=== PATIENT | female | born 1980 | race Caucasian/White ===

== ENCOUNTER → 2020-05-07 13:38 | Outpatient (BNV) | payer MEDICARE, OTHER, MEDICAID, SELFPAY | PROVIDERS: PCP Internal Medicine; Visit Provider Internal Medicine Medical Oncology | DX: D72.819 Decreased white blood cell count, unspecified (principal) | CPT/HCPCS: 99212; 99213; 99214 ==

== ENCOUNTER 2020-06-01 16:58 | Outpatient (REF) | payer OTHER, SELFPAY | END 2020-06-01 16:59 | disposition home or self-care (01) | LOC: HO.LAB 16:58 | PROVIDERS: Visit Provider Nurse Practitioner Family | DX: R07.0 Pain in throat (principal); R21 Rash and other nonspecific skin eruption; Z20.822 Contact with and (suspected) exposure to COVID-19 | CPT/HCPCS: 36415; U0003; U0005 ==

== ENCOUNTER 2020-07-30 10:21 | Outpatient (REF) | payer OTHER, SELFPAY ==
--- NOTE | ~2020-07-30 | XR_ITS ---
EXAMINATION: XR CHEST CLINICAL INFORMATION: Chest pain COMPARISON: Previous chest x-ray September 2017 TECHNIQUE: 2 views of the chest were obtained. FINDINGS: No significant abnormality is noted involving the heart, lungs, mediastinum, bony thorax or soft tissues. XR/XR chest 2V IMPRESSION: Unremarkable examination.
--- NOTE | 2020-07-30 10:26 | ECG_ITS ---
Test Reason : CHEST PAIN Blood Pressure : / mmHG Vent. Rate : 087 BPM Atrial Rate : 087 BPM P-R Int : 146 ms QRS Dur : 086 ms QT Int : 362 ms P-R-T Axes : 034 070 055 degrees QTc Int : 435 ms Normal sinus rhythm Normal ECG When compared with ECG of 07-AUG-2018 11:46, No significant change was found Referred By: Jarrod Crenshaw Electronically Signed By:NATHAN CAAL MD
[2020-07-30 11:13] LABS: MANUAL DIFF FLAG NO
[2020-07-30 11:40] LABS: Basophils Percent Auto 0.6 % (0-2); Eosinophils Absolute Auto 0.2 X10*3/uL (0.0-0.4); Eosinophils Percent Auto 6.6 % (0-4); Hematocrit 39.7 % (37-47); Hemoglobin 13.4 g/dl (12.0-16.0); Imm Gran Abs Auto 0.02 X10*3/uL (0.00-0.03); Imm Gran Pct Auto 0.6 % (0.0-0.4); Lymphocytes Absolute Auto 1.6 X10*3/uL (1.2-4.9); Lymphocytes Percent Auto 44.7 % (20-40); Mean Corpuscular HGB Conc 33.8 g/dl (31.0-35.0); Mean Corpuscular Hemoglobin 33.3 pg (27.0-33.0); Mean Corpuscular Volume 98.8 fL (80-98); Mean Platelet Volume 10.9 fL (9.4-12.3); Monocytes Absolute Auto 0.5 X10*3/uL (0.1-1.2); Monocytes Percent Auto 14.5 % (2-11); Neutrophils Absolute Auto 1.2 X10*3/uL (2.0-8.3); Platelet Count 153 X10*3/uL (160-400); Red Blood Count 4.02 X10*6/uL (4.20-5.50); Red Cell Distribution Width 14.2 % (11.0-16.0); White Blood Count 3.5 X10*3/uL (4.8-10.8)
[2020-07-30 11:44] LABS: Alanine Aminotransferase 38 U/L (0-31); Albumin Level 3.8 g/dL (3.5-5.0); Alkaline Phosphatase 94 U/L (39-117); Anion Gap 12 (12-20); Aspartate Amino Transferase 32 U/L (5-31); Bilirubin Total 0.4 mg/dL (0.0-1.0); Blood Urea Nitrogen 11 mg/dL (9-16); Calcium 9.5 mg/dL (8.4-10.2); Carbon Dioxide 26 mmol/L (22-29); Chloride 105 mmol/L (96-108); Cholesterol 220 mg/dL; Estimated Glomerular Filt Rate > 60; Glucose Random 124 mg/dL (60-115); HDL Cholesterol 50 mg/dL; LDL Cholesterol Calculated 133 mg/dl; Potassium 4.3 mmol/L (3.3-5.1); Sodium 139 mmol/L (135-145); Total Protein 8.2 g/dL (6.5-8.0); Triglycerides 186 mg/dL
[2020-07-30 11:53] LABS: Estimated Average Glucose 111 mg/dL; Hemoglobin A1c % 5.5 %
[2020-07-30 11:54] LABS: Estimated Average Glucose 111 mg/dL; Hemoglobin A1c % 5.5 %
[2020-07-30 12:00] LABS: Alanine Aminotransferase 38 U/L (0-31); Albumin Level 3.8 g/dL (3.5-5.0); Alkaline Phosphatase 95 U/L (39-117); Anion Gap 11 (12-20); Aspartate Amino Transferase 32 U/L (5-31); Bilirubin Total 0.4 mg/dL (0.0-1.0); Blood Urea Nitrogen 11 mg/dL (9-16); Calcium 9.7 mg/dL (8.4-10.2); Carbon Dioxide 26 mmol/L (22-29); Chloride 106 mmol/L (96-108); Estimated Glomerular Filt Rate > 60; Free T4 (Free Thyroxine) 0.91 ng/dL (0.71-1.85); Glucose Random 125 mg/dL (60-115); Potassium 4.3 mmol/L (3.3-5.1); Sodium 139 mmol/L (135-145); Thyroid Stimulating Hormone 0.88 uIU/mL (0.32-4.0); Total Protein 8.2 g/dL (6.5-8.0)
[2020-07-30 12:05] LABS: Free T4 (Free Thyroxine) 0.92 ng/dL (0.71-1.85); Thyroid Stimulating Hormone 0.76 uIU/mL (0.32-4.0)
[2020-07-30 12:06] LABS: Vitamin B12 420 pg/mL (200-900)
[2020-07-31 05:12] LABS: Triiodothyronine T3 Total 128 ng/dL (76-181)
[2020-07-31 05:36] LABS: DHEA Sulfate 109 mcg/dL (19-231); Sex Hormone Binding Globulin 38 nmol/L (17-124)
[2020-07-31 06:01] LABS: Follicle Stimulating Hormone 63.6 mIU/mL; Lutenizing Hormone 30.9 mIU/mL; Prolactin 5.5 ng/mL
[2020-08-02 17:36] LABS: Anti-Mullerian Hormone-Female 0.01 ng/mL (0.01-2.99)
[2020-08-03 20:57] LABS: Androstenedione 139 ng/dL
[2020-08-04 18:42] LABS: Estradiol Ultra Sensitive 45 pg/mL
[2020-08-04 21:57] LABS: 21 Hydroxylase Antibody NEGATIVE (NEGATIVE)
[2020-08-05 01:56] LABS: Estradiol Free 0.85 pg/mL; Estradiol, Ultrasensitive 43 pg/mL
[2020-08-05 18:07] LABS: Testosterone, Free 4.5 pg/mL (0.1-6.4); Testosterone, Total 36 ng/dL (2-45)
== END 2020-07-30 10:22 | disposition home or self-care (01) ==
LOC: HO.XRAY 10:21
PROVIDERS: Internal Medicine; PCP Internal Medicine; Visit Provider Internal Medicine
DX: R07.9 Chest pain, unspecified (principal); E78.00 Pure hypercholesterolemia, unspecified; N91.2 Amenorrhea, unspecified
CPT/HCPCS: 36415; 71046; 80053; 80061; 82157; 82306; 82397; 82607; 82627; 82670; 82681; 82746; 83001; 83002; 83036; 83498; 83519; 84146; 84270; 84402; 84403; 84439; 84443; 84480; 85025; 93005

== ENCOUNTER → 2020-08-16 15:18 | Outpatient (BNVA) | payer OTHER, SELFPAY | PROVIDERS: PCP Internal Medicine; Visit Provider Internal Medicine ==

== ENCOUNTER 2020-09-17 13:50 | Outpatient (REF) | payer OTHER, SELFPAY ==
--- NOTE | ~2020-09-17 | US_ITS ---
EXAMINATION: US THYROID CLINICAL INFORMATION: Thyrotoxicosis with diffuse goiter. COMPARISON: Ultrasound thyroid soft tissues neck 11/20/2019 and 03/18/2018. TECHNIQUE: Linear transducer grayscale and color Doppler examination with attention to the region of the thyroid. FINDINGS: SIZE: Measurements of the thyroid lobes and nodules are given in sagittal, anteroposterior and transverse dimensions respectively. Right Thyroid Lobe: 5.2 x 2.3 x 1.5 cm, volume 9.5 mL. Previously 4.7 x 2.1 x 1.9 cm, volume 9.8 mL. Parenchyma: The gland echotexture is homogeneous. Thyroid vascularity is normal. Left Thyroid Lobe: 4.8 x 2.1 x 1.4 cm, volume 7.4 mL. Previously 4.4 x 2.1 x 1.7 cm, volume 8.3 mL. Parenchyma: The gland echotexture is homogeneous. Thyroid vascularity is normal. Isthmus: 0.68 cm in maximum AP dimension. Previously 0.70 cm. Estimated total number of nodules greater than or equal to 1 cm: 0. Subscription Clerk nodules are described as follows: NODES: No lymphadenopathy is seen in the tissue surrounding the thyroid gland. There is fullness of the soft tissues in the right neck superior to the thyroid gland. No solid or cystic mass, fluid collection or lymph node is seen. US/US thyroid IMPRESSION: Asymmetric fullness of the soft tissues of the right neck superior to the thyroid gland in the area of palpable abnormality. No focal solid or cystic lesion or lymph node seen. Upper normal-sized thyroid gland. The previously identified small cystic nodule in the left lobe on November 2019 exam is no longer seen. ACR TI-RADS RECOMMENDATION REFERENCE: Ultrasound-guided fine-needle aspiration, followup ultrasound, no further follow up. * TR1 (0 point) and TR 2 (2 points): No FNA or follow up * TR3 (3 points): FNA if more than or equal to 2.5 cm in maximum dimension, followup ultrasound in 1, 3 and 5 years if 1.5 to 2.4 cm in maximum dimension. * TR4 (4-6 points): FNA if more than or equal to 1.5 cm in maximum dimension, followup ultrasound in 1, 2, 3 and 5 years if 1 to 1.4 cm in maximum dimension. * TR5 (more than or equal to 7 points): FNA if more than or equal to 1 cm in maximum dimension, followup ultrasound every year for 5 years if 0.5 to 0.9 cm in maximum dimension. * TR3, TR4 or TR5 nodules that are below the size threshold for follow up receive no follow up.
== END 2020-09-17 13:51 | disposition home or self-care (01) ==
LOC: HO.HMGCX 13:50
PROVIDERS: PCP Internal Medicine; Visit Provider Internal Medicine
DX: E05.00 Thyrotoxicosis with diffuse goiter without thyrotoxic crisis or storm (principal)
CPT/HCPCS: 76536

== ENCOUNTER → 2020-12-09 14:14 | Outpatient (BNVA) | payer OTHER, SELFPAY | PROVIDERS: PCP Internal Medicine; Visit Provider Surgery Vascular Surgery | DX: I83.11 Varicose veins of right lower extremity with inflammation (principal) | CPT/HCPCS: 99212 ==

== ENCOUNTER 2021-01-05 11:01 | Outpatient (REF) | payer OTHER, SELFPAY ==
--- NOTE | ~2021-01-05 | US_ITS ---
EXAMINATION: BILATERAL LOWER EXTREMITY VENOUS ULTRASOUND (REFLUX EXAM) CLINICAL INDICATION: Lower extremity varicose veins. History of prior right great saphenous vein ablation. COMPARISON: 10/26/2017 TECHNIQUE: Color flow triplex imaging and compression Doppler was performed to evaluate both the deep and the superficial systems bilaterally. To evaluate the superficial system, the examination was performed in the upright position. Color-flow Doppler ultrasound and compression ultrasound were utilized. In addition, maneuvers were utilized to demonstrate reflux. FINDINGS: 1. DEEP VENOUS ULTRASOUND OF THE RIGHT LOWER EXTREMITY: Common Femoral Vein: Compressible, normal respiratory variation and augmented flow. Femoral vein: Compressible, normal color flow and augmentation. Popliteal Vein: Compressible, normal augmentation. Deep Reflux: There is no evidence of reflux in the deep system in either the common femoral vein or the popliteal vein. There is no evidence of a Pearson's cyst. 2. SUPERFICIAL ULTRASOUND WITH DOPPLER OF RIGHT LOWER EXTREMITY GREAT SAPHENOUS VEIN: Saphenofemoral junction: 0.8 cm; Reflux: No evidence of reflux. The great saphenous vein from the proximal thigh to the knee is occluded consistent with prior treatment. DUPLICATED MEDIAL GREAT SAPHENOUS VEIN: None Imaged. DUPLICATED LATERAL GREAT SAPHENOUS VEIN: None Imaged. SMALL SAPHENOUS VEIN: Saphenopopliteal junction: 0.2 cm; Reflux: No evidence of reflux. VEIN OF GIACOMINI: None Imaged. PERFORATORS: Location: Proximal and midcalf measuring up to 3 mm without evidence of reflux. Reflux: No reflux identified. VARICOSITIES: Location: Arising from the small saphenous vein and within the proximal thigh at the saphenofemoral junction. Reflux: There is greater than 3 seconds of reflux within the varicosity arising at the saphenofemoral junction. 3. DEEP VENOUS ULTRASOUND OF THE LEFT LOWER EXTREMITY: Common Femoral Vein: Compressible, normal respiratory variation and augmented flow. Femoral vein: Compressible, normal color flow and augmentation. Popliteal Vein: Compressible, normal augmentation. Deep Reflux: There is no evidence of reflux in the deep system in either the common femoral vein or the popliteal vein. There is no evidence of a Pearson's cyst. 4. SUPERFICIAL ULTRASOUND WITH DOPPLER OF LEFT LOWER EXTREMITY GREAT SAPHENOUS VEIN: Saphenopopliteal junction: 0.6 cm; Reflux: No evidence of reflux. Max diameter: 0.6 Min diameter: 0.2 Reflux: There is segmental reflux at the mid thigh up to 3.4 seconds. DUPLICATED MEDIAL GREAT SAPHENOUS VEIN: None Imaged. DUPLICATED LATERAL GREAT SAPHENOUS VEIN: 0.4 cm. No reflux. SMALL SAPHENOUS VEIN: Saphenofemoral junction: 0.3 cm; Reflux: No evidence of reflux. VEIN OF GIACOMINI: None Imaged. PERFORATORS: Location: Midcalf measuring 0.2 cm. Reflux: No reflux. VARICOSITIES: Location: Proximal thigh, mid thigh and proximal calf. All varicosities measure greater than 3 mm. Reflux: Reflux is demonstrated within the varicosities of the thigh measuring up to 3.3 seconds. 3. DEEP VENOUS ULTRASOUND OF THE LEFT LOWER EXTREMITY: Common Femoral Vein: Compressible, normal respiratory variation and augmented flow. Femoral vein: Compressible, normal color flow and augmentation. Popliteal Vein: Compressible, normal augmentation. Deep Reflux: There is no evidence of reflux in the deep system in either the common femoral vein or the popliteal vein. There is no evidence of a Pearson's cyst. US/US venous duplex LE BI IMPRESSION: 1. Bilateral refluxing varicosities. 2. Segmental reflux within the left great saphenous vein at the mid thigh. 3. No evidence of DVT or deep venous insufficiency.
== END 2021-01-05 11:02 | disposition home or self-care (01) ==
LOC: HO.US 11:01
PROVIDERS: PCP Internal Medicine; Visit Provider Surgery Vascular Surgery
DX: I83.893 Varicose veins of bilateral lower extremities with other complications (principal)
CPT/HCPCS: 93970

== ENCOUNTER → 2021-01-13 15:38 | Outpatient (BNVA) | payer OTHER, SELFPAY | PROVIDERS: PCP Internal Medicine; Visit Provider Surgery Vascular Surgery | DX: I83.11 Varicose veins of right lower extremity with inflammation (principal) | CPT/HCPCS: 99212 ==

== ENCOUNTER 2021-01-20 12:40 | Outpatient (REF) | payer OTHER, SELFPAY ==
--- NOTE | ~2021-01-20 | XR_ITS ---
EXAMINATION: XR CHEST CLINICAL INFORMATION: R07.9 - Chest pain, unspecified COMPARISON: Chest radiographs 07/30/2020, 10/01/2017 TECHNIQUE: 2 views of the chest were obtained. FINDINGS: The lungs are clear. There is no pneumothorax, pleural reaction, infiltrate, or effusion. The costophrenic sulci are well-defined. The heart is normal in size. The hilar and mediastinal contours and visualized bony structures are unremarkable. XR/XR chest 2V IMPRESSION: Unremarkable examination.
== END 2021-01-20 12:41 | disposition home or self-care (01) ==
LOC: HO.XRAY 12:40
PROVIDERS: PCP Internal Medicine; Visit Provider Internal Medicine
DX: R07.9 Chest pain, unspecified (principal)
CPT/HCPCS: 71046

== ENCOUNTER 2021-06-02 12:01 | Outpatient (REF) | payer OTHER, SELFPAY ==
[2021-06-02 13:26] LABS: Free T4 (Free Thyroxine) 0.98 ng/dL (0.71-1.85); Thyroid Stimulating Hormone 0.88 uIU/mL (0.32-4.0)
[2021-06-03 06:31] LABS: Follicle Stimulating Hormone 121.1 mIU/mL; Lutenizing Hormone 51.2 mIU/mL
[2021-06-11 01:46] LABS: Estradiol Free 0.26 pg/mL; Estradiol, Ultrasensitive 13 pg/mL
== END 2021-06-02 12:02 | disposition home or self-care (01) ==
LOC: HO.LAB 12:01
PROVIDERS: PCP Internal Medicine; Visit Provider Internal Medicine
DX: E05.00 Thyrotoxicosis with diffuse goiter without thyrotoxic crisis or storm (principal); E55.9 Vitamin D deficiency, unspecified; N95.1 Menopausal and female climacteric states
CPT/HCPCS: 36415; 82306; 82670; 82681; 83001; 83002; 84439; 84443

== ENCOUNTER 2021-06-11 10:24 | Outpatient (REF) | payer OTHER, SELFPAY ==
--- NOTE | ~2021-06-11 | MM_ITS ---
EXAMINATION: MM SCREENING DIGITAL BREAST TOMOSYNTHESIS, BILATERAL CLINICAL INFORMATION: Screening. Asymptomatic. Autoimmune condition with numerous skin lesions. The lifetime risk of breast cancer based on the Tyrer-Cuzick Model is 9%. COMPARISON: Mammography: 10/31/2018 (baseline). TECHNIQUE: Digital breast tomosynthesis is performed in both the craniocaudal and mediolateral oblique views along with computer-aided detection (CAD). Synthesized 2D images are generated from the tomosynthesis. FINDINGS: There are scattered areas of fibroglandular density (ACR BI-RADS breast composition Category b). There are multiple new bilateral irregular masses with spiculated margins in each breast. Left breast has 3 new irregular dominant masses central and upper outer breast. The largest is anterior 6:00 position measuring 1.3 x 0.6 cm. There is a irregular spiculated lesion anterior central 3:00 left breast measuring 0.8 x 0.7 cm with a small adjacent satellite lesion approximately 0.4 cm at the posterior aspect. The smallest lesion is mid upper outer quadrant measuring approximately 0.8 x 0.7 cm. There are no abnormal calcifications. The axilla and skin contours are unremarkable. Right breast has 2 irregular masses mid 12:00 position, the more medial measuring 1.9 x 0.5 cm and the adjacent more lateral measuring approximately 1.1 x 0.7 cm. There is also a 0.6 x 0.4 cm nodule with incompletely defined margins overlying the anterior low axillary tail on MLO view 11 cm from nipple. There are no abnormal calcifications. The axilla and skin contours are unremarkable. MM/MM tomosynthesis screening BI IMPRESSION: New bilateral multiple breast masses with spiculated margins. ASSESSMENT: BI-RADS 0: Incomplete - Need Additional Imaging Evaluation RECOMMENDATION: 1. Bilateral spot CC and spot ML. 2. Bilateral breast ultrasound. 3. Radiology department staff will contact the patient for additional imaging. This patient's information was entered into a reminder system with a target due date for their next mammogram.
== END 2021-06-11 10:25 | disposition home or self-care (01) ==
LOC: HO.MAMMO 10:24
PROVIDERS: Visit Provider Internal Medicine
DX: Z12.31 Encounter for screening mammogram for malignant neoplasm of breast (principal)
CPT/HCPCS: 77063; 77067

== ENCOUNTER 2021-06-22 10:50 | Outpatient (REF) | payer OTHER, SELFPAY ==
--- NOTE | ~2021-06-22 | MM_ITS ---
EXAMINATION: MM DIAGNOSTIC DIGITAL BREAST TOMOSYNTHESIS, BILATERAL TARGETED BILATERAL BREAST ULTRASOUND CLINICAL INFORMATION: Bilateral breast densities. Patient has Graves' disease, hyperthyroidism, and rheumatoid arthritis. COMPARISON: Mammography: 06/11/2021 and 10/31/2018. TECHNIQUE: Digital breast tomosynthesis is performed. 2D images are generated from the tomosynthesis. The following views are obtained: Spot compression views in craniocaudal and 90 degree mediolateral views bilaterally. FINDINGS: There are scattered areas of fibroglandular density (ACR BI-RADS breast composition Category b). Additional views of the right breast demonstrate two ill-defined densities about the superior aspect without associated microcalcifications. Views of the left breast demonstrate four ill-defined densities about the central and upper outer aspects. Ultrasound of the right breast demonstrates at the 1 o'clock position approximately 4 cm from the nipple an 8 x 4 mm hypoechoic region with a hyperechoic outer margin. There is some distal sound shadowing associated with this. There are a few other similar-appearing lesions in the vicinity. Left breast ultrasound demonstrated multiple similar-appearing lesions with hypoechoic central regions which are not well-defined as well as an outer hyperechoic area. At the 1 o'clock position 4 cm from nipple there is a 10 x 5 x 1.4 cm lesion. At the 4 o'clock position approximately 3 cm from nipple there is a 10 x 6 x 8 mm lesion. At the 5 o'clock position 3 cm from nipple there is a 10 x 5 x 8 mm similar-appearing lesion. A few of the lesions appear taller than they are wide and have internal vascular flow. These lesions are likely related to same systemic process. Ultrasound-guided core biopsy of one of the left breast lesions is recommended. Results are discussed with the patient at time of visit. Referring provider's office was called by breast center patient navigator. MM/MM tomosynthesis added view BI IMPRESSION: Numerous bilateral irregular lesions with hypoechoic central areas and hyperechoic rims likely related to patient's systemic disease. Ultrasound-guided core biopsy of one of the left breast lesions is suggested for pathologic correlation. ASSESSMENT: BI-RADS 4: Suspicious (subcategory 4A: Low suspicion for malignancy). RECOMMENDATION: Ultrasound-guided core biopsy left breast.
--- NOTE | ~2021-06-22 | US_ITS ---
EXAMINATION: MM DIAGNOSTIC DIGITAL BREAST TOMOSYNTHESIS, BILATERAL US BREAST, BILATERAL, TARGETED CLINICAL INFORMATION: Bilateral breast densities. Patient has Graves' disease, hyperthyroidism, and rheumatoid arthritis. COMPARISON: Mammography: 06/11/2021 and 10/31/2018. TECHNIQUE: Digital breast tomosynthesis is performed. 2D images are generated from the tomosynthesis. The following views are obtained: Spot compression views in craniocaudal and 90 degree mediolateral views bilaterally. FINDINGS: There are scattered areas of fibroglandular density (ACR BI-RADS breast composition Category b). Additional views of the right breast demonstrate 2 ill-defined densities about the superior aspect without associated microcalcifications. Views of the left breast demonstrate 4 ill-defined densities about the central and upper outer aspects. Ultrasound of the right breast demonstrates at the 1 o'clock position approximately 4 cm from the nipple an 8 x 4 mm hypoechoic region with a hyperechoic outer margin. There is some distal sound shadowing associated with this. There are a few other similar appearing lesions in the vicinity. Left breast ultrasound demonstrated multiple simple appearing lesions with hypoechoic central regions which are not well-defined as well as an outer hyperechoic area. At the 1 o'clock position 4 cm from the nipple there is a 10 x 5 x 1.4 cm lesion. At the 4 o'clock position approximately 3 cm from the nipple there is a 10 x 6 x 8 mm lesion. At the 5 o'clock position 3 cm from nipple there is a 10 x 5 x 8 mm similar-appearing lesion. A few of the lesions appear irregularly marginated with hyperechoic margins and have internal vascular flow. These lesions are likely related to the same systemic process. Ultrasound-guided core biopsy of one of the left breast lesions is recommended. US/US breast LT limited IMPRESSION: Numerous bilateral irregular lesions with hypoechoic central areas and hyperechoic rims likely related to patient's systemic disease. This may be related to fat necrosis. Ultrasound-guided core biopsy of one of the left breast lesions is suggested for pathologic correlation. ASSESSMENT: BI-RADS 4: Suspicious (subcategory 4A: Low suspicion for malignancy) RECOMMENDATION: Ultrasound guided core biopsy left breast. Results are discussed with the patient at time of visit. Referring provider's office was called by breast Center patient navigator.
--- NOTE | ~2021-06-22 | US_ITS ---
EXAMINATION: MM DIAGNOSTIC DIGITAL TOMOSYNTHESIS, BREAST. BILATERAL US BREAST, BILATERAL, TARGETED CLINICAL INFORMATION: Bilateral breast densities. Patient has Graves' disease, hyperthyroidism, and rheumatoid arthritis. COMPARISON: Mammography: 06/11/2021 and 10/31/2018. TECHNIQUE: Digital breast tomosynthesis is performed. 2D images are generated from the tomosynthesis. The following views are obtained: Spot compression views in craniocaudal and 90 degree mediolateral views bilaterally. FINDINGS: There are scattered areas of fibroglandular density (ACR BI-RADS breast composition Category b). Additional views of the right breast demonstrate 2 ill-defined densities about the superior aspect without associated microcalcifications. Views of the left breast demonstrate 4 ill-defined densities about the central and upper outer aspects. Ultrasound of the right breast demonstrates at the 1 o'clock position approximately 4 cm from the nipple an 8 x 4 mm hypoechoic region with a hyperechoic outer margin. There is some distal sound shadowing associated with this. There are a few other similar appearing lesions in the vicinity. Left breast ultrasound demonstrated multiple simple appearing lesions with hypoechoic central regions which are not well-defined as well as an outer hyperechoic area. At the 1 o'clock position 4 cm from the nipple there is a 10 x 5 x 1.4 cm lesion. At the 4 o'clock position approximately 3 cm from the nipple there is a 10 x 6 x 8 mm lesion. At the 5 o'clock position 3 cm from nipple there is a 10 x 5 x 8 mm similar-appearing lesion. A few of the lesions appear taller than wide and have internal vascular flow. These lesions are likely related to the same systemic process. Ultrasound-guided core biopsy of one of the left breast lesions is recommended. US/US breast RT limited IMPRESSION: Numerous bilateral irregular lesions with hypoechoic central areas and hyperechoic rims likely related to patient's systemic disease. These may represent regions of fat necrosis. Ultrasound-guided core biopsy of one of the left breast lesions is suggested for pathologic correlation. ASSESSMENT: BI-RADS 4: Suspicious (subcategory 4A: Low suspicion for malignancy) RECOMMENDATION: Ultrasound guided core biopsy left breast. Results are discussed with the patient at time of visit. Referring provider's office was called by breast Center patient navigator.
[2021-06-24 12:55] LABS: TS Negative Control Passed; TS Panel A 1; TS Panel B 3; TS Positive Control Passed; TSpotTB Negative (Negative)
== END 2021-06-22 10:51 | disposition home or self-care (01) ==
LOC: HO.MAMMO 10:50
PROVIDERS: Absent Provider Internal Medicine Medical Oncology; PCP Internal Medicine; Visit Provider Internal Medicine
DX: Z11.1 Encounter for screening for respiratory tuberculosis (principal); R92.2 Inconclusive mammogram
CPT/HCPCS: 36415; 76642; 77062; 77066; 86481

== ENCOUNTER → 2021-06-23 13:35 | Outpatient (BNVA) | payer OTHER, SELFPAY | PROVIDERS: PCP Internal Medicine; Visit Provider Internal Medicine | DX: E05.00 Thyrotoxicosis with diffuse goiter without thyrotoxic crisis or storm (principal); E55.9 Vitamin D deficiency, unspecified; D70.9 Neutropenia, unspecified; N95.1 Menopausal and female climacteric states | CPT/HCPCS: 99212 ==

== ENCOUNTER 2021-06-28 09:10 | Outpatient (REF) | payer OTHER, SELFPAY ==
--- NOTE | ~2021-06-28 | MM_ITS ---
EXAMINATION: ULTRASOUND GUIDED CORE BIOPSY BREAST, LEFT POST PROCEDURE DIGITAL BREAST TOMOSYNTHESIS, LEFT CLINICAL INFORMATION: New bilateral multiple irregular breast lesions. Autoimmune condition with numerous skin lesions, Graves' disease, scleritis, leukopenia, and MGUS. Ultrasound shows similar appearing lesions, irregular hypoechoic with surrounding hyperechogenicity. COMPARISON: Mammography 06/11/2021, 10/31/2018 (baseline), 06/22/2021, breast ultrasound 06/22/2021. FINDINGS: Proper informed consent is obtained from the patient after discussion of the procedure, potential risks and complications, and alternatives. Patient was given an opportunity for questions. The patient appeared to understand. The patient consented to the procedure and signed the consent form. GUIDANCE: Ultrasound-guided; aseptic technique. LESION: Irregular mass mid 3:00 left breast, similar in appearance other lesions on recent imaging. APPROACH: Oblique lateral medial. ANESTHESIA: 16 mL carbonated 1% lidocaine. DERMATOTOMY: Single skin yaneli dermatotomy performed. NEEDLE: 14-gauge Achieve core biopsy device with 13.5-gauge co-axial guide needle. CORES: 5. CLIP: HydroMARK; shape: butterfly. POST PROCEDURE DIGITAL BREAST TOMOSYNTHESIS, LEFT: The post biopsy mammogram is performed in separate room using separate digital breast tomosynthesis equipment from the biopsy procedure. CC and ML views are obtained. Synthesized 2-D images are generated from the tomography. There are scattered areas of fibroglandular density (breast composition category: b). Scattered irregular lesions are again noted as recently described. Biopsy clip marker overlies the spiculated mass mid 3:00 position. No gross hematoma. The patient tolerated the procedure well. No immediate complications. Home instructions reviewed with the patient. Final pathology results are pending. MM/MM tomosynthesis diagnostic LT IMPRESSION: 1. Status post ultrasound-guided core biopsy left breast. 2. Clip placed: HydroMARK; shape: butterfly. 3. Pathology pending. An addendum report will be issued.
[2021-06-28] MEDS: Sodium Bicarbonate 8.4% 50 MEQ/50 ML VIAL SUBCUT (11:17)
[2021-06-28] MEDS: Lidocaine HCl 1 % 20 ML VIAL 14 ML SUBCUT (11:18)
== END 2021-06-28 09:11 | disposition home or self-care (01) ==
LOC: HO.MAMMO 09:10
PROVIDERS: Visit Provider Surgery
DX: N63.21 Unspecified lump in the left breast, upper outer quadrant (principal); Z13.820 Encounter for screening for osteoporosis; Z78.0 Asymptomatic menopausal state
CPT/HCPCS: 19083; 77061; 77065; 88305; 88312; 88341; 88342; 99202

== ENCOUNTER → 2021-07-04 09:56 | Outpatient (BNVA) | payer OTHER, SELFPAY | PROVIDERS: PCP Internal Medicine; Referring Provider Internal Medicine; Visit Provider Surgery | DX: R92.8 Other abnormal and inconclusive findings on diagnostic imaging of breast (principal) | CPT/HCPCS: 99212 ==

== ENCOUNTER 2021-07-06 09:56 | Outpatient (REF) | payer OTHER, SELFPAY | END 2021-07-06 09:57 | disposition home or self-care (01) | LOC: HO.MDS 09:56 | PROVIDERS: PCP Internal Medicine; Visit Provider Internal Medicine Medical Oncology | DX: M06.9 Rheumatoid arthritis, unspecified (principal) | CPT/HCPCS: 96413; 96415; Q5103 ==

== ENCOUNTER 2021-07-07 11:32 | Outpatient (REF) | payer OTHER, SELFPAY ==
--- NOTE | ~2021-07-07 | MM_ITS ---
EXAMINATION: MM DIAGNOSTIC DIGITAL BREAST TOMOSYNTHESIS, LEFT CLINICAL INFORMATION: Left breast pain. Recent ultrasound guided biopsy 06/28/2021 (granulomatous mastitis with fat necrosis). Known autoimmune condition with numerous skin lesions, Graves' disease, scleritis, leukopenia, arthritis, and MGUS. COMPARISON: Mammography: 06/28/2021, 06/22/2021, 06/11/2021. TECHNIQUE: Digital breast tomosynthesis is performed in both the craniocaudal and mediolateral oblique views along with computer-aided detection (CAD). Synthesized 2D images are generated from the tomosynthesis. FINDINGS: There are scattered areas of fibroglandular density (ACR BI-RADS breast composition Category b). The breast parenchymal pattern is similar to prebiopsy mammography 06/11/2021. There are scattered irregular dominant lesions again seen corresponding to the granulomatous mastitis with fat necrosis. The lesion at anterior 3:00 position has central biopsy clip marker. There is no skin thickening or coarsening of the Matteo's ligaments or interval focal duct ectasia or other focal inflammatory changes. Clinical evaluation left breast demonstrates good healing biopsy site. No erythema or discharge. Results are discussed with the patient at time of visit. MM/MM tomosynthesis diagnostic LT IMPRESSION: No significant changes from prior imaging. ASSESSMENT: BI-RADS 3: Probably Benign RECOMMENDATION: 1. Continue with current treatment plan for autoimmune condition. 2. Bilateral diagnostic mammography due in 6 months. This patient's information was entered into a reminder system with a target due date for their next mammogram.
== END 2021-07-07 11:33 | disposition home or self-care (01) ==
LOC: HO.MAMMO 11:32
PROVIDERS: Visit Provider Surgery
DX: N64.4 Mastodynia (principal)
CPT/HCPCS: 77061; 77065

== ENCOUNTER 2021-07-20 10:22 | Outpatient (REF) | payer OTHER, SELFPAY | END 2021-07-20 10:23 | disposition home or self-care (01) | LOC: HO.MDS 10:22 | PROVIDERS: PCP Internal Medicine; Visit Provider Internal Medicine Medical Oncology | DX: M06.9 Rheumatoid arthritis, unspecified (principal) | CPT/HCPCS: 96413; 96415; Q5103 ==

== ENCOUNTER → 2021-08-23 13:57 | Outpatient (BNVA) | payer OTHER, SELFPAY | PROVIDERS: PCP Internal Medicine; Referring Provider Internal Medicine; Visit Provider Surgery | DX: K43.2 Incisional hernia without obstruction or gangrene (principal) | CPT/HCPCS: 99202 ==

== ENCOUNTER 2021-10-04 11:02 | Outpatient (REF) | payer OTHER, SELFPAY ==
--- NOTE | ~2021-10-04 | XR_ITS ---
EXAMINATION: XR CHEST CLINICAL INFORMATION: Chest pain COMPARISON: None TECHNIQUE: 2 views of the chest were obtained. FINDINGS: No significant abnormality is noted involving the heart, lungs, mediastinum, bony thorax or soft tissues. XR/XR chest 2V IMPRESSION: Unremarkable chest examination.
--- NOTE | 2021-10-04 11:07 | ECG_ITS ---
Test Reason : [id number] Blood Pressure : / mmHG Vent. Rate : 077 BPM Atrial Rate : 077 BPM P-R Int : 158 ms QRS Dur : 086 ms QT Int : 374 ms P-R-T Axes : 045 073 055 degrees QTc Int : 423 ms Normal sinus rhythm Normal ECG When compared with ECG of 30-JUL-2020 09:33, No significant change was found Referred By: Pedro Phillips Electronically Signed By:Colton Castellanos
== END 2021-10-04 11:03 | disposition home or self-care (01) ==
LOC: HO.XRAY 11:02
PROVIDERS: PCP Internal Medicine; Visit Provider Internal Medicine
DX: R07.9 Chest pain, unspecified (principal)
CPT/HCPCS: 71046; 93005

== ENCOUNTER 2021-12-02 13:35 | Outpatient (REF) | payer OTHER, SELFPAY ==
--- NOTE | ~2021-12-02 | MM_ITS ---
EXAMINATION: MM DIAGNOSTIC DIGITAL BREAST TOMOSYNTHESIS, BILATERAL CLINICAL INFORMATION: Multiple bilateral irregular breast lesions for short interval six-month follow-up. Ultrasound-guided core biopsy left lesion 06/28/2021 consistent with granulomatous mastitis with fat necrosis. History systemic autoimmune condition with MGUS. Patient on prednisone. COMPARISON: Mammography: 07/07/2021, 06/28/2021, 06/22/2021, 06/11/2021, 10/31/2018; ultrasound-guided core biopsy left breast 06/28/2021, bilateral breast ultrasound 06/22/2021. TECHNIQUE: Digital breast tomosynthesis is performed in both the craniocaudal and mediolateral oblique views along with computer-aided detection (CAD). Synthesized 2D images are generated from the tomosynthesis. FINDINGS: There are scattered areas of fibroglandular density (ACR BI-RADS breast composition Category b). There are scattered bilateral irregular asymmetric densities, right side decreased from prior bilateral mammography 06/11/2021. Left breast has a biopsy clip marker overlying the asymmetric density mid 3:00 position consistent with the granulomatous mastitis with fat necrosis. The left asymmetric densities are stable to slightly decreased since bilateral mammography 06/11/2021. There is no new mass or interval architectural abnormality. No abnormal calcifications. The skin contours are smooth. No coarsening Matteo's ligaments. Results are discussed with the patient at time of visit. MM/MM tomosynthesis diagnostic BI IMPRESSION: Multiple bilateral asymmetric densities, slightly decreased since prior imaging 06/11/2021. ASSESSMENT: BI-RADS 3: Probably Benign RECOMMENDATION: Diagnostic mammography at time of annual bilateral exam, due in 6 months. This patient's information was entered into a reminder system with a target due date for their next mammogram.
== END 2021-12-02 13:36 | disposition home or self-care (01) ==
LOC: HO.MAMMO 13:35
PROVIDERS: PCP Internal Medicine; Visit Provider Internal Medicine
DX: R92.2 Inconclusive mammogram (principal)
CPT/HCPCS: 77062; 77066

== ENCOUNTER 2021-12-12 09:20 | Outpatient (REF) | payer OTHER, SELFPAY ==
--- NOTE | ~2021-12-12 | US_ITS ---
EXAMINATION: US VENOUS ULTRASOUND WITH DOPPLER LOWER EXTREMITY, RIGHT CLINICAL INFORMATION: Swelling COMPARISON: None TECHNIQUE: Ultrasound of the deep veins is performed from the hip to the calf with compression sonography and color and pulse Doppler assessment. Spectral analysis with color-flow imaging is performed. FINDINGS: There is normal venous compression and respiratory variation and augmented flow. The visualized common femoral vein, superficial femoral vein, profunda femoral vein, popliteal vein, and the trifurcation region shows no evidence of deep venous thrombosis. There is no significant popliteal fossa cyst. If the patient's symptoms persist, followup ultrasound in 5 days 7 days might be of value to exclude proximal propagation from a non-visualized calf vein. US/US venous duplex LE RT IMPRESSION: No DVT demonstrated in the right lower extremity.
[2021-12-12 09:51] LABS: MANUAL DIFF FLAG NO
[2021-12-12 10:27] LABS: Basophils Percent Auto 0.4 % (0-2); Eosinophils Absolute Auto 0.1 X10*3/uL (0.0-0.4); Eosinophils Percent Auto 1.5 % (0-4); Hematocrit 40.1 % (37.0-47.0); Imm Gran Abs Auto 0.01 X10*3/uL (0.00-0.03); Imm Gran Pct Auto 0.2 % (0.0-0.4); Lymphocytes Absolute Auto 2.1 X10*3/uL (1.2-4.9); Lymphocytes Percent Auto 46.8 % (20-40); Mean Corpuscular HGB Conc 34.9 g/dl (31.0-35.0); Mean Corpuscular Hemoglobin 32.7 pg (27.0-33.0); Mean Corpuscular Volume 93.7 fL (80.0-98.0); Mean Platelet Volume 9.9 fL (9.4-12.3); Monocytes Absolute Auto 0.6 X10*3/uL (0.1-1.2); Monocytes Percent Auto 13.6 % (2-11); Neutrophils Absolute Auto 1.7 x10*3/uL (2.0-8.3); Neutrophils Percent Auto 37.5 % (45-73); Platelet Count 142 X10*3/uL (160-400); Red Blood Count 4.28 X10*6/uL (4.20-5.50); White Blood Count 4.6 X10*3/uL (4.8-10.8)
[2021-12-12 10:43] LABS: Anion Gap 16 (12-20); Blood Urea Nitrogen 15 mg/dL (9-16); Calcium 9.4 mg/dL (8.4-10.2); Carbon Dioxide 28 mmol/L (22-29); Chloride 100 mmol/L (96-108); Estimated Glomerular Filt Rate 58; Glucose Random 120 mg/dL (60-115); Potassium 3.7 mmol/L (3.3-5.1); Sodium 140 mmol/L (135-145)
[2021-12-12 11:03] LABS: Free T4 (Free Thyroxine) 1.07 ng/dL (0.71-1.85); Vitamin D 25-OH Total 43.2 ng/mL (>30)
[2021-12-12 11:05] LABS: Thyroid Stimulating Hormone 1.58 uIU/mL (0.32-4.0)
[2021-12-12 11:34] LABS: Cortisol Random < 1.0 ug/dL
[2021-12-14 12:56] LABS: Adrenocorticotropic Hormone 6 pg/mL (6-50)
[2021-12-14 19:26] LABS: Follicle Stimulating Hormone 110.6 mIU/mL; Lutenizing Hormone 38.4 mIU/mL
[2021-12-14 21:16] LABS: DHEA Sulfate 8 mcg/dL (15-205)
[2021-12-18 03:18] LABS: Estradiol Ultra Sensitive 22 pg/mL
[2021-12-21 18:47] LABS: 21 Hydroxylase Antibody NEGATIVE (NEGATIVE)
[2021-12-22 21:38] LABS: Estradiol Free 0.45 pg/mL; Estradiol, Ultrasensitive 23 pg/mL
== END 2021-12-12 09:21 | disposition home or self-care (01) ==
LOC: HO.US 09:20
PROVIDERS: Absent Provider Internal Medicine; PCP Internal Medicine; Visit Provider Internal Medicine
DX: Z13.0 Encounter for screening for diseases of the blood and blood-forming organs and certain disorders involving the immune mechanism (principal); R60.0 Localized edema; R51.9 Headache, unspecified; N95.1 Menopausal and female climacteric states; E05.00 Thyrotoxicosis with diffuse goiter without thyrotoxic crisis or storm; E55.9 Vitamin D deficiency, unspecified
CPT/HCPCS: 36415; 80048; 82024; 82306; 82533; 82627; 82670; 82681; 83001; 83002; 83519; 84439; 84443; 85025; 93971

== ENCOUNTER 2021-12-19 10:14 | Outpatient (REF) | payer OTHER, SELFPAY ==
--- NOTE | ~2021-12-19 | XR_ITS ---
EXAMINATION: XR SOFT TISSUE NECK CLINICAL INDICATION: Foot pain COMPARISON: None TECHNIQUE: 2 views of the soft tissue neck were obtained. FINDINGS: There is maintained cervical lordosis. The vertebral heights, alignment appears normal. There is loss of C5-C6 and C6-C7 disc levels with mild ventral spondylosis. No visible acute fracture, dislocation or lytic process seen. The prevertebral soft tissues are normal. XR/XR soft tissue neck IMPRESSION: Mild degenerative disc changes C5-C6 and C6-C7 disc levels. No visible acute fracture or dislocation seen.
[2021-12-19 11:38] LABS: Erythrocyte Sedimentation Rate 19 MM/HR (0-20)
== END 2021-12-19 10:15 | disposition home or self-care (01) ==
LOC: HO.XRAY 10:14
PROVIDERS: PCP Internal Medicine; Visit Provider Internal Medicine
DX: R07.0 Pain in throat (principal)
CPT/HCPCS: 36415; 70360; 85652

== ENCOUNTER 2022-01-03 10:24 | Outpatient (REF) | payer OTHER, SELFPAY | END 2022-01-03 10:25 | disposition home or self-care (01) | LOC: HO.MDS 10:24 | PROVIDERS: Visit Provider Internal Medicine Medical Oncology | DX: D76.3 Other histiocytosis syndromes (principal) | CPT/HCPCS: 96365; 96366; 96375; J1200; J1569 ==

== ENCOUNTER 2022-01-04 10:36 | Outpatient (REF) | payer OTHER, SELFPAY | END 2022-01-04 10:37 | disposition home or self-care (01) | LOC: HO.MDS 10:36 | PROVIDERS: Visit Provider Internal Medicine Medical Oncology | DX: D76.3 Other histiocytosis syndromes (principal) | CPT/HCPCS: 96365; 96366; 96375; J1200; J1569 ==

== ENCOUNTER 2022-01-14 22:47 | Emergency (ER) | payer OTHER, SELFPAY ==
--- NOTE | ~2022-01-14 | US_ITS ---
EXAMINATION: US VENOUS ULTRASOUND WITH DOPPLER LOWER EXTREMITY, RIGHT CLINICAL INFORMATION: Pain, rule out DVT COMPARISON: 12/12/2021 TECHNIQUE: Ultrasound of the deep veins is performed from the hip to the calf with compression sonography and color and pulse Doppler assessment. Spectral analysis with color-flow imaging is performed. FINDINGS: There is normal venous compression and respiratory variation and augmented flow. The visualized common femoral vein, superficial femoral vein, profunda femoral vein, popliteal vein, and the trifurcation region shows no evidence of deep venous thrombosis. There is no significant popliteal fossa cyst. If the patient's symptoms persist, followup ultrasound in 5 days 7 days might be of value to exclude proximal propagation from a non-visualized calf vein. US/US venous duplex LE RT IMPRESSION: No DVT demonstrated in the right lower extremity.
[2022-01-14 22:52] VITALS: BP 159/90; PULSE 96; RESP 18; TEMP 37.2; O2SAT 100; BMI 34.4
[2022-01-14 23:39] LABS: Appearance Urine Clear; Color Urine Yellow; Glucose Urine UA Negative (Negative); Leukocyte Esterase Urine Negative (Negative); Nitrite Urine Negative (Negative); PH 6.5 (5.0-9.0); Specific Gravity - Urine 1.015 (1.005-1.025); UMIC TRIGGER UACC YES; Urine Blood Trace (Negative); Urine Ketones Negative (Negative); Urine Protein Negative (Neg-Trace)
--- OUTSIDE RECORDS SUMMARY | 2022-01-14 23:40 | XMS_ITS | Continuity of Care Document ---
:1980 Author Organization [address] [place] [id number]- Care Team Providers Name Role Phone Pedro Phillips MD Primary Care Physician [place] [facility] [place] 12/25/[address] [place] [id number] Attending Physician: Дмитрий Sanchez Admitting Physician: Admtr, Дмитрий Referring Physician: Admtr, Ar8 Allergies, Adverse Reactions, Alerts Substance Reaction Severity Status vancomycin red rash Active Keflex rash Active Medications acetaminophen 500 mg oral tablet 2 tablet = 1,000 mg, By Mouth, Every 4 hours, PRN for pain, # 120 tablet, 0 Refills, Maintenance, 01/02/19 14:03:53 EDT, Tablet Start Date: 01/02/19 Status: OrderedamLODIPine 2.5 mg oral tablet 2.5 mg, 1, tablet, By Mouth, Daily, Refills 0, Maintenance, 12/19/17 11:18:12 EDT Start Date: 12/19/17 Status: Orderedcyclobenzaprine 5 mg oral tablet 1 tablet = 5 mg, By Mouth, Daily, PRN, 0 Refills, Maintenance, 04/25/19 14:37:00 EST Start Date: 04/25/19 Status: Orderedibuprofen 200 mg oral capsule 4 Capsules, By Mouth, Every 4 hours, as needed, 0 Refills, Maintenance, 01/02/19 14:04:09 EDT Start Date: 01/02/19 Status: Orderedlisinopril 10 mg oral tablet 10 mg, 1, tablet, By Mouth, Daily, Refills 0, Maintenance, 12/19/17 11:18:28 EDT Start Date: 12/19/17 Status: OrderedoxyCODONE 10 mg oral tablet 0 Refills, Maintenance, 09/24/18 7:42:49 EDT Start Date: 09/24/18 Status: Orderedprednisolone ophthalmic acetate 1% suspension 1 drops, Eyes, Both, Daily, instill 1 drop into left eye twice a day Start Date: 09/24/18 Status: Ordered Problem List Condition Effective Dates Status Health Status Informant Obese class II(Confirmed) Active Subclinical hyperthyroidism(Confirmed) Active Social History Social History Type Response Smoking Status 10 or more cigarettes (1/2 p ack or more)/day in last 30 days entered on: 01/02/19 Sex Care Team PersonnelName: Jacqueline JO, Pedro Anaya Address: [address] [place] [id number]
--- OUTSIDE RECORDS SUMMARY | 2022-01-14 23:40 | XMS_ITS | Continuity of Care Document ---
:1980 Author Organization [address] [place] [address]- Care Team Providers Name Role Phone Pedro Phillips MD Primary Care Physician [place] [facility] [place] - 12/02/[address] [place] [address]- Attending Physician: Ivan Man MD Referring Physician: Pedro Phillips MD Allergies, Adverse Reactions, Alerts Substance Reaction Severity [...] Obese class II(Confirmed) Active Subclinical hyperthyroidism(Confirmed) Active Vital Signs Most recent to oldest [Reference Range]: 1 Height 164.5 cm (11/25/21 1:54 PM) Weight 98.8 kg (11/25/21 1:54 PM) Pulse Rate [55-90 bpm] 105 bpm *H* (11/25/21 1:54 PM) Body Mass Index [18.5-24.99] 36.51 *>HHI* (11/25/21 1:54 PM) Blood Pressure [90-138/55-84 mm Hg] 168/116 mm Hg *H* (11/25/21 1:54 PM) Respiratory Rate [16-30 br/min] 16 br/min (11/25/21 1:54 PM) Temperature [96.8-100.4 DegF] 98.9 DegF (11/25/21 1:54 PM) Blood pressure sites Arm, right (11/25/21 1:54 PM) Temperature Route Temporal (11/25/21 1:54 PM) Weight Obtained Via Standing scale (11/25/21 1:54 PM) Social History Social History Type Response Smoking Status 10 or more cigarettes (1/2 p ack or more)/day in last 30 days entered on: 01/02/19 Sex Care Team PersonnelName: Jacqueline JO, Pedro Anaya Address: [address] [place] [id number]-
--- OUTSIDE RECORDS SUMMARY | 2022-01-14 23:40 | XMS_ITS | Continuity of Care Document ---
:1980 Author Organization [facility] Address Unavailable , Care Team Providers Name Role Phone Jacqueline JO, Pedro Anaya Primary Care Physician Encounter [facility] [place] Date(s): 08/24/21 - 10/23/21 [facility] Attending Physician: Aleks Carranza Referring Physician: Not on Staff, Referring MD Allergies, Adverse Reactions, Alerts Substance Reaction [...] Condition Effective Dates Status Health Status Informant Subclinical hyperthyroidism(Confirmed) Active Social History Social History Type Response Smoking Status 10 or more cigarettes (1/2 p ack or more)/day in last 30 days entered on: 01/02/19 Sex
--- OUTSIDE RECORDS SUMMARY | 2022-01-14 23:40 | XMS_ITS | Continuity of Care Document ---
:1980 Author Organization [facility] Address Unavailable , Care Team Providers Name Role Phone Pedro Phillips MD Primary Care Physician En[place] [facility] [place](s): 09/22/21 - 10/28/21 [facility] Attending Physician: Aleks Carranza Referring Physician: Pedro Phillips MD Allergies, Adverse [...]
--- OUTSIDE RECORDS SUMMARY | 2022-01-14 23:40 | XMS_ITS | Continuity of Care Document ---
:1980 Author Organization [facility] Address [address] [place] [phone]- Care Team Providers Name Role Phone Pedro Phillips MD Primary Care Physician Encounter [facility] [place] Date(s): 11/14/19 - 12/21/[address] [address] [facility] Attending Physician: Asad Sheppard MD Admitting Physician: Asad Sheppard MD Referring Physician: Asad Sheppard MD Allergies, Adverse Reactions, Alerts Substance Reaction [...]
--- OUTSIDE RECORDS SUMMARY | 2022-01-14 23:40 | XMS_ITS | Continuity of Care Document ---
:1980 Author Organization [facility] Address Unavailable , Care Team Providers Name Role Phone Jacqueline JO, Pedro Anaya Primary Care Physician [place] [facility] [place] - 10/28/21 [facility] Allergies, Adverse Reactions, Alerts Substance Reaction Severity [...]
--- OUTSIDE RECORDS SUMMARY | 2022-01-14 23:40 | XMS_ITS | Continuity of Care Document ---
:1980 Author Organization [facility] Address [address] [place] [phone]- Care Team Providers Name Role Phone Jacqueline JO, Pedro Anaya Primary Care Physician Encounter [facility] [place] Date(s): 03/02/21 - 03/02/[address] [address] Attending Physician: Spencer Lin MD Allergies, Adverse Reactions, Alerts Substance Reaction [...]
--- OUTSIDE RECORDS SUMMARY | 2022-01-14 23:40 | XMS_ITS | Continuity of Care Document ---
:1980 Author Organization [facility] Address [address] [place] [address]- Care Team Providers Name Role Phone Pedro Phillips MD Primary Care Physician Encounter [facility] [place] Date(s): 05/01/19 - 05/01/[address] [address]- [facility] Discharge Disposition: A-D/C Home Attending Physician: Asad Sheppard MD Admitting Physician: [...] tablet, By Mouth, Daily, Refills 0, Maintenance, 09/19/18 11:18:28 EDT Start Date: 12/19/17 Status: OrderedoxyCODONE 10 mg oral tablet 0 Refills, Maintenance, 09/24/18 7:42:49 EDT Start Date: 09/24/18 Status: Orderedprednisolone ophthalmic acetate 1% suspension 1 drops, Eyes, Both, Daily, instill 1 drop into left eye twice a day Start Date: 09/24/18 Status: Ordered Problem List Condition Effective Dates Status Health Status Informant Subclinical hyperthyroidism(Confirmed) Active Vital Signs Most recent to oldest 1 2 3 [Reference Range]: Height 164.5 cm 167.64 cm (05/01/19 3:05 PM) (04/25/19 3:09 PM) Weight 88.0 kg 88.18 kg (05/01/19 3:05 PM) (04/25/19 3:09 PM) Oxygen Saturation [94-100 97 % 97 % 97 % %] (05/01/19 6:45 PM) (05/01/19 6:30 PM) (05/01/19 6:1 5 PM) Pulse Rate [55-90 bpm] 100 bpm *H* (05/01/19 3:05 PM) Body Mass Index 32.52 31.38 [18.5-24.99] *>HHI* *>HHI* (05/01/19 3:05 PM) (04/25/19 3:09 PM) Blood Pressure 127/80 mm Hg 114/98 mm Hg 135/84 mm Hg [90-138/55-84 mm Hg] (05/01/19 6:45 PM) (05/01/19 6:30 PM) ( 0 6:15 PM) Respiratory Rate [16-30 15 br/min 14 br/min 12 br/mi n br/min] *L* *L* *L* (05/01/19 6:45 PM) (05/01/19 6:30 PM) (05/01/19 6:1 5 PM) Temperature [96.8-100.4 98 DegF 97.2 DegF 99.2 Deg F DegF] (05/01/19 6:45 PM) (05/01/19 5:30 PM) (05/01/19 3:0 5 PM) Liters per Minute 5 L/min (05/01/19 5:30 PM) Mode of Delivery (Oxygen) Room air Simple face mask Room air (05/01/19 6:00 PM) (05/01/19 5:30 PM) (05/01/19 3:0 5 PM) Blood pressure sites Arm, right (05/01/19 3:05 PM) Temperature Route Temporal Temporal Temporal (05/01/19 6:45 PM) (05/01/19 5:30 PM) (05/01/19 3:0 5 PM) Dry Weight 88.0 kg 88.18 kg (05/01/19 3:05 PM) (04/25/19 3:09 PM) Weight Obtained Via Patient/family stated (04/25/19 3:09 PM) Dry Weight Obtained Via Patient/family stated (04/25/19 3:09 PM) Social History Social History Type Response Smoking Status 10 or more cigarettes (1/2 p ack or more)/day in last 30 days entered on: 01/02/19 Sex
--- OUTSIDE RECORDS SUMMARY | 2022-01-14 23:40 | XMS_ITS | Continuity of Care Document ---
:1980 Author Organization [facility] Address [address] [place] [id number]- Care Team Providers Name Role Phone Jacqueline JO, Pedro Anaya Primary Care Physician [place] [facility] [place] - 03/02/[address] [id number] Attending Physician: Not on Staff, Attending MD Allergies, Adverse Reactions, Alerts Substance Reaction [...]
[2022-01-14 23:44] LABS: Bacteria Urine None Seen (None Seen); Hyaline Casts Urine 0-2 /LPF (0-2); RBC Urine 0-2 /HPF (0-2); Squamous Epithelial Cell Urine 0-2 /HPF (0-2); WBC Urine 0-5 /HPF (0-5)
--- NOTE | 2022-01-14 23:53 | ED_ITS ---
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 Patient states that she experiences shooting pain down her right lower extremity starting mid thigh working its way down. She states the pain is worse when she stands up she rates her current pain as a 7/10 and is constant in nature and worsens with ambulation. Patient denies being on blood thinners. Denies chest pain, shortness of breath, fevers, dizziness, nausea, vomiting. Patient denies history of IV drug use. No history of the DVT or PE, no history of hypercoagulable disorders. No trauma to the area. Related Data Home Medications Medication Instructions Recorded Confirmed acetaminophen 500 mg tablet 2 tab PO Q8H 12/13/20 01/06/22 prednisolone acetate 1 % eye 1 drp ophthalmic (eye) DAILY 08/05/21 01/06/22 drops,suspension folic acid 1 mg tablet 1 mg PO DAILY 10/04/21 01/06/22 prednisone 10 mg tablet 10 mg PO TID 10/04/21 01/06/22 famotidine 20 mg tablet 1 tab PO DAILY 10/06/21 01/06/22 sulfamethoxazole 400 1 tab PO DAILY 10/06/21 01/06/22 mg-trimethoprim 80 mg tablet Previous Rx's Medication Instructions Recorded hydrochlorothiazide 25 mg tablet 25 mg PO DAILY #90 tabs 04/19/21 ibuprofen 800 mg tablet 800 mg PO TID PRN pain #90 tabs 07/11/21 nicotine 14 mg/24 hr daily 1 patch transdermal DAILY #28 ea 07/11/21 transdermal patch cholecalciferol (vitamin D3) 50 50 mcg PO DAILY 30 days #30 caps 08/31/21 mcg (2,000 unit) capsule hydrocortisone sod succ (PF) 100 100 mg (2 mL) IM ONCE PRN Unable 12/21/21 mg/2 mL solution for injection to tolerate PO 30 days #1 ea (Solu-Cortef Act-O-Vial (PF)) oxycodone 10 mg tablet 10 mg PO Q4-6H PRN pain #130 tabs 12/27/21 amlodipine 2.5 mg tablet 5 mg PO DAILY #60 tabs 01/12/22 lorazepam 1 mg tablet 1 mg PO BID PRN anxiety #60 tabs 01/12/22 Allergies Allergy/AdvReac Type Severity Reaction Status Date / Time cephalexin Allergy Unknown SEIZURE/COM Verified 01/06/22 11:27 A,anaphylax sis vancomycin [VANCOMYCIN] Allergy Unknown RED HEAT Verified 01/06/22 11:27 RASH Review of Systems Review of Systems: Constitutional : No Weight loss, No Fever, No Chills, No Fatigue, No Malaise ENT/Mouth : No sore throat, No Rhinorrhea Eyes: No Eye Pain, No Swelling, No Redness Cardiovascular : No Chest Pain, No SOB, No Dyspnea on Exertion, No Orthopnea, No Edema, No Palpitations Respiratory : No Cough, No Sputum, No Wheezing Gastrointestinal : No Nausea, No Vomiting, No Diarrhea, No Constipation, No abdominal Pain, No Hematochezia, No Melena Genitourinary : No Dysuria, No Urinary Frequency, No Hematuria, Musculoskeletal : No joint pain, No Myalgias, + Joint Swelling Skin : No Skin Lesions, No rash Neuro : No Weakness, No Numbness, No Dizziness, No Headache Psych : No Anxiety/Panic, No Depression All other systems reviewed and are negative Yes all other systems are reviewed and are negative [facility] Past Medical History Attestation statement: The following information was validated with the patient. Source: old records reviewed and nursing notes reviewed Medical History Adrenal insufficiency Amenorrhea Back pain Cholecystostomy care Graves disease Low serum cortisol level Neutropenia Obesity Obesity Perimenopause Scleritis Vitamin D deficiency Surgical History History of biopsy History of bone marrow biopsy History of section History of cholecystectomy History of D&C History of umbilical hernia repair Family History Family History Father No problems noted. Mother No problems noted. Social History Social History Household Members: Family Housing: House Are you a primary care professional to a significant other at home: No Do you presently have visiting nurse or other home services: No Alcohol intake: former Patient Tobacco Use Status: Current everyday Tobacco user Tobacco use type: Cigarette Cigarette Packs Per Day: 1 Cigarettes Per Day: 20 e-Cigarette/Vaping Use: Never Used Second Hand Smoke Exposure: No Advance Directives: No service: No Current occupational status: unemployed Current occupational exposures/hazards: No Cognitive needs: No Hearing needs: No Vision needs: Yes Physical Exam Vital Signs: Vital Signs: Last Vital Signs Temp 98.9 F 01/14/22 22:52 Pulse 96 01/14/22 22:52 Resp 18 01/14/22 22:52 BP 159/90 H 01/14/22 22:52 Pulse Ox 100 01/14/22 22:52 O2 Del Method 01/14/22 22:52 BMI result Body Mass Index 34.4 vss Appearance: Alert.? Oriented X3.? No acute distress.? Head: Normocephalic, atraumatic, no step-offs or deformities Eyes: Pupils equal, round and reactive to light.? ENT: Pharynx normal.? Neck: Normal inspection.? Neck supple.? CVS: Normal heart rate and rhythm.? Pulses normal.? Respiratory: No respiratory distress.? Breath sounds normal.? Abdomen: Soft and nontender.? Skin: Skin warm and dry.? Normal skin color.? Normal skin turgor.? Extremities: + swelling to right inner thigh, normal left thigh. No overlying e rrythema to b.l LE. No lower extremity edema b.l.? No calf ttp. 5/5 strength to bilateral upper and lower extremities 2+ Dp,AT,PT pulses equal and b/l. Normal sensation. Patient with varicose veins and venous insufficiency to bilateral lower extremities. Neuro: Oriented X 3.? No motor deficit.? No sensory deficit. CN 2-12 intact Course Reevaluation(s) Reevaluation #1: CBC appears to be within normal limits. Chemistry with no acute findings. Urine clean. COVID negative. Coags and US pending Time: 00:37 Reevaluation #2: I did look at the ultrasound, unlikely that there is a DVT. Waiting for final steady. Patient tells me that she is followed by Dr. Dexter vascular doctor out of [place] and has an appointment coming up in a few days. Tells me she just wanted to make sure she didnt have a clot. Time: 01:09 Reevaluation #3: Ultrasound with no DVT demonstrated in the right lower extremity. At this time patient will be discharged home likely superficial thrombophlebitis. Advised patient to follow-up with vascular, tells me she has an appointment at the end of this month. At this time I feel comfortable discharge home. Educated that she may require repeat ultrasound if symptoms persist. At this time I feel comfortable discharge home. Time: 01:21 MDM - Extremity (Nontraumatic) MDM Narrative Medical decision making narrative: [age]-year-old female presents with swollen right side x3 days progressively worsening. Not on blood thinners. Physical examination with a slightly swollen right inner thigh when compared to left. No lower extremity edema. Neurovascularly intact. Pulses intact. Negat jose miguel Radha bilaterally. History and physical examination with concerns of fauzia grady superficial t hrombophlebitis versus DVT. Unlikely arterial occlusion. No signs of cellulitis. No signs of septic joint. Unlikely threatened limb. Patient denies chest pain, shortness of breath unlikely PE. Plan at this time is basic labs, ultrasound of the right lower extremity, PT INR, COVID. Medical Records Attestation: I reviewed the patient's medical records. Lab Data Attestation: I reviewed the patient's lab results. Result diagrams: 01/14/22 23:49 01/14/22 23:49 Labs: Lab Results 01/14/22 01/14/22 01/14/22 Range/Units 23:31 23:49 23:49 WBC 5.9 (4.8-10.8) X10*3/uL RBC 3.46 L (4.20-5.50) X10*6/uL Hgb 12.2 (12.0-16.0) g/dl Hct 33.8 L (37.0-47.0) % MCV 97.7 (80.0-98.0) fL MCH 35.3 H (27.0-33.0) pg MCHC 36.1 H (31.0-35.0) g/dl RDW 17.2 H (11.0-16.0) % Plt Count 145 L (160-400) X10*3/uL MPV 10.0 (9.4-12.3) fL Immature Gran % (Auto) 0.3 (0.0-0.4) % Neut % (Auto) 57.9 (45-73) % Lymph % (Auto) 32.4 (20-40) % Bland % (Auto) 8.9 (2-11) % Eos % (Auto) 0.3 (0-4) % Baso % (Auto) 0.2 (0-2) % Lymph # (Auto) 1.9 (1.2-4.9) X10*3/uL Bland # (Auto) 0.5 (0.1-1.2) X10*3/uL Eos # (Auto) 0.0 (0.0-0.4) X10*3/uL Baso # (Auto) 0.0 (0.0-0.2) X10*3/uL Abs Immat Gran (auto) 0.02 (0.00-0.03) X10*3/uL Absolute Neuts (auto) 3.4 (2.0-8.3) x10*3/uL Absolute Nucleated RBC 0.000 (0.0-0.012) X10*3/uL Nucleated RBC % (auto) 0.0 (0.0-0.2) /100WBC PT (10.0-13.1) SEC INR (0.9-1.1) Sodium 138 (135-145) mmol/L Potassium 3.6 (3.3-5.1) mmol/L Chloride 100 (96-108) mmol/L Carbon Dioxide 25 (22-29) mmol/L Anion Gap 17 (12-20) BUN 22 H (9-16) mg/dL Creatinine 1.25 (0.5-1.4) mg/dL Estim Creat Clear Calc 70.4 Estimated GFR 47 Random Glucose 120 H (60-115) mg/dL Calcium 9.1 (8.4-10.2) mg/dL Total Bilirubin 0.6 (0.0-1.0) mg/dL Direct Bilirubin 0.2 (0.0-0.5) mg/dL AST 31 (5-31) U/L ALT 42 H (0-31) U/L Alkaline Phosphatase 72 (39-117) U/L Total Protein 8.7 H (6.5-8.0) g/dL Albumin 3.8 (3.5-5.0) g/dL Lipase 47 (8-78) U/L Urine Color Yellow Urine Appearance Clear Urine pH 6.5 (5.0-9.0) Ur Specific Mclean 1.015 (1.005-1.025) Urine Protein Negative (Neg-Trace) mg/dL Urine Glucose (UA) Negative (Negative) mg/dL Urine Ketones Negative (Negative) mg/dL Urine Blood Trace H (Negative) Urine Nitrite Negative (Negative) Ur Leukocyte Esterase Negative (Negative) Urine RBC 0-2 (0-2) /HPF Urine WBC 0-5 (0-5) /HPF Ur Squamous Epith Cells 0-2 (0-2) /HPF Urine Bacteria None Seen (None Seen) Hyaline Casts 0-2 (0-2) /LPF COVID-19 ([facility]ARDO) (Negative) COVID-19 Clin Com 01/14/22 01/15/22 Range/Units 23:49 00:51 WBC (4.8-10.8) X10*3/uL RBC (4.20-5.50) X10*6/uL Hgb (12.0-16.0) g/dl Hct (37.0-47.0) % MCV (80.0-98.0) fL MCH (27.0-33.0) pg MCHC (31.0-35.0) g/dl RDW (11.0-16.0) % Plt Count (160-400) X10*3/uL MPV (9.4-12.3) fL Immature Gran % (Auto) (0.0-0.4) % Neut % (Auto) (45-73) % Lymph % (Auto) (20-40) % Bland % (Auto) (2-11) % Eos % (Auto) (0-4) % Baso % (Auto) (0-2) % Lymph # (Auto) (1.2-4.9) X10*3/uL Bland # (Auto) (0.1-1.2) X10*3/uL Eos # (Auto) (0.0-0.4) X10*3/uL Baso # (Auto) (0.0-0.2) X10*3/uL Abs Immat Gran (auto) (0.00-0.03) X10*3/uL Absolute Neuts (auto) (2.0-8.3) x10*3/uL Absolute Nucleated RBC (0.0-0.012) X10*3/uL Nucleated RBC % (auto) (0.0-0.2) /100WBC PT 10.4 (10.0-13.1) SEC INR 0.9 (0.9-1.1) Sodium (135-145) mmol/L Potassium (3.3-5.1) mmol/L Chloride (96-108) mmol/L Carbon Dioxide (22-29) mmol/L Anion Gap (12-20) BUN (9-16) mg/dL Creatinine (0.5-1.4) mg/dL Estim Creat Clear Calc Estimated GFR Random Glucose (60-115) mg/dL Calcium (8.4-10.2) mg/dL Total Bilirubin (0.0-1.0) mg/dL Direct Bilirubin (0.0-0.5) mg/dL AST (5-31) U/L ALT (0-31) U/L Alkaline Phosphatase (39-117) U/L Total Protein (6.5-8.0) g/dL Albumin (3.5-5.0) g/dL Lipase (8-78) U/L Urine Color Urine Appearance Urine pH (5.0-9.0) Ur Specific Mclean (1.005-1.025) Urine Protein (Neg-Trace) mg/dL Urine Glucose (UA) (Negative) mg/dL Urine Ketones (Negative) mg/dL Urine Blood (Negative) Urine Nitrite (Negative) Ur Leukocyte Esterase (Negative) Urine RBC (0-2) /HPF Urine WBC (0-5) /HPF Ur Squamous Epith Cells (0-2) /HPF Urine Bacteria (None Seen) Hyaline Casts (0-2) /LPF COVID-19 ([facility]ARD[facility]) Negative (Negative) COVID-19 Clin Com See Note Critical Care Time Critical Care Time Critical Care Time: No Discharge Plan Discharge Clinical Impression: Lower extremity pain Patient Disposition: Home, Self-Care Instructions: Leg Pain (ED) Additional Instructions: Take your medications as prescribed. If you were prescribed antibiotics today, it is important that you take your medication to their entirety, do not skip any doses, do not finish them early. Follow-up with your primary care provider this week. Follow-up with vascular. Return to the emergency department with new or worsening symptoms. Such as fevers, chills, chest pain, shortness of breath, nausea, vomiting, dizziness, headache, vision changes, lethargy In case of emergency call 911 If symptoms persist he may require repeat ultrasound in 5-7 days. Likely venous insufficiency. Please start wearing compression stockings. ?US/US venous duplex LE RT IMPRESSION: No DVT demonstrated in the right lower extremity. Prescriptions: No Action ibuprofen 800 mg tablet 800 mg PO TID PRN (Reason: pain) Qty: 90 8RF cholecalciferol (vitamin D3) 50 mcg (2,000 unit) capsule 50 mcg PO DAILY 30 Days Qty: 30 11RF amlodipine 2.5 mg tablet 5 mg PO DAILY Qty: 60 6RF lorazepam 1 mg tablet 1 mg PO BID PRN (Reason: anxiety) Qty: 60 0RF acetaminophen 500 mg tablet 2 tab PO Q8H sulfamethoxazole-trimethoprim 400-80 mg tablet 1 tab PO DAILY famotidine 20 mg tablet 1 tab PO DAILY nicotine 14 mg/24 hr patch 24 hour 1 patch transdermal DAILY Qty: 28 3RF hydrochlorothiazide 25 mg tablet 25 mg PO DAILY Qty: 90 8RF prednisone 10 mg tablet 10 mg PO TID folic acid 1 mg tablet 1 mg PO DAILY prednisolone acetate 1 % drops,suspension 1 drp ophthalmic (eye) DAILY oxycodone 10 mg tablet 10 mg PO Q4-6H PRN (Reason: pain) Qty: 130 0RF Solu-Cortef Act-O-Vial (PF) 100 mg/2 mL recon soln 100 mg IM ONCE PRN (Reason: Unable to tolerate PO) 30 Days Qty: 1 3RF Referrals: [facility] [place] Services [Provider Group] - 1 week Jacqueline (EDSON)Pedro MD [Primary Care Provider] - 2 days Stand Alone Forms: Work/School Release
[2022-01-14 23:56] LABS: MANUAL DIFF FLAG NO
[2022-01-14 23:59] LABS: Basophils Percent Auto 0.2 % (0-2); Eosinophils Percent Auto 0.3 % (0-4); Hematocrit 33.8 % (37.0-47.0); Hemoglobin 12.2 g/dl (12.0-16.0); Imm Gran Abs Auto 0.02 X10*3/uL (0.00-0.03); Imm Gran Pct Auto 0.3 % (0.0-0.4); Lymphocytes Absolute Auto 1.9 X10*3/uL (1.2-4.9); Lymphocytes Percent Auto 32.4 % (20-40); Mean Corpuscular HGB Conc 36.1 g/dl (31.0-35.0); Mean Corpuscular Hemoglobin 35.3 pg (27.0-33.0); Mean Corpuscular Volume 97.7 fL (80.0-98.0); Monocytes Absolute Auto 0.5 X10*3/uL (0.1-1.2); Monocytes Percent Auto 8.9 % (2-11); Neutrophils Absolute Auto 3.4 x10*3/uL (2.0-8.3); Neutrophils Percent Auto 57.9 % (45-73); Platelet Count 145 X10*3/uL (160-400); Red Blood Count 3.46 X10*6/uL (4.20-5.50); Red Cell Distribution Width 17.2 % (11.0-16.0); White Blood Count 5.9 X10*3/uL (4.8-10.8)
[2022-01-15 00:16] LABS: Alanine Aminotransferase 42 U/L (0-31); Albumin Level 3.8 g/dL (3.5-5.0); Alkaline Phosphatase 72 U/L (39-117); Anion Gap 17 (12-20); Aspartate Amino Transferase 31 U/L (5-31); Bilirubin Direct 0.2 mg/dL (0.0-0.5); Bilirubin Total 0.6 mg/dL (0.0-1.0); Blood Urea Nitrogen 22 mg/dL (9-16); Calcium 9.1 mg/dL (8.4-10.2); Carbon Dioxide 25 mmol/L (22-29); Chloride 100 mmol/L (96-108); Creatinine Clr Calc Pharmacy 70.4; Estimated Glomerular Filt Rate 47; Glucose Random 120 mg/dL (60-115); Lipase 47 U/L (8-78); Potassium 3.6 mmol/L (3.3-5.1); Sodium 138 mmol/L (135-145); Total Protein 8.7 g/dL (6.5-8.0)
[2022-01-15 00:34] LABS: COVID-19 Test Negative (Negative)
[2022-01-15 01:05] LABS: INTERNATIONAL NORM RATIO 0.9 (0.9-1.1); Prothrombin Time 10.4 SEC (10.0-13.1)
== END 2022-01-15 01:26 | disposition home or self-care (01) ==
PROVIDERS: Physician Assistant; Emergency Provider Student in an Organized Health Care Education/Training Program; PCP Internal Medicine
DX: M79.604 Pain in right leg (principal); F17.210 Nicotine dependence, cigarettes, uncomplicated; Z20.822 Contact with and (suspected) exposure to COVID-19
CPT/HCPCS: 36415; 80053; 81001; 82248; 83690; 85025; 85610; 87635; 93971; 99282; 99284

== ENCOUNTER 2022-02-02 10:23 | Outpatient (REF) | payer OTHER, SELFPAY | END 2022-02-02 10:24 | disposition home or self-care (01) | LOC: HO.MDS 10:23 | PROVIDERS: PCP Internal Medicine; Visit Provider Internal Medicine Medical Oncology | DX: D76.3 Other histiocytosis syndromes (principal) | CPT/HCPCS: 96365; 96366; 96375; J1200; J1569 ==

== ENCOUNTER 2022-02-03 10:27 | Outpatient (REF) | payer OTHER, SELFPAY | END 2022-02-03 10:28 | disposition home or self-care (01) | LOC: HO.MDS 10:27 | PROVIDERS: Visit Provider Internal Medicine Medical Oncology | DX: D76.3 Other histiocytosis syndromes (principal) | CPT/HCPCS: 96365; 96366; 96375; J1200; J1569 ==

== ENCOUNTER 2022-03-02 11:04 | Outpatient (REF) | payer OTHER, SELFPAY ==
[2022-03-02 12:01] LABS: Hematocrit 36.6 % (37.0-47.0); Hemoglobin 12.3 g/dl (12.0-16.0); Mean Corpuscular HGB Conc 33.6 g/dl (31.0-35.0); Mean Corpuscular Hemoglobin 32.6 pg (27.0-33.0); Mean Corpuscular Volume 97.1 fL (80.0-98.0); Mean Platelet Volume 9.3 fL (9.4-12.3); Platelet Count 134 X10*3/uL (160-400); Red Blood Count 3.77 X10*6/uL (4.20-5.50); Red Cell Distribution Width 13.2 % (11.0-16.0); White Blood Count 4.1 X10*3/uL (4.8-10.8)
[2022-03-02 12:24] LABS: Alanine Aminotransferase 34 U/L (0-31); Albumin Level 3.4 g/dL (3.5-5.0); Alkaline Phosphatase 75 U/L (39-117); Anion Gap 11 (12-20); Aspartate Amino Transferase 29 U/L (5-31); Bilirubin Total 0.4 mg/dL (0.0-1.0); Blood Urea Nitrogen 11 mg/dL (9-16); Calcium 9.3 mg/dL (8.4-10.2); Carbon Dioxide 28 mmol/L (22-29); Chloride 99 mmol/L (96-108); Estimated Glomerular Filt Rate 56; Glucose Random 196 mg/dL (60-115); Lactate Dehydrogenase 200 U/L (122-220); Potassium 3.4 mmol/L (3.3-5.1); Sodium 135 mmol/L (135-145); Total Protein 7.4 g/dL (6.5-8.0)
== END 2022-03-02 11:05 | disposition home or self-care (01) ==
LOC: HO.MDS 11:04
PROVIDERS: Visit Provider Internal Medicine Medical Oncology
DX: D76.3 Other histiocytosis syndromes (principal)
CPT/HCPCS: 36415; 80053; 83615; 85027; 96365; 96366; 96375; J1200; J1569

== ENCOUNTER 2022-03-03 09:06 | Outpatient (REF) | payer OTHER, SELFPAY | END 2022-03-03 09:07 | disposition home or self-care (01) | LOC: HO.MDS 09:06 | PROVIDERS: Visit Provider Internal Medicine Medical Oncology | DX: D76.3 Other histiocytosis syndromes (principal) | CPT/HCPCS: 96365; 96366; 96368; 96375; J1200; J1569 ==

== ENCOUNTER 2022-03-30 08:36 | Outpatient (REF) | payer OTHER, SELFPAY ==
--- NOTE | 2022-03-30 09:13 | HE.PHANOTE ---
RECEIVED ORDER FOR GAMMAGARD, SCANNED ORDER WAS A LITTLE LIGHT, CALLED [facility] AND SPOKE TO COLLEEN TO GET CLARIFICATION ON THE ORDER. COLLEEN SAID SHE WOULD REACH OUT TO PROVIDER AND GET BACK TO ME. CALLED ME BACK TO CLARIFY THAT DOSE FOR TODAY 03/30 IS 60 GRAMS
== END 2022-03-30 08:37 | disposition home or self-care (01) ==
LOC: HO.MDS 08:36
PROVIDERS: Visit Provider Internal Medicine Medical Oncology
DX: D76.3 Other histiocytosis syndromes (principal)
CPT/HCPCS: 96361; 96365; 96366; J1200; J1569

== ENCOUNTER 2022-03-31 08:31 | Outpatient (REF) | payer OTHER, SELFPAY | END 2022-03-31 08:32 | disposition home or self-care (01) | LOC: HO.MDS 08:31 | PROVIDERS: Visit Provider Internal Medicine Medical Oncology | DX: Z53.8 Procedure and treatment not carried out for other reasons (principal); D76.3 Other histiocytosis syndromes ==

== ENCOUNTER 2022-05-04 09:38 | Outpatient (REF) | payer OTHER, SELFPAY | END 2022-05-04 09:39 | disposition home or self-care (01) | LOC: HO.MDS 09:38 | PROVIDERS: Visit Provider Internal Medicine Medical Oncology | DX: D76.3 Other histiocytosis syndromes (principal) | CPT/HCPCS: 96365; 96366; 96375; J1200; J1569 ==

== ENCOUNTER 2022-05-05 09:30 | Outpatient (REF) | payer OTHER, SELFPAY | END 2022-05-05 09:31 | disposition home or self-care (01) | LOC: HO.MDS 09:30 | PROVIDERS: PCP Internal Medicine; Visit Provider Internal Medicine Medical Oncology | DX: D76.3 Other histiocytosis syndromes (principal) | CPT/HCPCS: 96365; 96366; 96375; J1200; J1569 ==

== ENCOUNTER 2022-06-01 09:25 | Outpatient (REF) | payer MEDICARE, OTHER, SELFPAY ==
[2022-06-01 09:53] LABS: Hematocrit 36.1 % (37.0-47.0); Hemoglobin 12.3 g/dl (12.0-16.0); Mean Corpuscular HGB Conc 34.1 g/dl (31.0-35.0); Mean Corpuscular Hemoglobin 32.5 pg (27.0-33.0); Mean Corpuscular Volume 95.3 fL (80.0-98.0); Mean Platelet Volume 10.4 fL (9.4-12.3); Platelet Count 137 X10*3/uL (160-400); Red Blood Count 3.79 X10*6/uL (4.20-5.50); Red Cell Distribution Width 15.3 % (11.0-16.0)
[2022-06-01 10:16] LABS: Alanine Aminotransferase 31 U/L (0-31); Albumin Level 3.3 g/dL (3.5-5.0); Alkaline Phosphatase 83 U/L (39-117); Anion Gap 13 (12-20); Aspartate Amino Transferase 31 U/L (5-31); Bilirubin Total 0.4 mg/dL (0.0-1.0); Blood Urea Nitrogen 11 mg/dL (9-16); Carbon Dioxide 25 mmol/L (22-29); Chloride 104 mmol/L (96-108); Estimated Glomerular Filt Rate > 60; Glucose Random 155 mg/dL (60-115); Lactate Dehydrogenase 151 U/L (122-220); Potassium 3.7 mmol/L (3.3-5.1); Sodium 138 mmol/L (135-145); Total Protein 7.4 g/dL (6.5-8.0)
== END 2022-06-01 09:26 | disposition home or self-care (01) ==
LOC: HO.MDS 09:25
PROVIDERS: Visit Provider Internal Medicine Medical Oncology
DX: D70.8 Other neutropenia (principal)
CPT/HCPCS: 36415; 80053; 83615; 85027; 96365; 96366; 96375; J1200; J1569

== ENCOUNTER 2022-06-02 09:26 | Outpatient (REF) | payer MEDICARE, OTHER, SELFPAY | END 2022-06-02 09:27 | disposition home or self-care (01) | LOC: HO.MDS 09:26 | PROVIDERS: Visit Provider Internal Medicine Medical Oncology | DX: D70.8 Other neutropenia (principal) | CPT/HCPCS: 96365; 96366; J1200; J1569 ==

== ENCOUNTER 2022-06-19 13:31 | Outpatient (REF) | payer OTHER, SELFPAY ==
--- NOTE | ~2022-06-19 | MM_ITS ---
EXAMINATION: MM DIAGNOSTIC DIGITAL BREAST TOMOSYNTHESIS, BILATERAL CLINICAL INFORMATION: Ultrasound-guided core biopsy left lesion 06/28/2021 consistent with granulomatous mastitis with fat necrosis. History systemic autoimmune condition with MGUS. Scattered bilateral irregular breast lesions for follow-up. The lifetime risk of breast cancer based on the Tyrer-Cuzick Model is 10%. COMPARISON: Multiple prior breast imaging exams, most recent 12/02/2021. TECHNIQUE: Digital breast tomosynthesis is performed in both the craniocaudal and mediolateral oblique views along with computer-aided detection (CAD). Synthesized 2D images are generated from the tomosynthesis. FINDINGS: There are scattered areas of fibroglandular density (ACR BI-RADS breast composition Category b). The scattered irregular asymmetric densities are similar to prior study. No developing density or interval suspicious changes. There is a biopsy clip marker again overlying the biopsy-proven granulomatous mastitis with fat necrosis mid 3:00 left breast. No abnormal calcifications. The axilla are unremarkable. The skin contours are smooth. Results are discussed with the patient at time of visit. Will perform next bilateral mammography as diagnostic exam to conclude long-term surveillance. MM/MM tomosynthesis diagnostic BI IMPRESSION: No significant changes from prior study. ASSESSMENT: BI-RADS 3: Probably Benign RECOMMENDATION: Diagnostic mammography at time of next annual exam, due in 12 months. This patient's information was entered into a reminder system with a target due date for their next mammogram.
== END 2022-06-19 13:32 | disposition home or self-care (01) ==
LOC: HO.MAMMO 13:31
PROVIDERS: PCP Internal Medicine; Visit Provider Internal Medicine
DX: R92.2 Inconclusive mammogram (principal)
CPT/HCPCS: 77062; 77066

== ENCOUNTER → 2022-07-03 09:27 | Outpatient (BNVA) | payer OTHER, SELFPAY | PROVIDERS: PCP Internal Medicine; Visit Provider Internal Medicine | DX: M47.816 Spondylosis without myelopathy or radiculopathy, lumbar region (principal); M25.561 Pain in right knee; M25.562 Pain in left knee; M25.50 Pain in unspecified joint; D47.2 Monoclonal gammopathy; E05.00 Thyrotoxicosis with diffuse goiter without thyrotoxic crisis or storm; G89.4 Chronic pain syndrome; D70.9 Neutropenia, unspecified; E27.40 Unspecified adrenocortical insufficiency; N95.1 Menopausal and female climacteric states | CPT/HCPCS: 99202; 99212 ==

== ENCOUNTER 2022-10-09 09:39 | Outpatient (AMB) | payer OTHER, SELFPAY ==
--- NOTE | 2022-10-09 10:26 | MHC.PC.OV ---
Intake Visit Reasons: f/u Intake Note: Patient is here to follow up on Medication management and refill. Kier Boiler Required: No Human Resources Leader: Not Required per policy Accompanied by: Self / Same As Patient Allergies cephalexin Allergy (Unknown, Verified 10/09/22 10:27) SEIZURE/COMA,anaphylaxsis vancomycin [VANCOMYCIN] Allergy (Unknown, Verified 10/09/22 10:27) RED HEAT RASH Medication List - Last Reconciled 10/09/22 by Pedro Phillips MD acetaminophen 2 tabs PO Q4H amlodipine 5 mg (2 x 2.5 mg) PO DAILY cane As directed cholecalciferol (vitamin D3) 50 mcg PO DAILY 30 days dexamethasone 20 mg (5 x 4 mg) PO DAILY diclofenac sodium 1% 4 grams topical QID 30 days dronabinol (Marinol) 2.5 mg PO BID famotidine 1 tab PO DAILY folic acid 1 mg PO DAILY hydrochlorothiazide 25 mg PO DAILY ibuprofen 800 mg PO Q8H lidocaine 5% 2 patches topical DAILY 30 days loperamide (Imodium A-D) 2 mg PO Q6H PRN lorazepam 1 mg PO BID PRN nicotine 1 patch transdermal DAILY omeprazole 20 mg PO DAILY ondansetron 8 mg PO Q8H oxycodone 10 mg PO Q4-6H PRN prednisone 4 mg PO DAILY sulfamethoxazole-trimethoprim 400-80 mg 1 tab PO DAILY Tobacco use date assessed: 04/25/22 HPI f/u HPI Details f/u chronic back pain; stable and compliant on rx PFSH Medical History Adrenal insufficiency Amenorrhea Back pain Cholecystostomy care Graves disease Low serum cortisol level Neutropenia Obesity Obesity Perimenopause Scleritis Vitamin D deficiency Surgical History History of biopsy History of bone marrow biopsy History of section History of cholecystectomy History of D&C History of umbilical hernia repair Family History Father No problems noted. Mother No problems noted. Social History Household Members: Family Housing: House Are you a primary child care development specialist to a significant other at home: No Do you presently have visiting nurse or other home services: No Alcohol intake: former Patient Tobacco Use Status: Current everyday Tobacco user Tobacco use type: Cigarette Cigarette Packs Per Day: 1 e-Cigarette/Vaping Use: Never Used Second Hand Smoke Exposure: No Substance Use Type: Caffiene service: No Current occupational status: unemployed Current occupational exposures/hazards: No Cognitive needs: No Hearing needs: No Vision needs: Yes Female Reproductive History Menstrual Age of Menarche: 10 Questionnaire Thrive Questionnaire Date Thrive assessed: 04/25/22 MARIELENA-7 AMB Questionnaire MARIELENA-7 Date MARIELENA - 7 assessed: 04/25/22 Source: Developed by Drs. Bear Kendall, Eufemia Reece, Eben Rodriguez and colleagues, with an educational hermes from [email or web address]. Review of Systems Const Denies chills, Denies headache(s) and Denies weight loss ENT Denies headache(s) Card Denies chest pain, Denies syncope, Denies irregular heart rhythm and Denies dyspnea Resp Denies chest congestion, Denies cough and Denies dyspnea GI Denies abdominal pain, Denies change in stool character, Denies nausea and Denies vomiting Musc Denies deformity and Denies joint swelling Neuro Denies syncope and Denies headache(s) Physical exam (Primary Care) Tobacco/Smoking Status: Tobacco use Status Tobacco use date assessed 04/25/22 10/09/22 10:28 Patient Tobacco Use Status Current everyday Tobacco 10/09/22 10:28 Tobacco use type Cigarette 10/09/22 10:28 e-Cigarette/Vaping Use Never Used 10/09/22 10:28 Thrive Assessment: Date of Thrive Assessment Date Thrive assessed 04/25/22 10/09/22 10:28 Telehealth Telehealth Location of provider rendering services: practice address Location of patient: address on file Patient Identification confirmed using: Name, : Yes Telehealth method: voice only Patient verbally consented to treatment: Yes Patient verbally consented to billing insurance company: Yes Patient informed of any privacy concerns related to visit: Yes Minutes spent on Phone/Video with Pt.: 15 (telephone) Assessment and Plan Assessment & Plan (1) Chronic pain syndrome: Code(s): G89.4 - Chronic pain syndrome Plan: stable; same rx Medications: Refilled oxycodone 10 mg PO Q4-6H PRN 140 tabs 0RF pain Coding Level of Care Code Tele Est Pt Level 3 (62823) Diagnoses Chronic pain syndrome G89.4
== END 2022-10-09 11:21 | disposition home or self-care (01) ==
PROVIDERS: PCP Internal Medicine; Visit Provider Internal Medicine
DX: G89.4 Chronic pain syndrome (principal)
CPT/HCPCS: 99213

== ENCOUNTER 2022-10-11 02:36 | Emergency (ER) | payer MEDICARE, MEDICAID, OTHER, SELFPAY ==
--- NOTE | ~2022-10-11 | CT_ITS ---
EXAMINATION: CT HEAD WITHOUT CONTRAST CLINICAL INFORMATION: Headache after fall COMPARISON: 01/13/2011 TECHNIQUE: Contiguous axial imaging was performed from the skull base to vertex without intravenous administration of contrast. This CT examination was performed using dose optimization techniques as appropriate, variously including the following: *Automated exposure control *Adjustment of mA and/or kV according to patient size (this includes techniques or standardized protocols for targeted exams where dose is matched to indication/reason for exam; i.e. extremities or head) *Use of iterative reconstruction technique DLP: 611 mGy-cm FINDINGS: There is no evidence of acute intracranial hemorrhage or territorial infarction. No abnormal mass-effect or midline shift is seen. Negron to white matter differentiation is well preserved. No extra-axial fluid collections are identified. The ventricles are normal in size. There is no abnormal attenuation within the brain parenchyma. The osseous structures and soft tissues are normal. The mastoid air cells and visualized portions of the paranasal sinuses are well-aerated. CT/CT head/brain wo IV con IMPRESSION: No acute intracranial pathology.
[2022-10-11 02:40] VITALS: BP 158/82; PULSE 100; RESP 18; TEMP 36.7; O2SAT 98; BMI 34.6
[2022-10-11 03:09] LABS: MANUAL DIFF FLAG NO
[2022-10-11 03:13] LABS: Basophils Percent Auto 0.2 % (0-2); Eosinophils Percent Auto 0.8 % (0-4); Hematocrit 39.3 % (37.0-47.0); Hemoglobin 13.4 g/dl (12.0-16.0); Imm Gran Abs Auto 0.01 X10*3/uL (0.00-0.03); Imm Gran Pct Auto 0.2 % (0.0-0.4); Lymphocytes Absolute Auto 2.1 X10*3/uL (1.2-4.9); Lymphocytes Percent Auto 42.7 % (20-40); Mean Corpuscular HGB Conc 34.1 g/dl (31.0-35.0); Mean Platelet Volume 9.8 fL (9.4-12.3); Monocytes Absolute Auto 0.4 X10*3/uL (0.1-1.2); Neutrophils Absolute Auto 2.3 x10*3/uL (2.0-8.3); Neutrophils Percent Auto 47.1 % (45-73); Platelet Count 131 X10*3/uL (160-400); Red Blood Count 4.32 X10*6/uL (4.20-5.50); Red Cell Distribution Width 14.1 % (11.0-16.0); White Blood Count 4.9 X10*3/uL (4.8-10.8)
[2022-10-11 03:23] LABS: Alanine Aminotransferase 36 U/L (0-31); Albumin Level 3.8 g/dL (3.5-5.0); Alkaline Phosphatase 94 U/L (39-117); Anion Gap 17 (12-20); Aspartate Amino Transferase 24 U/L (5-31); Bilirubin Total 0.5 mg/dL (0.0-1.0); Blood Urea Nitrogen 14 mg/dL (9-16); Calcium 9.7 mg/dL (8.4-10.2); Carbon Dioxide 24 mmol/L (22-29); Chloride 103 mmol/L (96-108); Creatinine Clr Calc Pharmacy 89.5; Estimated Glomerular Filt Rate > 60; Glucose Random 229 mg/dL (60-115); Potassium 3.5 mmol/L (3.3-5.1); Sodium 140 mmol/L (135-145); Total Protein 6.9 g/dL (6.5-8.0)
[2022-10-11 05:57] VITALS: BP 124/59; PULSE 87; RESP 16; TEMP 36.9; O2SAT 95
[2022-10-11 06:12] VITALS: BP 117/55; PULSE 82; RESP 18; TEMP 36.9; O2SAT 94
--- NOTE | 2022-10-11 07:17 | ED_ITS ---
HPI - Headache General Chief Complaint: Headache Stated Complaint: head pain after head strike Time Seen by Provider: 10/11/22 06:55 Source: patient and old records reviewed Mode of arrival: ambulatory Limitations: no limitations History of Present Illness MD elicited complaint: headache Pertinent past history: recent trauma Onset (ago): week(s) (1.5) Onset description: suddenly Location: left and frontal Severity: moderate Quality & Timing: aching and throbbing Exacerbating factors: other (struck head after a fall no LOC) Relieving factors: other (sometimes tylenol) Context: recent head injury Associated symptoms: none Treatments prior to arrival: acetaminophen Related Data Home Medications Medication Instructions Recorded Confirmed acetaminophen 500 mg tablet 2 tab PO Q4H 12/13/20 10/09/22 folic acid 1 mg tablet 1 mg PO DAILY 10/04/21 10/09/22 famotidine 20 mg tablet 1 tab PO DAILY 10/06/21 10/09/22 sulfamethoxazole 400 1 tab PO DAILY 10/06/21 10/09/22 mg-trimethoprim 80 mg tablet prednisone 10 mg tablet 4 mg PO DAILY 07/17/22 10/09/22 ibuprofen 800 mg tablet 800 mg PO Q8H 08/04/22 10/09/22 Previous Rx's Medication Instructions Recorded hydrochlorothiazide 25 mg tablet 25 mg PO DAILY #90 tabs 04/24/22 lidocaine 5 % topical patch 2 patch topical DAILY pain 30 days 07/03/22 #60 ea diclofenac sodium 1 % topical gel 4 g topical QID pain 30 days #180 07/06/22 grams nicotine 14 mg/24 hr daily 1 patch transdermal DAILY #28 ea 07/17/22 transdermal patch dexamethasone 4 mg tablet 20 mg PO DAILY #100 tabs 07/31/22 ondansetron 8 mg disintegrating 8 mg PO Q8H #50 tabs 07/31/22 tablet omeprazole 20 mg capsule,delayed 20 mg PO DAILY #90 caps 08/03/22 release loperamide 2 mg capsule (Imodium 2 mg PO Q6H PRN Diarrhea #50 caps 08/04/22 A-D) cane #1 ea 08/08/22 dronabinol 2.5 mg capsule (Marinol) 2.5 mg PO BID #60 caps 08/18/22 amlodipine 2.5 mg tablet 5 mg PO DAILY #60 tabs 09/04/22 cholecalciferol (vitamin D3) 50 50 mcg PO DAILY 30 days #30 caps 09/04/22 mcg (2,000 unit) capsule lorazepam 1 mg tablet 1 mg PO BID PRN anxiety #60 tabs 09/11/22 oxycodone 10 mg tablet 10 mg PO Q4-6H PRN pain #140 tabs 10/09/22 Allergies Allergy/AdvReac Type Severity Reaction Status Date / Time cephalexin Allergy Unknown SEIZURE/COM Verified 10/09/22 10:27 A,anaphylax sis vancomycin [VANCOMYCIN] Allergy Unknown RED HEAT Verified 10/09/22 10:27 RASH Review of Systems Review of Systems: Constitutional : No Fever, No Chills, No Fatigue ENT/Mouth : No sore throat, No Rhinorrhea Eyes: No Eye Pain, No Swelling, No Redness Cardiovascular : No Chest Pain, No SOB, No Dyspnea on Exertion Respiratory : No Cough, No Sputum Gastrointestinal : No Nausea, No Vomiting, No Diarrhea, No abdominal Pain Genitourinary : No Dysuria, No Urinary Frequency, No Hematuria, Musculoskeletal : No joint pain, No Myalgias, No Joint Swelling Skin : No Skin Lesions, No rash Neuro : No Weakness, No Numbness, No Dizziness, positive Headache Psych : No Anxiety/Panic, No Depression Heme/Lymph: No Bruising, No Bleeding,No Lymphadenopathy Endocrine : No Polyuria, No Polydipsia All other systems reviewed and are negative [facility] Past Medical History Attestation statement: The following information was validated with the patient. Source: old records reviewed Medical History Adrenal insufficiency Amenorrhea Back pain Cholecystostomy care Graves disease Low serum cortisol level Neutropenia Obesity Obesity Perimenopause Scleritis Vitamin D deficiency Surgical History History of biopsy History of bone marrow biopsy History of section History of cholecystectomy History of D&C History of umbilical hernia repair Family History Family History Father No problems noted. Mother No problems noted. Social History Social History Household Members: Family Housing: House Are you a primary director long term care to a significant other at home: No Do you presently have visiting nurse or other home services: No Alcohol intake: former Patient Tobacco Use Status: Current everyday Tobacco user Tobacco use type: Cigarette Cigarette Packs Per Day: 1 Cigarettes Per Day: 20 e-Cigarette/Vaping Use: Never Used Second Hand Smoke Exposure: No Substance Use Type: Caffiene Advance Directives: No Advance Directives Information Provided: No service: No Current occupational status: unemployed Current occupational exposures/hazards: No Cognitive needs: No Hearing needs: No Vision needs: Yes Physical Exam Vital Signs: Vital Signs: Last Vital Signs Temp 98.4 F 10/11/22 06:12 Pulse 82 10/11/22 06:12 Resp 18 10/11/22 06:12 BP 117/55 L 10/11/22 06:12 Pulse Ox 94 10/11/22 06:12 O2 Del Method Room Air 10/11/22 06:12 BMI result Body Mass Index 34.6 Appearance: Alert. Oriented X3. No acute distress. Eyes: Pupils equal, round and reactive to light. ENT: Pharynx normal. Neck: Normal inspection. Neck supple. no meningeal signs CVS: Normal heart rate and rhythm. Pulses normal. Respiratory: No respiratory distress. Breath sounds normal. Abdomen: Soft and non-tender. Skin: Skin warm and dry. Normal skin color. Normal skin turgor. Extremities: No lower extremity edema. No calf ttp Neuro: Oriented X 3. No motor deficit. No sensory deficit. GCS 15 Medical Decision Making Medical Decision Making [facility] Narrative: 42 yo female with hx of multiple myeloma, extensive varicose veins with hx of clots on eliquis, anxiety, graves disease - struck head without LOC 1.5 weeks ago but since then has persistent headaches that will not jose r without neck pain, neuro symptoms or fever. She did not get checked out but last night had another headache and felt she should get examined. She has not noticed any weakness. At this time will obtain basic labs and CT head for SDH delayed presentation she is GCS 15. IF negative suspect concussive syndrome. Differential Diagnosis Differential Diagnoses: The differential diagnosis associated with the presentation includes ICH, headache, tension headache doubt meningitis - no fevers, no meningeal signs and started after injury, concussion Lab Data [facility] Lab Attestation statement: I reviewed the patient's lab results. 10/11/22 03:03 10/11/22 03:03 Labs: Lab Results 10/11/22 10/11/22 Range/Units 03:03 03:03 WBC 4.9 (4.8-10.8) X10*3/uL RBC 4.32 (4.20-5.50) X10*6/uL Hgb 13.4 (12.0-16.0) g/dl Hct 39.3 (37.0-47.0) % MCV 91.0 (80.0-98.0) fL MCH 31.0 (27.0-33.0) pg MCHC 34.1 (31.0-35.0) g/dl RDW 14.1 (11.0-16.0) % Plt Count 131 L (160-400) X10*3/uL MPV 9.8 (9.4-12.3) fL Immature Gran % (Auto) 0.2 (0.0-0.4) % Neut % (Auto) 47.1 (45-73) % Lymph % (Auto) 42.7 H (20-40) % [place] % (Auto) 9.0 (2-11) % Eos % (Auto) 0.8 (0-4) % Baso % (Auto) 0.2 (0-2) % Lymph # (Auto) 2.1 (1.2-4.9) X10*3/uL [place] # (Auto) 0.4 (0.1-1.2) X10*3/uL Eos # (Auto) 0.0 (0.0-0.4) X10*3/uL Baso # (Auto) 0.0 (0.0-0.2) X10*3/uL Abs Immat Gran (auto) 0.01 (0.00-0.03) X10*3/uL Absolute Neuts (auto) 2.3 (2.0-8.3) x10*3/uL Absolute Nucleated RBC 0.000 (0.0-0.012) X10*3/uL Nucleated RBC % (auto) 0.0 (0.0-0.2) /100WBC Sodium 140 (135-145) mmol/L Potassium 3.5 (3.3-5.1) mmol/L Chloride 103 (96-108) mmol/L Carbon Dioxide 24 (22-29) mmol/L Anion Gap 17 (12-20) BUN 14 (9-16) mg/dL Creatinine 0.95 (0.5-1.4) mg/dL Estim Creat Clear Calc 89.5 Estimated GFR > 60 Random Glucose 229 H (60-115) mg/dL Calcium 9.7 (8.4-10.2) mg/dL Total Bilirubin 0.5 (0.0-1.0) mg/dL AST 24 (5-31) U/L ALT 36 H (0-31) U/L Alkaline Phosphatase 94 (39-117) U/L Total Protein 6.9 (6.5-8.0) g/dL Albumin 3.8 (3.5-5.0) g/dL Independent Interpretation I performed an independent interpretation of an: CT Scan (no ICH noted on exam) Radiology Impression Discussion of test interpretation with radiology: I have reviewed the radiologist's reading. External Record Review External record reviewed: Office record Chronic Conditions Patient?s care impacted by: Other (DOAC use) Discharge Plan Discharge Clinical Impression: Concussion Patient Disposition: Home, Self-Care Instructions: Concussion (ED) Additional Instructions: return for worsening pain, confusion, fevers, change in vision or any other concerns. remember on blood thinners seek care for head strike bleeding that wont stop or black or bloody stools. rest take tylenol for pain avoid activities that cause headache such as exercise, alcohol, heat , screen time Prescriptions: No Action hydrochlorothiazide 25 mg tablet 25 mg PO DAILY Qty: 90 8RF (DME) cane Device See Rx Instructions .Route Qty: 1 0RF Rx Instructions: As directed cholecalciferol (vitamin D3) 50 mcg (2,000 unit) capsule 50 mcg PO DAILY 30 Days Qty: 30 11RF amlodipine 2.5 mg tablet 5 mg PO DAILY Qty: 60 6RF acetaminophen 500 mg tablet 2 tab PO Q4H sulfamethoxazole-trimethoprim 400-80 mg tablet 1 tab PO DAILY famotidine 20 mg tablet 1 tab PO DAILY ondansetron 8 mg Tablet,Disintegrating 8 mg PO Q8H Qty: 50 4RF dexamethasone 4 mg Tablet 20 mg PO DAILY Qty: 100 3RF Rx Instructions: Take 20 mg the day of treatment (day 1) again on day 8, day 15, day 22 omeprazole 20 mg Capsule,Delayed Release(Dr/Ec) 20 mg PO DAILY Qty: 90 3RF ibuprofen 800 mg Tablet 800 mg PO Q8H loperamide [Imodium A-D] 2 mg Capsule 2 mg PO Q6H PRN (Reason: Diarrhea) Qty: 50 3RF dronabinol [Marinol] 2.5 mg Capsule 2.5 mg PO BID Qty: 60 3RF Rx Instructions: administer before lunch and evening meal/dinner folic acid 1 mg tablet 1 mg PO DAILY prednisone 10 mg tablet 4 mg PO DAILY Rx Instructions: Pt states she takes 5mg daily nicotine 14 mg/24 hr patch 24 hour 1 patch transdermal DAILY Qty: 28 3RF lorazepam 1 mg tablet 1 mg PO BID PRN (Reason: anxiety) Qty: 60 5RF oxycodone 10 mg tablet 10 mg PO Q4-6H PRN (Reason: pain) Qty: 140 0RF lidocaine 5 % adhesive patch,medicated 2 patch topical DAILY 30 Days Qty: 60 1RF diclofenac sodium 1 % gel 4 g topical QID 30 Days Qty: 180 1RF Rx Instructions: Apply 1-3 grams (pumps) to the affected area 3-4 times daily.
== END 2022-10-11 08:04 | disposition home or self-care (01) ==
PROVIDERS: Emergency Provider Emergency Medicine; PCP Internal Medicine
DX: S06.0X0A Concussion without loss of consciousness, initial encounter (principal); W19.XXXA Unspecified fall, initial encounter; F17.210 Nicotine dependence, cigarettes, uncomplicated; Y93.9 Activity, unspecified; Y92.9 Unspecified place or not applicable; Y99.9 Unspecified external cause status; Z86.718 Personal history of other venous thrombosis and embolism; Z79.01 Long term (current) use of anticoagulants
CPT/HCPCS: 36415; 70450; 80053; 85025; 99283; 99284

== ENCOUNTER 2022-11-06 09:24 | Outpatient (AMB) | payer MEDICARE, MEDICAID, SELFPAY ==
[2022-11-06 09:30] VITALS: BP 130/68; PULSE 92; O2SAT 96; BMI 33.7
--- NOTE | 2022-11-06 09:30 | A.OFFPC_ITS ---
Vital Signs 11/06/22 09:30 Height 5 ft 7 in Weight 215 lb BMI 33.7 BP 130/68 Blood Pressure Location Lt brachial Position Sitting Pulse 92 Pulse Source Pulse Oximeter Pulse Oximetry (%) 96 Oxygen Delivery Method Room Air Intake Visit Reasons: f/u Allergies cephalexin Allergy (Unknown, Verified 11/06/22 09:30) SEIZURE/COMA,anaphylaxsis vancomycin [VANCOMYCIN] Allergy (Unknown, Verified 11/06/22 09:30) RED HEAT RASH Medication List - Last Reconciled 11/06/22 by Pedro Phillips MD acetaminophen 2 tabs PO Q4H amlodipine 5 mg (2 x 2.5 mg) PO DAILY cane As directed cholecalciferol (vitamin D3) 50 mcg PO DAILY 30 days dexamethasone 20 mg (5 x 4 mg) PO DAILY diclofenac sodium 1% 4 grams topical QID 30 days dronabinol (Marinol) 2.5 mg PO BID famotidine 1 tab PO DAILY folic acid 1 mg PO DAILY hydrochlorothiazide 25 mg PO DAILY ibuprofen 800 mg PO Q8H lidocaine 5% 2 patches topical DAILY 30 days loperamide (Imodium A-D) 2 mg PO Q6H PRN lorazepam 1 mg PO BID PRN nicotine 1 patch transdermal DAILY omeprazole 20 mg PO DAILY ondansetron 8 mg PO Q8H oxycodone 10 mg PO Q4-6H PRN prednisone 4 mg PO DAILY sulfamethoxazole-trimethoprim 400-80 mg 1 tab PO DAILY Tobacco use date assessed: 04/25/22 Dental Screening Dental Screen Date: 11/06/22 Did you have a dental visit in the last 12 months?: No Did you have a dental problem in the last 6 months where you did not have access to dental care?: No Was dental information given to patient?: No HPI f/u HPI Details chronic back pain; stable on regimen PFSH Medical History Adrenal insufficiency Amenorrhea Back pain Cholecystostomy care Graves disease Low serum cortisol level Neutropenia Obesity Obesity Perimenopause Scleritis Vitamin D deficiency Surgical History History of biopsy History of bone marrow biopsy History of section History of cholecystectomy History of D&C History of umbilical hernia repair Family History Father No problems noted. Mother No problems noted. Social History Household Members: Family Housing: House Are you a primary resident care director to a significant other at home: No Do you presently have visiting nurse or other home services: No Alcohol intake: former Patient Tobacco Use Status: Current everyday Tobacco user Tobacco use type: Cigarette Cigarette Packs Per Day: 1 Cigarettes Per Day: 20 e-Cigarette/Vaping Use: Never Used Second Hand Smoke Exposure: No Substance Use Type: Caffiene service: No Current occupational status: unemployed Current occupational exposures/hazards: No Cognitive needs: No Hearing needs: No Vision needs: Yes Female Reproductive History Menstrual Age of Menarche: 10 Questionnaire PHQ-9 Over the last 2 weeks, how often have you been bothered by any of the following problems? Depression Screening Interpretation: Negative Source: Developed by Drs. Bear Kendall, Eufemia Reece, Eben Rodriguez and colleagues, with an educational hermes from [employer]. Thrive Questionnaire Date Thrive assessed: 04/25/22 Currently or been in a relationship where the following occur: no concerns reported AUDIT C Alcohol Use Questionnaire (AUDIT-C) 1. How often do you have a drink containing alcohol?: Never Total Score: 0 Score Reviewed/Action Taken: No MARIELENA-7 AMB Questionnaire MARIELENA-7 Date MARIELENA - 7 assessed: 04/25/22 Source: Developed by Drs. Bear Kendall, Eufemia Reece, Eben Rodriguez and colleagues, with an educational hermes from [employer]. Review of Systems Const Denies chills, Denies headache(s) and Denies weight loss ENT Denies headache(s) Card Denies chest pain, Denies syncope, Denies irregular heart rhythm and Denies dyspnea Resp Denies chest congestion, Denies cough and Denies dyspnea GI Denies abdominal pain, Denies change in stool character, Denies nausea and Denies vomiting Musc Denies deformity and Denies joint swelling Neuro Denies syncope and Denies headache(s) Physical exam (Primary Care) Vital Signs: Last Vital Signs Pulse 92 11/06/22 09:30 BP 130/68 11/06/22 09:30 Pulse Ox 96 11/06/22 09:30 Oxygen Delivery Method Room Air 11/06/22 09:30 BMI result Body Mass Index 33.7 Tobacco/Smoking Status: Tobacco use Status Tobacco use date assessed 04/25/22 11/06/22 09:32 Patient Tobacco Use Status Current everyday Tobacco 11/06/22 09:32 Tobacco use type Cigarette 11/06/22 09:32 e-Cigarette/Vaping Use Never Used 11/06/22 09:32 Depression Screening Interpretation: Negative Thrive Assessment: Date of Thrive Assessment Date Thrive assessed 04/25/22 11/06/22 09:32 Currently or been in a relationship where the following occur: no concerns reported Const General: cooperative and alert Resp Effort & Inspection: normal respiratory effort Auscultation: clear to auscultation bilaterally Percussion: percussion normal Cardio Jugular venous distension: no JVD Rate: regular rate Rhythm: regular rhythm GI Inspection: Yes normal to inspection Extrem Other: 2+ right lower leg edema Assessment and Plan Assessment & Plan (1) Back pain: Code(s): M54.9 - Dorsalgia, unspecified Plan: stable ;same rx Medications: Refilled oxycodone 10 mg PO Q4-6H PRN 140 tabs 0RF pain Coding Level of Care Code Est Pt Level 3 (10224) Diagnoses Back pain M54.9
== END 2022-11-06 09:56 | disposition home or self-care (01) ==
PROVIDERS: Visit Provider Internal Medicine
DX: M54.9 Dorsalgia, unspecified (principal)
CPT/HCPCS: 99213

== ENCOUNTER 2022-12-01 09:23 | Outpatient (AMB) | payer MEDICARE, MEDICAID, SELFPAY ==
--- NOTE | 2022-12-01 09:25 | A.OFFPC_ITS ---
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 per policy Accompanied by: Self / Same As Patient Allergies cephalexin Allergy (Unknown, Verified 12/01/22 09:30) SEIZURE/COMA,anaphylaxsis vancomycin [VANCOMYCIN] Allergy (Unknown, Verified 12/01/22 09:30) RED HEAT RASH Medication List - Last Reconciled 12/01/22 by Pedro Phillips MD acetaminophen 2 tabs PO Q4H amlodipine 5 mg (2 x 2.5 mg) PO DAILY apixaban (Eliquis) 5 mg PO BID cane As directed cholecalciferol (vitamin D3) 50 mcg PO DAILY 30 days dexamethasone 20 mg (5 x 4 mg) PO DAILY dronabinol (Marinol) 2.5 mg PO BID folic acid 1 mg PO DAILY hydrochlorothiazide 25 mg PO DAILY lorazepam 1 mg PO BID PRN nicotine 1 patch transdermal DAILY omeprazole 20 mg PO DAILY ondansetron 8 mg PO Q8H oxycodone 10 mg PO Q4-6H PRN prednisone 4 mg PO DAILY Tobacco use date assessed: 04/25/22 Dental Screening Dental Screen Date: 12/01/22 Did you have a dental visit in the last 12 months?: Yes Did you have a dental problem in the last 6 months where you did not have access to dental care?: No Was dental information given to patient?: Patient has dentist HPI f/u HPI Details f/u chronic back pain; stable on rx PFSH Medical History Adrenal insufficiency Amenorrhea Back pain Cholecystostomy care Graves disease Low serum cortisol level Neutropenia Obesity Obesity Perimenopause Scleritis Vitamin D deficiency Surgical History History of biopsy History of bone marrow biopsy History of section History of cholecystectomy History of D&C History of umbilical hernia repair Family History Father No problems noted. Mother No problems noted. Social History (Reviewed 12/01/22 @ 09:27 by DIPESH Aguirre Household Members: Family Housing: House Are you a primary career law clerk to a significant other at home: No Do you presently have visiting nurse or other home services: No Alcohol intake: former Patient Tobacco Use Status: Current everyday Tobacco user Tobacco use type: Cigarette Cigarette Packs Per Day: 1 e-Cigarette/Vaping Use: Never Used Second Hand Smoke Exposure: No Substance Use Type: Caffiene service: No Current occupational status: unemployed Current occupational exposures/hazards: No Cognitive needs: No Hearing needs: No Vision needs: Yes Female Reproductive History Menstrual Age of Menarche: 10 Questionnaire PHQ-9 Over the last 2 weeks, how often have you been bothered by any of the following problems? 1. Little interest or pleasure in doing things: not at all 2. Feeling down, depressed, or hopeless: not at all 3. Trouble falling or staying asleep, or sleeping too much: not at all 4. Feeling tired or having little energy: not at all 5. Poor appetite or overeating: not at all 6. Feeling bad about yourself - or that you are a failure or have let yourself or your family down: not at all 7. Trouble concentrating on things, such as reading the newspaper or watching television: not at all 8. Moving or speaking so slowly that other people could have noticed. Or the opposite - being so fidgety or restless that you have been moving around a lot more than usual: not at all 9. Thoughts that you would be better off or of hurting yourself in some way: not at all Total score: 0 Depression Screening Interpretation: Negative Source: Developed by Drs. Bear Kendall, Eben Davies and colleagues, with an educational hermes from [email or web address]. Thrive Questionnaire Date Thrive assessed: 04/25/22 Currently or been in a relationship where the following occur: no concerns reported AUDIT C Alcohol Use Questionnaire (AUDIT-C) 1. How often do you have a drink containing alcohol?: Never Total Score: 0 Score Reviewed/Action Taken: No MARIELENA-7 AMB Questionnaire MARIELENA-7 Date MARIELENA - 7 assessed: 04/25/22 Source: Developed by Drs. Bear Kendall, Eben Davies and colleagues, with an educational hermes from [email or web address]. Review of Systems Const Denies chills, Denies headache(s) and Denies weight loss ENT Denies headache(s) Card Denies chest pain, Denies syncope, Denies irregular heart rhythm and Denies dyspnea Resp Denies chest congestion, Denies cough and Denies dyspnea GI Denies abdominal pain, Denies change in stool character, Denies nausea and Denies vomiting Musc Denies deformity and Denies joint swelling Neuro Denies syncope and Denies headache(s) Physical exam (Primary Care) Vital Signs: Last Vital Signs Pulse 104 H 12/01/22 09:26 BP 142/80 H 12/01/22 09:26 Pulse Ox 98 12/01/22 09:26 Oxygen Delivery Method Room Air 12/01/22 09:26 BMI result Body Mass Index 33.7 Tobacco/Smoking Status: Tobacco use Status Tobacco use date assessed 04/25/22 12/01/22 09:34 Patient Tobacco Use Status Current everyday Tobacco 12/01/22 09:34 Tobacco use type Cigarette 12/01/22 09:34 e-Cigarette/Vaping Use Never Used 12/01/22 09:34 PHQ-9: PHQ-9 Score PHQ-9: Total score 0 12/01/22 09:34 Depression Screening Interpretation: Negative Thrive Assessment: Date of Thrive Assessment Date Thrive assessed 04/25/22 12/01/22 09:34 Currently or been in a relationship where the following occur: no concerns reported Const General: cooperative and alert Resp Effort & Inspection: normal respiratory effort Auscultation: clear to auscultation bilaterally Percussion: percussion normal Cardio Jugular venous distension: no JVD Rate: regular rate Rhythm: regular rhythm GI Inspection: Yes normal to inspection Extrem Other: 2+ right lower leg edema Assessment and Plan Assessment & Plan (1) Lumbar spondylosis: Code(s): M47.816 - Spondylosis without myelopathy or radiculopathy, lumbar region Plan: stable; cont same rx Medications: Refilled oxycodone 10 mg PO Q4-6H PRN 140 tabs 0RF pain Coding Level of Care Code Est Pt Level 3 (04302) Diagnoses Lumbar spondylosis M47.816
[2022-12-01 09:26] VITALS: BP 142/80; PULSE 104; O2SAT 98; BMI 33.7
== END 2022-12-01 09:48 | disposition home or self-care (01) ==
PROVIDERS: PCP Internal Medicine; Visit Provider Internal Medicine
DX: M47.816 Spondylosis without myelopathy or radiculopathy, lumbar region (principal)
CPT/HCPCS: 99213

== ENCOUNTER 2022-12-05 12:53 | Outpatient (REF) | payer MEDICARE, MEDICAID, SELFPAY ==
--- NOTE | ~2022-12-05 | XR_ITS ---
EXAMINATION: XR FOOT, LEFT CLINICAL INFORMATION: Pain left foot COMPARISON: None available. TECHNIQUE: AP, lateral, and oblique views of the left foot. FINDINGS: The bones and soft tissues are normal. No acute fractures seen. Alignment is anatomic. There is a small calcaneal heel enthesophyte. Joint spaces are maintained. XR/XR foot LT 2V IMPRESSION: Unremarkable left foot exam.
== END 2022-12-05 12:54 | disposition home or self-care (01) ==
LOC: HO.HMGCX 12:53
PROVIDERS: PCP Internal Medicine; Visit Provider Internal Medicine
DX: M79.672 Pain in left foot (principal)
CPT/HCPCS: 73620

== ENCOUNTER 2022-12-29 09:23 | Outpatient (AMB) | payer MEDICARE, MEDICAID, SELFPAY ==
--- NOTE | 2022-12-29 09:24 | A.OFFPC_ITS ---
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: Not Required per policy Accompanied by: Self / Same As Patient Allergies cephalexin Allergy (Unknown, Verified 12/29/22 09:25) SEIZURE/COMA,anaphylaxsis vancomycin [VANCOMYCIN] Allergy (Unknown, Verified 12/29/22 09:25) RED HEAT RASH Medication List - Last Reconciled 12/29/22 by Pedro Phillips MD acetaminophen 2 tabs PO Q4H amlodipine 5 mg (2 x 2.5 mg) PO DAILY apixaban (Eliquis) 5 mg PO BID cane As directed cholecalciferol (vitamin D3) 50 mcg PO DAILY 30 days dexamethasone 20 mg (5 x 4 mg) PO DAILY dronabinol (Marinol) 2.5 mg PO BID fluconazole (Diflucan) 100 mg PO DAILY folic acid 1 mg PO DAILY hydrochlorothiazide 25 mg PO DAILY lorazepam 1 mg (2 x 0.5 mg) PO TID PRN lorazepam 1 mg PO BID PRN nicotine 1 patch transdermal DAILY omeprazole 20 mg PO DAILY ondansetron 8 mg PO Q8H oxycodone 10 mg PO Q4-6H PRN prednisone 4 mg PO DAILY Tobacco use date assessed: 04/25/22 Dental Screening Dental Screen Date: 12/29/22 Did you have a dental visit in the last 12 months?: Yes Did you have a dental problem in the last 6 months where you did not have access to dental care?: No Was dental information given to patient?: Patient has dentist HPI f/u HPI Details chronic pain meds for back pain; stable and compliant [facility] Medical History Adrenal insufficiency Amenorrhea Back pain Cholecystostomy care Graves disease Low serum cortisol level Neutropenia Obesity Obesity Perimenopause Scleritis Vitamin D deficiency Surgical History History of biopsy History of bone marrow biopsy History of section History of cholecystectomy History of D&C History of umbilical hernia repair Family History Father No problems noted. Mother No problems noted. Social History Household Members: Family Housing: House Are you a primary caregivers non medical to a significant other at home: No Do you presently have visiting nurse or other home services: No Alcohol intake: former Patient Tobacco Use Status: Current everyday Tobacco user Tobacco use type: Cigarette Cigarette Packs Per Day: 1 Cigarettes Per Day: 20 e-Cigarette/Vaping Use: Never Used Second Hand Smoke Exposure: No Substance Use Type: Caffiene service: No Current occupational status: unemployed Current occupational exposures/hazards: No Cognitive needs: No Hearing needs: No Vision needs: Yes Female Reproductive History Menstrual Age of Menarche: 10 Questionnaire PHQ-9 Over the last 2 weeks, how often have you been bothered by any of the following problems? 1. Little interest or pleasure in doing things: not at all 2. Feeling down, depressed, or hopeless: not at all 3. Trouble falling or staying asleep, or sleeping too much: not at all 4. Feeling tired or having little energy: not at all 5. Poor appetite or overeating: not at all 6. Feeling bad about yourself - or that you are a failure or have let yourself or your family down: not at all 7. Trouble concentrating on things, such as reading the newspaper or watching television: not at all 8. Moving or speaking so slowly that other people could have noticed. Or the opposite - being so fidgety or restless that you have been moving around a lot more than usual: not at all 9. Thoughts that you would be better off or of hurting yourself in some way: not at all Total score: 0 Depression Screening Interpretation: Negative Source: Developed by Drs. Bear Kendall, Eufemia Reece, Eben Rodriguez and colleagues, with an educational hermes from [employer]. Thrive Questionnaire Date Thrive assessed: 04/25/22 AUDIT C Alcohol Use Questionnaire (AUDIT-C) 1. How often do you have a drink containing alcohol?: Never Total Score: 0 Score Reviewed/Action Taken: No MARIELENA-7 AMB Questionnaire MARIELENA-7 Date MARIELENA - 7 assessed: 04/25/22 Source: Developed by Eufemia Jose B.W. Chevy, Eben Rodriguez and colleagues, with an educational hermes from [employer]. Review of Systems Const Denies chills, Denies headache(s) and Denies weight loss ENT Denies headache(s) Card Denies chest pain, Denies syncope, Denies irregular heart rhythm and Denies dys pnea Resp Denies chest congestion, Denies cough and Denies dyspnea GI Denies abdominal pain, Denies change in stool character, Denies nausea and Denie s vomiting Musc Denies deformity and Denies joint swelling Neuro Denies syncope and Denies headache(s) Physical exam (Primary Care) Vital Signs: Last Vital Signs Pulse 90 12/29/22 09:25 BP 130/70 12/29/22 09:25 Pulse Ox 99 12/29/22 09:25 Oxygen Delivery Method Room Air 12/29/22 09:25 BMI result Body Mass Index 33.4 Tobacco/Smoking Status: Tobacco use Status Tobacco use date assessed 04/25/22 12/29/22 09:26 Patient Tobacco Use Status Current everyday Tobacco 12/29/22 09:26 Tobacco use type Cigarette 12/29/22 09:26 e-Cigarette/Vaping Use Never Used 12/29/22 09:26 PHQ-9: PHQ-9 Score PHQ-9: Total score 0 12/29/22 09:26 Depression Screening Interpretation: Negative Thrive Assessment: Date of Thrive Assessment Date Thrive assessed 04/25/22 12/29/22 09:26 Const General: cooperative, comfortable, no acute distress and alert Neck Neck: Yes no lymphadenopathy Thyroid: Thyroid normal Resp Effort & Inspection: normal respiratory effort Auscultation: clear to auscultation bilaterally Percussion: percussion normal Cardio Jugular venous distension: no JVD Palpation: normal PMI Rate: regular rate Rhythm: regular rhythm Heart sounds: S1 normal heart sound present and S2 normal heart sound present GI Inspection: Yes normal to inspection Palpation (GI): No hepatosplenomegaly present Skin General skin exam: no rashes or lesions noted Extrem General: Yes no clubbing, cyanosis or edema Assessment and Plan Assessment & Plan (1) Chronic pain syndrome: Code(s): G89.4 - Chronic pain syndrome Plan: stable; same rx Medications: New azithromycin take 500 mg today (day 1), then 250 mg for 4 days (days 2-5) PO 6 tabs 0RF prochlorperazine maleate (Compazine) 5 mg PO TID PRN 14 tabs 0RF nausea and vomiting Refilled oxycodone 10 mg PO Q4-6H PRN 140 tabs 0RF pain Coding Level of Care Code Est Pt Level 3 (99996) Diagnoses Chronic pain syndrome G89.4
[2022-12-29 09:25] VITALS: BP 130/70; PULSE 90; O2SAT 99; BMI 33.4
== END 2022-12-29 09:51 | disposition home or self-care (01) ==
PROVIDERS: Visit Provider Internal Medicine
DX: G89.4 Chronic pain syndrome (principal)
CPT/HCPCS: 99213

== ENCOUNTER 2023-01-02 09:49 | Outpatient (AMB) | payer MEDICARE, MEDICAID, SELFPAY ==
[2023-01-02 09:58] VITALS: BP 141/87; PULSE 94; BMI 32.6
--- NOTE | 2023-01-02 09:58 | MHC.OFFVIS ---
Intake Vital Signs 01/02/23 09:58 Height 5 ft 7 in Weight 208 lb 1.862 oz BMI 32.6 BP 141/87 H Blood Pressure Location Lt brachial Position Sitting Pulse 94 Intake Visit Reasons: Rectal bleeding and Hemorrhoids Intake Note: Patient presents to in office visit today as a new patient for rectal bleeding and hemorrhoids. CC: Patient with hx of hemorrhoids for 16 days but she states she's never had any problem with bleeding. She states she is getting chemotherapy and she is getting abdominal pain, constipation, and diarrhea. Reports onset of rectal bleeding for about a year but this is only happens sometimes. She also states having occasional rectal pain. Patient with diagnosis of multiple myeloma. She reports concerns about the amount of blood she has seen. She also report recurrent umbilical hernia s/p umbilical hernia repair with mesh x3 and is having now umbilical pain. Extrusion Technician Required: No Accompanied by: Self / Same As Patient Allergies cephalexin Allergy (Unknown, Verified 01/02/23 10:03) SEIZURE/COMA,anaphylaxsis vancomycin [VANCOMYCIN] Allergy (Unknown, Verified 01/02/23 10:03) RED HEAT RASH HPI Rectal bleeding and Hemorrhoids HPI Details 42-year-old female with past medical history of leukopenia, multiple myeloma, polyarthralgia, rheumatoid arthritis, patient will, lumbar spondylosis, adrenal insufficiency, flow cortical level, MGUS, hypercholesteremia, and anxiety, ventral hernia, obesity, scleritis, neutropenia, Graves disease, is here today for initial consultation. Patient has started chemotherapy in July. Recently patient was placed on prednisone for flare up. Patient developed a rash on her arms. Patient started having abdominal discomfort, diarrhea and blood after bowel movements. Patient brought pictures in small amount of blood on the tissue. No actual collapse noted. Patient reports that she has hemorrhoids. Patient also reports umbilical hernia recurrence. Patient did had umbilical hernia repair in the past. Patient has normal H&H. Patient reports occasional nausea without vomiting. Reports occasional dyspepsia without dysphagia or odynophagia. Denies melena, unintentional weight loss or ribbon like stools. [facility] Medical History Adrenal insufficiency Low serum cortisol level Obesity Cholecystostomy care Obesity Vitamin D deficiency Perimenopause Scleritis Neutropenia Graves disease Amenorrhea Back pain Surgical History History of bone marrow biopsy History of biopsy History of cholecystectomy History of umbilical hernia repair History of D&C History of section Family History Father No problems noted. Mother No problems noted. Social History Household Members: Family Housing: House Are you a primary laboratory animal caretaker to a significant other at home: No Do you presently have visiting nurse or other home services: No Alcohol intake: former Patient Tobacco Use Status: Current everyday Tobacco user Tobacco use type: Cigarette Cigarette Packs Per Day: 1 Cigarettes Per Day: 20 e-Cigarette/Vaping Use: Never Used Second Hand Smoke Exposure: No Substance Use Type: Caffiene service: No Current occupational status: unemployed Current occupational exposures/hazards: No Cognitive needs: No Hearing needs: No Vision needs: Yes Female Reproductive History Menstrual Age of Menarche: 10 Review of Systems Const Denies weight gain and Denies weight loss ENT Reports no additional complaints, Denies dysphagia and Denies odynophagia Card Reports no additional complaints Resp Reports no additional complaints GI Reports abdominal pain, Denies belching, Denies melena, Reports bloating, Reports hematochezia (Occasional), Denies change in bowel habits, Denies dysphagia, Denies excessive flatus, Denies dyspepsia, Denies heartburn, Denies diarrhea, Reports loose stools, Reports nausea, Denies odynophagia and Denies vomiting Reports no additional complaints Musc Reports no additional complaints Neuro Reports no additional complaints Psych Reports no additional complaints Endo Reports no additional complaints Physical Exam Vital Signs: Last Vital Signs Pulse 94 01/02/23 09:58 BP 141/87 H 01/02/23 09:58 BMI result Body Mass Index 32.6 Const General: healthy appearing, no acute distress and well developed Orientation/consciousness: patient oriented x3 HEENT Head: Yes normal to inspection, Yes normocephalic and Yes atraumatic Face and sinus: Yes normal facial exam Mouth: Normal oral and palatal mucosa present Throat: Yes posterior oropharynx normal, Yes tonsils normal and Yes uvula midline Eyes General: appearance normal, both eyes and all related structures Neck Neck: Yes normal visual inspection, Yes full ROM and Yes trachea midline Thyroid: Thyroid normal Resp Effort & Inspection: normal respiratory effort, able to speak in complete sentences, no tracheal deviation and symmetric chest movement Auscultation: clear to auscultation bilaterally Cardio Rate: regular rate Heart sounds: S1 normal heart sound present and S2 normal heart sound present GI Inspection: Yes normal to inspection, No distended, Yes obesity and Yes visible herniation (Umbilical hernia) Palpation (GI): Soft to palpation, not firm, nontender and No hepatosplenomegaly present Auscultation: normal bowel sounds General: Yes no CVA tenderness Back/Spine/Pelvis Back: no CVA tenderness Skin General skin exam: elasticity normal, turgor normal and dry skin Neuro General: patient oriented x3 Psych Appearance: grossly normal Mental Status: mental status grossly normal Speech and movement: Normal speech and movement present Assessment & Plan Assessment & Plan (1) Abdominal discomfort: Code(s): R10.9 - Unspecified abdominal pain (2) GERD (gastroesophageal reflux disease): Code(s): K21.9 - Gastro-esophageal reflux disease without esophagitis Qualifiers: Esophagitis presence: esophagitis presence not specified Qualified Code(s): K21.9 - Gastro-esophageal reflux disease without esophagitis (3) IBS (irritable bowel syndrome): Code(s): K58.9 - Irritable bowel syndrome without diarrhea Qualifiers: Irritable bowel syndrome type: with both diarrhea and constipation Qualified Code(s): K58.2 - Mixed irritable bowel syndrome Plan Patient reports postprandial abdominal bloating. Low FODMAP diet discussed with patient. Patient reports occasional abdominal cramping. Pain is not always located in the 1 side of her abdomen, nonradiating pain. Crampy-like. Most likely related to gas. List of food recommended as well as list of food to avoid given to patient. Will check lipase, pancreatic a last days. Will check vitamin-D, B12 and folate. Patient can start Citrucel in the morning with full glass of water and take Senokot in the evening to help her empty her bowels better. If patient continues with rectal bleeding she can call the office. Will send her script for Proctosol. I will see her in 4 weeks, sooner on as needed basis. Patient is agreeable to this plan and verbalizes understanding of instructions. She was given the opportunity to ask questions and all questions answered. Thank you for allowing me to participate in her care Orders: Orders Vitamin D 25-OH (D2 and D3) Today E55.9 - Vitamin D deficiency, unspecified Vitamin B12 and Folate Today R19.7 - Diarrhea, unspecified Lipase Today R10.9 - Unspecified abdominal pain Pancreatic Elastase-1 Today R10.9 - Unspecified abdominal pain Medications: New sennosides (Natural Senna Laxative) 17.2 mg (2 x 8.6 mg) PO BEDTIME 60 tabs 1RF constipation K59.00 - Constipation, unspecified methylcellulose (laxative) (Citrucel) 500 mg PO DAILY 30 tabs 2RF K59.00 - Constipation, unspecified Coding Level of Care Code New Pt Level 4 (19677) Diagnoses Abdominal discomfort R10.9 Gastroesophageal reflux disease, unspecified whether esophagitis present K21.9 Esophagitis presence: esophagitis presence not specified Irritable bowel syndrome with both constipation and diarrhea K58.2 Irritable bowel syndrome type: with both diarrhea and constipation Time Spent (min) 45 Comment 30 minutes spent with patient and additional 15 minute spent reviewing her records
== END 2023-01-02 10:52 | disposition home or self-care (01) ==
PROVIDERS: PCP Internal Medicine; Visit Provider Nurse Practitioner Family
DX: R10.9 Unspecified abdominal pain (principal); K21.9 Gastro-esophageal reflux disease without esophagitis; K58.2 Mixed irritable bowel syndrome
CPT/HCPCS: 99204

== ENCOUNTER → 2023-01-02 09:49 | Outpatient (BNVA) | payer MEDICARE, OTHER, SELFPAY | PROVIDERS: PCP Internal Medicine; Visit Provider Nurse Practitioner Family ==

== ENCOUNTER 2023-01-18 07:13 | Outpatient (REF) | payer MEDICARE, MEDICAID, SELFPAY ==
[2023-01-18 08:15] LABS: Lipase 30 U/L (8-78)
[2023-01-18 08:50] LABS: Folate 14.5 ng/mL (> or = 4.0); Vitamin B12 333 pg/mL (200-900)
[2023-01-21 16:09] LABS: Vitamin D 25-OH, D2 <4 ng/mL; Vitamin D 25-OH, D3 33 ng/mL; Vitamin D 25-OH, Total 33 ng/mL (30-100)
== END 2023-01-18 07:14 | disposition home or self-care (01) ==
LOC: HO.LAB 07:13
PROVIDERS: Absent Provider Internal Medicine; PCP Internal Medicine; Visit Provider Nurse Practitioner Family
DX: R10.9 Unspecified abdominal pain (principal); R19.7 Diarrhea, unspecified; E55.9 Vitamin D deficiency, unspecified
CPT/HCPCS: 36415; 82306; 82607; 82746; 83690

== ENCOUNTER 2023-01-23 14:13 | Outpatient (REF) | payer MEDICARE, MEDICAID, SELFPAY ==
--- NOTE | ~2023-01-23 | MR_ITS ---
EXAMINATION: MR ABDOMEN WITHOUT AND WITH CONTRAST CLINICAL INFORMATION: Liver lesion. History of monoclonal gammopathy. COMPARISON: 03/30/2017 TECHNIQUE: MR abdomen was performed without and with use of 10 mL intravenous Gadavist gadolinium contrast. Postcontrast images are performed in multiphase dynamic sequences. Imaging was performed in 3 planes. Patient had difficulty suspending respiration. FINDINGS: LUNG BASES: The visualized lung bases are unremarkable. LIVER, GALLBLADDER, AND BILIARY TREE: The liver is enlarged. Measures 20.6 cm in sagittal dimension. Hepatic steatosis. At least 1 cm poorly defined focus of arterial phase hyperenhancement in segment 8 on image 43 of series 100. There are no washout characteristics or evidence of a pseudocapsule. No corresponding T1 or T2 signal abnormality. No retention of contrast on delayed images. 9 mm segment 4 hepatic cyst. No further imaging follow-up is required. No biliary ductal dilatation is present. The gallbladder is not visualized. PANCREAS: No ductal dilatation. SPLEEN: Enlarged. Measures 16.3 cm in sagittal dimension. ADRENAL GLANDS: No adrenal mass. KIDNEYS AND URETERS: The kidneys are normal in size, shape, and enhance symmetrically. No hydronephrosis. No perinephric stranding. GASTROINTESTINAL TRACT: No bowel obstruction. No ascites or fluid collection. ABDOMINAL WALL: Periumbilical hernia measuring 5.4 x 2.3 cm. The mouth of the hernia measures 4.1 cm. The hernia contains a loop of nonobstructed noncompromised large bowel. LYMPH NODES: No bulky abdominal lymphadenopathy. VASCULAR: Normal caliber abdominal aorta. MR/MR abdomen wo/w con IMPRESSION: Poorly defined focus of arterial phase hyperenhancement in hepatic segment 8 measuring at least 1 cm but possibly larger. No washout characteristics or evidence of a pseudocapsule on current imaging. This lesion is indeterminate and requires follow-up imaging in 3 months. This corresponds to hypermetabolic lesion demonstrated on PET/CT performed 06/22/2022. Hepatosplenomegaly. Hepatic steatosis.
[2023-01-23] MEDS: gadobutroL 10 ML VIAL IVPUSH (15:08)
== END 2023-01-23 14:14 | disposition home or self-care (01) ==
LOC: HO.MRI 14:13
PROVIDERS: PCP Internal Medicine; Visit Provider Internal Medicine Medical Oncology
DX: K76.9 Liver disease, unspecified (principal)
CPT/HCPCS: 74183; A9585

== ENCOUNTER 2023-01-25 10:43 | Outpatient (AMB) | payer MEDICARE, MEDICAID, SELFPAY ==
[2023-01-25 10:51] VITALS: BP 116/64; PULSE 90; O2SAT 98; BMI 32.6
--- NOTE | 2023-01-25 10:51 | A.OFFPC_ITS ---
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 Required: No Community Health Promoter: Not Required per policy Accompanied by: Self / Same As Patient Allergies cephalexin Allergy (Unknown, Verified 01/25/23 10:52) SEIZURE/COMA,anaphylaxsis vancomycin [VANCOMYCIN] Allergy (Unknown, Verified 01/25/23 10:52) RED HEAT RASH Medication List - Last Reconciled 01/25/23 by Pedro Phillips MD acetaminophen 2 tabs PO Q4H amlodipine 5 mg (2 x 2.5 mg) PO DAILY apixaban (Eliquis) 5 mg PO BID cane As directed cholecalciferol (vitamin D3) 50 mcg PO DAILY 30 days dexamethasone 20 mg (5 x 4 mg) PO DAILY dronabinol (Marinol) 2.5 mg PO BID fluconazole (Diflucan) 100 mg PO DAILY folic acid 1 mg PO DAILY hydrochlorothiazide 25 mg PO DAILY lorazepam 1 mg (2 x 0.5 mg) PO TID PRN methylcellulose (laxative) (Citrucel) 500 mg PO DAILY nicotine 1 patch transdermal DAILY omeprazole 20 mg PO DAILY ondansetron 8 mg PO Q8H oxycodone 10 mg PO Q4-6H PRN prednisone 5 mg PO DAILY prochlorperazine maleate (Compazine) 5 mg PO TID PRN sennosides (Natural Senna Laxative) 17.2 mg (2 x 8.6 mg) PO BEDTIME 90 days Tobacco use date assessed: 04/25/22 Dental Screening Dental Screen Date: 01/25/23 Did you have a dental visit in the last 12 months?: Yes Did you have a dental problem in the last 6 months where you did not have access to dental care?: No Was dental information given to patient?: Patient has dentist HPI f/u HPI Details chronic back pain on rx; compliant [facility] Medical History Adrenal insufficiency Low serum cortisol level Obesity Cholecystostomy care Obesity Vitamin D deficiency Perimenopause Scleritis Neutropenia Graves disease Amenorrhea Back pain Surgical History History of bone marrow biopsy History of biopsy History of cholecystectomy History of umbilical hernia repair History of D&C History of section Family History Father No problems noted. Mother No problems noted. Social History Household Members: Family Housing: House Are you a primary plant care worker to a significant other at home: No Do you presently have visiting nurse or other home services: No Alcohol intake: former Patient Tobacco Use Status: Current everyday Tobacco user Tobacco use type: Cigarette Cigarette Packs Per Day: 1 Cigarettes Per Day: 20 e-Cigarette/Vaping Use: Never Used Second Hand Smoke Exposure: No Substance Use Type: Caffiene service: No Current occupational status: unemployed Current occupational exposures/hazards: No Cognitive needs: No Hearing needs: No Vision needs: Yes Female Reproductive History Menstrual Age of Menarche: 10 Questionnaire PHQ-9 Over the last 2 weeks, how often have you been bothered by any of the following problems? 1. Little interest or pleasure in doing things: not at all 2. Feeling down, depressed, or hopeless: not at all 3. Trouble falling or staying asleep, or sleeping too much: not at all 4. Feeling tired or having little energy: not at all 5. Poor appetite or overeating: not at all 6. Feeling bad about yourself - or that you are a failure or have let yourself or your family down: not at all 7. Trouble concentrating on things, such as reading the newspaper or watching television: not at all 8. Moving or speaking so slowly that other people could have noticed. Or the opposite - being so fidgety or restless that you have been moving around a lot more than usual: not at all 9. Thoughts that you would be better off or of hurting yourself in some way: not at all Total score: 0 Depression Screening Interpretation: Negative Depression Screening Done: Yes Source: Developed by Drs. Bear Kendall, Eufemia Reece, Eben Rodriguez and colleagues, with an educational hermes from [employer]. Thrive Questionnaire Date Thrive assessed: 04/25/22 AUDIT C Alcohol Use Questionnaire (AUDIT-C) 1. How often do you have a drink containing alcohol?: Never Total Score: 0 Score Reviewed/Action Taken: No MARIELENA-7 AMB Questionnaire MARIELENA-7 Date MARIELENA - 7 assessed: 04/25/22 Source: Developed by Drs. Bear Kendall, Eufemia Reece, Eben Rodriguez and colleagues, with an educational hermes from [employer]. Review of Systems Const Denies chills, Denies headache(s) and Denies weight loss ENT Denies headache(s) Card Denies chest pain, Denies syncope, Denies irregular heart rhythm and Denies dyspnea Resp Denies chest congestion, Denies cough and Denies dyspnea GI Denies abdominal pain, Denies change in stool character, Denies nausea and Denies vomiting Musc Denies deformity and Denies joint swelling Neuro Denies syncope and Denies headache(s) Physical exam (Primary Care) Vital Signs: Last Vital Signs Pulse 90 01/25/23 10:51 BP 116/64 01/25/23 10:51 Pulse Ox 98 01/25/23 10:51 Oxygen Delivery Method Room Air 01/25/23 10:51 BMI result Body Mass Index 32.6 Tobacco/Smoking Status: Tobacco use Status Tobacco use date assessed 04/25/22 01/25/23 10:55 Patient Tobacco Use Status Current everyday Tobacco 01/25/23 10:55 Tobacco use type Cigarette 01/25/23 10:55 e-Cigarette/Vaping Use Never Used 01/25/23 10:55 PHQ-9: PHQ-9 Score PHQ-9: Total score 0 01/25/23 10:55 Depression Screening Interpretation: Negative Thrive Assessment: Date of Thrive Assessment Date Thrive assessed 04/25/22 01/25/23 10:55 Const General: cooperative, comfortable, no acute distress and alert Neck Neck: Yes no lymphadenopathy Thyroid: Thyroid normal Resp Effort & Inspection: normal respiratory effort Auscultation: clear to auscultation bilaterally Percussion: percussion normal Cardio Jugular venous distension: no JVD Palpation: normal PMI Rate: regular rate Rhythm: regular rhythm Heart sounds: S1 normal heart sound present and S2 normal heart sound present GI Inspection: Yes normal to inspection Palpation (GI): No hepatosplenomegaly present Skin General skin exam: no rashes or lesions noted Extrem General: Yes no clubbing, cyanosis or edema Assessment and Plan Assessment & Plan (1) Back pain: Code(s): M54.9 - Dorsalgia, unspecified Plan: stable; same rx Medications: Refilled oxycodone 10 mg PO Q4-6H PRN 140 tabs 0RF pain Coding Level of Care Code Est Pt Level 3 (42817) Diagnoses Back pain M54.9
== END 2023-01-25 11:08 | disposition home or self-care (01) ==
PROVIDERS: PCP Internal Medicine; Visit Provider Internal Medicine
DX: M54.9 Dorsalgia, unspecified (principal)
CPT/HCPCS: 99213

== ENCOUNTER 2023-01-26 08:15 | Outpatient (REF) | payer MEDICARE, MEDICAID, SELFPAY ==
[2023-02-02 03:38] LABS: Pancreatic Elastase-1 >500 mcg/g
== END 2023-01-26 08:16 | disposition home or self-care (01) ==
LOC: HO.LNP 08:15
PROVIDERS: Visit Provider Nurse Practitioner Family
DX: R10.9 Unspecified abdominal pain (principal)
CPT/HCPCS: 82656

== ENCOUNTER 2023-01-30 10:09 | Outpatient (AMB) | payer MEDICARE, MEDICAID, SELFPAY ==
[2023-01-30 10:16] VITALS: BP 132/77; PULSE 101; O2SAT 98; BMI 33.1
--- NOTE | 2023-01-30 10:16 | MHC.OFFVIS ---
Intake Vital Signs 01/30/23 10:16 Height 5 ft 7 in Weight 211 lb 10.3 oz BMI 33.1 BP 132/77 Blood Pressure Location Lt brachial Position Sitting Pulse 101 H Pulse Source Pulse Oximeter Pulse Oximetry (%) 98 Oxygen Delivery Method Room Air Intake Visit Reasons: 4 week follow up Intake Note: Pt presents to the office today for a 4 week follow up for abdominal discomfort. Pt states she is doing much better since not being on the chemo. Pt states her last chemo was 01/11/23. Pt believes the chemo is what was causing her abdominal discomfort. Pt states since being off the chemo pt has not had any N/V/D. Allergies cephalexin Allergy (Unknown, Verified 01/30/23 10:21) SEIZURE/COMA,anaphylaxsis vancomycin [VANCOMYCIN] Allergy (Unknown, Verified 01/30/23 10:21) RED HEAT RASH HPI 4 week follow up HPI Details LAST VISIT: Abdominal discomfort GERD (gastroesophageal reflux disease) IBS (irritable bowel syndrome) Plan Patient reports postprandial abdominal bloating. Low FODMAP diet discussed with patient. Patient reports occasional abdominal cramping. Pain is not always located in the 1 side of her abdomen, nonradiating pain. Crampy-like. Most likely related to gas. List of food recommended as well as list of food to avoid given to patient. Will check lipase, pancreatic a last days. Will check vitamin-D, B12 and folate. Patient can start Citrucel in the morning with full glass of water and take Senokot in the evening to help her empty her bowels better. If patient continues with rectal bleeding she can call the office. Will send her script for Proctosol. I will see her in 4 weeks, sooner on as needed basis. Patient is agreeable to this plan and verbalizes understanding of instructions. She was given the opportunity to ask questions and all questions answered. ? Thank you for allowing me to participate in her care Orders Orders Vitamin D 25-OH (D2 and D3) Today E55.9 Vitamin B12 and Folate Today R19.7 Lipase Today R10.9 Pancreatic Elastase-1 Today R10.9 Medications New sennosides (Natural Senna Laxative) 17.2 mg (2 x 8.6 mg) PO BEDTIME 60 tabs 1RF constipation K59.00 methylcellulose (laxative) (Citrucel) 500 mg PO DAILY 30 tabs 2RF K59.00 TODAY'S VISIT Patient is here today for follow-up and to discuss lab results. Patient reports that she has seen her oncologist and [place] and reported her GI symptoms that include that abdominal bloating, discomfort, diarrhea/constipation and dyspepsia. Her oncologist put her chemotherapy on hold at this time. Patient reports that since she stopped chemotherapy she has been feeling much better. Patient no longer needs to use senna and Citrucel. Patient uses omeprazole on as needed basis. Patient reports that she is moving her bowels better. Denies any GI concerning symptoms. [facility] Medical History Adrenal insufficiency Low serum cortisol level Obesity Cholecystostomy care Obesity Vitamin D deficiency Perimenopause Scleritis Neutropenia Graves disease Amenorrhea Back pain Surgical History History of bone marrow biopsy History of biopsy History of cholecystectomy History of umbilical hernia repair History of D&C History of section Family History Father No problems noted. Mother No problems noted. Social History (Updated 01/30/23 @ 10:23 by Luly Bradley MA) Household Members: Family Housing: House Are you a primary daycare assistant to a significant other at home: No Do you presently have visiting nurse or other home services: No Alcohol intake: former Patient Tobacco Use Status: Current everyday Tobacco user Tobacco use type: Cigarette Cigarette Packs Per Day: 1 Cigarettes Per Day: 20 e-Cigarette/Vaping Use: Never Used Second Hand Smoke Exposure: No service: No Current occupational status: unemployed Current occupational exposures/hazards: No Cognitive needs: No Hearing needs: No Vision needs: Yes Female Reproductive History Menstrual Age of Menarche: 10 Review of Systems Const Denies weight gain and Denies weight loss ENT Reports no additional complaints, Denies dysphagia and Denies odynophagia Card Reports no additional complaints Resp Reports no additional complaints GI Denies abdominal pain, Denies belching, Denies melena, Denies bloating, Denies change in bowel habits, Denies dysphagia, Denies excessive flatus, Denies dyspepsia, Denies heartburn, Denies diarrhea, Denies loose stools, Denies nausea, Denies odynophagia and Denies vomiting Reports no additional complaints Musc Reports no additional complaints Neuro Reports no additional complaints Psych Reports no additional complaints Endo Reports no additional complaints Physical Exam Vital Signs: Last Vital Signs Pulse 101 H 01/30/23 10:16 BP 132/77 01/30/23 10:16 Pulse Ox 98 01/30/23 10:16 Oxygen Delivery Method Room Air 01/30/23 10:16 BMI result Body Mass Index 33.1 Const Other: Ambulating with a cane General: healthy appearing, no acute distress and well developed Nutritional Appearance: obese Orientation/consciousness: patient oriented x3 HEENT Head: Yes normal to inspection, Yes normocephalic and Yes atraumatic Face and sinus: Yes normal facial exam Mouth: Normal oral and palatal mucosa present Throat: Yes posterior oropharynx normal, Yes tonsils normal and Yes uvula midline Eyes General: appearance normal, both eyes and all related structures Resp Effort & Inspection: normal respiratory effort, able to speak in complete sentences, no tracheal deviation and symmetric chest movement Auscultation: clear to auscultation bilaterally Cardio Rate: regular rate Heart sounds: S1 normal heart sound present and S2 normal heart sound present GI Inspection: Yes normal to inspection, No distended and Yes obesity Palpation (GI): Soft to palpation, not firm, nontender and No hepatosplenomegaly present Auscultation: normal bowel sounds General: Yes no CVA tenderness Back/Spine/Pelvis Back: no CVA tenderness Skin General skin exam: elasticity normal, turgor normal and dry skin Neuro General: patient oriented x3 Psych Appearance: grossly normal Mental Status: mental status grossly normal Results Reviewed Results Reviewed: Laboratory Tests 01/18/23 07:26 Lipase 30 Vitamin B12 333 25-OH Vitamin D Total 33 Folate 14.5 Assessment & Plan Assessment & Plan (1) Abdominal discomfort: Code(s): R10.9 - Unspecified abdominal pain (2) GERD (gastroesophageal reflux disease): Code(s): K21.9 - Gastro-esophageal reflux disease without esophagitis Qualifiers: Esophagitis presence: esophagitis presence not specified Qualified Code(s): K21.9 - Gastro-esophageal reflux disease without esophagitis (3) IBS (irritable bowel syndrome): Code(s): K58.9 - Irritable bowel syndrome without diarrhea Qualifiers: Irritable bowel syndrome type: with both diarrhea and constipation Qualified Code(s): K58.2 - Mixed irritable bowel syndrome Plan: Patient can continue taking omeprazole. She was encouraged to avoid dietary triggers in late night snacking. Staying upright for minimal 3 hours after meals discussed with patient. Patient was encouraged to increase fluid intake and activity to promote better bowel motility. Patient will be seeing her oncologist in 2 months and they will decide on chemotherapy. I will see patient in 3 months, sooner on as needed basis. Patient is agreeable to this plan and verbalizes understanding of instructions. She was given the opportunity to ask questions and all questions answered. Thank you for allowing me to participate in her care Coding Level of Care Code Est Pt Level 3 (70882) Diagnoses Abdominal discomfort R10.9 Gastroesophageal reflux disease, unspecified whether esophagitis present K21.9 Esophagitis presence: esophagitis presence not specified Irritable bowel syndrome with both constipation and diarrhea K58.2 Irritable bowel syndrome type: with both diarrhea and constipation Time Spent (min) 25 Comment 15 minutes spent with patient and additional 10 minutes spent reviewing her records
== END 2023-01-30 11:00 | disposition home or self-care (01) ==
PROVIDERS: PCP Internal Medicine; Visit Provider Nurse Practitioner Family
DX: R10.9 Unspecified abdominal pain (principal); K21.9 Gastro-esophageal reflux disease without esophagitis; K58.2 Mixed irritable bowel syndrome
CPT/HCPCS: 99213

== ENCOUNTER → 2023-01-30 10:09 | Outpatient (BNVA) | payer MEDICARE, MEDICAID, SELFPAY | PROVIDERS: PCP Internal Medicine; Visit Provider Nurse Practitioner Family | DX: K21.9 Gastro-esophageal reflux disease without esophagitis (principal); K58.2 Mixed irritable bowel syndrome; R10.9 Unspecified abdominal pain | CPT/HCPCS: 99212 ==

== ENCOUNTER 2023-02-21 14:24 | Outpatient (AMB) | payer MEDICARE, MEDICAID, SELFPAY ==
--- NOTE | 2023-02-21 14:25 | A.OFFPC_ITS ---
Vital Signs 02/21/23 14:26 Height 5 ft 7 in Weight 212 lb BMI 33.2 BP 132/68 Blood Pressure Location Lt brachial Position Sitting Pulse 94 Pulse Source Pulse Oximeter Pulse Oximetry (%) 99 Oxygen Delivery Method Room Air Intake Visit Reasons: 1 month f/u Disability Advocate Required: No Embedded Linux Developer: Not Required per policy Accompanied by: Self / Same As Patient Allergies cephalexin Allergy (Unknown, Verified 02/21/23 14:26) SEIZURE/COMA,anaphylaxsis vancomycin [VANCOMYCIN] Allergy (Unknown, Verified 02/21/23 14:26) RED HEAT RASH Medication List - Last Reconciled 02/21/23 by Pedro Phillips MD acetaminophen 2 tabs PO Q4H amlodipine 5 mg (2 x 2.5 mg) PO DAILY apixaban (Eliquis) 5 mg PO BID cane As directed cholecalciferol (vitamin D3) 50 mcg PO DAILY 30 days dexamethasone 20 mg (5 x 4 mg) PO DAILY dronabinol (Marinol) 2.5 mg PO BID fluconazole (Diflucan) 100 mg PO DAILY folic acid 1 mg PO DAILY hydrochlorothiazide 25 mg PO DAILY lorazepam 1 mg (2 x 0.5 mg) PO TID PRN methylcellulose (laxative) (Citrucel) 500 mg PO DAILY nicotine 1 patch transdermal DAILY omeprazole 20 mg PO DAILY ondansetron 8 mg PO Q8H oxycodone 10 mg PO Q4-6H PRN prednisone 5 mg PO DAILY prochlorperazine maleate (Compazine) 5 mg PO TID PRN sennosides (Natural Senna Laxative) 17.2 mg (2 x 8.6 mg) PO BEDTIME 90 days Tobacco use date assessed: 04/25/22 Dental Screening Dental Screen Date: 02/21/23 Did you have a dental visit in the last 12 months?: Yes Did you have a dental problem in the last 6 months where you did not have access to dental care?: No Was dental information given to patient?: Patient has dentist HPI 1 month f/u HPI Details chronic back pain; doing well; compliant [facility] Medical History Adrenal insufficiency Low serum cortisol level Obesity Cholecystostomy care Obesity Vitamin D deficiency Perimenopause Scleritis Neutropenia Graves disease Amenorrhea Back pain Surgical History History of bone marrow biopsy History of biopsy History of cholecystectomy History of umbilical hernia repair History of D&C History of section Family History Father No problems noted. Mother No problems noted. Household Members: Family Housing: House Are you a primary home health care provider to a significant other at home: No Do you presently have visiting nurse or other home services: No Alcohol intake: former Patient Tobacco Use Status: Current everyday Tobacco user Tobacco use type: Cigarette Cigarette Packs Per Day: 1 Cigarettes Per Day: 20 e-Cigarette/Vaping Use: Never Used Second Hand Smoke Exposure: No service: No Current occupational status: unemployed Current occupational exposures/hazards: No Cognitive needs: No Hearing needs: No Vision needs: Yes Female Reproductive History Menstrual Age of Menarche: 10 Questionnaire PHQ-9 Over the last 2 weeks, how often have you been bothered by any of the following problems? 1. Little interest or pleasure in doing things: not at all 2. Feeling down, depressed, or hopeless: not at all 3. Trouble falling or staying asleep, or sleeping too much: not at all 4. Feeling tired or having little energy: not at all 5. Poor appetite or overeating: not at all 6. Feeling bad about yourself - or that you are a failure or have let yourself or your family down: not at all 7. Trouble concentrating on things, such as reading the newspaper or watching television: not at all 8. Moving or speaking so slowly that other people could have noticed. Or the opposite - being so fidgety or restless that you have been moving around a lot more than usual: not at all 9. Thoughts that you would be better off or of hurting yourself in some way: not at all Total score: 0 Depression Screening Interpretation: Negative Depression Screening Done: Yes Source: Developed by Drs. Bear Kendall, Eufemia Reece, Eben Rodriguez and colleagues, with an educational hermes from [employer]. Thrive Questionnaire Date Thrive assessed: 04/25/22 AUDIT C Alcohol Use Questionnaire (AUDIT-C) 1. How often do you have a drink containing alcohol?: Never Total Score: 0 Score Reviewed/Action Taken: No MARIELENA-7 AMB Questionnaire MARIELENA-7 Date MARIELENA - 7 assessed: 04/25/22 Source: Developed by Drs. Bear Kendall, Eufemia Reece, Eben Rodriguez and colleagues, with an educational hermes from [employer]. Review of Systems Const Denies chills, Denies headache(s) and Denies weight loss ENT Denies headache(s) Card Denies chest pain, Denies syncope, Denies irregular heart rhythm and Denies dyspnea Resp Denies chest congestion, Denies cough and Denies dyspnea GI Denies abdominal pain, Denies change in stool character, Denies nausea and Denies vomiting Musc Denies deformity and Denies joint swelling Neuro Denies syncope and Denies headache(s) Physical exam (Primary Care) Vital Signs: Last Vital Signs Pulse 94 02/21/23 14:26 BP 132/68 02/21/23 14:26 Pulse Ox 99 02/21/23 14:26 Oxygen Delivery Method Room Air 02/21/23 14:26 BMI result Body Mass Index 33.2 Tobacco/Smoking Status: Tobacco use Status Tobacco use date assessed 04/25/22 02/21/23 14:30 Patient Tobacco Use Status Current everyday Tobacco 02/21/23 14:30 Tobacco use type Cigarette 02/21/23 14:30 e-Cigarette/Vaping Use Never Used 02/21/23 14:30 PHQ-9: PHQ-9 Score PHQ-9: Total score 0 02/21/23 14:30 Depression Screening Interpretation: Negative Thrive Assessment: Date of Thrive Assessment Date Thrive assessed 04/25/22 02/21/23 14:30 Const General: cooperative, comfortable, no acute distress and alert Neck Neck: Yes no lymphadenopathy Thyroid: Thyroid normal Resp Effort & Inspection: normal respiratory effort Auscultation: clear to auscultation bilaterally Percussion: percussion normal Cardio Jugular venous distension: no JVD Palpation: normal PMI Rate: regular rate Rhythm: regular rhythm Heart sounds: S1 normal heart sound present and S2 normal heart sound present GI Inspection: Yes normal to inspection Palpation (GI): No hepatosplenomegaly present Skin General skin exam: no rashes or lesions noted Extrem General: Yes no clubbing, cyanosis or edema Assessment and Plan Assessment & Plan (1) Chronic pain syndrome: Code(s): G89.4 - Chronic pain syndrome Plan: stable; same rx Medications: Refilled oxycodone 10 mg PO Q4-6H PRN 140 tabs 0RF pain Coding Level of Care Code Est Pt Level 3 (41992) Diagnoses Chronic pain syndrome G89.4
[2023-02-21 14:26] VITALS: BP 132/68; PULSE 94; O2SAT 99; BMI 33.2
== END 2023-02-21 14:47 | disposition home or self-care (01) ==
PROVIDERS: PCP Internal Medicine; Visit Provider Internal Medicine
DX: G89.4 Chronic pain syndrome (principal)
CPT/HCPCS: 99213

== ENCOUNTER 2023-03-09 10:11 | Outpatient (AMB) | payer MEDICARE, MEDICAID, SELFPAY ==
--- NOTE | 2023-03-09 10:15 | A.OFFVIS_ITS ---
Intake Vital Signs 03/09/23 10:16 Height 5 ft 7 in Weight 213 lb 13.574 oz BMI 33.5 BP 115/64 Blood Pressure Location Lt brachial Position Sitting Pulse 91 Pulse Source Pulse Oximeter Intake Visit Reasons: follow up Intake Note: Pt presents to the office today for a follow up. Pt states she is feeling better with the stomach pains and denies any N/V/D. Allergies cephalexin Allergy (Unknown, Verified 03/09/23 10:17) SEIZURE/COMA,anaphylaxsis vancomycin [VANCOMYCIN] Allergy (Unknown, Verified 03/09/23 10:17) RED HEAT RASH HPI follow up HPI Details LAST VISIT Abdominal discomfort GERD (gastroesophageal reflux disease) IBS (irritable bowel syndrome) Patient can continue taking omeprazole. She was encouraged to avoid dietary triggers in late night snacking. Staying upright for minimal 3 hours after meals discussed with patient. Patient was encouraged to increase fluid intake and activity to promote better bowel motility. Patient will be seeing her oncologist in 2 months and they will decide on chemotherapy. I will see patient in 3 months, sooner on as needed basis. Patient is agreeable to this plan and verbalizes understanding of instructions. She was given the opportunity to ask questions and all questions answered. ? TODAY'S VISIT Patient is here today for follow-up. Patient reports that she has been feeling much better since she staff her chemotherapy. Patient reports that she wean herself of of omeprazole and famotidine. Patient no longer needs to use senna to help her move her bowels. Patient denies any dyspepsia, dysphagia or odynophagia. Denies any abdominal pain or discomfort. Denies any melena, hematochezia, unintentional weight loss or ribbon like stools. Patient does rep ort of knee pain and arthritic like pain in her hands and her joints. Patient is following up with Rheumatology in [place]. Patient reports that she has been feeling much better now. [facility] Medical History Adrenal insufficiency Low serum cortisol level Obesity Cholecystostomy care Obesity Vitamin D deficiency Perimenopause Scleritis Neutropenia Graves disease Amenorrhea Back pain Surgical History History of bone marrow biopsy History of biopsy History of cholecystectomy History of umbilical hernia repair History of D&C History of section Family History Father No problems noted. Mother No problems noted. Social History Household Members: Family Housing: House Are you a primary home health care coordinator to a significant other at home: No Do you presently have visiting nurse or other home services: No Alcohol intake: former Patient Tobacco Use Status: Current everyday Tobacco user Tobacco use type: Cigarette Cigarette Packs Per Day: 1 Cigarettes Per Day: 20 e-Cigarette/Vaping Use: Never Used Second Hand Smoke Exposure: No service: No Current occupational status: unemployed Current occupational exposures/hazards: No Cognitive needs: No Hearing needs: No Vision needs: Yes Female Reproductive History Menstrual Age of Menarche: 10 Review of Systems Const Denies weight gain and Denies weight loss ENT Reports no additional complaints, Denies dysphagia and Denies odynophagia Card Reports no additional complaints Resp Reports no additional complaints GI Denies abdominal pain, Denies belching, Denies melena, Denies bloating, Denies change in bowel habits, Denies dysphagia, Denies excessive flatus, Denies dyspepsia, Denies heartburn, Denies diarrhea, Denies loose stools, Denies nausea, Denies odynophagia and Denies vomiting Musc Reports no additional complaints Neuro Reports no additional complaints Psych Reports no additional complaints Endo Reports no additional complaints Physical Exam Vital Signs: Last Vital Signs Pulse 91 03/09/23 10:16 BP 115/64 03/09/23 10:16 BMI result Body Mass Index 33.5 Const General: healthy appearing, no acute distress and well developed Nutritional Appearance: obese Orientation/consciousness: patient oriented x3 HEENT Head: Yes normal to inspection, Yes normocephalic and Yes atraumatic Face and sinus: Yes normal facial exam Mouth: Normal oral and palatal mucosa present Throat: Yes posterior oropharynx normal, Yes tonsils normal and Yes uvula midline Eyes General: appearance normal, both eyes and all related structures Neck Neck: Yes normal visual inspection, Yes full ROM and Yes trachea midline Thyroid: Thyroid normal Resp Effort & Inspection: normal respiratory effort, able to speak in complete sentences, no tracheal deviation and symmetric chest movement Auscultation: clear to auscultation bilaterally Cardio Rate: regular rate GI Inspection: Yes normal to inspection, No distended and Yes obesity Palpation (GI): Soft to palpation, not firm, nontender and No hepatosplenomegaly present Auscultation: normal bowel sounds General: Yes no CVA tenderness Back/Spine/Pelvis Back: no CVA tenderness Skin General skin exam: elasticity normal, turgor normal and dry skin Neuro General: patient oriented x3 Psych Appearance: grossly normal Mental Status: mental status grossly normal Affect: normal affect Assessment & Plan Assessment & Plan (1) Abdominal discomfort: Code(s): R10.9 - Unspecified abdominal pain (2) GERD (gastroesophageal reflux disease): Code(s): K21.9 - Gastro-esophageal reflux disease without esophagitis Qualifiers: Esophagitis presence: esophagitis presence not specified Qualified Code(s): K21.9 - Gastro-esophageal reflux disease without esophagitis (3) IBS (irritable bowel syndrome): Code(s): K58.9 - Irritable bowel syndrome without diarrhea Qualifiers: Irritable bowel syndrome type: with constipation Qualified Code(s): K58.1 - Irritable bowel syndrome with constipation Plan Patient will continue avoiding dietary triggers. She is seeing her oncologist in [place] end of this month. They will decide if she will have chemotherapy or not. Currently patient is feeling better. She will return in 4 months to discuss going for colonoscopy. Patient will be due to go for her 1st colo screen end of August of next year. Patient is agreeable to this plan and verbalizes understanding of instructions. She was given the opportunity to ask questions and all questions answered. Thank you for allowing me to participate in her care Medications: Discontinued ondansetron Discontinued Reason: Patient no longer taking 8 mg PO Q8H 50 tabs 4RF omeprazole Discontinued Reason: Patient no longer taking 20 mg PO DAILY 90 caps 3RF dexamethasone Take 20 mg the day of treatment (day 1) again on day 8, day 15, day 22 Discontinued Reason: Patient Completed Course 20 mg (5 x 4 mg) PO DAILY 100 tabs 3RF fluconazole (Diflucan) Discontinued Reason: Patient no longer taking 100 mg PO DAILY 5 tabs 0RF sennosides (Natural Senna Laxative) Discontinued Reason: Patient no longer taking 17.2 mg (2 x 8.6 mg) PO BEDTIME 90 days 180 tabs 2RF constipation K59.00 - Constipation, unspecified Coding Level of Care Code Est Pt Level 3 (92738) Diagnoses Abdominal discomfort R10.9 Gastroesophageal reflux disease, unspecified whether esophagitis present K21.9 Esophagitis presence: esophagitis presence not specified Irritable bowel syndrome with constipation K58.1 Irritable bowel syndrome type: with constipation Time Spent (min) 25 Comment 15 minutes spent with patient and additional 10 minutes spent reviewing her records
[2023-03-09 10:16] VITALS: BP 115/64; PULSE 91; BMI 33.5
== END 2023-03-09 11:04 | disposition home or self-care (01) ==
PROVIDERS: PCP Internal Medicine; Visit Provider Nurse Practitioner Family
DX: R10.9 Unspecified abdominal pain (principal); K21.9 Gastro-esophageal reflux disease without esophagitis; K58.1 Irritable bowel syndrome with constipation
CPT/HCPCS: 99213

== ENCOUNTER → 2023-03-09 10:11 | Outpatient (BNVA) | payer MEDICARE, MEDICAID, SELFPAY | PROVIDERS: PCP Internal Medicine; Visit Provider Nurse Practitioner Family | DX: K21.9 Gastro-esophageal reflux disease without esophagitis (principal); K58.1 Irritable bowel syndrome with constipation; R10.9 Unspecified abdominal pain | CPT/HCPCS: 99212 ==

== ENCOUNTER 2023-03-20 10:53 | Outpatient (AMB) | payer MEDICARE, MEDICAID, SELFPAY ==
[2023-03-20 10:54] VITALS: BP 116/60; PULSE 95; O2SAT 99; BMI 32.6
--- NOTE | 2023-03-20 10:54 | A.OFFPC_ITS ---
Vital Signs 03/20/23 10:54 Height 5 ft 7 in Weight 208 lb BMI 32.6 BP 116/60 Blood Pressure Location Lt brachial Position Sitting Pulse 95 Pulse Source Pulse Oximeter Pulse Oximetry (%) 99 Oxygen Delivery Method Room Air Intake Visit Reasons: 1 month f/u Food Processing Scientist Required: No University Librarian: Not Required per policy Accompanied by: Self / Same As Patient Allergies cephalexin Allergy (Unknown, Verified 03/20/23 10:55) SEIZURE/COMA,anaphylaxsis vancomycin [VANCOMYCIN] Allergy (Unknown, Verified 03/20/23 10:55) RED HEAT RASH Medication List - Last Reconciled 03/20/23 by Pedro Phillips MD acetaminophen 2 tabs PO Q4H amlodipine 5 mg (2 x 2.5 mg) PO DAILY apixaban (Eliquis) 5 mg PO BID cane As directed cholecalciferol (vitamin D3) 50 mcg PO DAILY 30 days dronabinol 2.5 mg PO BID folic acid 1 mg PO DAILY hydrochlorothiazide 25 mg PO DAILY lorazepam 1 mg (2 x 0.5 mg) PO TID PRN nicotine 1 patch transdermal DAILY oxycodone 10 mg PO Q4-6H PRN Tobacco use date assessed: 04/25/22 Dental Screening Dental Screen Date: 03/20/23 Did you have a dental visit in the last 12 months?: Yes Did you have a dental problem in the last 6 months where you did not have access to dental care?: No Was dental information given to patient?: Patient has dentist HPI 1 month f/u HPI Details chronic back pain; due for rx; compliant [facility] Medical History Adrenal insufficiency Low serum cortisol level Obesity Cholecystostomy care Obesity Vitamin D deficiency Perimenopause Scleritis Neutropenia Graves disease Amenorrhea Back pain Surgical History History of bone marrow biopsy History of biopsy History of cholecystectomy History of umbilical hernia repair History of D&C History of section Family History Father No problems noted. Mother No problems noted. Social History Household Members: Family Housing: House Are you a primary career information specialist to a significant other at home: No Do you presently have visiting nurse or other home services: No Alcohol intake: former Patient Tobacco Use Status: Current everyday Tobacco user Tobacco use type: Cigarette Cigarette Packs Per Day: 1 e-Cigarette/Vaping Use: Never Used Second Hand Smoke Exposure: No service: No Current occupational status: unemployed Current occupational exposures/hazards: No Cognitive needs: No Hearing needs: No Vision needs: Yes Female Reproductive History Menstrual Age of Menarche: 10 Questionnaire Thrive Questionnaire Date Thrive assessed: 04/25/22 MARIELENA-7 AMB Questionnaire MARIELENA-7 Date MARIELENA - 7 assessed: 04/25/22 Source: Developed by Drs. Bear Kendall, Eufemia Reece, Eben Rodriguez and colleagues, with an educational hermes from [employer]. Review of Systems Const Denies chills, Denies headache(s) and Denies weight loss ENT Denies headache(s) Card Denies chest pain, Denies syncope, Denies irregular heart rhythm and Denies dyspnea Resp Denies chest congestion, Denies cough and Denies dyspnea GI Denies abdominal pain, Denies change in stool character, Denies nausea and Denies vomiting Musc Denies deformity and Denies joint swelling Neuro Denies syncope and Denies headache(s) Physical exam (Primary Care) Vital Signs: Last Vital Signs Pulse 95 03/20/23 10:54 BP 116/60 03/20/23 10:54 Pulse Ox 99 03/20/23 10:54 Oxygen Delivery Method Room Air 03/20/23 10:54 BMI result Body Mass Index 32.6 Tobacco/Smoking Status: Tobacco use Status Tobacco use date assessed 04/25/22 03/20/23 10:54 Patient Tobacco Use Status Current everyday Tobacco 03/20/23 10:54 Tobacco use type Cigarette 03/20/23 10:54 e-Cigarette/Vaping Use Never Used 03/20/23 10:54 Thrive Assessment: Date of Thrive Assessment Date Thrive assessed 04/25/22 03/20/23 10:54 Const General: cooperative, comfortable, no acute distress and alert Neck Neck: Yes no lymphadenopathy Thyroid: Thyroid normal Resp Effort & Inspection: normal respiratory effort Auscultation: clear to auscultation bilaterally Percussion: percussion normal Cardio Jugular venous distension: no JVD Palpation: normal PMI Rate: regular rate Rhythm: regular rhythm Heart sounds: S1 normal heart sound present and S2 normal heart sound present GI Inspection: Yes normal to inspection Palpation (GI): No hepatosplenomegaly present Skin General skin exam: no rashes or lesions noted Extrem General: Yes no clubbing, cyanosis or edema Assessment and Plan Assessment & Plan (1) Back pain: Code(s): M54.9 - Dorsalgia, unspecified Plan: stable; sa,me rx Medications: Refilled oxycodone 10 mg PO Q4-6H PRN 140 tabs 0RF pain Coding Level of Care Code Est Pt Level 3 (13328) Diagnoses Back pain M54.9
== END 2023-03-20 11:06 | disposition home or self-care (01) ==
PROVIDERS: PCP Internal Medicine; Visit Provider Internal Medicine
DX: M54.9 Dorsalgia, unspecified (principal)
CPT/HCPCS: 99213

== ENCOUNTER 2023-04-16 09:23 | Outpatient (AMB) | payer OTHER, SELFPAY ==
[2023-04-16 09:24] VITALS: BP 120/68; PULSE 92; O2SAT 99; BMI 32.6
--- NOTE | 2023-04-16 09:24 | A.OFFPC_ITS ---
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 Required: No Business Account Specialist: Not Required per policy Accompanied by: Self / Same As Patient Allergies cephalexin Allergy (Unknown, Verified 04/16/23 09:25) SEIZURE/COMA,anaphylaxsis vancomycin [VANCOMYCIN] Allergy (Unknown, Verified 04/16/23 09:25) RED HEAT RASH Medication List - Last Reconciled 04/16/23 by Pedro Phillips MD acetaminophen 2 tabs PO Q4H amlodipine 5 mg (2 x 2.5 mg) PO DAILY apixaban (Eliquis) 5 mg PO BID cane As directed cholecalciferol (vitamin D3) 50 mcg PO DAILY 30 days dronabinol 2.5 mg PO BID folic acid 1 mg PO DAILY hydrochlorothiazide 25 mg PO DAILY lorazepam 1 mg PO TID PRN nicotine 1 patch transdermal DAILY oxycodone 10 mg PO Q4-6H PRN Tobacco use date assessed: 04/16/23 Dental Screening Dental Screen Date: 04/16/23 Did you have a dental visit in the last 12 months?: Yes Did you have a dental problem in the last 6 months where you did not have access to dental care?: No Was dental information given to patient?: Patient has dentist HPI med f/u HPI Details chronic back pain on rx; doing well and compliant [facility] Medical History Adrenal insufficiency Low serum cortisol level Obesity Cholecystostomy care Obesity Vitamin D deficiency Perimenopause Scleritis Neutropenia Graves disease Amenorrhea Back pain Surgical History History of bone marrow biopsy History of biopsy History of cholecystectomy History of umbilical hernia repair History of D&C History of section Family History Father No problems noted. Mother No problems noted. Social History Household Members: Family Housing: House Are you a primary furnace caretaker to a significant other at home: No Do you presently have visiting nurse or other home services: No Alcohol intake: former Patient Tobacco Use Status: Current everyday Tobacco user Tobacco use type: Cigarette Cigarette Packs Per Day: 1 e-Cigarette/Vaping Use: Never Used Second Hand Smoke Exposure: No service: No Current occupational status: unemployed Current occupational exposures/hazards: No Cognitive needs: No Hearing needs: No Vision needs: Yes Female Reproductive History Menstrual Age of Menarche: 10 Questionnaire PHQ-9 Over the last 2 weeks, how often have you been bothered by any of the following problems? 1. Little interest or pleasure in doing things: not at all 2. Feeling down, depressed, or hopeless: not at all 3. Trouble falling or staying asleep, or sleeping too much: not at all 4. Feeling tired or having little energy: not at all 5. Poor appetite or overeating: not at all 6. Feeling bad about yourself - or that you are a failure or have let yourself or your family down: not at all 7. Trouble concentrating on things, such as reading the newspaper or watching television: not at all 8. Moving or speaking so slowly that other people could have noticed. Or the opposite - being so fidgety or restless that you have been moving around a lot more than usual: not at all 9. Thoughts that you would be better off or of hurting yourself in some way: not at all Total score: 0 Depression Screening Interpretation: Negative Depression Screening Done: Yes Source: Developed by Drs. Bear Kendall, Eufemia Reece, Eben Rodriguez and colleagues, with an educational hermes from [employer]. Thrive Questionnaire Date Thrive assessed: 04/16/23 I am a: Patient What is your living situation today?: I have a steady place to live Within the past 12 months, did the food you bought not last and you didn't have the money to get more?: Never true Within the past 12 months, did you worry whether your food would run out before you got money to buy more?: Never true Do you have trouble paying for medicines?: No Do you have trouble getting transportation to medical appointments?: No Do you have trouble paying your heating and electricity bill?: No Do you have trouble taking care of your child, family member or friend?: No Do you have trouble with day-to-day activities such as bathing, preparing meals, shopping, managing finances, etc.?: No Are you currently unemployed and looking for a job?: No Are you interested in more education?: No Please select the resources that you would like help with: None AUDIT C Alcohol Use Questionnaire (AUDIT-C) 1. How often do you have a drink containing alcohol?: Never Total Score: 0 Score Reviewed/Action Taken: No MARIELENA-7 AMB Questionnaire MARIELENA-7 Date MARIELENA - 7 assessed: 04/16/23 Feeling nervous, anxious, or on edge: 0 = Not at all Not being able to stop or control worryin = Not at all Worrying too much about different things: 0 = Not at all Trouble relaxin = Not at all Being so restless that it is hard to sit still: 0 = Not at all Becoming easily annoyed or irritable: 0 = Not at all Feeling afraid as if something awful might happen: 0 = Not at all Total MARIELENA-7 score (0-4 normal; 5-9 mild; 10-14 moderate; 15-21 severe): 0 Source: Developed by Drs. Bear Kendall, Eufemia Reece, Eben Rodriguez and colleagues, with an educational hermes from [employer]. Review of Systems Const Denies chills, Denies headache(s) and Denies weight loss ENT Denies headache(s) Card Denies chest pain, Denies syncope, Denies irregular heart rhythm and Denies dyspnea Resp Denies chest congestion, Denies cough and Denies dyspnea GI Denies abdominal pain, Denies change in stool character, Denies nausea and Denies vomiting Musc Denies deformity and Denies joint swelling Neuro Denies syncope and Denies headache(s) Physical exam (Primary Care) Vital Signs: Last Vital Signs Pulse 92 04/16/23 09:24 BP 120/68 04/16/23 09:24 Pulse Ox 99 04/16/23 09:24 Oxygen Delivery Method Room Air 04/16/23 09:24 BMI result Body Mass Index 32.6 Tobacco/Smoking Status: Tobacco use Status Tobacco use date assessed 04/16/23 04/16/23 09:26 Patient Tobacco Use Status Current everyday Tobacco 04/16/23 09:26 Tobacco use type Cigarette 04/16/23 09:26 e-Cigarette/Vaping Use Never Used 04/16/23 09:26 PHQ-9: PHQ-9 Score PHQ-9: Total score 0 04/16/23 09:26 Depression Screening Interpretation: Negative Thrive Assessment: Date of Thrive Assessment Date Thrive assessed 04/16/23 04/16/23 09:26 Const General: cooperative, comfortable, no acute distress and alert Neck Neck: Yes no lymphadenopathy Thyroid: Thyroid normal Resp Effort & Inspection: normal respiratory effort Auscultation: clear to auscultation bilaterally Percussion: percussion normal Cardio Jugular venous distension: no JVD Palpation: normal PMI Rate: regular rate Rhythm: regular rhythm Heart sounds: S1 normal heart sound present and S2 normal heart sound present GI Inspection: Yes normal to inspection Palpation (GI): No hepatosplenomegaly present Skin General skin exam: no rashes or lesions noted Extrem General: Yes no clubbing, cyanosis or edema Assessment and Plan Assessment & Plan (1) Chronic pain syndrome: Code(s): G89.4 - Chronic pain syndrome Plan: stable; same rx Medications: Refilled oxycodone 10 mg PO Q4-6H PRN 140 tabs 0RF pain Coding Level of Care Code Est Pt Level 3 (69800) Diagnoses Chronic pain syndrome G89.4
== END 2023-04-16 09:41 | disposition home or self-care (01) ==
PROVIDERS: PCP Internal Medicine; Visit Provider Internal Medicine
DX: G89.4 Chronic pain syndrome (principal)
CPT/HCPCS: 99213

== ENCOUNTER 2023-04-30 14:43 | Outpatient (AMB) | payer OTHER, MEDICAID, SELFPAY ==
[2023-04-30 14:45] VITALS: BP 112/68; PULSE 85; BMI 32.8
--- NOTE | 2023-04-30 14:45 | A.OFFVIS_ITS ---
Intake Vital Signs 04/30/23 14:45 Height 5 ft 7 in Weight 209 lb 7.026 oz BMI 32.8 BP 112/68 Blood Pressure Location Lt brachial Position Sitting Pulse 85 Pulse Source Pulse Oximeter Intake Visit Reasons: F/U Adrenal insufficiency-lvm Intake Note: Patient present today for Adrenal insufficiency follow up visit. Previous Dr. Monroe patient. 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 Accompanied by: Self / Same As Patient Allergies cephalexin Allergy (Unknown, Verified 04/30/23 14:52) SEIZURE/COMA,anaphylaxsis vancomycin [VANCOMYCIN] Allergy (Unknown, Verified 04/30/23 14:52) RED HEAT RASH Medication List - Last Reconciled 04/30/23 by Bear Felipe MD acetaminophen 2 tabs PO Q4H amlodipine 5 mg (2 x 2.5 mg) PO DAILY apixaban (Eliquis) 5 mg PO BID cane As directed cholecalciferol (vitamin D3) 50 mcg PO DAILY 30 days dronabinol 2.5 mg PO BID folic acid 1 mg PO DAILY hydrochlorothiazide 25 mg PO DAILY lorazepam 1 mg PO TID PRN oxycodone 10 mg PO Q4-6H PRN HPI HPI Comments History of Present Illness Details 42 YO F with PMHx Grave's disease who is seen in F/U for Grave's disease as well as premature ovarian failure. The patient last saw Dr. Monroe 07/03/2022 She was diagnosed with Grave's disease in 2018 when her labs repeatedly revealed TSH <0.01. She had a thyroid uptake and scan which revealed uptake diffusely increased to 31.8%. TSI and TRAB antibodies were also found to be positive. She was noted at that time to have neutropenia and was referred to Heme-Onc. She had repeat TFTs assessed in early 2018 which were WNL, thus no thionamine therapy was started. She has remained off thionamine therapy and had TSH checked 12/17/18 and it was WNL at 0.65. After her initial visit with me we again repeated TFTs which were WNL. She was found to have elevated TPO and TRAB antibodies. She currently denies any symptoms of hyper or hypothyroidism. She does have redness of the eyes and was referred to Dr. Rutledge. He reported no evidence of thyroid eye disease and diagnosed her with Scleritis. She has been seeing Rheumatology for this. She was also noted to have elevated trasaminases and has been evaluated by GI. She noted swelling in her neck and had a thyroid US completed 11/20/2019 which was WNL. This was read as having a subcentimeter cyst within the L lobe of the thyroid, but images were independently reviewed and this was noted to be WNL. She reports amenorrhea and has had no menses in the past 2 years. Labs reveal she is perimenopausal with elevated FSH/LH and low normal Estradiol levels. Repeat analysis reveals low estradiol levels with elevated FSH/LH. She is taking prednisone 10 mg PO daily. She was using Prednisone 40 mg PO daily for 2 weeks, then tapered to 30 mg PO daily for 4 weeks, now down to 10 mg PO daily. She has been unable to taper further due to intractable pain. Thyroid US 11/20/2019: Right Thyroid Lobe: 4.7 x 2.1 x 1.9 cm, volume 9.8 mL. Parenchyma: The gland echotexture is homogeneous. Thyroid vascularity is normal. Left Thyroid Lobe: 4.4 x 2.1 x 1.7 cm, volume 8.3 mL. Parenchyma: The gland echotexture is homogeneous. Thyroid vascularity is normal. Isthmus: 0.7 cm in maximum AP dimension. RIGHT THYROID LOBE: No nodules. ISTHMUS: No nodules. LEFT THYROID LOBE: There is 1 nodule seen. 1. Location: Mid. Size: 0.3 x 0.2 x 0.3 cm. Nodule characteristics: Hypoechoic and cystic, smooth margin, no calcification and no intranodular flow. NODES: No lymphadenopathy is seen in the tissue surrounding the thyroid gland. Thyroid Uptake and Scan: 02/13/18 FINDINGS: The uptake is 12.5% at 4 hours and 31.8% at 24 hours. The radioiodine uptake is minimally elevated. The radiopertechnetate thyroid scintigram demonstrates the thyroid gland to be normal in size, shape, and position. There is homogeneous distribution of activity within the the gland with no focal abnormalities noted. The trapping function appears moderately increased diffusely.. A single anterior radioiodine image obtained at the time of the 24-hour uptake similar in appearance to the radio pertechnetate image. IMPRESSION: Minimally elevated radioiodine uptake. This is nonspecific. The thyroid scan is normal except for diffusely increased trapping function. No nodules are visualized. Labs: Laboratory Tests 04/22/21 06/06/22 14:40 09:49 Sodium 137 Potassium 4.0 Creatinine 1.11 Estimated GFR 54 TSH 1.37 currently not on prednisone . Was taking chemo for MGUS. Wt is stable. No palpitations or sx of hyperthyroidism PFSH Medical History Adrenal insufficiency Low serum cortisol level Obesity Cholecystostomy care Obesity Vitamin D deficiency Perimenopause Scleritis Neutropenia Graves disease Amenorrhea Back pain Surgical History History of bone marrow biopsy History of biopsy History of cholecystectomy History of umbilical hernia repair History of D&C History of section Family History Father No problems noted. Mother No problems noted. Social History Household Members: Family Housing: House Are you a primary health care marketing manager to a significant other at home: No Do you presently have visiting nurse or other home services: No Alcohol intake: former Patient Tobacco Use Status: Current everyday Tobacco user Tobacco use type: Cigarette Cigarette Packs Per Day: 1 e-Cigarette/Vaping Use: Never Used Second Hand Smoke Exposure: No service: No Current occupational status: unemployed Current occupational exposures/hazards: No Cognitive needs: No Hearing needs: No Vision needs: Yes Female Reproductive History Menstrual Age of Menarche: 10 Physical Exam Vital Signs: Last Vital Signs Pulse 85 04/30/23 14:45 BP 112/68 04/30/23 14:45 BMI result Body Mass Index 32.8 Const Other: Thyroid gland is normal size weighs about 15 g . There are no thyroid nodules palpated Assessment & Plan Assessment & Plan (1) Adrenal insufficiency: Code(s): E27.40 - Unspecified adrenocortical insufficiency Plan: History of adrenal insufficiency due to exogenous steroid use. Currently off glucocorticoids. No symptoms or Signs of adrenal insufficiency Continue to remain off steroids. Patient to follow-up with primary care provider at this point (2) Graves disease: Comment: 2018 Code(s): E05.00 - Thyrotoxicosis with diffuse goiter without thyrotoxic crisis or storm Plan: History of Graves disease currently remission. Appears clinically euthyroid. We will repeat TSH and free T4. Assuming normal, patient can follow up with primary care provider who can check thyroid function studies intermittently or if symptomatic Coding Level of Care Code Est Pt Level 3 (02865) Diagnoses Adrenal insufficiency E27.40 Graves disease E05.00
== END 2023-04-30 15:14 | disposition home or self-care (01) ==
PROVIDERS: PCP Internal Medicine; Visit Provider Internal Medicine Endocrinology, Diabetes & Metabolism
DX: E27.40 Unspecified adrenocortical insufficiency (principal); E05.00 Thyrotoxicosis with diffuse goiter without thyrotoxic crisis or storm
CPT/HCPCS: 99213

== ENCOUNTER → 2023-04-30 14:43 | Outpatient (BNVA) | payer OTHER, MEDICAID, SELFPAY | PROVIDERS: PCP Internal Medicine; Visit Provider Internal Medicine Endocrinology, Diabetes & Metabolism | DX: E27.40 Unspecified adrenocortical insufficiency (principal); E05.00 Thyrotoxicosis with diffuse goiter without thyrotoxic crisis or storm | CPT/HCPCS: 99212 ==

== ENCOUNTER 2023-05-02 10:20 | Outpatient (REF) | payer OTHER, SELFPAY ==
[2023-05-02 12:42] LABS: Free T4 (Free Thyroxine) 0.97 ng/dL (0.71-1.85)
== END 2023-05-02 10:21 | disposition home or self-care (01) ==
LOC: HO.LAB 10:20
PROVIDERS: Absent Provider Internal Medicine Endocrinology, Diabetes & Metabolism; PCP Internal Medicine; Visit Provider Nurse Practitioner Family
DX: E05.00 Thyrotoxicosis with diffuse goiter without thyrotoxic crisis or storm (principal); K58.9 Irritable bowel syndrome, unspecified; K21.9 Gastro-esophageal reflux disease without esophagitis; R10.9 Unspecified abdominal pain
CPT/HCPCS: 36415; 84439; 84443; 99212

== ENCOUNTER 2023-05-02 10:20 | Outpatient (AMB) | payer OTHER, SELFPAY ==
--- NOTE | 2023-05-02 10:30 | MHC.OFFVIS ---
Intake Vital Signs 05/02/23 10:31 Height 5 ft 7 in Weight 200 lb BMI 31.3 BP 110/58 L Blood Pressure Location Lt brachial Position Sitting Pulse 87 Intake Visit Reasons: 3 month follow up abdominal discomfort Intake Note: Patient follow up for abdominal discomfort. Patient denies any GI issues for today her stomach is much better. 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 She is seeing her oncologist in [place] end of this month. They will decide if she will have chemotherapy or not. Currently patient is feeling better. She will return in 4 months to discuss going for colonoscopy. Patient will be due to go for her 1st colo screen end of August of next year. Patient is agreeable to this plan and verbalizes understanding of instructions. She was given the opportunity to ask questions and all questions answered. ? Thank you for allowing me to participate in her care Medications Discontinued ondansetron Discontinued Reason: Patient no longer taking 8 mg PO Q8H 50 tabs 4RF omeprazole Discontinued Reason: Patient no longer taking 20 mg PO DAILY 90 caps 3RF dexamethasone Take 20 mg the day of treatment (day 1) again on day 8, day 15, day 22 Discontinued Reason: Patient Completed Course 20 mg (5 x 4 mg) PO DAILY 100 tabs 3RF fluconazole (Diflucan) Discontinued Reason: Patient no longer taking 100 mg PO DAILY 5 tabs 0RF sennosides (Natural Senna Laxative) Discontinued Reason: Patient no longer taking 17.2 mg (2 x 8.6 mg) PO BEDTIME 90 days 180 tabs 2RF constipation K59.00 TODAY'S VISIT: Patient is here today for follow-up. Patient reports that she has been feeling much better since last visit. Patient stopped her chemotherapy treatment, saw her oncologist in [place] and was given okay to go for procedure. At this time patient will not be receiving chemotherapy. His symptoms of acid reflux, dyspepsia, abdominal bloating and diarrhea have stopped. Patient will be due to go for colonoscopy end of August of this year. Patient denies melena, hematochezia, unintentional weight loss or ribbon like stools. Patient denies any dyspepsia, dysphagia or odynophagia. Patient reports that she has been feeling better. Patient is not taking any PPI or laxative. No trouble moving her bowels patient admits that she had diarrhea and abdominal pain last week, however she reports that her whole family had similar symptoms most likely viral. FOR[facility], [facility] Medical History Adrenal insufficiency Low serum cortisol level Obesity Cholecystostomy care Obesity Vitamin D deficiency Perimenopause Scleritis Neutropenia Graves disease Amenorrhea Back pain Surgical History History of bone marrow biopsy History of biopsy History of cholecystectomy History of umbilical hernia repair History of D&C History of section Family History Father No problems noted. Mother No problems noted. Social History Household Members: Family Housing: House Are you a primary health care administrator to a significant other at home: No Do you presently have visiting nurse or other home services: No Alcohol intake: former Patient Tobacco Use Status: Current everyday Tobacco user Tobacco use type: Cigarette Cigarette Packs Per Day: 1 e-Cigarette/Vaping Use: Never Used Second Hand Smoke Exposure: No service: No Current occupational status: unemployed Current occupational exposures/hazards: No Cognitive needs: No Hearing needs: No Vision needs: Yes Female Reproductive History Menstrual Age of Menarche: 10 Review of Systems Const Denies weight gain and Denies weight loss ENT Reports no additional complaints, Denies dysphagia and Denies odynophagia Card Reports no additional complaints Resp Reports no additional complaints GI Denies abdominal pain, Denies belching, Denies melena, Denies bloating, Denies change in bowel habits, Denies dysphagia, Denies excessive flatus, Denies dyspepsia, Reports heartburn (Occasional), Denies diarrhea, Denies loose stools, Denies nausea, Denies odynophagia and Denies vomiting Reports no additional complaints Musc Reports no additional complaints Neuro Reports no additional complaints Psych Reports no additional complaints Endo Reports no additional complaints Physical Exam Vital Signs: Last Vital Signs Pulse 87 05/02/23 10:31 BP 110/58 L 05/02/23 10:31 BMI result Body Mass Index 31.3 Const Other: Ambulating using cane General: healthy appearing, no acute distress and well developed Nutritional Appearance: well nourished Orientation/consciousness: patient oriented x3 Resp Effort & Inspection: normal respiratory effort, able to speak in complete sentences, no tracheal deviation and symmetric chest movement Auscultation: clear to auscultation bilaterally Cardio Rate: regular rate GI Inspection: Yes normal to inspection, No distended and Yes obesity Palpation (GI): Soft to palpation, not firm, nontender and No hepatosplenomegaly present Auscultation: normal bowel sounds General: Yes no CVA tenderness Back/Spine/Pelvis Back: no CVA tenderness Skin General skin exam: elasticity normal, turgor normal and dry skin Neuro General: patient oriented x3 Psych Appearance: grossly normal Mental Status: mental status grossly normal Assessment & Plan Assessment & Plan (1) Abdominal discomfort: Code(s): R10.9 - Unspecified abdominal pain (2) GERD (gastroesophageal reflux disease): Code(s): K21.9 - Gastro-esophageal reflux disease without esophagitis Qualifiers: Esophagitis presence: esophagitis presence not specified Qualified Code(s): K21.9 - Gastro-esophageal reflux disease without esophagitis (3) IBS (irritable bowel syndrome): Code(s): K58.9 - Irritable bowel syndrome without diarrhea Qualifiers: Irritable bowel syndrome type: without diarrhea Qualified Code(s): K58.9 - Irritable bowel syndrome without diarrhea Plan Patient will continue current dietary changes. Encouraged to increase fluid intake and activity to promote better bowel motility. I will see patient in May to discuss colonoscopy. Currently patient does not have any epigastric pain, dyspepsia, dysphagia or odynophagia no need for upper endoscopy at this time unless symptomatic. Patient is agreeable to this plan and verbalizes understanding of instructions definity to ask questions and all questions answered. Thank you for allowing me to participate in her care Coding Level of Care Code Est Pt Level 3 (72186) Diagnoses Abdominal discomfort R10.9 Gastroesophageal reflux disease, unspecified whether esophagitis present K21.9 Esophagitis presence: esophagitis presence not specified Irritable bowel syndrome without diarrhea K58.9 Irritable bowel syndrome type: without diarrhea Time Spent (min) 25 Comment 15 minutes spent with patient and additional 10 minutes spent reviewing her records
[2023-05-02 10:31] VITALS: BP 110/58; PULSE 87; BMI 31.3
== END 2023-05-02 10:56 | disposition home or self-care (01) ==
PROVIDERS: PCP Internal Medicine; Visit Provider Nurse Practitioner Family
DX: R10.9 Unspecified abdominal pain (principal); K21.9 Gastro-esophageal reflux disease without esophagitis; K58.9 Irritable bowel syndrome, unspecified
CPT/HCPCS: 99213

== ENCOUNTER 2023-05-11 10:39 | Outpatient (AMB) | payer OTHER, SELFPAY ==
[2023-05-11 10:48] VITALS: BP 112/68; PULSE 98; O2SAT 97; BMI 32.9
--- NOTE | 2023-05-11 10:48 | A.OFFPC_ITS ---
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 Allergies cephalexin Allergy (Unknown, Verified 05/11/23 10:48) SEIZURE/COMA,anaphylaxsis vancomycin [VANCOMYCIN] Allergy (Unknown, Verified 05/11/23 10:48) RED HEAT RASH Medication List - Last Reconciled 05/11/23 by Pedro Phillips MD acetaminophen 2 tabs PO Q4H amlodipine 5 mg (2 x 2.5 mg) PO DAILY apixaban (Eliquis) 5 mg PO BID cane As directed cholecalciferol (vitamin D3) 50 mcg PO DAILY 30 days dronabinol 2.5 mg PO BID folic acid 1 mg PO DAILY hydrochlorothiazide 25 mg PO DAILY lorazepam 1 mg PO TID PRN oxycodone 10 mg PO Q4-6H PRN Tobacco use date assessed: 05/11/23 Dental Screening Dental Screen Date: 05/11/23 HPI medication follow up HPI Details chronic pain syndrome; want more narcotics but already taking a lrge dose; over 40mg oxycodone a day PFSH Medical History Adrenal insufficiency Low serum cortisol level Obesity Cholecystostomy care Obesity Vitamin D deficiency Perimenopause Scleritis Neutropenia Graves disease Amenorrhea Back pain Surgical History History of bone marrow biopsy History of biopsy History of cholecystectomy History of umbilical hernia repair History of D&C History of section Family History Father No problems noted. Mother No problems noted. Social History Household Members: Family Housing: House Are you a primary home care associate to a significant other at home: No Do you presently have visiting nurse or other home services: No Alcohol intake: former Patient Tobacco Use Status: Current everyday Tobacco user Tobacco use type: Cigarette Cigarette Packs Per Day: 1 e-Cigarette/Vaping Use: Never Used Second Hand Smoke Exposure: No service: No Current occupational status: unemployed Current occupational exposures/hazards: No Cognitive needs: No Hearing needs: No Vision needs: Yes Female Reproductive History Menstrual Age of Menarche: 10 Questionnaire Thrive Questionnaire Date Thrive assessed: 04/16/23 AUDIT C Alcohol Use Questionnaire (AUDIT-C) 1. How often do you have a drink containing alcohol?: Never Total Score: 0 Score Reviewed/Action Taken: No MARIELENA-7 AMB Questionnaire MARIELENA-7 Date MARIELENA - 7 assessed: 04/16/23 Source: Developed by Drs. Bear Kendall, Eufemia Reece, Eben Rodriguez and colleagues, with an educational hermes from [employer]. Review of Systems Const Denies chills, Denies headache(s) and Denies weight loss ENT Denies headache(s) Card Denies chest pain, Denies syncope, Denies irregular heart rhythm and Denies dyspnea Resp Denies chest congestion, Denies cough and Denies dyspnea GI Denies abdominal pain, Denies change in stool character, Denies nausea and Denies vomiting Musc Denies deformity and Denies joint swelling Neuro Denies syncope and Denies headache(s) Physical exam (Primary Care) Vital Signs: Last Vital Signs Pulse 98 05/11/23 10:48 BP 112/68 05/11/23 10:48 Pulse Ox 97 05/11/23 10:48 Oxygen Delivery Method Room Air 05/11/23 10:48 BMI result Body Mass Index 32.9 Tobacco/Smoking Status: Tobacco use Status Tobacco use date assessed 05/11/23 05/11/23 10:53 Patient Tobacco Use Status Current everyday Tobacco 05/11/23 10:53 Tobacco use type Cigarette 05/11/23 10:53 e-Cigarette/Vaping Use Never Used 05/11/23 10:53 Thrive Assessment: Date of Thrive Assessment Date Thrive assessed 04/16/23 05/11/23 10:53 Const General: cooperative, comfortable, no acute distress and alert Neck Neck: Yes no lymphadenopathy Thyroid: Thyroid normal Resp Effort & Inspection: normal respiratory effort Auscultation: clear to auscultation bilaterally Percussion: percussion normal Cardio Jugular venous distension: no JVD Palpation: normal PMI Rate: regular rate Rhythm: regular rhythm Heart sounds: S1 normal heart sound present and S2 normal heart sound present GI Inspection: Yes normal to inspection Palpation (GI): No hepatosplenomegaly present Skin General skin exam: no rashes or lesions noted Extrem General: Yes no clubbing, cyanosis or edema Assessment and Plan Assessment & Plan (1) Chronic pain syndrome: Code(s): G89.4 - Chronic pain syndrome Plan: stable; same rx Medications: Refilled oxycodone 10 mg PO Q4-6H PRN 140 tabs 0RF pain Coding Level of Care Code Est Pt Level 3 (20020) Diagnoses Chronic pain syndrome G89.4
== END 2023-05-11 11:06 | disposition home or self-care (01) ==
PROVIDERS: PCP Internal Medicine; Visit Provider Internal Medicine
DX: G89.4 Chronic pain syndrome (principal)
CPT/HCPCS: 99213

== ENCOUNTER 2023-06-08 10:41 | Outpatient (AMB) | payer OTHER, SELFPAY ==
[2023-06-08 10:50] VITALS: BP 127/72; PULSE 88; BMI 31.9
--- NOTE | 2023-06-08 10:50 | MHC.OFFVIS ---
Intake Vital Signs 06/08/23 10:50 Height 5 ft 7 in Weight 203 lb 11.314 oz BMI 31.9 BP 127/72 Blood Pressure Location Lt brachial Position Sitting Pulse 88 Pulse Source Pulse Oximeter Intake Visit Reasons: 3 month follow up Intake Note: Patient here for 3m f/u GERD, IBS. Pt states her GERD is much better and her IBS is better as well. She believes all of those issues were due to her chemotherapy. She denies any N/V/D. Colonoscopy: Dr. Juárez on 09-24-23. Allergies cephalexin Allergy (Unknown, Verified 06/08/23 10:51) SEIZURE/COMA,anaphylaxsis vancomycin [VANCOMYCIN] Allergy (Unknown, Verified 06/08/23 10:51) RED HEAT RASH HPI 3 month follow up HPI Details LAST VISIT: Abdominal discomfort GERD (gastroesophageal reflux disease) IBS (irritable bowel syndrome) Plan Patient will continue current dietary changes. Encouraged to increase fluid intake and activity to promote better bowel motility. I will see patient in May to discuss colonoscopy. Currently patient does not have any epigastric pain, dyspepsia, dysphagia or odynophagia no need for upper endoscopy at this time unless symptomatic. Patient is agreeable to this plan and verbalizes understanding of instructions definity to ask questions and all questions answered. TODAY'S VISIT Patient is here today for follow-up and to discuss going for colonoscopy. Patient continues to feel well. Denies any melena, hematochezia, unintentional weight loss or ribbon like stools. Denies any dyspepsia, dysphagia or odynophagia. Patient however is concerned about her umbilical hernia. Seen 2 years ago by General surgery here and was referred to [facility] for complicated recurrent umbilical hernia. Patient states that she saw provided there and was sent for MRI and have never heard from that department. Patient would like to be re-evaluated again by our surgeons. Patient is on Eliquis and will need to stop that 48 hours before procedure. Patient denies any issues with anesthesia in the past. No history of sleep apnea [facility] Medical History Adrenal insufficiency Low serum cortisol level Obesity Cholecystostomy care Obesity Vitamin D deficiency Perimenopause Scleritis Neutropenia Graves disease Amenorrhea Back pain Surgical History History of bone marrow biopsy History of biopsy History of cholecystectomy History of umbilical hernia repair History of D&C History of section Family History (Updated 06/08/23 @ 10:57 by Luly Bradley MA) Father Colon cancer Mother No problems noted. Unknown Colon cancer Social History Household Members: Family Housing: House Are you a primary day care home provider to a significant other at home: No Do you presently have visiting nurse or other home services: No Alcohol intake: former Patient Tobacco Use Status: Current everyday Tobacco user Tobacco use type: Cigarette Cigarette Packs Per Day: 1 e-Cigarette/Vaping Use: Never Used Second Hand Smoke Exposure: No service: No Current occupational status: unemployed Current occupational exposures/hazards: No Cognitive needs: No Hearing needs: No Vision needs: Yes Female Reproductive History Menstrual Age of Menarche: 10 Review of Systems Const Denies weight gain and Denies weight loss ENT Reports no additional complaints, Denies dysphagia and Denies odynophagia Card Reports no additional complaints Resp Reports no additional complaints GI Denies abdominal pain, Denies belching, Denies melena, Denies bloating, Denies change in bowel habits, Denies dysphagia, Denies excessive flatus, Denies dyspepsia, Denies heartburn, Denies diarrhea, Denies loose stools, Denies nausea, Denies odynophagia and Denies vomiting Musc Reports no additional complaints Neuro Reports no additional complaints Psych Reports no additional complaints Endo Reports no additional complaints Physical Exam Vital Signs: Last Vital Signs Pulse 88 06/08/23 10:50 BP 127/72 06/08/23 10:50 BMI result Body Mass Index 31.9 Const General: healthy appearing, no acute distress and well developed Nutritional Appearance: obese Orientation/consciousness: patient oriented x3 Resp Effort & Inspection: normal respiratory effort, able to speak in complete sentences, no tracheal deviation and symmetric chest movement Auscultation: clear to auscultation bilaterally Cardio Rate: regular rate GI Inspection: Yes normal to inspection, No distended and Yes obesity Palpation (GI): Soft to palpation, not firm, nontender, No hepatosplenomegaly present and Hernia present (Large umbilical hernia) Auscultation: normal bowel sounds General: Yes no CVA tenderness Back/Spine/Pelvis Back: no CVA tenderness Skin General skin exam: elasticity normal, turgor normal and dry skin Neuro General: patient oriented x3 Psych Appearance: grossly normal Mental Status: mental status grossly normal Assessment & Plan Assessment & Plan (1) Umbilical hernia: Code(s): K42.9 - Umbilical hernia without obstruction or gangrene Qualifiers: Obstruction and gangrene presence: without obstruction or gangrene Qualified Code(s): K42.9 - Umbilical hernia without obstruction or gangrene (2) Abdominal discomfort: Code(s): R10.9 - Unspecified abdominal pain (3) GERD (gastroesophageal reflux disease): Code(s): K21.9 - Gastro-esophageal reflux disease without esophagitis Qualifiers: Esophagitis presence: esophagitis presence not specified Qualified Code(s): K21.9 - Gastro-esophageal reflux disease without esophagitis (4) IBS (irritable bowel syndrome): Code(s): K58.9 - Irritable bowel syndrome without diarrhea Qualifiers: Irritable bowel syndrome type: without diarrhea Qualified Code(s): K58.9 - Irritable bowel syndrome without diarrhea Plan Will send patient to General surgery per her request. Will order CT scan with IV and oral contrast to re-evaluate the recurrent umbilical hernia. What to expect before during and after procedure discussed with patient. Patient will be sent for colonoscopy. Patient found out that her paternal cousin was diagnosed with colorectal cancer. Discussed with patient the importance of clear liquid diet and good bowel prep before going for colonoscopy. No history of sleep apnea. No issues with anesthesia in the past. Patient is on Eliquis, will hold Eliquis for 48 hours before the procedure. I will see patient after the procedure, sooner on as needed basis. Thank you for allowing me to participate in her care Orders: Orders Blood Urea Nitrogen Today R10.11 - Right upper quadrant pain Creatinine Today R10.11 - Right upper quadrant pain CT abdomen pelvis w IV con Today K42.9 - Umbilical hernia without obstruction or gangrene Medications: New bisacodyl (Dulcolax (bisacodyl)) take 4 tabs at noon the day before your colonoscopy 20 mg (4 x 5 mg) PO ONCE 1 day 4 tabs 0RF Z12.11 - Encounter for screening for malignant neoplasm of colon polyethylene glycol 3350 (Miralax) As directed by gastroenterology department at [facility] 238 grams PO ONCE 238 grams 0RF Z12.11 - Encounter for screening for malignant neoplasm of colon Coding Level of Care Code Est Pt Level 4 (53068) Diagnoses Umbilical hernia without obstruction and without gangrene K42.9 Obstruction and gangrene presence: without obstruction or gangrene Abdominal discomfort R10.9 Gastroesophageal reflux disease, unspecified whether esophagitis present K21.9 Esophagitis presence: esophagitis presence not specified Irritable bowel syndrome without diarrhea K58.9 Irritable bowel syndrome type: without diarrhea Time Spent (min) 35 Comment 20 minutes spent with patient and additional 15 minutes spent reviewing her records
== END 2023-06-08 11:15 | disposition home or self-care (01) ==
PROVIDERS: PCP Internal Medicine; Visit Provider Nurse Practitioner Family
DX: K42.9 Umbilical hernia without obstruction or gangrene (principal); R10.9 Unspecified abdominal pain; K21.9 Gastro-esophageal reflux disease without esophagitis; K58.9 Irritable bowel syndrome, unspecified
CPT/HCPCS: 99214

== ENCOUNTER → 2023-06-08 10:41 | Outpatient (BNVA) | payer OTHER, SELFPAY | PROVIDERS: PCP Internal Medicine; Visit Provider Nurse Practitioner Family | DX: K42.9 Umbilical hernia without obstruction or gangrene (principal); K21.9 Gastro-esophageal reflux disease without esophagitis; K58.9 Irritable bowel syndrome, unspecified; R10.9 Unspecified abdominal pain | CPT/HCPCS: 99212 ==

== ENCOUNTER 2023-06-11 09:28 | Outpatient (AMB) | payer OTHER, SELFPAY ==
[2023-06-11 09:29] VITALS: BP 124/78; PULSE 90; O2SAT 98; BMI 32.3
--- NOTE | 2023-06-11 09:29 | MHC.PC.OV ---
Vital Signs 06/11/23 09:29 Height 5 ft 7 in Weight 206 lb BMI 32.3 BP 124/78 Blood Pressure Location Lt brachial Position Sitting Pulse 90 Pulse Source Pulse Oximeter Pulse Oximetry (%) 98 Oxygen Delivery Method Room Air Intake Visit Reasons: med f/u Warp Dyeing Vat Tender Required: No Pretzel Twisting Machine Operator: Not Required per policy Accompanied by: Self / Same As Patient Allergies cephalexin Allergy (Unknown, Verified 06/11/23 09:30) SEIZURE/COMA,anaphylaxsis vancomycin [VANCOMYCIN] Allergy (Unknown, Verified 06/11/23 09:30) RED HEAT RASH Medication List - Last Reconciled 06/11/23 by Pedro Phillips MD acetaminophen 2 tabs PO Q4H amlodipine 5 mg (2 x 2.5 mg) PO DAILY apixaban (Eliquis) 5 mg PO BID bisacodyl (Dulcolax (bisacodyl)) 20 mg (4 x 5 mg) PO ONCE 1 day cane As directed cholecalciferol (vitamin D3) 50 mcg PO DAILY 30 days dronabinol 2.5 mg PO BID folic acid 1 mg PO DAILY hydrochlorothiazide 25 mg PO DAILY lorazepam 1 mg PO TID PRN nicotine 1 patch transdermal DAILY oxycodone 10 mg PO Q4-6H PRN polyethylene glycol 3350 (Miralax) 238 grams PO ONCE Tobacco use date assessed: 05/11/23 Dental Screening Dental Screen Date: 06/11/23 Did you have a dental visit in the last 12 months?: Yes Did you have a dental problem in the last 6 months where you did not have access to dental care?: No Was dental information given to patient?: Patient has dentist HPI med f/u HPI Details chronic back pain on rx; doing well; compliant [facility] Medical History Adrenal insufficiency Low serum cortisol level Obesity Cholecystostomy care Obesity Vitamin D deficiency Perimenopause Scleritis Neutropenia Graves disease Amenorrhea Back pain Surgical History History of bone marrow biopsy History of biopsy History of cholecystectomy History of umbilical hernia repair History of D&C History of section Family History Father Colon cancer Mother No problems noted. Unknown Colon cancer Social History Household Members: Family Housing: House Are you a primary palliative care coordinator to a significant other at home: No Do you presently have visiting nurse or other home services: No Alcohol intake: former Patient Tobacco Use Status: Current everyday Tobacco user Tobacco use type: Cigarette Cigarette Packs Per Day: 1 e-Cigarette/Vaping Use: Never Used Second Hand Smoke Exposure: No service: No Current occupational status: unemployed Current occupational exposures/hazards: No Cognitive needs: No Hearing needs: No Vision needs: Yes Female Reproductive History Menstrual Age of Menarche: 10 Questionnaire Thrive Questionnaire Date Thrive assessed: 04/16/23 MARIELENA-7 AMB Questionnaire MARIELENA-7 Date MARIELENA - 7 assessed: 04/16/23 Source: Developed by Drs. Bear Kendall, Eufemia Reece, Eben Rodriguez and colleagues, with an educational hermes from [employer]. Review of Systems Const Denies chills, Denies headache(s) and Denies weight loss ENT Denies headache(s) Card Denies chest pain, Denies syncope, Denies irregular heart rhythm and Denies dyspnea Resp Denies chest congestion, Denies cough and Denies dyspnea GI Denies abdominal pain, Denies change in stool character, Denies nausea and Denies vomiting Musc Denies deformity and Denies joint swelling Neuro Denies syncope and Denies headache(s) Physical exam (Primary Care) Vital Signs: Last Vital Signs Pulse 90 06/11/23 09:29 BP 124/78 06/11/23 09:29 Pulse Ox 98 06/11/23 09:29 Oxygen Delivery Method Room Air 06/11/23 09:29 BMI result Body Mass Index 32.3 Tobacco/Smoking Status: Tobacco use Status Tobacco use date assessed 05/11/23 06/11/23 09:30 Patient Tobacco Use Status Current everyday Tobacco 06/11/23 09:30 Tobacco use type Cigarette 06/11/23 09:30 e-Cigarette/Vaping Use Never Used 06/11/23 09:30 Thrive Assessment: Date of Thrive Assessment Date Thrive assessed 04/16/23 06/11/23 09:30 Const General: cooperative, comfortable, no acute distress and alert Neck Neck: Yes no lymphadenopathy Thyroid: Thyroid normal Resp Effort & Inspection: normal respiratory effort Auscultation: clear to auscultation bilaterally Percussion: percussion normal Cardio Jugular venous distension: no JVD Palpation: normal PMI Rate: regular rate Rhythm: regular rhythm Heart sounds: S1 normal heart sound present and S2 normal heart sound present GI Inspection: Yes normal to inspection Palpation (GI): No hepatosplenomegaly present Skin General skin exam: no rashes or lesions noted Extrem General: Yes no clubbing, cyanosis or edema Assessment and Plan Assessment & Plan (1) Chronic pain syndrome: Code(s): G89.4 - Chronic pain syndrome Plan: stable; same rx Medications: Refilled oxycodone 10 mg PO Q4-6H PRN 140 tabs 0RF pain Coding Level of Care Code Est Pt Level 3 (25885) Diagnoses Chronic pain syndrome G89.4
== END 2023-06-11 09:48 | disposition home or self-care (01) ==
PROVIDERS: PCP Internal Medicine; Visit Provider Internal Medicine
DX: G89.4 Chronic pain syndrome (principal)
CPT/HCPCS: 99213

== ENCOUNTER 2023-06-21 12:35 | Outpatient (REF) | payer OTHER, SELFPAY ==
--- NOTE | ~2023-06-21 | CT_ITS ---
EXAMINATION: CT ABDOMEN AND PELVIS WITH CONTRAST CLINICAL INFORMATION: Umbilical hernia COMPARISON: 03/30/2017 an MRI of the abdomen from 01/23/2023 TECHNIQUE: Multidetector volumetric images were obtained from the superior aspect of the liver through the pubic symphysis following administration 85 mL of Omnipaque 350 intravenous contrast. Sagittal and coronal reformatted images were obtained on the technologist's workstation. Oral contrast: [address] examination was performed using dose optimization techniques as appropriate, variously including the following: *Automated exposure control *Adjustment of mA and/or kV according to patient size (this includes techniques or standardized protocols for targeted exams where dose is matched to indication/reason for exam; i.e. extremities or head) *Use of iterative reconstruction technique DLP: 690 mGy-cm FINDINGS: LUNG BASES: The visualized lung bases are unremarkable. LIVER, GALLBLADDER, AND BILIARY TREE: Liver is of low attenuation due to hepatic steatosis, heterogeneous and enlarged with low-attenuation lesion in the left lobe of the liver measured 1.2 cm, as seen on MRI from December 2022. There is mild irregularity, nodularity of the contour of the right lobe of the liver possibly due to cirrhosis. Gallbladder is surgically absent. PANCREAS: Unremarkable. SPLEEN: Spleen measured 15.6 cm, enlarged ADRENAL GLANDS: Unremarkable. KIDNEYS AND URETERS: The kidneys are normal in size, shape, and attenuation. No hydronephrosis, hydroureter, or calculi seen. No perinephric stranding. BLADDER: Unremarkable. GASTROINTESTINAL TRACT: There is small hiatal hernia. The stomach is decompressed. Small bowel loops are normal. Appendix not seen. Colonic loops are normal with herniation in wide umbilical hernia, without evidence of incarceration. LYMPH NODES: Normal. VASCULAR: Unremarkable. PELVIC VISCERA: Unremarkable. OSSEOUS STRUCTURES: There is large subchondral cyst in the left acetabulum, measured 1.[address]/CT abdomen pelvis w IV con IMPRESSION: 1. Large umbilical hernia, without evidence of incarceration of protruded loops of colon. 2. Hepatosplenomegaly. 3. Hepatic steatosis and possible cirrhosis. 4. Small hiatal hernia. 5. Large, stable subchondral cyst in the left acetabulum. 6. Liver is of low attenuation due to hepatic steatosis, heterogeneous and enlarged with low-attenuation lesion in the left lobe of the liver measured 1.2 cm, as seen on MRI from December 2022. Fleischner guidelines were followed.
[2023-06-21] MEDS: iohexoL 350 MG/ML 100 ML INFUS..BTL 85 ML IV (15:25)
[2023-06-21] MEDS: Barium Sulfate Oral (Vanilla) 450 ML ORAL.SUSP 900 ML PO (15:26)
== END 2023-06-21 12:36 | disposition home or self-care (01) ==
LOC: HO.CT 12:35
PROVIDERS: PCP Internal Medicine; Visit Provider Nurse Practitioner Family
DX: K42.9 Umbilical hernia without obstruction or gangrene (principal)
CPT/HCPCS: 74177; Q9967

== ENCOUNTER 2023-06-25 07:26 | Outpatient (REF) | payer OTHER, SELFPAY ==
[2023-06-25 11:18] LABS: MANUAL DIFF FLAG NO
[2023-06-25 11:26] LABS: Basophils Percent Auto 0.4 % (0-2); Eosinophils Absolute Auto 0.1 X10*3/uL (0.0-0.4); Eosinophils Percent Auto 1.7 % (0-4); Hematocrit 45.3 % (37.0-47.0); Hemoglobin 15.2 g/dl (12.0-16.0); Imm Gran Abs Auto 0.01 X10*3/uL (0.00-0.03); Imm Gran Pct Auto 0.2 % (0.0-0.4); Lymphocytes Percent Auto 36.7 % (20-40); Mean Corpuscular HGB Conc 33.6 g/dl (31.0-35.0); Mean Corpuscular Hemoglobin 31.2 pg (27.0-33.0); Mean Platelet Volume 11.1 fL (9.4-12.3); Monocytes Absolute Auto 0.4 X10*3/uL (0.1-1.2); Monocytes Percent Auto 6.8 % (2-11); Neutrophils Absolute Auto 2.9 x10*3/uL (2.0-8.3); Neutrophils Percent Auto 54.2 % (45-73); Platelet Count 138 X10*3/uL (160-400); Red Blood Count 4.87 X10*6/uL (4.20-5.50); Red Cell Distribution Width 13.9 % (11.0-16.0); White Blood Count 5.3 X10*3/uL (4.8-10.8)
[2023-06-25 11:29] LABS: INTERNATIONAL NORM RATIO 1.1 (0.9-1.1); Prothrombin Time 12.8 SEC (11.1-13.3)
[2023-06-25 12:44] LABS: Alanine Aminotransferase 26 U/L (0-31); Albumin Level 4.4 g/dL (3.5-5.0); Alkaline Phosphatase 98 U/L (39-117); Anion Gap 16 (12-20); Aspartate Amino Transferase 20 U/L (5-31); Bilirubin Total 0.5 mg/dL (0.0-1.0); Blood Urea Nitrogen 12 mg/dL (9-16); Calcium 9.8 mg/dL (8.4-10.2); Carbon Dioxide 28 mmol/L (22-29); Chloride 100 mmol/L (96-108); Estimated Glomerular Filt Rate 60; Glucose Random 198 mg/dL (60-115); Potassium 3.5 mmol/L (3.3-5.1); Sodium 140 mmol/L (135-145); Total Protein 7.1 g/dL (6.5-8.0)
[2023-06-25 13:38] LABS: Ferritin 43 ng/mL (10-250); Gamma Glutamyl Transpeptidase 170 U/L (7-33)
[2023-06-27 09:09] LABS: Kappa Light Chain, Free Serum 11.2 mg/L (3.3-19.4); Kappa/Lambda Lt Ch Free Ratio 1.56 (0.26-1.65); Lambda Light Chain, Free Serum 7.2 mg/L (5.7-26.3)
[2023-06-27 14:28] LABS: IgA 57 mg/dL (47-310); IgG 473 mg/dL (600-1640); IgM 68 mg/dL (50-300)
[2023-06-28 14:53] LABS: Smooth Muscle Antibody <20 U (<20)
[2023-06-28 15:39] LABS: Mitochondrial Antibodies NEGATIVE (NEGATIVE)
[2023-07-03 16:43] LABS: FIB-ALT 22 U/L (6-29); FIB-Alpha-2-Macroglobulin 179 mg/dL (106-279); FIB-Apolipoprotein A1 153 mg/dL (101-198); FIB-GGT 137 U/L (3-55); FIB-Haptoglobin 127 mg/dL (43-212); FIB-Total Bilirubin 0.5 mg/dL (0.2-1.2); Liver Fibrosis Score 0.21; Liver Fibrosis Stage F0-F1; Nec Inflam Act Grade A0; Nec Inflam Act Score 0.08
== END 2023-06-25 07:27 | disposition home or self-care (01) ==
LOC: HO.HMGCLDS 07:26
PROVIDERS: PCP Internal Medicine; Referring Provider Internal Medicine Medical Oncology; Visit Provider Nurse Practitioner Family
DX: C90.00 Multiple myeloma not having achieved remission (principal); K76.0 Fatty (change of) liver, not elsewhere classified
CPT/HCPCS: 36415; 80053; 81596; 82105; 82728; 82784; 82977; 83521; 85025; 85610; 86015; 86334; 86381

== ENCOUNTER → 2023-06-27 09:00 | Outpatient (BNV) | payer OTHER, SELFPAY | PROVIDERS: PCP Internal Medicine; Visit Provider Radiology Diagnostic Radiology | DX: N64.1 Fat necrosis of breast (principal); N61.22 Granulomatous mastitis, left breast | CPT/HCPCS: 77066; G0279 ==

== ENCOUNTER 2023-06-27 09:02 | Outpatient (REF) | payer OTHER, SELFPAY ==
--- NOTE | ~2023-06-27 | MM_ITS ---
EXAMINATION: MM DIAGNOSTIC DIGITAL BREAST TOMOSYNTHESIS, BILATERAL CLINICAL INFORMATION: Two-year follow-up for bilateral focal asymmetries in both breasts, left lesion at 3:00 ultrasound-guided biopsy 06/28/2021 with pathology of granulomatous mastitis. Today, if stable, will represent 2 years stability of bilateral findings and hence benignity. Patient has multiple medical issues including systemic autoimmune conditions, M guidance, scleritis, Graves' disease, arthritis, and leukopenia. COMPARISON: Multiple prior breast imaging exams, most recent 06/19/2022, and dating back to 2019. TECHNIQUE: Digital breast tomosynthesis is performed in both the craniocaudal and mediolateral oblique views along with computer-aided detection (CAD). Synthesized 2D images are generated from the tomosynthesis. FINDINGS: There are scattered areas of fibroglandular density (ACR BI-RADS breast composition Category b). There is a stable irregular focal asymmetry at the 3:00 axis left breast, with biopsy clip present, consistent with the known granulomatous mastitis and fat necrosis. 2 other regions previously seen in the left breast laterally and medially, appear to have near completely resolved on today's exam, as has a solitary upper lesion in the right breast which has an appearance highly suspicious for fat necrosis. There is a dermal lesion in the right axillary tail. No additional axillary or skin abnormalities. MM/MM tomosynthesis diagnostic BI IMPRESSION: -There is no findings suspicious for malignancy in either breast. -Stable appearing focal asymmetry with internal biopsy clip consistent with known granulomatous mastitis. -Other irregular foci have significantly improved to near complete resolution, over 2 years, and are benign. No further follow-up recommended. -Recommend patient return to routine annual screening. ASSESSMENT: BI-RADS BI-RADS 2 - Benign Findings RECOMMENDATION: 1 year F/U Results were provided to the patient at time of visit by the technologist. This patient's information was entered into a reminder system with a target due date for their next mammogram.
== END 2023-06-27 09:03 | disposition home or self-care (01) ==
LOC: HO.MAMMO 09:02
PROVIDERS: PCP Internal Medicine; Visit Provider Internal Medicine
DX: R92.2 Inconclusive mammogram (principal)
CPT/HCPCS: 77062; 77066

== ENCOUNTER 2023-07-09 10:23 | Outpatient (AMB) | payer OTHER, SELFPAY ==
[2023-07-09 10:25] VITALS: BP 124/72; PULSE 90; O2SAT 96; BMI 32.1
--- NOTE | 2023-07-09 10:25 | A.OFFPC_ITS ---
Vital Signs 07/09/23 10:25 Height 5 ft 7 in Weight 205 lb BMI 32.1 BP 124/72 Blood Pressure Location Lt brachial Position Sitting Pulse 90 Pulse Source Pulse Oximeter Pulse Oximetry (%) 96 Oxygen Delivery Method Room Air Intake Visit Reasons: Med Management Allergies cephalexin Allergy (Unknown, Verified 07/09/23 10:26) SEIZURE/COMA,anaphylaxsis vancomycin [VANCOMYCIN] Allergy (Unknown, Verified 07/09/23 10:26) RED HEAT RASH Tobacco use date assessed: 07/09/23 Dental Screening Dental Screen Date: 06/11/23 HPI Med Management HPI Details chronic bACK PAIN ON RX; DOING WELL AND COMPLIANT [facility] Medical History Adrenal insufficiency Low serum cortisol level Obesity Cholecystostomy care Obesity Vitamin D deficiency Perimenopause Scleritis Neutropenia Graves disease Amenorrhea Back pain Surgical History History of bone marrow biopsy History of biopsy History of cholecystectomy History of umbilical hernia repair History of D&C History of section Family History Father Colon cancer Mother No problems noted. Unknown Colon cancer Social History Household Members: Family Housing: House Are you a primary manager wound care to a significant other at home: No Do you presently have visiting nurse or other home services: No Alcohol intake: former Patient Tobacco Use Status: Current everyday Tobacco user Tobacco use type: Cigarette Cigarette Packs Per Day: 1 e-Cigarette/Vaping Use: Never Used Second Hand Smoke Exposure: No service: No Current occupational status: unemployed Current occupational exposures/hazards: No Cognitive needs: No Hearing needs: No Vision needs: Yes Female Reproductive History Menstrual Age of Menarche: 10 Questionnaire Thrive Questionnaire Date Thrive assessed: 04/16/23 AUDIT C Alcohol Use Questionnaire (AUDIT-C) 1. How often do you have a drink containing alcohol?: Never 3. How often do you have six or more drinks on one occasion?: Never Total Score: 0 Score Reviewed/Action Taken: No MARIELENA-7 AMB Questionnaire MARIELENA-7 Date MARIELENA - 7 assessed: 04/16/23 Source: Developed by Drs. Bear Kendall, Eufemia Reece, Eben Rodriguez and colleagues, with an educational hermes from [employer]. Review of Systems Const Denies chills, Denies headache(s) and Denies weight loss ENT Denies headache(s) Card Denies chest pain, Denies syncope, Denies irregular heart rhythm and Denies dyspnea Resp Denies chest congestion, Denies cough and Denies dyspnea GI Denies abdominal pain, Denies change in stool character, Denies nausea and Denies vomiting Musc Denies deformity and Denies joint swelling Neuro Denies syncope and Denies headache(s) Physical exam (Primary Care) Vital Signs: Last Vital Signs Pulse 90 07/09/23 10:25 BP 124/72 07/09/23 10:25 Pulse Ox 96 07/09/23 10:25 Oxygen Delivery Method Room Air 07/09/23 10:25 BMI result Body Mass Index 32.1 Tobacco/Smoking Status: Tobacco use Status Tobacco use date assessed 07/09/23 07/09/23 10:29 Patient Tobacco Use Status Current everyday Tobacco 07/09/23 10:29 Tobacco use type Cigarette 07/09/23 10:29 e-Cigarette/Vaping Use Never Used 07/09/23 10:29 Thrive Assessment: Date of Thrive Assessment Date Thrive assessed 04/16/23 07/09/23 10:29 Const General: cooperative, comfortable, no acute distress and alert Neck Neck: Yes no lymphadenopathy Thyroid: Thyroid normal Resp Effort & Inspection: normal respiratory effort Auscultation: clear to auscultation bilaterally Percussion: percussion normal Cardio Jugular venous distension: no JVD Palpation: normal PMI Rate: regular rate Rhythm: regular rhythm Heart sounds: S1 normal heart sound present and S2 normal heart sound present GI Inspection: Yes normal to inspection Palpation (GI): No hepatosplenomegaly present Skin General skin exam: no rashes or lesions noted Extrem General: Yes no clubbing, cyanosis or edema Assessment and Plan Assessment & Plan (1) Back pain: Code(s): M54.9 - Dorsalgia, unspecified Plan: stable; same rx Medications: Refilled oxycodone 10 mg PO Q4-6H PRN 140 tabs 0RF pain cholecalciferol (vitamin D3) 50 mcg PO DAILY 30 days 30 caps 8RF E55.9 - Vitamin D deficiency, unspecified Coding Level of Care Code Est Pt Level 3 (25505) Diagnoses Back pain M54.9
== END 2023-07-09 10:36 | disposition home or self-care (01) ==
PROVIDERS: PCP Internal Medicine; Visit Provider Internal Medicine
DX: M54.9 Dorsalgia, unspecified (principal)
CPT/HCPCS: 99213

== ENCOUNTER 2023-07-11 08:32 | Outpatient (REF) | payer OTHER, SELFPAY ==
--- NOTE | ~2023-07-11 | US_ITS ---
EXAMINATION: US ABDOMEN LIMITED WITH LIVER ELASTOGRAPHY CLINICAL INFORMATION: Fatty change of liver. COMPARISON: MRI abdomen 01/23/2023. TECHNIQUE: Real-time imaging of the abdominal viscera. Noninvasive ultrasound liver fibrosis assessment is performed using Ryland ElastPQ point quantification shear wave elastography (2D-SWE) with a C5-2 MHz transducer. Multiple elastography samples are obtained. FINDINGS: PANCREAS: Normal. The visualized pancreatic head and body are normal in appearance. The remainder of the pancreas is obscured from visualization by the overlying bowel gas. LIVER: Diffuse heterogeneously increased attenuation consistent with steatosis. The known liver mass in the right hepatic lobe is not seen by ultrasound. The right lobe measures 21.0 cm in length. The left lobe measures 14.1 cm in length. Portal flow is hepatopedal Shear wave liver elastography median stiffness is 1.8 m/s (reference: normal median stiffness is 1.3 m/s or less). IQR/median stiffness to assess sampling precision is 0.09 (reference: good quality data set is IQR/median stiffness of 0.15 or less). GALLBLADDER: Cholecystectomy. COMMON BILE DUCT: Normal in caliber measuring 0.4 cm in diameter. RIGHT KIDNEY: Normal. No hydronephrosis. No renal calculi or focal parenchymal lesions. The kidney measures 11.4 cm in maximum dimension. FREE FLUID: None. US/US abdomen florentino w elastography IMPRESSION: 1. Enlarged steatotic liver. Known indeterminant liver mass in the right hepatic lobe is not visualized by ultrasound. Recommend surveillance MRI of the abdomen without and with contrast. 2. Liver elastography: Measurements are suggestive of compensated advanced chronic liver disease but need further test for confirmation. REFERENCE: Society of Radiologists in Ultrasound Liver Stiffness Thresholds (2020): LIVER STIFFNESS THRESHOLDS: *Liver Stiffness equal or less than 1.3 m/s: High probability of being normal. *Liver Stiffness less than 1.7 m/s: In the absence of other known clinical signs, rules out compensated advanced chronic liver disease. *Liver Stiffness 1.7-2.1 m/s: Suggestive of compensated advanced chronic liver disease but need further test for confirmation. *Liver Stiffness over 2.1 m/s: Rules in compensated advanced chronic liver disease. *Liver Stiffness over 2.4 m/s: Suggestive of clinically significant portal hypertension. QUALITY OF DATA SET: *IQR/Median value equal or less than 0.15 implies a quality data set. *IQR/Median value over 0.15 implies a poor quality data set. SIGNIFICANT CHANGE FROM PRIOR EXAM: Significant change if liver stiffness measurement is 10% or greater from prior exam. OTHER CONSIDERATIONS: The stage of liver fibrosis may be overestimated in the setting of acute hepatitis, liver inflammation, elevated liver function tests, hepatic vascular congestion, obstructive cholestasis, non-fasting state, and infiltrative diseases such as amyloidosis and lymphoma. In some patients with NAFLD, the liver stiffness thresholds for compensated advanced chronic liver disease may be lower. In causes other than viral hepatitis and NAFLD, liver stiffness thresholds are not well established.
== END 2023-07-11 08:33 | disposition home or self-care (01) ==
LOC: HO.US 08:32
PROVIDERS: PCP Internal Medicine; Visit Provider Nurse Practitioner Family
DX: K76.0 Fatty (change of) liver, not elsewhere classified (principal)
CPT/HCPCS: 76705; 76981

== ENCOUNTER 2023-08-06 09:32 | Outpatient (AMB) | payer OTHER, SELFPAY ==
[2023-08-06 09:36] VITALS: BP 110/60; PULSE 70; O2SAT 98; BMI 31.6
--- NOTE | 2023-08-06 09:36 | A.OFFPC_ITS ---
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 per policy Allergies cephalexin Allergy (Unknown, Verified 08/06/23 09:36) SEIZURE/COMA,anaphylaxsis vancomycin [VANCOMYCIN] Allergy (Unknown, Verified 08/06/23 09:36) RED HEAT RASH Medication List - Last Reconciled 08/06/23 by Pedro Phillips MD acetaminophen 2 tabs PO Q4H amlodipine 5 mg (2 x 2.5 mg) PO DAILY apixaban (Eliquis) 5 mg PO BID bisacodyl (Dulcolax (bisacodyl)) 20 mg (4 x 5 mg) PO ONCE 1 day cane As directed cholecalciferol (vitamin D3) 50 mcg PO DAILY 30 days dronabinol 2.5 mg PO BID folic acid 1 mg PO DAILY hydrochlorothiazide 25 mg PO DAILY lorazepam 1 mg PO TID PRN nicotine 1 patch transdermal DAILY oxycodone 10 mg PO Q4-6H PRN polyethylene glycol 3350 (Miralax) 238 grams PO ONCE tobramycin 0.3% 1 drp ophthalmic (eye) Q4H Tobacco use date assessed: 07/09/23 Dental Screening Dental Screen Date: 06/11/23 HPI med management HPI Details f/u chronic low back pain; stable and compliant PFSH Medical History Adrenal insufficiency Low serum cortisol level Obesity Cholecystostomy care Obesity Vitamin D deficiency Perimenopause Scleritis Neutropenia Graves disease Amenorrhea Back pain Surgical History History of bone marrow biopsy History of biopsy History of cholecystectomy History of umbilical hernia repair History of D&C History of section Family History Father Colon cancer Mother No problems noted. Unknown Colon cancer Social History Household Members: Family Housing: House Are you a primary patient care provider to a significant other at home: No Do you presently have visiting nurse or other home services: No Alcohol intake: former Patient Tobacco Use Status: Current everyday Tobacco user Tobacco use type: Cigarette Cigarette Packs Per Day: 1 e-Cigarette/Vaping Use: Never Used Second Hand Smoke Exposure: No service: No Current occupational status: unemployed Current occupational exposures/hazards: No Cognitive needs: No Hearing needs: No Vision needs: Yes Female Reproductive History Menstrual Age of Menarche: 10 Questionnaire Thrive Questionnaire Date Thrive assessed: 04/16/23 MARIELENA-7 AMB Questionnaire MARIELENA-7 Date MARIELENA - 7 assessed: 04/16/23 Source: Developed by Drs. Bear Kendall, Eufemia Reece, Eben Rodriguez and colleagues, with an educational hermes from [employer]. Review of Systems Const Denies chills, Denies headache(s) and Denies weight loss ENT Denies headache(s) Card Denies chest pain, Denies syncope, Denies irregular heart rhythm and Denies dyspnea Resp Denies chest congestion, Denies cough and Denies dyspnea GI Denies abdominal pain, Denies change in stool character, Denies nausea and Denies vomiting Musc Denies deformity and Denies joint swelling Neuro Denies syncope and Denies headache(s) Physical exam (Primary Care) Vital Signs: Last Vital Signs Pulse 70 08/06/23 09:36 BP 110/60 08/06/23 09:36 Pulse Ox 98 08/06/23 09:36 Oxygen Delivery Method Room Air 08/06/23 09:36 BMI result Body Mass Index 31.6 Tobacco/Smoking Status: Tobacco use Status Tobacco use date assessed 07/09/23 08/06/23 09:37 Patient Tobacco Use Status Current everyday Tobacco 08/06/23 09:37 Tobacco use type Cigarette 08/06/23 09:37 e-Cigarette/Vaping Use Never Used 08/06/23 09:37 Thrive Assessment: Date of Thrive Assessment Date Thrive assessed 04/16/23 08/06/23 09:37 Const General: cooperative, comfortable, no acute distress and alert Neck Neck: Yes no lymphadenopathy Thyroid: Thyroid normal Resp Effort & Inspection: normal respiratory effort Auscultation: clear to auscultation bilaterally Percussion: percussion normal Cardio Jugular venous distension: no JVD Palpation: normal PMI Rate: regular rate Rhythm: regular rhythm Heart sounds: S1 normal heart sound present and S2 normal heart sound present GI Inspection: Yes normal to inspection Palpation (GI): No hepatosplenomegaly present Skin General skin exam: no rashes or lesions noted Extrem General: Yes no clubbing, cyanosis or edema Assessment and Plan Assessment & Plan (1) Back pain: Code(s): M54.9 - Dorsalgia, unspecified Plan: stable; same rx Orders: Orders XR foot RT 2V Today M79.673 - Pain in unspecified foot Medications: Refilled lorazepam 1 mg PO TID PRN 90 tabs 3RF anxiety oxycodone 10 mg PO Q4-6H PRN 140 tabs 0RF pain Coding Level of Care Code Est Pt Level 3 (25848) Diagnoses Back pain M54.9
== END 2023-08-06 09:56 | disposition home or self-care (01) ==
PROVIDERS: PCP Internal Medicine; Visit Provider Internal Medicine
DX: M54.9 Dorsalgia, unspecified (principal)
CPT/HCPCS: 99213

== ENCOUNTER 2023-09-24 11:49 | Day surgery (SDC) | payer OTHER, SELFPAY ==
--- NOTE | 2023-09-20 13:29 | P.CONAN_ITS ---
HPI - Anesthesia Eval Consult details Narrative: 43yo F for Colonoscopy Multiple autoimmune syndrome, Graves ds, multiple myeloma Eliquis for ? PMFSH Active Problems Active Problems: All Active Problems Multiple myeloma (Acute) Multiple myeloma (Acute) Polyarthralgia (Acute) Chronic pain syndrome (Acute) Bilateral knee pain (Acute) Lumbar spondylosis (Acute) Adrenal insufficiency (Acute) Low serum cortisol level (Acute) Edema of right lower leg (Acute) Venous insufficiency (Acute) Leukopenia (Acute) Throat pain (Acute) Rash (Acute) MGUS (monoclonal gammopathy of unknown significance) (Acute) Chest pain (Acute) Hypercholesteremia (Acute) Tobacco abuse (Acute) Varicose veins of right lower extremity with inflammation (Acute) Abnormal ultrasound of breast (Acute) Anxiety (Acute) Ventral hernia, recurrent (Acute) Chest pain (Acute) Obesity (Acute) Obesity (Acute) Vitamin D deficiency (Acute) Perimenopause (Acute) Scleritis (Acute) Neutropenia (Acute) Graves disease (Acute) Amenorrhea (Acute) Back pain (Acute) Past Medical History Medical History Adrenal insufficiency Low serum cortisol level Obesity Cholecystostomy care Obesity Vitamin D deficiency Perimenopause Scleritis Neutropenia Graves disease Amenorrhea Back pain Family History Family History Father Colon cancer Mother No problems noted. Unknown Colon cancer Surgical History Surgical History History of bone marrow biopsy History of biopsy History of cholecystectomy History of umbilical hernia repair History of D&C History of section Social History Social History Household Members: Family Housing: House Are you a primary gericare aide teacher to a significant other at home: No Do you presently have visiting nurse or other home services: No Alcohol intake: former Patient Tobacco Use Status: Current everyday Tobacco user Tobacco use type: Cigarette Cigarette Packs Per Day: 1 Cigarettes Per Day: 20.0 e-Cigarette/Vaping Use: Never Used Second Hand Smoke Exposure: No service: No Current occupational status: unemployed Current occupational exposures/hazards: No Cognitive needs: No Hearing needs: No Vision needs: Yes Meds Allergies Allergy/AdvReac Type Severity Reaction Status Date / Time cephalexin Allergy Unknown SEIZURE/COM Verified 10/01/23 09:34 A,anaphylax sis vancomycin [VANCOMYCIN] Allergy Unknown RED HEAT Verified 10/01/23 09:34 RASH Home Medications ?Medication ?Instructions ?Recorded ?Confirmed ?Last Taken ?Type acetaminophen 500 mg tablet 2 tab PO Q4H 12/13/20 10/01/23 09/24/23 History folic acid 1 mg tablet 1 mg PO DAILY 10/04/21 10/01/23 Unknown History apixaban 5 mg tablet (Eliquis) 5 mg PO BID 11/16/22 10/01/23 Unknown History Exam Pertinent Lab Results Pertinent Lab Results: Laboratory Tests 07/05/23 16:22 WBC 6.0 Hgb 14.3 Hct 41.8 Plt Count 142 L Sodium 140 Potassium 3.7 Chloride 103 Carbon Dioxide 28 BUN 11 Creatinine 0.84 Assessment and Plan Assessment Anesthesia Assessment: Chart Reviewed
[2023-09-24 12:28] VITALS: BP 148/76; PULSE 80; RESP 16; TEMP 36.4; O2SAT 98; BMI 31.3
--- NOTE | 2023-09-24 12:30 | MHC.SHP ---
Pre-Procedural Eval Section A - 24 Hr Update-Section A only Date of Service: 09/24/23 The patient is an INPATIENT: No The patient has been examined within 24 hours of the surgical procedure. The History & Physical has been completed within 30 days and I have reviewed it.: No Section B - Complete if H&P > 30 days Chief Complaint: Colon cancer screening, IBS Relevant Family History (Specify if Yes): Yes Relevant Social History: Tobacco Use Present Medications: see Short Stay Collaborative assessment Medical History: Significant History (Adrenal insufficiency Low serum cortisol level Obesity Cholecystostomy care Obesity Vitamin D deficiency Perimenopause Scleritis Neutropenia Graves disease) History of Previous Operations: Relevant previous surgery/procedure and date(s) (History of bone marrow biopsy History of biopsy History of cholecystectomy History of umbilical hernia repair History of D&C History of section) Allergies: Allergies Allergy/AdvReac Type Severity Reaction Status Date / Time cephalexin Allergy Unknown SEIZURE/COM Verified 08/06/23 09:36 A,anaphylax sis vancomycin [VANCOMYCIN] Allergy Unknown RED HEAT Verified 08/06/23 09:36 RASH Review of Systems Sugical H&P ROS: Negative: Constitution, Cardiovascular, Respiratory and Gastrointestinal Exam Surgical H&P Exam: Normal: Heart, Normal: Lungs, Normal: Extremities and Normal: Abdomen Plan Diagnosis/Plan: Unchanged I have reviewed the history and physical and performed a pertinent physical examination on my patient. No changes have occurred unless specified. Time Spent With Patient Time: Total time managing care of this patient today ____ minutes.
[2023-09-24 12:33] LABS: Urine Pregnancy NEGATIVE (NEGATIVE)
[2023-09-24 12:34] LABS: UPreg QC Valid YES
[2023-09-24] MEDS: Lactated Ringers 1,000 ML 100 ML IVCONT (12:50)
--- NOTE | 2023-09-24 13:13 | HO.ANESPROP2 ---
[facility] Active Problems Active Problems: All Active Problems Multiple myeloma (Acute) Multiple myeloma (Acute) Polyarthralgia (Acute) Chronic pain syndrome (Acute) Bilateral knee pain (Acute) Lumbar spondylosis (Acute) Adrenal insufficiency (Acute) Low serum cortisol level (Acute) Edema of right lower leg (Acute) Venous insufficiency (Acute) Leukopenia (Acute) Throat pain (Acute) Rash (Acute) MGUS (monoclonal gammopathy of unknown significance) (Acute) Chest pain (Acute) Hypercholesteremia (Acute) Tobacco abuse (Acute) Varicose veins of right lower extremity with inflammation (Acute) Abnormal ultrasound of breast (Acute) Anxiety (Acute) Ventral hernia, recurrent (Acute) Chest pain (Acute) Obesity (Acute) Obesity (Acute) Vitamin D deficiency (Acute) Perimenopause (Acute) Scleritis (Acute) Neutropenia (Acute) Graves disease (Acute) Amenorrhea (Acute) Back pain (Acute) Past Medical History Medical History Adrenal insufficiency Low serum cortisol level Obesity Cholecystostomy care Obesity Vitamin D deficiency Perimenopause Scleritis Neutropenia Graves disease Amenorrhea Back pain Functional capacity: independent ambulation Patient : No Family History Family History Father Colon cancer Mother No problems noted. Unknown Colon cancer Family history of problems with anesthesia: No Surgical History Surgical History History of bone marrow biopsy History of biopsy History of cholecystectomy History of umbilical hernia repair History of D&C History of section History of Problems with Anesthesia: No Social History Social History Household Members: Family Housing: House Are you a primary patient care technician to a significant other at home: No Do you presently have visiting nurse or other home services: No Alcohol intake: former Patient Tobacco Use Status: Current everyday Tobacco user Tobacco use type: Cigarette Cigarette Packs Per Day: 1 Cigarettes Per Day: 20.0 e-Cigarette/Vaping Use: Never Used Second Hand Smoke Exposure: No Use of substances other than those prescribed or required for medical reasons: Yes Substance Use Frequency: Daily Are you DNR?: No Advance Directives: No Advance Directives Information Provided: Yes service: No Current occupational status: unemployed Current occupational exposures/hazards: No Cognitive needs: No Hearing needs: No Vision needs: Yes Meds Allergies Allergy/AdvReac Type Severity Reaction Status Date / Time cephalexin Allergy Unknown SEIZURE/COM Verified 08/06/23 09:36 A,anaphylax sis vancomycin [VANCOMYCIN] Allergy Unknown RED HEAT Verified 08/06/23 09:36 RASH Active Medications: Current Medications Lactated Ringer's (Lr) 1,000 mls @ 100 mls/hr IVCONT .Q10H ELIZABETH Last Admin: 09/24/23 12:50 Dose: 100 mls/hr Home Medications ?Medication ?Instructions ?Recorded ?Confirmed ?Last Taken ?Type acetaminophen 500 mg tablet 2 tab PO Q4H 12/13/20 08/06/23 09/24/23 History folic acid 1 mg tablet 1 mg PO DAILY 10/04/21 08/06/23 Unknown History apixaban 5 mg tablet (Eliquis) 5 mg PO BID 11/16/22 08/06/23 Unknown History Exam Height,Weight and Vital Signs: Height 5 ft 6 in Weight 88.088 kg Last Vital Signs Temp 97.6 F 09/24/23 12:28 Pulse 80 09/24/23 12:28 Resp 16 09/24/23 12:28 BP 148/76 H 09/24/23 12:28 Pulse Ox 98 09/24/23 12:28 O2 Del Method Room Air 09/24/23 12:28 Pertinent Lab Results Pertinent Lab Results: Laboratory Tests 09/24/23 12:21 Urine Test NEGATIVE Airway Mallampati Class: III TM Dist: >3cm Neck ROM: Full Heart: RRR Lungs: CTA Assessment and Plan Assessment Anesthesia Assessment: Anesthesia Plan Discussed and Smoking Cess. Discussed Final Anesthetic Review Family History of Problems with Anesthesia: No History of Problems with Anesthesia: No NPO: Yes ASA Class: III Final Preanesthetic Review: Meds/Allgs Chart Reviewed, Consent Obtained/Reviewed and Anes Risks/Benef Reviewed Patient Risk: Intermediate Procedure Risk: Low Anesthetic Plan Anesthetic Plan: MAC: Disposition: Standard PACU (e)
--- NOTE | 2023-09-24 13:47 | HO.OPN-COLON ---
Colonoscopy Operative Note Operative Note Date of Service: 09/24/23 Narrative: COLONOSCOPY TILL CECUM WITH BIOPSIES Pre-op diagnosis: Colon cancer screening (First colonoscopy), FH of colon cancer (Dad and a paternal cousin). Post-op diagnosis:? Colon polyps, Diverticulosis, hemorrhoids Endoscopist:? Cris Juárez MD Anesthesia:?MAC Consent: Indications for the procedure and potential complications of bleeding, perforation, reaction to medications and missed diagnosis were discussed with the patient and informed consent was obtained. Instrument: Olympus CF H 190 L variable stiffness adult colonoscope Monitoring: Vital signs and clinical assessment, intermittent blood pressure monitoring, continuous EKG monitoring, Pulse oximetry and Carbon Dioxide monitoring were done throughout the procedure. Please see anesthesia flowsheet. Colon withdrawl time was 15 minutes. Procedure: The patient was placed in the left lateral decubitis position and pre-procedure medications were administered. After a digital rectal examination of the ano-rectum, the video colonoscope was inserted into the rectum and advanced through the colon to the cecum. The colonoscope was slowly withdrawn in a retrograde panoramic fashion and the colon mucosa was carefully examined including a retroflexed view of the rectum. Findings and interventions are described below. Procedure Difficulty: without difficulty Findings: Terminal Ileum: Not evaluated Cecum: Normal Ascending Colon: Normal Transverse Colon: Normal Descending Colon: Normal Sigmoid Colon: Moderate diverticulosis Rectum: A few 2-4 mm diminutive appearing polyps - three were removed by a cold bx Ano-rectum: Moderate internal hemorrhoids Colon preparation: Good after some irrigation. [place] Bowel Preparation Scale Right colon; 3 Transverse colon: 3 Left colon; 3 (0 = Unprepared colon segment with mucosa not seen due to solid stool that cannot be cleared. 1 = Portion of mucosa of the colon segment seen, but other areas of the colon segment not well seen due to staining, residual stool and/or opaque liquid. 2 = Minor amount of residual staining, small fragments of stool and/or opaque liquid, but mucosa of colon segment seen well. 3 = Entire mucosa of colon segment seen well with no residual staining, small fragments of stool or opaque liquid) Impression and Post Procedure Diagnosis: Colonoscopy Findings: Three diminutive appearing polyps were removed Random biopsies were obtained from right and left colon to check for microscopic colitis Moderate diverticulosis seen in the sigmoid colon Moderate hemorrhoids on retroflexed exam. Plan: Pt has a FU appointment on 10/08/23 with Denise Collazo NP Repeat Colonoscopy in 5 years if polyps are adenomatous and due to family hx of colon cancer. Above findings were reviewed with the patient and relevant handouts were given and the discharge area.
[2023-09-24 13:50] VITALS: BP 97/42; PULSE 76; RESP 16; TEMP 36.4; O2SAT 99
[2023-09-24 14:05] VITALS: BP 157/90; PULSE 79; RESP 18; TEMP 36.2; O2SAT 98
--- NOTE | 2023-09-24 14:11 | HO.POSTANES ---
Post Anesthesia Evaluation Post Anesthesia Evaluation Date of Service: 09/24/23 Vital Signs: Vital Signs Temp Pulse Resp BP Pulse Ox O2 Del Method 09/24/23 14:05 97.1 F 79 18 157/90 H 98 Room Air 09/24/23 13:50 97.6 F 76 16 97/42 L 99 Room Air 09/24/23 12:28 97.6 F 80 16 148/76 H 98 Room Air Anesthesia: Monitored Mental Status: Awake Pain Control: Satisfactory Nausea/Vomiting: None Hydration: Adequate Anesthesia-Related Issues: No Anes. Related Issues
== END 2023-09-24 14:30 | disposition home or self-care (01) ==
PROVIDERS: Nurse Practitioner; PCP Internal Medicine; Visit Provider Internal Medicine Gastroenterology
PROC: 0DJD8ZZ Inspection of Lower Intestinal Tract, Via Natural or Artificial Opening Endoscopic (ICD-10-PCS; CPT 45378; principal; 2023-09-24 13:10)
DX: Z12.11 Encounter for screening for malignant neoplasm of colon (principal); Z80.0 Family history of malignant neoplasm of digestive organs; K62.1 Rectal polyp; K57.30 Diverticulosis of large intestine without perforation or abscess without bleeding; K64.8 Other hemorrhoids; K58.9 Irritable bowel syndrome, unspecified; R10.9 Unspecified abdominal pain; K21.9 Gastro-esophageal reflux disease without esophagitis; C90.00 Multiple myeloma not having achieved remission; G89.4 Chronic pain syndrome; E05.00 Thyrotoxicosis with diffuse goiter without thyrotoxic crisis or storm; E27.40 Unspecified adrenocortical insufficiency; D70.9 Neutropenia, unspecified; E66.9 Obesity, unspecified; Z68.31 Body mass index [BMI] 31.0-31.9, adult; H15.009 Unspecified scleritis, unspecified eye; Z79.01 Long term (current) use of anticoagulants; Z79.899 Other long term (current) drug therapy; Z88.1 Allergy status to other antibiotic agents; Z90.49 Acquired absence of other specified parts of digestive tract; Z98.890 Other specified postprocedural states; F17.210 Nicotine dependence, cigarettes, uncomplicated
CPT/HCPCS: 45380; 81025; 88305; J2704

== ENCOUNTER → 2023-09-24 11:49 | Outpatient (BNV) | payer OTHER, SELFPAY | PROVIDERS: PCP Internal Medicine; Visit Provider Internal Medicine Gastroenterology | DX: Z12.11 Encounter for screening for malignant neoplasm of colon (principal); Z80.0 Family history of malignant neoplasm of digestive organs; K62.1 Rectal polyp; K57.30 Diverticulosis of large intestine without perforation or abscess without bleeding | CPT/HCPCS: 45380 ==

== ENCOUNTER 2023-10-01 09:29 | Outpatient (AMB) | payer OTHER, SELFPAY ==
[2023-10-01 09:34] VITALS: BP 122/80; PULSE 90; O2SAT 99; BMI 31.3
--- NOTE | 2023-10-01 09:34 | A.OFFPC_ITS ---
Vital Signs 10/01/23 09:34 Height 5 ft 6 in Weight 194 lb BMI 31.3 BP 122/80 Blood Pressure Location Lt brachial Position Sitting Pulse 90 Pulse Source Pulse Oximeter Pulse Oximetry (%) 99 Oxygen Delivery Method Room Air Intake Visit Reasons: Med Management Cryolite Recovery Operator Required: No Carbide Powder Processor: Not Required per policy Accompanied by: Self / Same As Patient Allergies cephalexin Allergy (Unknown, Verified 10/01/23 09:34) SEIZURE/COMA,anaphylaxsis vancomycin [VANCOMYCIN] Allergy (Unknown, Verified 10/01/23 09:34) RED HEAT RASH Medication List - Last Reconciled 10/01/23 by Pedro Phillips MD acetaminophen 2 tabs PO Q4H amlodipine 5 mg (2 x 2.5 mg) PO DAILY apixaban (Eliquis) 5 mg PO BID cane As directed cholecalciferol (vitamin D3) 50 mcg PO DAILY 30 days dronabinol 2.5 mg PO BID folic acid 1 mg PO DAILY hydrochlorothiazide 25 mg PO DAILY lorazepam 1 mg PO TID PRN nicotine 1 patch transdermal DAILY oxycodone 10 mg PO Q4-6H PRN oxycodone 10 mg PO Q4-6H PRN tobramycin 0.3% 1 drp ophthalmic (eye) Q4H Tobacco use date assessed: 07/09/23 Dental Screening Dental Screen Date: 06/11/23 HPI Med Management HPI Details chronic back pain due to DDD; stable on rx; compliant PFSH Medical History Adrenal insufficiency Low serum cortisol level Obesity Cholecystostomy care Obesity Vitamin D deficiency Perimenopause Scleritis Neutropenia Graves disease Amenorrhea Back pain Surgical History History of bone marrow biopsy History of biopsy History of cholecystectomy History of umbilical hernia repair History of D&C History of section Family History Father Colon cancer Mother No problems noted. Unknown Colon cancer Social History Household Members: Family Housing: House Are you a primary college and career counselor to a significant other at home: No Do you presently have visiting nurse or other home services: No Alcohol intake: former Patient Tobacco Use Status: Current everyday Tobacco user Tobacco use type: Cigarette Cigarette Packs Per Day: 1 Cigarettes Per Day: 20.0 e-Cigarette/Vaping Use: Never Used Second Hand Smoke Exposure: No service: No Current occupational status: unemployed Current occupational exposures/hazards: No Cognitive needs: No Hearing needs: No Vision needs: Yes Female Reproductive History Menstrual Age of Menarche: 10 Questionnaire Thrive Questionnaire Date Thrive assessed: 04/16/23 MARIELENA-7 AMB Questionnaire MARIELENA-7 Date MARIELENA - 7 assessed: 04/16/23 Source: Developed by Drs. Bear Kendall, Eufemia Reece, Eben Rodriguez and colleagues, with an educational hermes from [employer]. Review of Systems Const Denies chills, Denies headache(s) and Denies weight loss ENT Denies headache(s) Card Denies chest pain, Denies syncope, Denies irregular heart rhythm and Denies dyspnea Resp Denies chest congestion, Denies cough and Denies dyspnea GI Denies abdominal pain, Denies change in stool character, Denies nausea and Denies vomiting Musc Denies deformity and Denies joint swelling Neuro Denies syncope and Denies headache(s) Physical exam (Primary Care) Vital Signs: Last Vital Signs Pulse 90 10/01/23 09:34 BP 122/80 10/01/23 09:34 Pulse Ox 99 10/01/23 09:34 Oxygen Delivery Method Room Air 10/01/23 09:34 BMI result Body Mass Index 31.3 Tobacco/Smoking Status: Tobacco use Status Tobacco use date assessed 07/09/23 10/01/23 09:35 Patient Tobacco Use Status Current everyday Tobacco 10/01/23 09:35 Tobacco use type Cigarette 10/01/23 09:35 e-Cigarette/Vaping Use Never Used 10/01/23 09:35 Thrive Assessment: Date of Thrive Assessment Date Thrive assessed 04/16/23 10/01/23 09:35 Const General: cooperative, comfortable, no acute distress and alert Neck Neck: Yes no lymphadenopathy Thyroid: Thyroid normal Resp Effort & Inspection: normal respiratory effort Auscultation: clear to auscultation bilaterally Percussion: percussion normal Cardio Jugular venous distension: no JVD Palpation: normal PMI Rate: regular rate Rhythm: regular rhythm Heart sounds: S1 normal heart sound present and S2 normal heart sound present GI Inspection: Yes normal to inspection Palpation (GI): No hepatosplenomegaly present Skin General skin exam: no rashes or lesions noted Extrem General: Yes no clubbing, cyanosis or edema Assessment and Plan Assessment & Plan (1) Chronic pain syndrome: Code(s): G89.4 - Chronic pain syndrome Plan: stablle; same rx Medications: Refilled oxycodone covering for Dr. Phillips 10 mg PO Q4-6H PRN 140 tabs 0RF pain oxycodone covering for Dr. Phillips 10 mg PO Q4-6H PRN 140 tabs 0RF pain Coding Level of Care Code Est Pt Level 3 (16237) Diagnoses Chronic pain syndrome G89.4
== END 2023-10-01 09:45 | disposition home or self-care (01) ==
PROVIDERS: PCP Internal Medicine; Visit Provider Internal Medicine
DX: G89.4 Chronic pain syndrome (principal)
CPT/HCPCS: 99213

== ENCOUNTER 2023-10-29 10:38 | Outpatient (AMB) | payer OTHER, SELFPAY ==
[2023-10-29 10:40] VITALS: BP 120/64; BMI 30.8
--- NOTE | 2023-10-29 10:40 | MHC.PC.OV ---
Vital Signs 10/29/23 10:40 Height 5 ft 6 in Weight 191 lb BMI 30.8 BP 120/64 Blood Pressure Location Lt brachial Position Sitting Pulse Source Pulse Oximeter Oxygen Delivery Method Room Air Intake Visit Reasons: Med Management Air Antisubmarine Officer: Not Required per policy Accompanied by: Self / Same As Patient Allergies cephalexin Allergy (Unknown, Verified 10/01/23 09:34) SEIZURE/COMA,anaphylaxsis vancomycin [VANCOMYCIN] Allergy (Unknown, Verified 10/01/23 09:34) RED HEAT RASH Medication List - Last Reconciled 10/29/23 by Pedro Phillips MD acetaminophen 2 tabs PO Q4H amlodipine 5 mg (2 x 2.5 mg) PO DAILY apixaban (Eliquis) 5 mg PO BID cane As directed cholecalciferol (vitamin D3) 50 mcg PO DAILY 30 days dronabinol 2.5 mg PO BID folic acid 1 mg PO DAILY hydrochlorothiazide 25 mg PO DAILY ibuprofen 800 mg PO Q6H lorazepam 1 mg PO TID PRN nicotine 1 patch transdermal DAILY oxycodone 10 mg PO Q4-6H PRN oxycodone 10 mg PO Q4-6H PRN tobramycin 0.3% 1 drp ophthalmic (eye) Q4H Tobacco use date assessed: 07/09/23 Dental Screening Dental Screen Date: 06/11/23 HPI Med Management HPI Details chronic back pain; due for rx; compliant PFSH Medical History Adrenal insufficiency Low serum cortisol level Obesity Cholecystostomy care Obesity Vitamin D deficiency Perimenopause Scleritis Neutropenia Graves disease Amenorrhea Back pain Surgical History History of bone marrow biopsy History of biopsy History of cholecystectomy History of umbilical hernia repair History of D&C History of section Family History Father Colon cancer Mother No problems noted. Unknown Colon cancer Social History Household Members: Family Housing: House Are you a primary nanny caregiver to a significant other at home: No Do you presently have visiting nurse or other home services: No Alcohol intake: former Patient Tobacco Use Status: Current everyday Tobacco user Tobacco use type: Cigarette Cigarette Packs Per Day: 1 Cigarettes Per Day: 20.0 e-Cigarette/Vaping Use: Never Used Second Hand Smoke Exposure: No service: No Current occupational status: unemployed Current occupational exposures/hazards: No Cognitive needs: No Hearing needs: No Vision needs: Yes Female Reproductive History Menstrual Age of Menarche: 10 Questionnaire Thrive Questionnaire Date Thrive assessed: 04/16/23 MARIELENA-7 AMB Questionnaire MARIELENA-7 Date MARIELENA - 7 assessed: 04/16/23 Source: Developed by Drs. Bear Kendall, Eufemia Reece, Eben Rodriguez and colleagues, with an educational hermes from [employer]. Review of Systems Const Denies chills, Denies headache(s) and Denies weight loss ENT Denies headache(s) Card Denies chest pain, Denies syncope, Denies irregular heart rhythm and Denies dyspnea Resp Denies chest congestion, Denies cough and Denies dyspnea GI Denies abdominal pain, Denies change in stool character, Denies nausea and Denies vomiting Musc Denies deformity and Denies joint swelling Neuro Denies syncope and Denies headache(s) Physical exam (Primary Care) Vital Signs: Last Vital Signs BP 120/64 10/29/23 10:40 Oxygen Delivery Method Room Air 10/29/23 10:40 BMI result Body Mass Index 30.8 Tobacco/Smoking Status: Tobacco use Status Tobacco use date assessed 07/09/23 10/29/23 10:41 Patient Tobacco Use Status Current everyday Tobacco 10/29/23 10:41 Tobacco use type Cigarette 10/29/23 10:41 e-Cigarette/Vaping Use Never Used 10/29/23 10:41 Thrive Assessment: Date of Thrive Assessment Date Thrive assessed 04/16/23 10/29/23 10:41 Const General: cooperative, comfortable, no acute distress and alert Neck Neck: Yes no lymphadenopathy Thyroid: Thyroid normal Resp Effort & Inspection: normal respiratory effort Auscultation: clear to auscultation bilaterally Percussion: percussion normal Cardio Jugular venous distension: no JVD Palpation: normal PMI Rate: regular rate Rhythm: regular rhythm Heart sounds: S1 normal heart sound present and S2 normal heart sound present GI Inspection: Yes normal to inspection Palpation (GI): No hepatosplenomegaly present Skin General skin exam: no rashes or lesions noted Extrem General: Yes no clubbing, cyanosis or edema Assessment and Plan Assessment & Plan (1) Back pain: Code(s): M54.9 - Dorsalgia, unspecified Plan: stable; same rx Medications: Refilled oxycodone covering for Dr. Phillips 10 mg PO Q4-6H PRN 140 tabs 0RF pain Coding Level of Care Code Est Pt Level 3 (67404) Diagnoses Back pain M54.9
== END 2023-10-29 10:56 | disposition home or self-care (01) ==
PROVIDERS: PCP Internal Medicine; Visit Provider Internal Medicine
DX: M54.9 Dorsalgia, unspecified (principal)
CPT/HCPCS: 99213

== ENCOUNTER 2023-11-26 09:24 | Outpatient (AMB) | payer OTHER, SELFPAY ==
[2023-11-26 09:26] VITALS: BP 126/72; PULSE 86; O2SAT 96; BMI 31.1
--- NOTE | 2023-11-26 09:26 | A.OFFPC_ITS ---
Vital Signs 11/26/23 09:26 Height 5 ft 6 in Weight 193 lb BMI 31.1 BP 126/72 Blood Pressure Location Lt brachial Position Sitting Pulse 86 Pulse Source Pulse Oximeter Pulse Oximetry (%) 96 Oxygen Delivery Method Room Air Intake Visit Reasons: Med Management Color Tester Required: No Accompanied by: Self / Same As Patient Allergies cephalexin Allergy (Unknown, Verified 11/26/23 09:28) SEIZURE/COMA,anaphylaxsis vancomycin [VANCOMYCIN] Allergy (Unknown, Verified 11/26/23 09:28) RED HEAT RASH Medication List - Last Reconciled 11/26/23 by Pedro Phillips MD acetaminophen 2 tabs PO Q4H amlodipine 5 mg (2 x 2.5 mg) PO DAILY apixaban (Eliquis) 5 mg PO BID cane As directed cholecalciferol (vitamin D3) 50 mcg PO DAILY 30 days dronabinol 2.5 mg PO BID folic acid 1 mg PO DAILY hydrochlorothiazide 25 mg PO DAILY ibuprofen 800 mg PO Q6H lorazepam 1 mg PO TID PRN nicotine 1 patch transdermal DAILY oxycodone 10 mg PO Q4-6H PRN oxycodone 10 mg PO Q4-6H PRN tobramycin 0.3% 1 drp ophthalmic (eye) Q4H Tobacco use date assessed: 07/09/23 Dental Screening Dental Screen Date: 06/11/23 HPI Med Management HPI Details f/u chronic back pain on rx; doing well and compliant [facility] Medical History Adrenal insufficiency Low serum cortisol level Obesity Cholecystostomy care Obesity Vitamin D deficiency Perimenopause Scleritis Neutropenia Graves disease Amenorrhea Back pain Surgical History History of bone marrow biopsy History of biopsy History of cholecystectomy History of umbilical hernia repair History of D&C History of section Family History Father Colon cancer Mother No problems noted. Unknown Colon cancer Social History Household Members: Family Housing: House Are you a primary nanny caregiver to a significant other at home: No Do you presently have visiting nurse or other home services: No Alcohol intake: former Patient Tobacco Use Status: Current everyday Tobacco user Tobacco use type: Cigarette Cigarette Packs Per Day: 1 Cigarettes Per Day: 20.0 e-Cigarette/Vaping Use: Never Used Second Hand Smoke Exposure: No service: No Current occupational status: unemployed Current occupational exposures/hazards: No Cognitive needs: No Hearing needs: No Vision needs: Yes Female Reproductive History Menstrual Age of Menarche: 10 Questionnaire PHQ-9 Over the last 2 weeks, how often have you been bothered by any of the following problems? 1. Little interest or pleasure in doing things: not at all 2. Feeling down, depressed, or hopeless: not at all 3. Trouble falling or staying asleep, or sleeping too much: not at all 4. Feeling tired or having little energy: not at all 5. Poor appetite or overeating: not at all 6. Feeling bad about yourself - or that you are a failure or have let yourself or your family down: not at all 7. Trouble concentrating on things, such as reading the newspaper or watching television: not at all 8. Moving or speaking so slowly that other people could have noticed. Or the opposite - being so fidgety or restless that you have been moving around a lot more than usual: not at all 9. Thoughts that you would be better off or of hurting yourself in some way: not at all Total score: 0 Depression Screening Interpretation: Negative Depression Screening Done: Yes Source: Developed by Drs. Bear Kendall, Eufemia Reece, Eben Rodriguez and colleagues, with an educational hermes from [employer]. Thrive Questionnaire Date Thrive assessed: 04/16/23 AUDIT C Alcohol Use Questionnaire (AUDIT-C) 1. How often do you have a drink containing alcohol?: Never 3. How often do you have six or more drinks on one occasion?: Never Total Score: 0 Score Reviewed/Action Taken: No MARIELENA-7 AMB Questionnaire MARIELENA-7 Date MARIELENA - 7 assessed: 04/16/23 Source: Developed by Drs. Bear Kendall, Eben Davies and colleagues, with an educational hermes from [employer]. Review of Systems Const Denies chills, Denies headache(s) and Denies weight loss ENT Denies headache(s) Card Denies chest pain, Denies syncope, Denies irregular heart rhythm and Denies dyspnea Resp Denies chest congestion, Denies cough and Denies dyspnea GI Denies abdominal pain, Denies change in stool character, Denies nausea and Denies vomiting Musc Denies deformity and Denies joint swelling Neuro Denies syncope and Denies headache(s) Physical exam (Primary Care) Vital Signs: Last Vital Signs Pulse 86 11/26/23 09:26 BP 126/72 11/26/23 09:26 Pulse Ox 96 11/26/23 09:26 Oxygen Delivery Method Room Air 11/26/23 09:26 BMI result Body Mass Index 31.1 Tobacco/Smoking Status: Tobacco use Status Tobacco use date assessed 07/09/23 11/26/23 09:31 Patient Tobacco Use Status Current everyday Tobacco 11/26/23 09:31 Tobacco use type Cigarette 11/26/23 09:31 e-Cigarette/Vaping Use Never Used 11/26/23 09:31 PHQ-9: PHQ-9 Score PHQ-9: Total score 0 11/26/23 09:31 Depression Screening Interpretation: Negative Thrive Assessment: Date of Thrive Assessment Date Thrive assessed 04/16/23 11/26/23 09:31 Const General: cooperative, comfortable, no acute distress and alert Neck Neck: Yes no lymphadenopathy Thyroid: Thyroid normal Resp Effort & Inspection: normal respiratory effort Auscultation: clear to auscultation bilaterally Percussion: percussion normal Cardio Jugular venous distension: no JVD Palpation: normal PMI Rate: regular rate Rhythm: regular rhythm Heart sounds: S1 normal heart sound present and S2 normal heart sound present GI Inspection: Yes normal to inspection Palpation (GI): No hepatosplenomegaly present Skin General skin exam: no rashes or lesions noted Extrem General: Yes no clubbing, cyanosis or edema Assessment and Plan Assessment & Plan (1) Back pain: Code(s): M54.9 - Dorsalgia, unspecified Plan: stable; meds refilled Medications: Refilled ibuprofen 800 mg PO Q6H 90 tabs 0RF lorazepam 1 mg PO TID PRN 90 tabs 3RF anxiety oxycodone covering for Dr. Phillips 10 mg PO Q4-6H PRN 140 tabs 0RF pain Coding Level of Care Code Est Pt Level 3 (44715) Diagnoses Back pain M54.9
== END 2023-11-26 09:39 | disposition home or self-care (01) ==
PROVIDERS: PCP Internal Medicine; Visit Provider Internal Medicine
DX: M54.9 Dorsalgia, unspecified (principal)
CPT/HCPCS: 99213

== ENCOUNTER 2024-01-02 09:16 | Outpatient (AMB) | payer OTHER, SELFPAY ==
--- NOTE | 2024-01-02 09:16 | AM.OFFWIN_ITS ---
Intake Vital Signs 01/02/24 09:19 Height 5 ft 6 in Weight 196 lb BMI 31.6 BP 140/90 H Blood Pressure Location Lt brachial Position Sitting Pulse 96 Pulse Source Pulse Oximeter Temp 98.4 F Temp Source Oral Pulse Oximetry (%) 97 Oxygen Delivery Method Room Air Intake Visit Reasons: EP-rt big toe infection Intake Note: Patient here for infection on right big toe, she was put on antibiotics by pcp which she started on Sunday and states it is not working as the toe is still very painful. Patient Tobacco Use Status: Current everyday Tobacco user Allergies cephalexin Allergy (Unknown, Verified 01/02/24 09:20) SEIZURE/COMA,anaphylaxsis vancomycin [VANCOMYCIN] Allergy (Unknown, Verified 01/02/24 09:20) RED HEAT RASH Do you need a note to return to daycare/school/sports/work: No HPI EP-rt big toe infection HPI Details This note is constructed using voice recognition software. While every effort has been made to ensure accuracy, guard dance hall errors may have been included. The patient is a 43 year old female who presents to the clinic today with concern for infection to her right great toe. She notes that she was cleaning her nails, cutting her nails, and then took a little more skin away than intended, she had some small bleeding, and then after a couple of days develop some redness to the area. She contacted her primary care provider who prescribed antibiotics, she is now currently on day 4, but has had no improvement in the redness or pain of the area. She was concerned that the antibiotic was not resolving. She denies fever, chills, body aches. [facility] Medical History Adrenal insufficiency Low serum cortisol level Obesity Cholecystostomy care Obesity Vitamin D deficiency Perimenopause Scleritis Neutropenia Graves disease Amenorrhea Back pain Surgical History History of bone marrow biopsy History of biopsy History of cholecystectomy History of umbilical hernia repair History of D&C History of section Family History Father Colon cancer Mother No problems noted. Unknown Colon cancer Social History Household Members: Family Housing: House Are you a primary customer care team coach to a significant other at home: No Do you presently have visiting nurse or other home services: No Alcohol intake: former Patient Tobacco Use Status: Current everyday Tobacco user Tobacco use type: Cigarette Cigarette Packs Per Day: 1 Cigarettes Per Day: 20.0 e-Cigarette/Vaping Use: Never Used Second Hand Smoke Exposure: No service: No Current occupational status: unemployed Current occupational exposures/hazards: No Cognitive needs: No Hearing needs: No Vision needs: Yes Female Reproductive History Menstrual Age of Menarche: 10 Review of Systems Const All systems reviewed & are unremarkable except as noted in HPI and below Physical Exam Vital Signs: Last Vital Signs Temp 98.4 F 01/02/24 09:19 Pulse 96 01/02/24 09:19 BP 140/90 H 01/02/24 09:19 Pulse Ox 97 01/02/24 09:19 Oxygen Delivery Method Room Air 01/02/24 09:19 BMI result Body Mass Index 31.6 Const General: cooperative, healthy appearing, comfortable, no acute distress and well developed Orientation/consciousness: patient oriented x3 Limitations: no limitations Resp Effort & Inspection: normal respiratory effort and able to speak in complete s entences Skin Other: Erythema approximately 1 cm out from base of great toenail, with slight warmth. No discharge noted. Neuro General: patient oriented x3 Assessment & Plan Assessment & Plan (1) Cellulitis: Code(s): L03.90 - Cellulitis, unspecified Qualifiers: Site of cellulitis: extremity Site of cellulitis of extremity: toe Laterality: right Qualified Code(s): L03.031 - Cellulitis of right toe Plan: Alternate Antibiotics sent to requested pharmacy due to lack of improvement on 1st antibiotics. Advised patient to continue with Epsom salt soaks, and monitor for signs of increased infection or lack of improvement. Advised follow up with worsening or failure to resolve. Plan See above for full details and plan. Medications: New sulfamethoxazole-trimethoprim 800-160 mg (Bactrim DS) 1 tab PO Q12H 7 days 14 tabs 0RF Discontinued ciprofloxacin HCl (Cipro) Discontinued Reason: More recent result 250 mg PO BID 10 tabs 0RF Coding Level of Care Code Est Pt Level 3 (13002) Diagnoses Cellulitis of toe of right foot L03.031 Site of cellulitis: extremity Site of cellulitis of extremity: toe Laterality: right
[2024-01-02 09:19] VITALS: BP 140/90; PULSE 96; TEMP 36.9; O2SAT 97; BMI 31.6
== END 2024-01-02 09:46 | disposition home or self-care (01) ==
PROVIDERS: PCP Internal Medicine; Visit Provider Registered Nurse
DX: L03.031 Cellulitis of right toe (principal)

== ENCOUNTER → 2024-01-02 09:16 | Outpatient (BNVA) | payer OTHER, SELFPAY | PROVIDERS: PCP Internal Medicine | DX: L03.031 Cellulitis of right toe (principal) | CPT/HCPCS: 99212 ==

== ENCOUNTER 2024-01-08 11:21 | Outpatient (AMB) | payer OTHER, SELFPAY ==
[2024-01-08 11:23] VITALS: BP 132/62; PULSE 84; O2SAT 98; BMI 31.2
--- NOTE | 2024-01-08 11:23 | MHC.OFFVIS ---
Vital Signs 01/08/24 11:23 Height 5 ft 6 in Weight 193 lb 1.999 oz BMI 31.2 BP 132/62 Blood Pressure Location Lt brachial Position Sitting Pulse 84 Pulse Source Pulse Oximeter Pulse Oximetry (%) 98 Oxygen Delivery Method Room Air Intake Visit Reasons: r/s from 10/15 Intake Note: Bhavana presents in office today for a scheduled post op FUV. CC; Pt denies any complications or new sx post op. Pt is here to discuss the results of their procedure. Manager Image Required: No Allergies cephalexin Allergy (Unknown, Verified 01/08/24 11:23) SEIZURE/COMA,anaphylaxsis vancomycin [VANCOMYCIN] Allergy (Unknown, Verified 01/08/24 11:23) RED HEAT RASH HPI HPI r/s from 10/15: Details: LAST VISIT Umbilical hernia Abdominal discomfort GERD (gastroesophageal reflux disease) IBS (irritable bowel syndrome) Plan Will send patient to General surgery per her request. Will order CT scan with IV and oral contrast to re-evaluate the recurrent umbilical hernia. What to expect before during and after procedure discussed with patient. Patient will be sent for colonoscopy. Patient found out that her paternal cousin was diagnosed with colorectal cancer. Discussed with patient the importance of clear liquid diet and good bowel prep before going for colonoscopy. No history of sleep apnea. No issues with anesthesia in the past. Patient is on Eliquis, will hold Eliquis for 48 hours before the procedure. I will see patient after the procedure, sooner on as needed basis. ? Thank you for allowing me to participate in her care Orders Orders Blood Urea Nitrogen Today R10.[address] abdomen pelvis w IV con Today K42.9 Medications New bisacodyl (Dulcolax (bisacodyl)) take 4 tabs at noon the day before your colonoscopy 20 mg (4 x 5 mg) PO ONCE 1 day 4 tabs 0RF Z12.11 polyethylene glycol 3350 (Miralax) As directed by gastroenterology department at [facility] 238 grams PO ONCE 238 grams 0RF Z12.11 COLONOSCOPY Findings: Terminal Ileum: Not evaluated Cecum: Normal Ascending Colon: Normal Transverse Colon: Normal Descending Colon: Normal Sigmoid Colon: Moderate diverticulosis Rectum: A few 2-4 mm diminutive appearing polyps - three were removed by a cold bx Ano-rectum: Moderate internal hemorrhoids Colon preparation: Good after some irrigation. [place] Bowel Preparation Scale Right colon; 3 Transverse colon: 3 Left colon; 3 (0 = Unprepared colon segment with mucosa not seen due to solid stool that cannot be cleared. 1 = Portion of mucosa of the colon segment seen, but other areas of the colon segment not well seen due to staining, residual stool and/or opaque liquid. 2 = Minor amount of residual staining, small fragments of stool and/or opaque liquid, but mucosa of colon segment seen well. 3 = Entire mucosa of colon segment seen well with no residual staining, small fragments of stool or opaque liquid) Impression and Post Procedure Diagnosis: Colonoscopy Findings: Three diminutive appearing polyps were removed Random biopsies were obtained from right and left colon to check for microscopic colitis Moderate diverticulosis seen in the sigmoid colon Moderate hemorrhoids on retroflexed exam. Plan: Repeat Colonoscopy in 5 years if polyps are adenomatous and due to family hx of colon cancer. Above findings were reviewed with the patient and relevant handouts were given and the discharge area. PATHOLOGY RESULTS Diagnosis A. Colon, random right, biopsy: Colonic mucosa with no specific change; no evidence of microscopic colitis. B. Colon, random left, biopsy: Colonic mucosa with no specific change; no evidence of microscopic colitis. C. Colon, 2 rectal polyps: Hyperplastic polyps, two TODAY'S VISIT Patient is here today for follow-up and to discuss colonoscopy results. Patient denies any ill effects from the prep, anesthesia or itself. Patient had 2 hyperplastic polyps, however due to family history of CRC patient will need to repeat colonoscopy in 5 years. Patient will be seeing her oncologist in [place] end of this month. Patient reports that she might need to go back on chemo medication. Currently patient has no GI concerning symptoms. Reports to have increased back pain and leg pain. History of multiple myeloma. Liver elastography results discussed with patient. Liver fibrosis, increase echogenicity. Lesion was not seen on ultrasound, we will order MRI to better evaluate. Patient has normal liver enzymes. [facility] Medical History Adrenal insufficiency Low serum cortisol level Obesity Cholecystostomy care Obesity Vitamin D deficiency Perimenopause Scleritis Neutropenia Graves disease Amenorrhea Back pain Surgical History History of bone marrow biopsy History of biopsy History of cholecystectomy History of umbilical hernia repair History of D&C History of section Family History Father Colon cancer Mother No problems noted. Unknown Colon cancer Social History (Reviewed 01/08/24 @ 11: by VINCENT Calvert) Household Members: Family Housing: House Are you a primary acute care physical therapist to a significant other at home: No Do you presently have visiting nurse or other home services: No Alcohol intake: former Patient Tobacco Use Status: Current everyday Tobacco user Tobacco use type: Cigarette Cigarette Packs Per Day: 1 Cigarettes Per Day: 20.0 e-Cigarette/Vaping Use: Never Used Second Hand Smoke Exposure: No service: No Current occupational status: unemployed Current occupational exposures/hazards: No Cognitive needs: No Hearing needs: No Vision needs: Yes Female Reproductive History Menstrual Age of Menarche: 10 Physical Exam Vital Signs: Last Vital Signs Pulse 84 01/08/24 11:23 BP 132/62 01/08/24 11:23 Pulse Ox 98 01/08/24 11:23 Oxygen Delivery Method Room Air 01/08/24 11:23 BMI result Body Mass Index 31.2 Const General: healthy appearing, no acute distress and well developed Nutritional Appearance: obese Orientation/consciousness: patient oriented x3 Resp Effort & Inspection: normal respiratory effort, able to speak in complete sentences, no tracheal deviation and symmetric chest movement Auscultation: clear to auscultation bilaterally Cardio Rate: regular rate GI Inspection: Yes normal to inspection, No distended and Yes obesity Palpation (GI): Soft to palpation, not firm, nontender, No hepatosplenomegaly present and Hernia present (Large umbilical hernia) Auscultation: normal bowel sounds General: Yes no CVA tenderness Back/Spine/Pelvis Back: no CVA tenderness Skin General skin exam: elasticity normal, turgor normal and dry skin Neuro General: patient oriented x3 Psych Appearance: grossly normal Mental Status: mental status grossly normal Results Reviewed Results Reviewed: LIVER ULTRASOUND WITH ELASTOGRAPHY FINDINGS: PANCREAS: Normal. The visualized pancreatic head and body are normal in appearance. The remainder of the pancreas is obscured from visualization by the overlying bowel gas. LIVER: Diffuse heterogeneously increased attenuation consistent with steatosis. The known liver mass in the right hepatic lobe is not seen by ultrasound. The right lobe measures 21.0 cm in length. The left lobe measures 14.1 cm in length. Portal flow is hepatopedal Shear wave liver elastography median stiffness is 1.8 m/s (reference: normal median stiffness is 1.3 m/s or less). IQR/median stiffness to assess sampling precision is 0.09 (reference: good quality data set is IQR/median stiffness of 0.15 or less). GALLBLADDER: Cholecystectomy. COMMON BILE DUCT: Normal in caliber measuring 0.4 cm in diameter. RIGHT KIDNEY: Normal. No hydronephrosis. No renal calculi or focal parenchymal lesions. The kidney measures 11.4 cm in maximum dimension. FREE FLUID: None. US/US abdomen florentino w elastography IMPRESSION: 1. Enlarged steatotic liver. Known indeterminant liver mass in the right hepatic lobe is not visualized by ultrasound. Recommend surveillance MRI of the abdomen without and with contrast. 2. Liver elastography: Measurements are suggestive of compensated advanced chronic liver disease but need further test for confirmation. Assessment & Plan Assessment & Plan (1) Umbilical hernia: Code(s): K42.9 - Umbilical hernia without obstruction or gangrene Qualifiers: Obstruction and gangrene presence: without obstruction or gangrene Qualified Code(s): K42.9 - Umbilical hernia without obstruction or gangrene (2) Abdominal discomfort: Code(s): R10.9 - Unspecified abdominal pain (3) GERD (gastroesophageal reflux disease): Code(s): K21.9 - Gastro-esophageal reflux disease without esophagitis Qualifiers: Esophagitis presence: esophagitis presence not specified Qualified Code(s): K21.9 - Gastro-esophageal reflux disease without esophagitis (4) IBS (irritable bowel syndrome): Code(s): K58.9 - Irritable bowel syndrome, unspecified Qualifiers: Irritable bowel syndrome type: without diarrhea Qualified Code(s): K58.9 - Irritable bowel syndrome, unspecified Plan Continue low-fat, low-salt and high-protein diet. Will order liver MRI to evaluate for lesion. Liver fibrosis F0-F1. Colonoscopy in 5 years due to family history of CRC. Patient currently has no GI concerning symptoms. Follow-up in 6 months for re-evaluating liver, we will order another ultrasound then. Patient is agreeable to current plan of care and verbalizes understanding of instructions. She was given the opportunity to ask questions and all questions answered. Thank you for allowing me to participate in her care Orders: Orders MR abdomen wo/w con Today K76.9 - Liver disease, unspecified Coding Level of Care Code Est Pt Level 4 (58296) Diagnoses Umbilical hernia without obstruction and without gangrene K42.9 Obstruction and gangrene presence: without obstruction or gangrene Abdominal discomfort R10.9 Gastroesophageal reflux disease, unspecified whether esophagitis present K21.9 Esophagitis presence: esophagitis presence not specified Irritable bowel syndrome without diarrhea K58.9 Irritable bowel syndrome type: without diarrhea Time Spent (min) 35 Comment 20 minutes spent with patient and additional 15 minutes spent reviewing her records
== END 2024-01-08 12:10 | disposition home or self-care (01) ==
PROVIDERS: PCP Internal Medicine; Visit Provider Nurse Practitioner Family
DX: K42.9 Umbilical hernia without obstruction or gangrene (principal); R10.9 Unspecified abdominal pain; K21.9 Gastro-esophageal reflux disease without esophagitis; K58.9 Irritable bowel syndrome, unspecified
CPT/HCPCS: 99214

== ENCOUNTER → 2024-01-08 11:21 | Outpatient (BNVA) | payer OTHER, SELFPAY | PROVIDERS: PCP Internal Medicine; Visit Provider Nurse Practitioner Family | DX: K42.9 Umbilical hernia without obstruction or gangrene (principal); K21.9 Gastro-esophageal reflux disease without esophagitis; K58.9 Irritable bowel syndrome, unspecified; R10.9 Unspecified abdominal pain | CPT/HCPCS: 99212 ==

== ENCOUNTER 2024-01-18 11:08 | Outpatient (AMB) | payer OTHER, SELFPAY ==
--- NOTE | 2024-01-18 11:11 | MHC.PC.OV ---
Vital Signs 01/18/24 11:13 Height 5 ft 6 in Weight 195 lb 4 oz BMI 31.5 BP 124/76 Blood Pressure Location Lt brachial Position Sitting Pulse 77 Pulse Source Pulse Oximeter Pulse Oximetry (%) 96 Oxygen Delivery Method Room Air Intake Visit Reasons: Med Management Intake Note: Patient is here to follow up on Med management. Pt decline flu shot today. Research Management Associate Required: No Client Consultant: Not Required per policy Accompanied by: Self / Same As Patient Allergies cephalexin Allergy (Unknown, Verified 01/18/24 13:11) SEIZURE/COMA,anaphylaxsis vancomycin [VANCOMYCIN] Allergy (Unknown, Verified 01/18/24 13:11) RED HEAT RASH Medication List - Last Reconciled 01/18/24 by Pedro Phillips MD acetaminophen 2 tabs PO Q4H amlodipine 5 mg (2 x 2.5 mg) PO DAILY cane As directed cholecalciferol (vitamin D3) 50 mcg PO DAILY 30 days folic acid 1 mg PO DAILY hydrochlorothiazide 25 mg PO DAILY ibuprofen 800 mg PO Q6H lorazepam 1 mg PO TID PRN nicotine 1 patch transdermal DAILY oxycodone 10 mg PO Q4-6H PRN Tobacco use date assessed: 01/18/24 Dental Screening Dental Screen Date: 06/11/23 HPI Med Management HPI Details chronic back pain on rx; doing well and compliant [facility] Medical History Adrenal insufficiency Low serum cortisol level Obesity Cholecystostomy care Obesity Vitamin D deficiency Perimenopause Scleritis Neutropenia Graves disease Amenorrhea Back pain Surgical History History of bone marrow biopsy History of biopsy History of cholecystectomy History of umbilical hernia repair History of D&C History of section Family History Father Colon cancer Mother No problems noted. Unknown Colon cancer Social History Household Members: Family Housing: House Are you a primary director of career services to a significant other at home: No Do you presently have visiting nurse or other home services: No Alcohol intake: former Patient Tobacco Use Status: Current everyday Tobacco user Tobacco use type: Cigarette Cigarette Packs Per Day: 1 e-Cigarette/Vaping Use: Never Used Second Hand Smoke Exposure: Yes Use of substances other than those prescribed or required for medical reasons: No Have you been hit, kicked, punched, or otherwise hurt by someone within the past year? If so, by whom?: No Do you feel safe in your current relationship?: Yes Do you have thoughts of harming others: None Do you have a plan to hurt others: No Plan Do you have the means to hurt others: No Recently lost weight without trying: No Patient : No service: No Current occupational status: unemployed Current occupational exposures/hazards: No Cognitive needs: No Hearing needs: No Vision needs: Yes Female Reproductive History Menstrual Age of Menarche: 10 Questionnaire Thrive Questionnaire Date Thrive assessed: 04/16/23 MARIELENA-7 AMB Questionnaire MARIELENA-7 Date MARIELENA - 7 assessed: 04/16/23 Source: Developed by Drs. Bear Kendall, Eufemia Reece, Eben Rodriguez and colleagues, with an educational hermes from [employer]. Review of Systems Const Denies chills, Denies headache(s) and Denies weight loss ENT Denies headache(s) Card Denies chest pain, Denies syncope, Denies irregular heart rhythm and Denies dyspnea Resp Denies chest congestion, Denies cough and Denies dyspnea GI Denies abdominal pain, Denies change in stool character, Denies nausea and Denies vomiting Musc Denies deformity and Denies joint swelling Neuro Denies syncope and Denies headache(s) Physical exam (Primary Care) Vital Signs: Last Vital Signs Pulse 77 01/18/24 11:13 BP 124/76 01/18/24 11:13 Pulse Ox 96 01/18/24 11:13 Oxygen Delivery Method Room Air 01/18/24 11:13 BMI result Body Mass Index 31.5 Tobacco/Smoking Status: Tobacco use Status Tobacco use date assessed 01/18/24 01/18/24 11:18 Patient Tobacco Use Status Current everyday Tobacco 01/18/24 11:18 Tobacco use type Cigarette 01/18/24 11:18 e-Cigarette/Vaping Use Never Used 01/18/24 11:18 Thrive Assessment: Date of Thrive Assessment Date Thrive assessed 04/16/23 01/18/24 11:18 Const General: cooperative, comfortable, no acute distress and alert Neck Neck: Yes no lymphadenopathy Thyroid: Thyroid normal Resp Effort & Inspection: normal respiratory effort Auscultation: clear to auscultation bilaterally Percussion: percussion normal Cardio Jugular venous distension: no JVD Palpation: normal PMI Rate: regular rate Rhythm: regular rhythm Heart sounds: S1 normal heart sound present and S2 normal heart sound present GI Inspection: Yes normal to inspection Palpation (GI): No hepatosplenomegaly present Skin General skin exam: no rashes or lesions noted Extrem General: Yes no clubbing, cyanosis or edema Coding Level of Care Code Est Pt Level 3 (60464) Diagnoses Chronic pain syndrome G89.4 Assessment & Plan Assessment & Plan (1) Chronic pain syndrome: Code(s): G89.4 - Chronic pain syndrome Category: Medical Plan: stable; same rx Orders: Orders Vitamin D 25-OH Total Today Z13.9 - Encounter for screening, unspecified Thyroid Stimulating Hormone Today Z13.29 - Encounter for screening for other suspected endocrine disorder Medications: Refilled oxycodone covering for Dr. Phillips 10 mg PO Q4-6H PRN 140 tabs 0RF pain
[2024-01-18 11:13] VITALS: BP 124/76; PULSE 77; O2SAT 96; BMI 31.5
== END 2024-01-18 11:44 | disposition home or self-care (01) ==
PROVIDERS: PCP Internal Medicine; Visit Provider Internal Medicine
DX: G89.4 Chronic pain syndrome (principal)

== ENCOUNTER → 2024-01-18 11:08 | Outpatient (BNVA) | payer OTHER, SELFPAY | PROVIDERS: PCP Internal Medicine; Visit Provider Internal Medicine | DX: G89.4 Chronic pain syndrome (principal) | CPT/HCPCS: 99212 ==

== ENCOUNTER 2024-02-02 09:20 | Outpatient (REF) | payer OTHER, SELFPAY ==
[2024-02-02 11:16] LABS: MANUAL DIFF FLAG NO
[2024-02-02 11:22] LABS: Basophils Percent Auto 0.4 % (0-2); Eosinophils Absolute Auto 0.1 X10*3/uL (0.0-0.4); Eosinophils Percent Auto 2.1 % (0-4); Hematocrit 38.3 % (37.0-47.0); Hemoglobin 13.4 g/dl (12.0-16.0); Imm Gran Abs Auto 0.01 X10*3/uL (0.00-0.03); Imm Gran Pct Auto 0.2 % (0.0-0.4); Lymphocytes Absolute Auto 1.5 X10*3/uL (1.2-4.9); Lymphocytes Percent Auto 31.1 % (20-40); Mean Corpuscular Hemoglobin 32.7 pg (27.0-33.0); Mean Corpuscular Volume 93.4 fL (80.0-98.0); Mean Platelet Volume 10.4 fL (9.4-12.3); Monocytes Absolute Auto 0.3 X10*3/uL (0.1-1.2); Monocytes Percent Auto 6.6 % (2-11); Neutrophils Absolute Auto 2.9 x10*3/uL (2.0-8.3); Neutrophils Percent Auto 59.6 % (45-73); Platelet Count 117 X10*3/uL (160-400); Red Cell Distribution Width 13.1 % (11.0-16.0); White Blood Count 4.9 X10*3/uL (4.8-10.8)
[2024-02-02 11:46] LABS: Alanine Aminotransferase 21 U/L (0-31); Albumin Level 4.1 g/dL (3.5-5.0); Alkaline Phosphatase 89 U/L (39-117); Anion Gap 15 (12-20); Aspartate Amino Transferase 22 U/L (5-31); Bilirubin Total 0.4 mg/dL (0.0-1.0); Blood Urea Nitrogen 15 mg/dL (9-16); Calcium 9.1 mg/dL (8.4-10.2); Carbon Dioxide 22 mmol/L (22-29); Chloride 107 mmol/L (96-108); Estimated Glomerular Filt Rate > 60; Glucose Random 201 mg/dL (60-115); Potassium 4.2 mmol/L (3.3-5.1); Sodium 140 mmol/L (135-145); Total Protein 6.6 g/dL (6.5-8.0)
[2024-02-02 12:05] LABS: Thyroid Stimulating Hormone 1.03 uIU/mL (0.32-4.0); Vitamin D 25-OH Total 69.5 ng/mL (>30)
[2024-02-05 22:23] LABS: IgA 65 mg/dL (47-310); IgG 581 mg/dL (600-1640); IgM 88 mg/dL (50-300)
== END 2024-02-02 09:21 | disposition home or self-care (01) ==
LOC: HO.HMGCLDS 09:20
PROVIDERS: PCP Internal Medicine; Referring Provider Internal Medicine Medical Oncology; Visit Provider Internal Medicine
DX: C90.00 Multiple myeloma not having achieved remission (principal); Z13.9 Encounter for screening, unspecified; Z13.29 Encounter for screening for other suspected endocrine disorder
CPT/HCPCS: 36415; 80053; 82306; 82784; 84443; 85025; 86334

== ENCOUNTER 2024-02-15 09:33 | Outpatient (AMB) | payer OTHER, SELFPAY ==
--- NOTE | 2024-02-15 09:35 | MHC.PC.OV ---
Vital Signs 02/15/24 09:36 Height 5 ft 7 in Weight 199 lb BMI 31.2 BP 112/80 Blood Pressure Location Lt brachial Position Sitting Pulse 92 Pulse Source Pulse Oximeter Pulse Oximetry (%) 95 Oxygen Delivery Method Room Air Intake Visit Reasons: Med Management Kindergarten Prep Teacher Required: No Accompanied by: Self / Same As Patient Allergies cephalexin Allergy (Unknown, Verified 02/15/24 09:37) SEIZURE/COMA,anaphylaxsis vancomycin [VANCOMYCIN] Allergy (Unknown, Verified 02/15/24 09:37) RED HEAT RASH Medication List - Last Reconciled 02/15/24 by Pedro Phillips MD acetaminophen 2 tabs PO Q4H amlodipine 5 mg (2 x 2.5 mg) PO DAILY cane As directed cholecalciferol (vitamin D3) 50 mcg PO DAILY folic acid 1 mg PO DAILY hydrochlorothiazide 25 mg PO DAILY ibuprofen 800 mg PO Q6H lorazepam 1 mg PO TID PRN nicotine 1 patch transdermal DAILY oxycodone 10 mg PO Q4-6H PRN Tobacco use date assessed: 01/18/24 Dental Screening Dental Screen Date: 06/11/23 HPI Med Management HPI Details chronic back pain on rx; doing well and compliant [facility] Medical History Adrenal insufficiency Low serum cortisol level Obesity Cholecystostomy care Obesity Vitamin D deficiency Perimenopause Scleritis Neutropenia Graves disease Amenorrhea Back pain Surgical History History of bone marrow biopsy History of biopsy History of cholecystectomy History of umbilical hernia repair History of D&C History of section Family History Father Colon cancer Mother No problems noted. Unknown Colon cancer Social History Household Members: Family Housing: House Are you a primary critical care educator to a significant other at home: No Do you presently have visiting nurse or other home services: No Alcohol intake: former Patient Tobacco Use Status: Current everyday Tobacco user Tobacco use type: Cigarette Cigarette Packs Per Day: 1 Cigarettes Per Day: 20.0 e-Cigarette/Vaping Use: Never Used Second Hand Smoke Exposure: Yes service: No Current occupational status: unemployed Current occupational exposures/hazards: No Cognitive needs: No Hearing needs: No Vision needs: Yes Female Reproductive History Menstrual Age of Menarche: 10 Questionnaire Thrive Questionnaire Date Thrive assessed: 04/16/23 MARIELENA-7 AMB Questionnaire MARIELENA-7 Date MARIELENA - 7 assessed: 04/16/23 Source: Developed by Drs. Bear Kendall, Eufemia Reece, Eben Rodriguez and colleagues, with an educational hermes from [employer]. Review of Systems Const Denies chills, Denies headache(s) and Denies weight loss ENT Denies headache(s) Card Denies chest pain, Denies syncope, Denies irregular heart rhythm and Denies dyspnea Resp Denies chest congestion, Denies cough and Denies dyspnea GI Denies abdominal pain, Denies change in stool character, Denies nausea and Denies vomiting Musc Denies deformity and Denies joint swelling Neuro Denies syncope and Denies headache(s) Physical exam (Primary Care) Vital Signs: Last Vital Signs Pulse 92 02/15/24 09:36 BP 112/80 02/15/24 09:36 Pulse Ox 95 02/15/24 09:36 Oxygen Delivery Method Room Air 02/15/24 09:36 BMI result Body Mass Index 31.2 Tobacco/Smoking Status: Tobacco use Status Tobacco use date assessed 01/18/24 02/15/24 09:40 Patient Tobacco Use Status Current everyday Tobacco 02/15/24 09:40 Tobacco use type Cigarette 02/15/24 09:40 e-Cigarette/Vaping Use Never Used 02/15/24 09:40 Thrive Assessment: Date of Thrive Assessment Date Thrive assessed 04/16/23 02/15/24 09:40 Const General: cooperative, comfortable, no acute distress and alert Neck Neck: Yes no lymphadenopathy Thyroid: Thyroid normal Resp Effort & Inspection: normal respiratory effort Auscultation: clear to auscultation bilaterally Percussion: percussion normal Cardio Jugular venous distension: no JVD Palpation: normal PMI Rate: regular rate Rhythm: regular rhythm Heart sounds: S1 normal heart sound present and S2 normal heart sound present GI Inspection: Yes normal to inspection Palpation (GI): No hepatosplenomegaly present Skin General skin exam: no rashes or lesions noted Extrem General: Yes no clubbing, cyanosis or edema Coding Level of Care Code Est Pt Level 3 (01883) Diagnoses Back pain M54.9 Assessment & Plan Assessment & Plan (1) Back pain: Code(s): M54.9 - Dorsalgia, unspecified Category: Medical Plan: stable; same rx Orders: Orders XR lumbar spine 2-3V Today M54.9 - Dorsalgia, unspecified Adrenocorticotropic Hormone Today E27.40 - Unspecified adrenocortical insufficiency Cortisol Random Today E27.40 - Unspecified adrenocortical insufficiency Medications: Refilled oxycodone covering for Dr. Phillips 10 mg PO Q4-6H PRN 140 tabs 0RF pain
[2024-02-15 09:36] VITALS: BP 112/80; PULSE 92; O2SAT 95; BMI 31.2
== END 2024-02-15 10:01 | disposition home or self-care (01) ==
PROVIDERS: PCP Internal Medicine; Visit Provider Internal Medicine
DX: M54.9 Dorsalgia, unspecified (principal)

== ENCOUNTER → 2024-02-15 09:33 | Outpatient (BNVA) | payer OTHER, SELFPAY | PROVIDERS: PCP Internal Medicine; Visit Provider Internal Medicine | DX: M54.9 Dorsalgia, unspecified (principal) | CPT/HCPCS: 99212 ==

== ENCOUNTER 2024-03-07 11:46 | Outpatient (REF) | payer OTHER, SELFPAY ==
--- OUTSIDE RECORDS SUMMARY | 2024-03-12 08:05 | XMS_ITS | Continuity of Care Document ---
Author Organization 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 Name Role Phone Mack JO, RVT, RPVI, Bear Unavailable U navailable Allergies, Adverse Reactions, Alerts Substance Reaction Status Criticality vancomycin Active No Information CEPHALEXIN MONOHYDRATE Active No In formation Medications Medication Instructions Dosage Effective Dates (start - stop) Status Comments ibuprofen 800 mg tablet take 1 tablet by oral route 3 times every day with food 800 MG - Active oxycodone 10 mg tablet - Act jose miguel lorazepam 1 mg tablet - Acti ve prednisone 10 mg tablet - Ac tive amlodipine 2.5 mg tablet - A ctive sulfamethoxazole 400 mg-trimethoprim 80 mg tablet - Active hydrochlorothiazide 25 mg tablet - Active ibuprofen 800 mg tablet - Ac tive Solu-Cortef 100 mg solution for injection - Active famotidine 20 mg tablet - Ac tive Procedures Procedure Date Office/Outpt E&M Established 15 Mins- [place] & [place] Duplex Scan-extrem Veins; Comp- [place] & [place] Duplex Scan-extrem Veins; Uni/ [place] & [place] A Duplex Scan-extrem Veins; Uni/ [place] & [place] A Inj Scleros Solut; Mx Veins 1- CT & [place] A Ultrason Guidan Needle Bx-rad- CT & [place] A Endovenous Rf, 1st Vein- [place] & [place] 2023 Endovenous Rf, 1st Vein- [place] & [place] 2023 Endovenous Rf, Vein Add-on- CT & [place] Ultrason Guidan Needle Bx-rad- CT & [place] J Inj Sclerosing Solution; Sngl- CT & [place] J Duplex Scan-extrem Veins; Uni/ [place] & [place] J Inj Scleros Solut; Mx Veins 1- CT & [place] J Ultrason Guidan Needle Bx-rad- CT & [place] J Duplex Scan-extrem Veins; Uni/ CT & [place] J Varithena, Single Truncal Vein - CT & [place] Endovenous Laser, 1st Vein- [place] & [place] Ultrason Guidan Needle Bx-rad- [place] & [place] J Inj Sclerosing Solution; Sngl- CT & [place] J No Charge For Services Office/Outpt E&M Established 25 Mins May Duplex Scan-extrem Veins; Comp Office/Outpt E&M Established 15 Mins Jan Office/Outpt E&M Established 25 Mins Sep No Charge For Services Office/Outpt E&M Established 15 Mins July Office/Outpt E&M Established 15 Mins Jul Office/Outpt E&M Established 15 Mins Apr Duplex Scan-extrem Veins; Comp Advance Directives Directive Yes / No Effective Date File Name No Information Encounters Encounter Description Practice Location Reason(s) For Visit Diagnoses Date Provider Providers Copied on Encounter Office/Outpt E&M Established 15 Mins- [place] & [place] [facility], [address] [place], [place], [id number], [place] tel:[phone] CVR - [place] [facility] Chronic venous hypertension (idiopathic) without complications of bilateral lower extremityRestle ss legs syndromeEssenti al (primary) hypertensionPhl ebitis and thrombophlebiti s of superficial vessels of right lower extremityPrurit us, unspecifiedDiso rder of pigmentation, unspecifiedCram p and spasm Dec- 4 Mack JO RVT, DAXA Sifuentes. [address], [address], [place], [place], [id number] , [place]. tel:[phone] Referring Provider: Pedro Phillips MD, [address] [facility] [address] [place], [place], [address]. tel:[phone] [place] [facility], [address] [place] [address] [address], [id number], [place] tel:[phone] CVR - [facility] Encounter for follow-up examination after completed treatment for conditions other than malignant neChronic venous hypertension (idiopathic) with other complications of bilateral lower extremity 4 Mack JO RVT, DAXA Sifuentes. [address], [address], [place], [place], [id number] , [place]. tel:[phone] Referring Provider: Pedro Phillips MD, [address] [facility] [address] [place], [place], [address]. tel:[phone] [place] [facility], [address] [place] [address] [address], [id number], [place] tel:[phone] CVR - [facility] Encounter for follow-up examination after completed treatment for conditions other than malignant nePain in left leg 4 Mack JO RVT, [employer]A Sifuentes. [address], [address], [place], [place], [id number] , [place]. tel:[phone] Referring Provider: Pedro Phillips MD, [address] [facility] [address] [place], [place], [address]. tel:[phone] [facility], [address] [place] [address] [address], [id number], [place] tel:[phone] CVR - [place] [facility] [place] Encounter for follow-up examination after completed treatment for conditions other than malignant nePain in left leg 4 Mack JO RVT, DAXA Sifuentes. [address], [address], [facility], [place], [id number] , [place]. tel:[phone] Referring Provider: Pedro Phillips MD, [address] [facility] [address] [place], [place], [address]. tel:[phone] [facility], [address] [place] [address] Dr [address], [id number], [place] tel:[phone] CVR - [place] Varicose veins of left lower extremity with other complications 4 Gianluca Parks . [address] [facility], [address], [facility], [place], [id number] , [place]. tel: [phone] Referring Provider: Pedro Phillips MD, [address] [facility] [address] [place], [place], [address]. tel:[phone] [facility], [address] [place] [address] Dr [address], [id number], [place] [phone] CVR - [place] Varicose veins of left lower extremity with other complications 4 Mack JO RVT, DAXA Sifuentes. [address], [address], [facility], [place], [id number] , [place]. tel:[phone] Referring Provider: Pedro Phillips MD, [address] [facility] [address] [place], [place], [address]. tel:[phone] [facility], [address] [place] [address] Dr [address], [id number], [place] [phone] CVR - [place] Varicose veins of left lower extremity with other complications 4 Mack JO RVT, DAXA Sifuentes. [address], [address], [place] [facility] [facility] [place], [id number] , [place]. tel:[phone] Referring Provider: Pedro Phillips MD, [address], [place], [address]. tel:[phone] [facility], [address] [place] [address] [address], [id number], [place] tel:[phone] CVR - [place] Encounter for follow-up examination after completed treatment for conditions other than malignant neVaricose veins of right lower extremity with pain 4 Mack JO RVT, DAXA Sifuentes. [address], [address], [facility], [place], [id number] , [place]. [phone] Referring Provider: Pedro Phillips MD, [address] [facility] [address] [place], [place], [address]. tel:[phone] [facility], [address] [place] [address] [address] [place] English [place], [id number], [place] tel:[phone] CVR - [facility] Varicose veins of right lower extremity with other complications 4 Gianluca Parks . [address], [address], [facility], [place], [id number] , [place]. tel:[phone] Referring Provider: Pedro Phillips MD, [address] [place], [place], [address]. tel:[phone] [facility], [address] [place] [address] [address] [place], [id number], [place] tel:[phone] CVR - [place] Encounter for follow-up examination after completed treatment for conditions other than malignant nePain in right leg 4 Mack JO RVT, RPVI Robert. [address] [facility], [address], [facility], [place], [id number] , [place]. tel:[phone] Referring Provider: Pedro Phillips MD, [address], [place], [address]. tel:[phone] [facility], [address] [place] [address] [address], [id number], [place] tel:[phone] CVR - [place] - [place] Varicose veins of right lower extremity with other complications 4 Mack JO RVT, DAXA Sifuentes. [facility], Suite [facility], [place], [place], [id number] , [place]. tel:[phone] Referring Provider: Pedro Phillips MD, [address] [facility] [address] [place], [place], [address]. tel:[phone] [facility], [address] [place] [address] [address] 1000[place], [id number], [place] tel:[phone] CVR - [place] - [place] Varicose veins of right lower extremity with other complications 4 Mack JO RVT, DAXA Sifuentes. [address] [place] [address], [address], [place], [place], [id number] , [place]. tel:[phone] Referring Provider: Pedro Phillips MD, [address] [facility] [address] [place], [place], [address]. tel:[phone] [facility], [address] [place] [address] Dr [address]Suite [place] English [place], [id number], [place] tel:[phone] CVR - [facility] Chronic venous hypertension (idiopathic) with other complications of bilateral lower extremity Apr- 4 Mack JO RVT, DAXA Sifuentes. [address] [place] [address], [address], [place], [place], [id number] , [place]. tel:[phone] Referring Provider: Pedro Phillips MD, [address] [facility] [address] [place], [place], [address]. tel:[phone] Office/Outpt E&M Established 25 Mins [facility], [address] [place] [address] Dr [address] 1000[place], [id number], [place] tel:[phone] CVR - [place] - [place] Essential (primary) hypertensionVen ous insufficiency (chronic) (peripheral)[employer] mp and spasmChronic venous hypertension (idiopathic) with other complications of bilateral lower extremityLymphe kristen, not elsewhere classifiedLow back pain 4 Mack JO RVT, DAXA Sifuentes. [address] [facility], [address], [place], [place], [id number] , [place]. tel:[phone] Referring Provider: Pedro Phillips MD, [address] [place], [place], [address]. tel:[phone] [facility], [address] [place] [address] [address] 1000[place], [id number], [place] tel:[phone] CVR - [place] - [place] Chronic venous hypertension (idiopathic) with other complications of bilateral lower extremity 4 Mack JO RVT, DAXA Sifuentes. [address] [facility], Suite [facility], [place], [place], [id number] , [place]. [phone] Referring Provider: Pedro Phillips MD, [address] [place], [place], [address]. tel:[phone] Office/Outpt E&M Established 15 Mins [facility], [address] [place] [address] [address]Suite [place] English [place], [id number], [place] tel:[phone] CVR - [place] - [place] Chronic venous hypertension (idiopathic) with other complications of bilateral lower extremity 3 Isacc JO FACS EVETTE Bowen. [address] [place] [address], [place] [address], [place], [address], [place]. [phone] Referring Provider: Pedro Phillips MD, [address] [place], [place], [address]. tel:[phone] Office/Outpt E&M Established 25 Mins [facility], [address] [place] [address] [address]Suite [place], [id number], [place] tel:[phone] CVR - [place] - [place] Varicose veins of bi low extrem w oth complicationsPh lebitis and thombophlb of superfic vessels of r low extrem 3 Isacc JO FACS EVETTE Bowen. [address], [address], [place], [address], [place]. tel:[phone] Referring Provider: Pedro Phillips MD, [address] [place], [place], [address]. tel:[phone] [facility], [address] [place] [address] Dr [address] 1000[place], [id number], [place] tel:[phone] CVR - [place] No Information 3 Isacc JO FACS Conor Bowen. [address] [facility], [address], [place], [address], [place]. tel:[phone] Referring Provider: Pedro Phillips MD, [address] [facility] [address] [place], [place], [address]. tel:[phone] Office/Outpt E&M Established 15 Mins [facility], [address] [place] [address] Dr [address] 1000[place], [id number], [place] tel:[phone] CVR - [place] - [place] Venous insufficiency (chronic) (peripheral)Phl ebitis and thombophlb of superfic vessels of r low extrem 3 Isacc JO FACS Conor Bowen. [address] [facility], [address], [place], [address], [place]. tel:[phone] Referring Provider: Pedro Phillips MD, [address] [place], [place], [address]. tel:[phone] Office/Outpt E&M Established 15 Mins [facility], [address] [place] [address] Dr [address] 1000[place], [id number], [place] tel:[phone] CVR - [place] Venous insufficiency (chronic) (peripheral)Phl ebitis and thombophlb of superfic vessels of r low extrem 3 Isacc JO FACS Conor Bowen. [address], [address], [place], [address], [place]. tel:[phone] Referring Provider: Pedro Phillips MD, [address], [place], [address]. tel:[phone] Office/Outpt E&M Established 15 Mins [place] [facility], [address] [place] [address] Dr [address], [place], [id number], [place] tel:[phone] CVR - [place] - [place] Body mass index (BMI) 34.0-34.9, adultPhlbts and thombophlb of unsp deep vessels of r low extremVenous insufficiency (chronic) (peripheral) 3 Isacc JO FACS [facility] DAXA Bowen. [address] [place] [address], [place], [address], [place]. tel:[phone] Referring Provider: Pedro Phillips MD, [address] [place], [place], [address]. tel:[phone] [place] [facility], [address] [place] [address] Dr [address], [place], [id number], [place] tel:[phone] CVR - [facility] Venous insufficiency (chronic) (peripheral) 3 Isacc JO FACS Conor LOVELY Piazza Andrés. [address] [place] [address], [place], [address], [place]. tel:[phone] Referring Provider: Pedro Phillips MD, [address] [place], [place], [address]. tel:[phone] Family History Family Member Type Diagnosis Age At Onset No Information Payers Payer name Insurance type Covered democrat ID Schuyler schneider(s) [facility] [id number] Medical Assistance [facility] [id number] Social History Type Description Quantity Date Captured Comments Alcohol Use Details Unknown Caffeine Use Details Unknown Tobacco Use Status Smoking Status Smoker, current stat us unknown Non-Smoking Tobacco Use Details : No Details Available : No Details Available Sex Female Vital Signs Date / Time: Height Weight BMI Pulse Rate Blood Pressure Temperature Respiratory Rate Body Surface Area Head Circumference Head Circ. Percentile Wt./Sylvain. Percentile BMI percentile Pulse Ox Inhaled Ox 99.790 kg (220.00 lbs) 34.5 7 kg/m eter (2) 136/84 mm[Hg] Chief Complaint And Reason For Visit No Information Reason For Referral Reason For Referral No Information Plan Of Treatment Date Type Action Status Goal Tobacco cessation counseling completed Goal Diet education completed Goal Tobacco cessation counseling completed Goal Tobacco cessation counseling completed Goal Diet education completed Goal Tobacco cessation counseling completed Goal Tobacco cessation counseling completed Goal Tobacco cessation counseling completed Referral Ordered: Weight management: Referral to physician timeframe: 3 Months (related to Body mass index (BMI) 34.0-34.9, adult) ordered Referral Ordered: Weight management: Referral to physician timeframe: 3 Months (related to Body mass index (BMI) 34.0-34.9, adult) ordered History Of Present Illness Encounter Date Complaint History Of Prese nt Illness No Information Functional Status Date Functional Assessmen t No Information Instructions Date Instruction Additional Infor mation Pre and post instruc tions reviewed and provided Related to Chronic venous hypertension (idiopathic) without complications of bilateral lower extremity Lifestyle education Related to B danna mass index (BMI) 34.0-34.9, adult Giving Encouragement to exercise Related to Body mass index (BMI) 34.0-34.9, adult Diet education Related to Body mass index (BMI) 34.0-34.9, adult Pre and post instruc tions reviewed and provided Related to Chronic venous hypertension (idiopathic) with other complications of bilateral lower extremity Lifestyle education Related to B danna mass index (BMI) 34.0-34.9, adult Giving Encouragement to exercise Related to Body mass index (BMI) 34.0-34.9, adult Diet education Related to Body mass index (BMI) 34.0-34.9, adult Assessments Type Assessment Date No Information Patient Care Teams Name Effective Dates (start - stop) Status Members No Information
== END 2024-03-07 11:47 | disposition home or self-care (01) ==
LOC: HO.HMGCX 11:46
PROVIDERS: PCP Internal Medicine; Visit Provider Internal Medicine
DX: M54.9 Dorsalgia, unspecified (principal)
CPT/HCPCS: 72100

== ENCOUNTER 2024-03-14 09:38 | Outpatient (AMB) | payer OTHER, SELFPAY ==
[2024-03-14 09:41] VITALS: BP 134/72; PULSE 101; O2SAT 96; BMI 31.6
--- NOTE | 2024-03-14 09:41 | A.OFFPC_ITS ---
Vital Signs 03/14/24 09:41 Height 5 ft 7 in Weight 202 lb BMI 31.6 BP 134/72 Blood Pressure Location Lt brachial Position Sitting Pulse 101 H Pulse Source Pulse Oximeter Pulse Oximetry (%) 96 Oxygen Delivery Method Room Air Intake Visit Reasons: Med Management Allergies cephalexin Allergy (Unknown, Verified 03/14/24 09:42) SEIZURE/COMA,anaphylaxsis vancomycin [VANCOMYCIN] Allergy (Unknown, Verified 03/14/24 09:42) RED HEAT RASH Medication List - Last Reconciled 03/14/24 by Pedro Phillips MD acetaminophen 2 tabs PO Q4H amlodipine 5 mg (2 x 2.5 mg) PO DAILY cane As directed cholecalciferol (vitamin D3) 50 mcg PO DAILY folic acid 1 mg PO DAILY hydrochlorothiazide 25 mg PO DAILY ibuprofen 800 mg PO Q6H lorazepam 1 mg PO TID PRN nicotine 1 patch transdermal DAILY oxycodone 10 mg PO Q4-6H PRN Tobacco use date assessed: 01/18/24 Dental Screening Dental Screen Date: 06/11/23 HPI Med Management HPI Details chronic back pain, multiple myeloma; compliant on rx PFSH Medical History Adrenal insufficiency Low serum cortisol level Obesity Cholecystostomy care Obesity Vitamin D deficiency Perimenopause Scleritis Neutropenia Graves disease Amenorrhea Back pain Surgical History History of bone marrow biopsy History of biopsy History of cholecystectomy History of umbilical hernia repair History of D&C History of section Family History Father Colon cancer Mother No problems noted. Unknown Colon cancer Social History Household Members: Family Housing: House Are you a primary customer care manager to a significant other at home: No Do you presently have visiting nurse or other home services: No Alcohol intake: former Patient Tobacco Use Status: Current everyday Tobacco user Tobacco use type: Cigarette Cigarette Packs Per Day: 1 Cigarettes Per Day: 20.0 e-Cigarette/Vaping Use: Never Used Second Hand Smoke Exposure: Yes service: No Current occupational status: unemployed Current occupational exposures/hazards: No Cognitive needs: No Hearing needs: No Vision needs: Yes Female Reproductive History Menstrual Age of Menarche: 10 Questionnaire PHQ-9 Over the last 2 weeks, how often have you been bothered by any of the following problems? 1. Little interest or pleasure in doing things: not at all 2. Feeling down, depressed, or hopeless: not at all 3. Trouble falling or staying asleep, or sleeping too much: not at all 4. Feeling tired or having little energy: not at all 5. Poor appetite or overeating: not at all 6. Feeling bad about yourself - or that you are a failure or have let yourself or your family down: not at all 7. Trouble concentrating on things, such as reading the newspaper or watching television: not at all 8. Moving or speaking so slowly that other people could have noticed. Or the opposite - being so fidgety or restless that you have been moving around a lot more than usual: not at all 9. Thoughts that you would be better off or of hurting yourself in some way: not at all Total score: 0 Depression Screening Interpretation: Negative Depression Screening Done: Yes Source: Developed by Drs. Bear Kendall, Eufemia Reece, Eben Rodriguez and colleagues, with an educational hermes from [employer]. Thrive Questionnaire Date Thrive assessed: 04/16/23 AUDIT C Alcohol Use Questionnaire (AUDIT-C) 1. How often do you have a drink containing alcohol?: Never 3. How often do you have six or more drinks on one occasion?: Never Total Score: 0 Score Reviewed/Action Taken: No MARIELENA-7 AMB Questionnaire MARIELENA-7 Date MARIELENA - 7 assessed: 04/16/23 Source: Developed by Drs. Bear Kendall, Eufemia Reece, Eben Rodriguez and colleagues, with an educational hermes from [employer]. Review of Systems Const Denies chills, Denies headache(s) and Denies weight loss ENT Denies headache(s) Card Denies chest pain, Denies syncope, Denies irregular heart rhythm and Denies dyspnea Resp Denies chest congestion, Denies cough and Denies dyspnea GI Denies abdominal pain, Denies change in stool character, Denies nausea and Denies vomiting Musc Denies deformity and Denies joint swelling Neuro Denies syncope and Denies headache(s) Physical exam (Primary Care) Vital Signs: Last Vital Signs Pulse 101 H 03/14/24 09:41 BP 134/72 03/14/24 09:41 Pulse Ox 96 03/14/24 09:41 Oxygen Delivery Method Room Air 03/14/24 09:41 BMI result Body Mass Index 31.6 Tobacco/Smoking Status: Tobacco use Status Tobacco use date assessed 01/18/24 03/14/24 09:46 Patient Tobacco Use Status Current everyday Tobacco 03/14/24 09:46 Tobacco use type Cigarette 03/14/24 09:46 e-Cigarette/Vaping Use Never Used 03/14/24 09:46 PHQ-9: PHQ-9 Score PHQ-9: Total score 0 03/14/24 09:46 Depression Screening Interpretation: Negative Thrive Assessment: Date of Thrive Assessment Date Thrive assessed 04/16/23 03/14/24 09:46 Const General: cooperative, comfortable, no acute distress and alert Neck Neck: Yes no lymphadenopathy Thyroid: Thyroid normal Resp Effort & Inspection: normal respiratory effort Auscultation: clear to auscultation bilaterally Percussion: percussion normal Cardio Jugular venous distension: no JVD Palpation: normal PMI Rate: regular rate Rhythm: regular rhythm Heart sounds: S1 normal heart sound present and S2 normal heart sound present GI Inspection: Yes normal to inspection Palpation (GI): No hepatosplenomegaly present Skin General skin exam: no rashes or lesions noted Extrem General: Yes no clubbing, cyanosis or edema Coding Level of Care Code Est Pt Level 3 (08642) Diagnoses Multiple myeloma C90.00 Assessment & Plan Assessment & Plan (1) Multiple myeloma: Code(s): C90.00 - Multiple myeloma not having achieved remission Category: Medical Plan: cont same rx Medications: Refilled oxycodone covering for Dr. Pihllips 10 mg PO Q4-6H PRN 140 tabs 0RF pain lorazepam 1 mg PO TID PRN 90 tabs 3RF anxiety
--- OUTSIDE RECORDS SUMMARY | 2024-03-14 09:42 | XMS_ITS | Continuity of Care Document ---
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 [address], [address], [place], [place], [id number] , [place]. tel:[phone] Referring Provider: Pedro Phillips MD, [address] [facility] SUITE [facility], [place], [address]. tel:[phone] [place] [facility], [address] [place] [address] [address], [id number], [place] tel:[phone] CVR - [facility] Encounter for follow-up examination after completed treatment for conditions other than malignant neChronic venous hypertension (idiopathic) with other complications of bilateral lower extremity 4 Mack JO RVT, DAXA Sifuentes. [address], [address], [place], [place], [id number] , [place]. tel:[phone] Referring Provider: Pedro Phillips MD, [address] [facility] SUITE [facility], [place], [address]. tel:[phone] [place] [facility], [address] [place] [address] [address], [id number], [place] tel:[phone] CVR - [facility] Encounter for follow-up examination after completed treatment for conditions other than malignant nePain in left leg 4 Mack JO RVT, DAXA Sifuentes. [address], [address], [place], [place], [id number] , [place]. tel:[phone] Referring Provider: Pedro Phillips MD, [address] [facility] SUITE [facility], [place], [address]. tel:[phone] [facility], [address] [place] [address] [address], [id number], [place] tel:[phone] CVR - [place] [facility] Encounter for follow-up examination after completed treatment for conditions other than malignant nePain in left leg 4 Mack JO RVT, DAXA Sifuentes. [address], [address], [facility], [place], [id number] , [place]. tel:[phone] Referring Provider: Pedro Phillips MD, [address] [facility] SUITE [facility], [place], [address]. tel:[phone] [facility], [address] [place] [address] Dr [address], [id number], [place] tel:[phone] CVR - [place] [facility] Varicose veins of left lower extremity with other complications 4 Gianluca Parks . [address], [address], [facility], [place], [id number] , [place]. tel: [phone] Referring Provider: Pedro Phillips MD, [address] [facility] SUITE [facility], [place], [address]. tel:[phone] [facility], [address] [place] [address] Dr [address], [id number], [place] [phone] [facility] - [place] [facility] Varicose veins of left lower extremity with other complications 4 Mack JO RVT, DAXA Sifuentes. [address], [address], [facility], [place], [id number] , [place]. tel:[phone] Referring Provider: Pedro Phillips MD, [address] [facility] SUITE [facility], [place], [address]. tel:[phone] [facility], [address] [place] [address] Dr [address], [id number], [place] [phone] CV[place] - [place] [facility] Varicose veins of left lower extremity with other complications 4 Mack JO RVT, DAXA Sifuentes. [address], [address], [facility], [id number] , [place]. tel:[phone] Referring Provider: Pedro Phillips MD, [address], [place], [address]. tel:[phone] [facility], [address] [place] [address] [address], [id number], [place] tel:[phone] [place] - [place] [facility] Encounter for follow-up examination after completed treatment for conditions other than malignant neVaricose veins of right lower extremity with pain 4 Mack JO RVT, DAXA Sifuentes. [address], [address], [facility], [place], [id number] , [place]. [phone] Referring Provider: Pedro Phillips MD, [address] [facility] SUITE [facility], [place], [address]. tel:[phone] [facility], [address] [place] [address] [address] [place], [id number], [place] tel:[phone] CVR - [facility] Varicose veins of right lower extremity with other complications 4 Gianluca Parks . [address], [address], [facility], [place], [id number] , [place]. tel:[phone] Referring Provider: Pedro Phillips MD, [address] [facility], [place], [address]. tel:[phone] [facility], [address] [place] [address] [address] [place], [id number], [place] tel:[phone] CVR - [place] [facility] Encounter for follow-up examination after completed treatment for conditions other than malignant nePain in right leg 4 Mack JO RVT, RPVI Robert. [address], [address], [facility], [place], [id number] , [place]. tel:[phone] Referring Provider: Pedro Phillips MD, [address], [place], [address]. tel:[phone] [facility], [address] [place] [address] [address], [id number], [place] tel:[phone] [place] - [place] [facility] Varicose veins of right lower extremity with other complications 4 Mack JO RVT, DAXA Sifuentes. On license of [facility], Suite [facility], [place], [place], [id number] , [place]. tel:[phone] Referring Provider: Pedro Phillips MD, [address] [facility] SUITE [facility], [place], [address]. tel:[phone] [facility], [address] [place] [address] [address], [id number], [place] tel:[phone] [place] - [place] [facility] Varicose veins of right lower extremity with other complications 4 Mack JO RVT, DAXA Sifuentes. [address] [place] [address], [address], [place], [place], [id number] , [place]. tel:[phone] Referring Provider: Pedro Phillips MD, [address] [facility] SUITE [facility], [place], [address]. tel:[phone] [facility], [address] [place] [address] Dr [address]Suite [place], [id number], [place] tel:[phone] CVR - [facility] Chronic venous hypertension (idiopathic) with other complications of bilateral lower extremity Apr- 4 Mack JO RVT, DAXA Sifuentes. [address] [place] [address], [address], [place], [place], [id number] , [place]. tel:[phone] Referring Provider: Pedro Phillips MD, [address] [facility] SUITE [facility], [place], [address]. tel:[phone] Office/Outpt E&M Established 25 Mins [facility], [address] [place] [address] Dr [address] 1000[place], [id number], [place] tel:[phone] [facility] - [place] [facility] Essential (primary) hypertensionVen ous insufficiency (chronic) (peripheral)Radio Disc Jockey mp and spasmChronic venous hypertension (idiopathic) with other complications of bilateral lower extremityLymphe kristen, not elsewhere classifiedLow back pain 4 Mack JO RVT, DAXA Sifuentes. [address], [address], [place], [place], [id number] , [place]. tel:[phone] Referring Provider: Pedro Phillips MD, [address] [facility], [place], [address]. tel:[phone] [facility], [address] [place] [address] [address], [id number], [place] tel:[phone] [place] - [place] [facility] Chronic venous hypertension (idiopathic) with other complications of bilateral lower extremity 4 Mack JO RVT, DAXA Sifuentes. [address] [facility] [address] [facility] [address], Suite [facility], [place], [place], [id number] , [place]. [phone] Referring Provider: Pedro Phillips MD, [address] [facility], [place], [address]. tel:[phone] Office/Outpt E&M Established 15 Mins [facility], [address] [place] [address] [address] [place], [id number], [place] tel:[phone] CV[place] - [place] [facility] Chronic venous hypertension (idiopathic) with other complications of bilateral lower extremity 3 Isacc JO FACS EVETTE Bowen. [address] [place] [address], [place] [address], [place], [address], [place]. [phone] Referring Provider: Pedro Phillips MD, [address] [facility], [place], [address]. tel:[phone] Office/Outpt E&M Established 25 Mins [facility], [address] [place] [address] [address] [place], [id number], [place] tel:[phone] [place] - [place] [facility] Varicose veins of bi low extrem w oth complicationsPh lebitis and thombophlb of superfic vessels of r low extrem 3 Isacc JO FACS EVETTE Bowen. [address], [address], [place], [address], [place]. tel:[phone] Referring Provider: Pedro Phillips MD, [address] [facility], [place], [address]. tel:[phone] [facility], [address] [place] [address] Dr [address], [id number], [place] tel:[phone] CVR - [place] [facility] No Information 3 Isacc JO FACS Conor Bowen. [address] [facility], [address], [place], [address], [place]. tel:[phone] Referring Provider: Pedro Phillips MD, [address] [facility] SU[address] [facility], [place], [address]. tel:[phone] Office/Outpt E&M Established 15 Mins [facility], [address] [place] [address] Dr [address], [id number], [place] tel:[phone] [place] - [place] [facility] Venous insufficiency (chronic) (peripheral)Phl ebitis and thombophlb of superfic vessels of r low extrem 3 Isacc JO FACS Conor Bowen. [address] [facility], [address], [place], [address], [place]. tel:[phone] Referring Provider: Pedro Phillips MD, [address] [facility], [place], [address]. tel:[phone] Office/Outpt E&M Established 15 Mins [facility], [address] [place] [address] Dr [address], [id number], [place] tel:[phone] CV[place] - [place] [facility] Venous insufficiency (chronic) (peripheral)Phl ebitis and thombophlb of superfic vessels of r low extrem 3 Isacc JO FACS Conor Bowen. [address], [address], [place], [address], [place]. tel:[phone] Referring Provider: Pedro Phillips MD, [address], [place], [address]. tel:[phone] Office/Outpt E&M Established 15 Mins [place] [facility], [address] [place] [address] Dr [address], [place], [id number], [place] tel:[phone] CV[place] - [place] [facility] Body mass index (BMI) 34.0-34.9, adultPhlbts and thombophlb of unsp deep vessels of r low extremVenous insufficiency (chronic) (peripheral) 3 Isacc JO FACS [facility] DAXA Bowen. [address] [place] [address], [place], [address], [place]. tel:[phone] Referring Provider: Pedro Phillips MD, [address] [facility], [place], [address]. tel:[phone] [place] [facility], [address] [place] [address] Dr [address], [place], [id number], [place] tel:[phone] CVR - [facility] Venous insufficiency (chronic) (peripheral) 3 Isacc JO FACS Conor LOVELY Evestra Andrés. [address] [place] [address], [place], [address], [place]. tel:[phone] Referring Provider: Pedro Phillips MD, [address] [facility], [place], [address]. tel:[phone] Family History Family Member Type Diagnosis Age At Onset No Information Payers Payer name Insurance type Covered constitution party ID Schuyler schneider(s) [facility] [id number] Medical Assistance [facility] [id number] Social History Type Description Quantity Date Captured [...]
== END 2024-03-14 09:59 | disposition home or self-care (01) ==
PROVIDERS: PCP Internal Medicine; Visit Provider Internal Medicine
DX: C90.00 Multiple myeloma not having achieved remission (principal)

== ENCOUNTER → 2024-03-14 09:38 | Outpatient (BNVA) | payer OTHER, SELFPAY | PROVIDERS: PCP Internal Medicine; Visit Provider Internal Medicine | DX: C90.00 Multiple myeloma not having achieved remission (principal) | CPT/HCPCS: 96127; 99212 ==

== ENCOUNTER 2024-04-10 10:20 | Outpatient (AMB) | payer OTHER, SELFPAY ==
[2024-04-10 10:22] VITALS: BP 118/70; PULSE 72; O2SAT 97; BMI 31.0
--- NOTE | 2024-04-10 10:22 | A.OFFPC_ITS ---
Vital Signs 04/10/24 10:22 Height 5 ft 7 in Weight 198 lb BMI 31.0 BP 118/70 Blood Pressure Location Lt brachial Position Sitting Pulse 72 Pulse Source Pulse Oximeter Pulse Oximetry (%) 97 Oxygen Delivery Method Room Air Intake Visit Reasons: Follow Up Allergies cephalexin Allergy (Unknown, Verified 04/10/24 10:22) SEIZURE/COMA,anaphylaxsis vancomycin [VANCOMYCIN] Allergy (Unknown, Verified 04/10/24 10:22) RED HEAT RASH Medication List - Last Reconciled 04/10/24 by Pedro Phillips MD acetaminophen 2 tabs PO Q4H amlodipine 5 mg (2 x 2.5 mg) PO DAILY cane As directed cholecalciferol (vitamin D3) 50 mcg PO DAILY folic acid 1 mg PO DAILY hydrochlorothiazide 25 mg PO DAILY ibuprofen 800 mg PO Q6H lorazepam 1 mg PO TID PRN nicotine 1 patch transdermal DAILY oxycodone 10 mg PO Q4-6H PRN Tobacco use date assessed: 04/10/24 Dental Screening Dental Screen Date: 04/10/24 Did you have a dental visit in the last 12 months?: Yes Did you have a dental problem in the last 6 months where you did not have access to dental care?: No Was dental information given to patient?: Patient has dentist HPI Follow Up HPI Details chronic back pain on rx; doing well and compliant on regimen PFSH Medical History Adrenal insufficiency Low serum cortisol level Obesity Cholecystostomy care Obesity Vitamin D deficiency Perimenopause Scleritis Neutropenia Graves disease Amenorrhea Back pain Surgical History History of bone marrow biopsy History of biopsy History of cholecystectomy History of umbilical hernia repair History of D&C History of section Family History Father Colon cancer Mother No problems noted. Unknown Colon cancer Social History Household Members: Family Housing: House Are you a primary skin care specialist to a significant other at home: No Do you presently have visiting nurse or other home services: No Alcohol intake: former Patient Tobacco Use Status: Current everyday Tobacco user Tobacco use type: Cigarette Cigarette Packs Per Day: 1 Cigarettes Per Day: 20.0 e-Cigarette/Vaping Use: Never Used Second Hand Smoke Exposure: Yes service: No Current occupational status: unemployed Current occupational exposures/hazards: No Cognitive needs: No Hearing needs: No Vision needs: Yes Female Reproductive History Menstrual Age of Menarche: 10 Questionnaire PHQ-9 Over the last 2 weeks, how often have you been bothered by any of the following problems? 1. Little interest or pleasure in doing things: not at all 2. Feeling down, depressed, or hopeless: not at all 3. Trouble falling or staying asleep, or sleeping too much: not at all 4. Feeling tired or having little energy: not at all 5. Poor appetite or overeating: not at all 6. Feeling bad about yourself - or that you are a failure or have let yourself or your family down: not at all 7. Trouble concentrating on things, such as reading the newspaper or watching television: not at all 8. Moving or speaking so slowly that other people could have noticed. Or the opposite - being so fidgety or restless that you have been moving around a lot more than usual: not at all 9. Thoughts that you would be better off or of hurting yourself in some way: not at all Total score: 0 Depression Screening Interpretation: Negative Depression Screening Done: Yes Source: Developed by Drs. Bear Kendall, Eufemia Reece, Eben Rodriguez and colleagues, with an educational hermes from [employer]. Thrive Questionnaire Date Thrive assessed: 04/10/24 I am a: Patient What is your living situation today?: I have a steady place to live Within the past 12 months, did the food you bought not last and you didn't have the money to get more?: Never true Within the past 12 months, did you worry whether your food would run out before you got money to buy more?: Never true Do you have trouble paying for medicines?: No Do you have trouble getting transportation to medical appointments?: No Do you have trouble paying your heating and electricity bill?: No Do you have trouble taking care of your child, family member or friend?: No Do you have trouble with day-to-day activities such as bathing, preparing meals, shopping, managing finances, etc.?: No Are you currently unemployed and looking for a job?: No Are you interested in more education?: No Currently or been in a relationship where the following occur: No concerns reported THRIVE Score: 0 AUDIT C Alcohol Use Questionnaire (AUDIT-C) 1. How often do you have a drink containing alcohol?: Never 3. How often do you have six or more drinks on one occasion?: Never Total Score: 0 Score Reviewed/Action Taken: No MARIELENA-7 AMB Questionnaire MARIELENA-7 Date MARIELENA - 7 assessed: 04/10/24 Feeling nervous, anxious, or on edge: 1 = Several days Not being able to stop or control worryin = Several days Worrying too much about different things: 1 = Several days Trouble relaxin = Several days Being so restless that it is hard to sit still: 0 = Not at all Becoming easily annoyed or irritable: 1 = Several days Feeling afraid as if something awful might happen: 0 = Not at all Total MARIELENA-7 score (0-4 normal; 5-9 mild; 10-14 moderate; 15-21 severe): 5 Source: Developed by Drs. Bear Kendall, Eufemia Reece, Eben Rodriguez and colleagues, with an educational hermes from [employer]. Review of Systems Const Denies chills, Denies headache(s) and Denies weight loss ENT Denies headache(s) Card Denies chest pain, Denies syncope, Denies irregular heart rhythm and Denies dyspnea Resp Denies chest congestion, Denies cough and Denies dyspnea GI Denies abdominal pain, Denies change in stool character, Denies nausea and Denies vomiting Musc Denies deformity and Denies joint swelling Neuro Denies syncope and Denies headache(s) Physical exam (Primary Care) Vital Signs: Last Vital Signs Pulse 72 04/10/24 10:22 BP 118/70 04/10/24 10:22 Pulse Ox 97 04/10/24 10:22 Oxygen Delivery Method Room Air 04/10/24 10:22 BMI result Body Mass Index 31.0 Tobacco/Smoking Status: Tobacco use Status Tobacco use date assessed 04/10/24 04/10/24 10:29 Patient Tobacco Use Status Current everyday Tobacco 04/10/24 10:29 Tobacco use type Cigarette 04/10/24 10:29 e-Cigarette/Vaping Use Never Used 04/10/24 10:29 PHQ-9: PHQ-9 Score PHQ-9: Total score 0 04/10/24 10:29 Depression Screening Interpretation: Negative Thrive Assessment: Date of Thrive Assessment Date Thrive assessed 04/10/24 04/10/24 10:29 Currently or been in a relationship where the following occur: No concerns reported Const General: cooperative, comfortable, no acute distress and alert Neck Neck: Yes no lymphadenopathy Thyroid: Thyroid normal Resp Effort & Inspection: normal respiratory effort Auscultation: clear to auscultation bilaterally Percussion: percussion normal Cardio Jugular venous distension: no JVD Palpation: normal PMI Rate: regular rate Rhythm: regular rhythm Heart sounds: S1 normal heart sound present and S2 normal heart sound present GI Inspection: Yes normal to inspection Palpation (GI): No hepatosplenomegaly present Skin General skin exam: no rashes or lesions noted Extrem General: Yes no clubbing, cyanosis or edema Coding Level of Care Code Est Pt Level 3 (37120) Diagnoses Back pain M54.9 Assessment & Plan Assessment & Plan (1) Back pain: Code(s): M54.9 - Dorsalgia, unspecified Category: Medical Plan: stable; same rx Medications: Refilled lorazepam 1 mg PO TID PRN 90 tabs 2RF anxiety oxycodone covering for Dr. Phillips 10 mg PO Q4-6H PRN 140 tabs 0RF pain
--- OUTSIDE RECORDS SUMMARY | 2024-04-10 10:56 | XMS_ITS | Continuity of Care Document ---
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 Up Name Role Phone Mack JO, RVT, RPVI, [...] Mins- CT & [place] Duplex Scan-extrem Veins; Uni/ CT & [place] J Office/Outpt E&M Established 15 Mins- CT & [place] Duplex Scan-extrem Veins; Comp- CT & [place] Duplex Scan-extrem Veins; Uni/ CT & [place] A Inj Scleros Solut; Mx Veins 1- CT & [place] A Ultrason Guidan Needle Bx-rad- CT & [place] A Duplex Scan-extrem Veins; Uni/ CT & [place] A Endovenous Rf, 1st [...] Mins- CT & [place] [facility], [address], [id number], tel:[phone] CV[place] - [place] Restless legs syndromeEssenti al (primary) hypertensionPru ritus, unspecifiedDiso rder of pigmentation, unspecifiedChro kolton venous hypertension (idiopathic) with other complications of bilateral lower extremityPhlebi tis and thrombophlebiti s of unspecified deep vessels of right lower extremity 5 Mack JO RVT, DAXA Sifuentes. [address], [address], [facility] [place], [id number] , [place]. tel:[phone] Referring Provider: Pedro Phillips MD, [address] [place] [address] SUITE [facility], [place], [address]. tel:[phone] [facility], [address] [place] [address] Dr Corea [address] [address], [id number], tel:[phone] [facility] Varicose veins of right lower extremity with pain 5 Mack JO RVT, DAXA Sifuentes. [address], [address], [facility], [place], [id number] , [place]. [phone] Referring Provider: Pedro Phillips MD, [address] [facility] [address] [place] [address], [place], [address]. tel:[phone] Office/Outpt E&M Established 15 Mins- CT & [facility], [address] [place] [address] [address] [address], [id number], tel:[phone] CVR - [facility] Chronic venous hypertension (idiopathic) without complications of bilateral lower extremityRestle ss legs syndromeEssenti al (primary) hypertensionPhl ebitis and thrombophlebiti s of superficial vessels of right lower extremityPrurit us, unspecifiedDiso rder of pigmentation, unspecifiedCram p and spasm 4 Mack JO RVT, DAXA Sifuentes. [address], [address], [facility] [place] [id number] , [place]. [phone] Referring Provider: Pedro Phillips MD, [address], [place], [address]. tel:[phone] Chau [facility], [address] [place] [address] Dr Corea [address], [id number], [place] tel:[phone] CVR - [place] Encounter for follow-up examination after completed treatment for conditions other than malignant neChronic venous hypertension (idiopathic) with other complications of bilateral lower extremity 4 Mack JO RVT, DAXA Sifuentes. [address], [address], [place], [place], [id number] , [place]. tel:[phone] Referring Provider: Pedro Phillips MD, [address] [facility] SUITE [facility], [place], [address]. tel:[phone] [facility], [address] [place] [address] Dr Corea 1000Suite [place]aci English [place], [id number], [place] tel:[phone] CVR - [place] Encounter for follow-up examination after completed treatment for conditions other than malignant nePain in left leg Oct- 4 Mack JO RVT, DAXA Sifuentes. [address], [address], [place], [place], [id number] , [place]. tel:[phone] Referring Provider: Pedro Phillips MD, [address] [facility] SUITE [facility], [place], [address]. tel:[phone] [facility], [address] [place] [address] [address], [id number], [place] tel:[phone] CVR - [facility] Varicose veins of left lower extremity with other complications 4 Gianluca Parks . [address], [address], [place], [place], [id number] , [place]. tel:[phone] Referring Provider: Pedro Phillips MD, [address] [facility], [place], [address]. tel:[phone] Ch[facility], [address] [place] [address] [address], [place], [id number], [place] tel:[phone] CVR - [place] Encounter for follow-up examination after completed treatment for conditions other than malignant nePain in left leg 4 Mack JO RVT, DAXA Sifuentes. [address], [address], [place], [place], [id number] , [place]. tel:[phone] Referring Provider: Pedro Phillips MD, [address] [facility], [place], [address]. tel:[phone] [facility], [address] [place] [address] [address], [id number], [place] tel:[phone] CV[facility] - [place] Varicose veins of left lower extremity with other complications 4 Mack JO RVT, DAXA Sifuentes. [address] [place] [address], [address], [place], [place], [id number] , [place]. tel:[phone] Referring Provider: Pedro Phillips MD, [address], [place], [address]. tel:[phone] [facility], [address] [place] [address] [address] [place] English [place], [id number], [place] tel:[phone] [facility] - [place] Varicose veins of left lower extremity with other complications 4 Mack JO RVT, DAXA Sifuentes. [address] [place] [address], [address], [place], [place], [id number] , [place]. tel:[phone] Referring Provider: Pedro Phillips MD, [address] [facility] SUITE [facility], [place], [address]. tel:[phone] Chau [facility], [address] [place] [address] Dr Corea 1000Suite [place]aci English [place], [id number], [place] tel:[phone] CV[place] - [place] Encounter for follow-up examination after completed treatment for conditions other than malignant neVaricose veins of right lower extremity with pain 4 Mack JO RVT, DAXA Sifuentes. [address], [address], [facility], [place], [id number] , [place]. [phone] Referring Provider: Pedro Phillips MD, [address] SU[address] [facility], [place], [address]. tel:[phone] [facility], [address] [place] [address] Dr [address], [id number], [place] tel:[phone] [facility] - [place] Varicose veins of right lower extremity with other complications 4 Gianluca Parks . [address], [address], [facility], [place], [id number] , [place]. [phone] Referring Provider: Pedro Phillips MD, [address] SUITE [facility], [place], [address]. tel:[phone] [facility], [address] [place] [address] [address], [id number], [place] tel:[phone] [facility] - [place] Encounter for follow-up examination after completed treatment for conditions other than malignant nePain in right leg 4 Mack JO RVT, DAXA Sifuentes. [address], [address], [facility], [place], [id number] , [place]. tel:[phone] Referring Provider: Pedro Phillips MD, [address], [place], [address]. tel:[phone] [facility], [address] [place] [address] [address] 1000[place], [id number], [place] tel:[phone] [facility] - [place] Varicose veins of right lower extremity with other complications 4 Mack JO RVT, DAXA Sifuentes. [address], [address], [facility] [place], [id number] , [place]. [phone] Referring Provider: Pedro Phillips MD, [address], [place], [address]. tel:[phone] [facility]au [facility], [address] [place] [address] [address] 1000[place], [id number], [place] tel:[phone] [facility] - [place] Varicose veins of right lower extremity with other complications 4 Mack JO RVT, DAXA Sifuentes. [address], [address], [place], [id number] , [place]. [phone] Referring Provider: Pedro Phillips MD, [address] SU[address] [facility], [place], [address]. tel:[phone] Chau [facility], [address] [place] [address] Dr Corea 1000[address] 1000[place], [id number], [place] tel:[phone] CVR - [facility] Chronic venous hypertension (idiopathic) with other complications of bilateral lower extremity 4 Mack JO RVT, DAXA Sifuentes. [address], [address], [facility] [place] [id number] , [place]. [phone] Referring Provider: Pedro Phillips MD, [address] SUITE [facility], [place], [address]. tel:[phone] Office/Outpt E&M Established 25 Mins [facility], [address] [place] [address] Dr Corea [address], [place], [id number], [place] tel:[phone] [facility] - [place] Essential (primary) hypertensionVen ous insufficiency (chronic) (peripheral)Nnp mp and spasmChronic venous hypertension (idiopathic) with other complications of bilateral lower extremityLymphe kristen, not elsewhere classifiedLow back pain 4 Mack JO RVT, DAXA Sifuentes. [address], [address], [facility] [place], [id number] , [place]. [phone] Referring Provider: Pedro Phillips MD, [address] [facility], [place], [address]. tel:[phone] [facility], [address] [place] [address] Dr [address] 1000[place], [id number], [place] tel:[phone] CV[place] - [place] Chronic venous hypertension (idiopathic) with other complications of bilateral lower extremity 4 Mack JO, RVT, DAXA Sifuentes. [address], [address], [place], [place], [id number] , [place]. [phone] Referring Provider: Pedro Phillips MD, [address], [place], [address]. tel:[phone] Office/Outpt E&M Established 15 Mins [facility], [address] [place] [address] Dr [address] 1000[place], [id number], [place] tel:[phone] [facility] - [place] Chronic venous hypertension (idiopathic) with other complications of bilateral lower extremity 3 Isacc JO FACS T DAXA Bowen. [address], [address], [place], [address], [place]. tel:[phone] Referring Provider: Pedro Phillips MD, [address] [facility], [place], [address]. tel:[phone] Office/Outpt E&M Established 25 Mins [facility], [address] [place] [address] Dr [address] 1000[place], [id number], [place] tel:[phone] [facility] - [place] Varicose veins of bi low extrem w oth complicationsPh lebitis and thombophlb of superfic vessels of r low extrem 3 Isacc JO FACS RVT DAXA Bowen. [address], [address], [place], [address], [place]. [phone] Referring Provider: Pedro Phillips MD, [address], [place], [address]. tel:[phone] [facility], [address] [place] [address] Dr [address] 1000[place], [id number], [place] tel:[phone] CVR - [place] No Information 3 Isacc JO [facility] Neighborhoods Andrés. [address], [address], [place], [address], [place]. tel:[phone] Referring Provider: Pedro Phillips MD, [address] [facility], [place], [address]. tel:[phone] Office/Outpt E&M Established 15 Mins [facility], [address] [place] [address] Dr [address] 1000[place], [id number], [place] tel:[phone] CVR - [facility] Venous insufficiency (chronic) (peripheral)Phl ebitis and thombophlb of superfic vessels of r low extrem 3 Isacc JO FACS Conor LOVELY Bowen. [address], [address] [facility], [place], [address], [place]. tel:[phone] Referring Provider: Pedro Phillips MD, [address] SU[address] [facility], [place], [address]. tel:[phone] Office/Outpt E&M Established 15 Mins [facility], [address] [place] [address] [address] 1000[place], [id number], [place] tel:[phone] CVR - [facility] Venous insufficiency (chronic) (peripheral)Phl ebitis and thombophlb of superfic vessels of r low extrem 3 Isacc JO FACS Conor LOVELY Bowen. [address], [address], [place], [address], [place]. tel:[phone] Referring Provider: Pedro Phillips MD, [address] [facility] SUITE [facility], [place], [address]. tel:[phone] Office/Outpt E&M Established 15 Mins [facility], [address] [place] [address] [address] 1000[place], [id number], [place] tel:[phone] CVR - [facility] Body mass index (BMI) 34.0-34.9, adultPhlbts and thombophlb of unsp deep vessels of r low extremVenous insufficiency (chronic) (peripheral) 3 Isacc JO FACS Conor Bowen. [address], [address], [place], [address], [place]. tel:[phone] Referring Provider: Pedro Phillips MD, [address] [facility], [place], [address]. tel:[phone] [facility], [address] [facility] [address], [place], [id number], [place] tel:[phone] CV[place] - [place] Venous insufficiency (chronic) (peripheral) 3 Isacc JO FACS Conor Bowen. [address], [address], [place], [address], [place]. tel:[phone] Referring Provider: Pedro Phillips MD, [address], [place], [address]. tel:[phone] Family History Family Member Type Diagnosis Age At Onset No Information Payers Payer name Insurance type Covered [facility] ID [facility] [id number] Medical Assistance [facility] [id number] Social History Type Description Quantity Date Captured [...] (220.00 lbs) 34.5 7 kg/m eter (2) 130/80 mm[Hg] Chief Complaint And Reason For Visit No Information Reason For Referral Reason For Referral No Information Plan Of Treatment Date Type Action Status Goal Diet education completed Goal Tobacco cessation [...] Body mass index (BMI) 34.0-34.9, adult) ordered Appointment Bhavana Hou BOOKED Appointment Bhavana Hou BOOKED History Of Present Illness Encounter Date Complaint History Of Prese nt Illness No Information Functional Status Date Functional Assessmen t No Information Instructions Date Instruction Additional Infor mation Lifestyle education Related to B danna mass index (BMI) 34.0-34.9, adult Giving Encouragement to exercise Related to Body mass index (BMI) 34.0-34.9, adult Diet education Related to Body mass index (BMI) 34.0-34.9, adult Pre and post instruc tions reviewed and provided Related to Chronic venous hypertension (idiopathic) with other complications of bilateral lower extremity Pre and post instruc tions reviewed and [...]
== END 2024-04-10 10:34 | disposition home or self-care (01) ==
PROVIDERS: PCP Internal Medicine; Visit Provider Internal Medicine
DX: M54.9 Dorsalgia, unspecified (principal)

== ENCOUNTER → 2024-04-10 10:20 | Outpatient (BNVA) | payer OTHER, SELFPAY | PROVIDERS: PCP Internal Medicine; Visit Provider Internal Medicine | DX: M54.9 Dorsalgia, unspecified (principal) | CPT/HCPCS: 99212 ==

== ENCOUNTER → 2024-04-14 11:02 | Outpatient (BNV) | payer OTHER, SELFPAY | PROVIDERS: PCP Internal Medicine; Visit Provider Radiology Diagnostic Radiology | DX: M25.561 Pain in right knee (principal) | CPT/HCPCS: 73560; 74183 ==

== ENCOUNTER 2024-04-14 11:04 | Outpatient (REF) | payer OTHER, SELFPAY ==
--- NOTE | ~2024-04-14 | XR_ITS ---
EXAMINATION: XR KNEE 1-2 VIEWS RIGHT HISTORY: M25.569 - Pain in unspecified knee COMPARISON: There are no prior studies available for comparison. FINDINGS: AP and lateral views of the right knee are submitted. Osseous mineralization is normal. There is no fracture or dislocation. The joint spaces are preserved. The soft tissues are unremarkable. There is no joint effusion. XR/XR knee RT 2V IMPRESSION: Unremarkable examination of the right knee. Electronically signed by: Bear Pappas MD 04/17/2024 08:47 AM RACHANA
--- NOTE | ~2024-04-14 | MR_ITS ---
EXAMINATION: MRI Abdomen without and with contrast HISTORY: K76.9 - Liver disease, unspecified COMPARISON: Comparison is made with the prior examination dated 01/23/2023. TECHNIQUE: Axial in and out of phase T1-weighted gradient echo, axial diffusion weighted, and axial and coronal haste T2 with fat saturation images were obtained through the abdomen. Subsequently, fat suppressed axial and coronal T1-weighted images were obtained after the intravenous administration of 9 mL Gadavist. FINDINGS: The liver remains mildly enlarged. No definite surface nodularity is seen. There is mild loss of signal intensity within the liver on opposed phase imaging, compatible with steatosis. Again seen is a 12 mm cyst in the left lobe. The previously seen arterial hyperenhancing focus in segment VIII is faintly visualized (series 12, image 24). This is difficult to characterize due to its small size. No new hyperenhancing lesions are identified. The hepatic and portal veins are patent. There is no intra or extrahepatic biliary ductal dilatation. The spleen remains enlarged, but demonstrates homogeneous enhancement. The patient is status post cholecystectomy. The pancreas and adrenals are unremarkable. There are tiny probable cysts in both kidneys. No retroperitoneal lymphadenopathy or ascites is identified in the upper abdomen. There is an umbilical hernia containing unobstructed portion of the transverse colon. There is abnormal enhancing tissue along the omentum just inferior to the hernia sac. MR/MR abdomen wo/w con IMPRESSION: 1. Hepatosplenomegaly and mild hepatic steatosis. 2. Stable 8 mm hyperenhancing focus in segment VIII. Continued follow-up is recommended. Stable 12 mm cyst in the left lobe. No new lesion is identified. 3. Abnormal enhancing tissue along the omentum just inferior to the umbilical hernia. Findings are suspicious for omental metastatic disease. Please see results of recently performed PET/CT scan. Electronically signed by: Bear Pappas MD 04/16/2024 07:33 AM EST
[2024-04-14 12:39] LABS: MANUAL DIFF FLAG NO
[2024-04-14] MEDS: gadobutroL 10 ML VIAL IVPUSH (12:51)
[2024-04-14 12:52] LABS: Basophils Percent Auto 0.5 % (0-2); Eosinophils Absolute Auto 0.1 X10*3/uL (0.0-0.4); Eosinophils Percent Auto 1.3 % (0-4); Hematocrit 39.3 % (37.0-47.0); Hemoglobin 13.7 g/dl (12.0-16.0); Imm Gran Abs Auto 0.02 X10*3/uL (0.00-0.03); Imm Gran Pct Auto 0.4 % (0.0-0.4); Lymphocytes Absolute Auto 1.6 X10*3/uL (1.2-4.9); Mean Corpuscular HGB Conc 34.9 g/dl (31.0-35.0); Mean Corpuscular Hemoglobin 31.6 pg (27.0-33.0); Mean Corpuscular Volume 90.8 fL (80.0-98.0); Mean Platelet Volume 10.5 fL (9.4-12.3); Monocytes Absolute Auto 0.4 X10*3/uL (0.1-1.2); Monocytes Percent Auto 7.5 % (2-11); Neutrophils Absolute Auto 3.4 x10*3/uL (2.0-8.3); Neutrophils Percent Auto 61.3 % (45-73); Platelet Count 121 X10*3/uL (160-400); Red Blood Count 4.33 X10*6/uL (4.20-5.50); Red Cell Distribution Width 12.7 % (11.0-16.0); White Blood Count 5.6 X10*3/uL (4.8-10.8)
--- OUTSIDE RECORDS SUMMARY | 2024-04-14 12:56 | XMS_ITS | Continuity of Care Document ---
Author Organization [facility] Address [address] [place] [address] Phone Care Team Providers Care Sexologist Name Role Phone Mack JO, RVT, RPVI, [...] Endovenous Rf, Vein Add-on- CT & [place] Inj Sclerosing Solution; Sngl- CT & [place] J Ultrason Guidan Needle [...] Mins- [place] & [place] [facility], [address], [id number], tel:[phone] [place] - [place] Restless legs syndromeEssenti al (primary) hypertensionPru ritus, unspecifiedDiso rder of pigmentation, unspecifiedChro kolton venous hypertension (idiopathic) with other complications of bilateral lower extremityPhlebi tis and thrombophlebiti s of unspecified deep vessels of right lower extremity 5 Mack JO RVT, DAXA Sifuentes. [address], [address], [place] [facility] [place], [id number] , [place]. tel:[phone] Referring Provider: Pedro Phillips MD, [address] [place] [address] [address] [facility], [place], [address]. tel:[phone] [place] [facility], [address] [place] [address] Dr Corea 1000[facility] [address], [id number], tel:[phone] [facility]ose [facility] of right lower extremity with pain 5 Mack JO RVT, DAXA Sifuentes. [address], [address], [facility], [place], [id number] , [place]. [phone] Referring Provider: Pedro Phillips MD, [address] [facility] [address] [place] [address], [place], [address]. tel:[phone] Office/Outpt E&M Established 15 Mins- [facility] & [facility], [address] [place] [address] [address] [address], [id number], tel:[phone] CVR - [facility] Chronic venous hypertension (idiopathic) without complications of bilateral lower extremityRestle ss legs syndromeEssenti al (primary) hypertensionPhl ebitis and thrombophlebiti s of superficial vessels of right lower extremityPrurit us, unspecifiedDiso rder of pigmentation, unspecifiedCram p and spasm 4 Mack JO RVT, DAXA Sifuentes. [address], [address], [place] [facility] [place], [id number] , [place]. [phone] Referring Provider: Pedro Phillips MD, [address], [place], [address]. tel:[phone] [facility], [address] [place] [address] Dr Corea 1000[address] 1000[place], [id number], [place] tel:[phone] CVR - [place] - [place] Encounter for follow-up examination after completed treatment for conditions other than malignant neChronic venous hypertension (idiopathic) with other complications of bilateral lower extremity 4 Mack JO RVT, DAXA Sifuentes. [address], [address], [place], [place], [id number] , [place]. tel:[phone] Referring Provider: Pedro Phillips MD, [address] [facility] SUITE [facility], [place], [address]. tel:[phone] [facility], [address] [place] [address] Dr Corea 1000Suite Kaci English [place], [id number], [place] tel:[phone] CVR - [place] Encounter for follow-up examination after completed treatment for conditions other than malignant nePain in left leg Oct- 4 Mack JO RVT, DAXA Sifuentes. [address], [address], [place], [place], [id number] , [place]. tel:[phone] Referring Provider: Pedro Phillips MD, [address] [facility] SUITE [facility], [place], [address]. tel:[phone] [facility], [address] [place] [address] [address], [id number], [place] tel:[phone] CVR - [facility] Varicose veins of left lower extremity with other complications 4 Gianluca Parks . [address], [address], [place], [place], [id number] , [place]. tel:[phone] Referring Provider: Pedro Phillips MD, [address] [facility], [place], [address]. tel:[phone] [facility], [address] [place] [address] [address], [place], [id number], [place] tel:[phone] CVR - [place] - [place] Encounter for follow-up examination after completed treatment for conditions other than malignant nePain in left leg 4 Mack JO RVT, DAXA Sifuentes. [address], [address], [place], [place], [id number] , [place]. tel:[phone] Referring Provider: Pedro Phillips MD, [address] [facility], [place], [address]. tel:[phone] [facility], [address] [place] [address] [address] [address], [id number], [place] tel:[phone] CVR - [place] Varicose veins of left lower extremity with other complications 4 Mack JO RVT, DAXA Sifuentes. [address] [place] [address], [address], [place], [place], [id number] , [place]. tel:[phone] Referring Provider: Pedro Phillips MD, [address], [place], [address]. tel:[phone] [place] [facility], [address] [place] [address] [address]Suite [place] English [place], [id number], [place] tel:[phone] CV[place] Varicose veins of left lower extremity with other complications 4 Mack JO RVT, DAXA Sifuentes. [address] [place] [address], [address], [place], [place], [id number] , [place]. tel:[phone] Referring Provider: Pedro Phillips MD, [address] [facility] SUITE [facility], [place], [address]. tel:[phone] [facility], [address] [place] [address] Dr Corea 1000Suite [place]aci English [place], [id number], [place] tel:[phone] CVR - [place] Encounter for follow-up examination after completed treatment for conditions other than malignant neVaricose veins of right lower extremity with pain 4 Mack JO RVT, DAXA Sifuentes. [address], [address], [facility], [place], [id number] , [place]. [phone] Referring Provider: Pedro Phillips MD, [address] [facility], [place], [address]. tel:[phone] [facility], [address] [place] [address] Dr [address], [id number], [place] tel:[phone] CVR - [place] Varicose veins of right lower extremity with other complications 4 Gianluca Parks . [address], [address], [facility], [place], [id number] , [place]. [phone] Referring Provider: Pedro Phillips MD, [address] [facility], [place], [address]. tel:[phone] [facility], [address] [place] [address] [address] 1000[place], [id number], [place] tel:[phone] CV[place] - [place] Encounter for follow-up examination after completed treatment for conditions other than malignant nePain in right leg 4 Mack JO RVT, DAXA Sifuentes. [address], [address], [facility], [place], [id number] , [place]. tel:[phone] Referring Provider: Pedro Phillips MD, [address], [place], [address]. tel:[phone] [facility], [address] [place] [address] [address] 1000[place], [id number], [place] tel:[phone] [place] - [place] Varicose veins of right lower extremity with other complications 4 Mack JO RVT, DAXA Sifuentes. [address], [address], [facility] [place], [id number] , [place]. [phone] Referring Provider: Pedro Phillips MD, [address], [place], [address]. tel:[phone] [facility], [address] [place] [address] [address] 1000[place], [id number], [place] tel:[phone] [place] Varicose veins of right lower extremity with other complications 4 Mack JO RVT, DAXA Sifuentes. [address], [address], [place] [id number] , [place]. [phone] Referring Provider: Pedro Phillips MD, [address] [facility], [place], [address]. tel:[phone] [facility] Perez [facility], [address] [place] [address] Dr Corea 1000Suite 1000[place], [id number], [place] tel:[phone] CVR - [facility] Chronic venous hypertension (idiopathic) with other complications of bilateral lower extremity 4 Mack JO RVT, DAXA Sifuentes. [address], [address], [place], [id number] , [place]. [phone] Referring Provider: Pedro Phillips MD, [address] SU[address] [facility], [place], [address]. tel:[phone] Office/Outpt E&M Established 25 Mins [facility] Perez [facility], [address] [place] [address] Dr Corea 1000[address], [place], [id number], [place] tel:[phone] [place] - [place] Essential (primary) hypertensionVen ous insufficiency (chronic) (peripheral)Computer Trainer mp and spasmChronic venous hypertension (idiopathic) with other complications of bilateral lower extremityLymphe kristen, not elsewhere classifiedLow back pain 4 Mack JO RVT, DAXA Sifuentes. [address], [address], [place] [facility] [place], [id number] , [place]. [phone] Referring Provider: Pedro Phillips MD, [address] [facility], [place], [address]. tel:[phone] [place] [facility], [address] [place] [address] Dr [address] 1000[place], [id number], [place] tel:[phone] CV[place] - [place] Chronic venous hypertension (idiopathic) with other complications of bilateral lower extremity 4 Mack JO, RVT, DAXA Sifuentes. [address], [address], [place], [place], [id number] , [place]. [phone] Referring Provider: Pedro Phillips MD, [address], [place], [address]. tel:[phone] Office/Outpt E&M Established 15 Mins [facility], [address] [place] [address] Dr [address] 1000[place], [id number], [place] tel:[phone] [place] Chronic venous hypertension (idiopathic) with other complications of bilateral lower extremity 3 Isacc JO FACS T DAXA Bowen. [address], [address], [place], [address], [place]. tel:[phone] Referring Provider: Pedro Phillips MD, [address] [facility], [place], [address]. tel:[phone] Office/Outpt E&M Established 25 Mins [facility], [address] [place] [address] Dr [address] 1000[place], [id number], [place] tel:[phone] [place] Varicose veins of bi low extrem w oth complicationsPh lebitis and thombophlb of superfic vessels of r low extrem 3 Isacc JO FACS RVT DAXA Bowen. [address], [address], [place], [address], [place]. [phone] Referring Provider: Pedro Phillips MD, [address], [place], [address]. tel:[phone] [facility], [address] [place] [address] Dr [address] 1000[place], [id number], [place] tel:[phone] CVR - [place] No Information 3 Isacc JO [facility] [employer] Andrés. [address], [address], [place], [address], [place]. tel:[phone] Referring Provider: Pedro Phillips MD, [address] [facility], [place], [address]. tel:[phone] Office/Outpt E&M Established 15 Mins [facility], [address] [place] [address] Dr [address] 1000[place], [id number], [place] tel:[phone] [facility] - [facility] Venous insufficiency (chronic) (peripheral)Phl ebitis and thombophlb of superfic vessels of r low extrem 3 Isacc JO FACS Conor LOVELY Bowen. [address], Suite [facility], [place], [address], [place]. tel:[phone] Referring Provider: Pedro Phillips MD, [address] [facility], [place], [address]. tel:[phone] Office/Outpt E&M Established 15 Mins [facility], [address] [place] [address] [address] 1000[place], [id number], [place] tel:[phone] [facility] - [facility] Venous insufficiency (chronic) (peripheral)Phl ebitis and thombophlb of superfic vessels of r low extrem 3 Isacc JO FACS Conor LOVELY Bowen. [address], [address], [place], [address], [place]. tel:[phone] Referring Provider: Pedro Phillips MD, [address] [facility] SUITE [facility], [place], [address]. tel:[phone] Office/Outpt E&M Established 15 Mins [facility], [address] [place] [address] [address] 1000[place], [id number], [place] tel:[phone] [facility]R - [facility] Body mass index (BMI) 34.0-34.9, adultPhlbts and thombophlb of unsp deep vessels of r low extremVenous insufficiency (chronic) (peripheral) 3 Isacc JO FACS Conor Bowen. [address], [address], [place], [address], [place]. tel:[phone] Referring Provider: Pedro Phillips MD, [address] [facility], [place], [address]. tel:[phone] [facility], [address], [place], [id number], [place] tel:[phone] [place] - [place] Venous insufficiency (chronic) (peripheral) 3 Isacc JO FACS Conor Bowen. [address], [address], [place], [address], [place]. tel:[phone] Referring Provider: Pedro Phillips MD, [address], [place], [address]. tel:[phone] Family History Family Member Type Diagnosis Age At Onset No Information Payers Payer name Insurance type Covered alliance party ID [facility] [id number] Medical Assistance [facility] [id number] Social History Type Description Quantity Date Captured [...] No Information Instructions Date Instruction Additional Infor damaris Diet education Related to Body mass index (BMI) 34.0-34.9, adult Giving Encouragement to exercise Related to Body mass index (BMI) 34.0-34.9, adult Lifestyle education Related to B danna mass index (BMI) 34.0-34.9, adult Pre and post instruc tions reviewed and provided Related to Chronic venous hypertension (idiopathic) with other complications of bilateral lower extremity Diet education Related to Body mass index (BMI) 34.0-34.9, adult Giving Encouragement to exercise Related to Body mass index (BMI) 34.0-34.9, adult Lifestyle education Related to B danna mass index (BMI) 34.0-34.9, adult Pre and post instruc tions reviewed and provided Related to Chronic venous hypertension (idiopathic) without complications of bilateral lower extremity Diet education Related to Body mass index (BMI) 34.0-34.9, adult Giving Encouragement to exercise Related to Body mass index (BMI) 34.0-34.9, adult Lifestyle education Related to B danna mass index (BMI) 34.0-34.9, adult Pre and post instruc tions reviewed and provided Related to Chronic venous hypertension (idiopathic) with other complications of bilateral lower extremity Assessments Type Assessment Date No Information Patient Care Teams Name Effective Dates (start - stop) Status Members No Information
[2024-04-14 13:01] LABS: Alanine Aminotransferase 23 U/L (0-31); Albumin Level 4.1 g/dL (3.5-5.0); Alkaline Phosphatase 93 U/L (39-117); Anion Gap 10 (12-20); Aspartate Amino Transferase 23 U/L (5-31); Bilirubin Total 0.5 mg/dL (0.0-1.0); Blood Urea Nitrogen 11 mg/dL (9-16); Calcium 9.4 mg/dL (8.4-10.2); Carbon Dioxide 29 mmol/L (22-29); Chloride 106 mmol/L (96-108); Estimated Glomerular Filt Rate > 60; Glucose Random 106 mg/dL (60-115); Lactate Dehydrogenase 133 U/L (122-220); Potassium 3.9 mmol/L (3.3-5.1); Sodium 141 mmol/L (135-145); Total Protein 6.6 g/dL (6.5-8.0)
[2024-04-14 13:53] LABS: Cortisol Random 5.6 ug/dL
[2024-04-17 13:42] LABS: IgA 66 mg/dL (47-310); IgG 617 mg/dL (600-1640); IgM 104 mg/dL (50-300)
== END 2024-04-14 11:05 | disposition home or self-care (01) ==
LOC: HO.MRI 11:04
PROVIDERS: Internal Medicine Medical Oncology; PCP Internal Medicine; Visit Provider Nurse Practitioner Family
DX: K76.9 Liver disease, unspecified (principal); E27.40 Unspecified adrenocortical insufficiency; C90.00 Multiple myeloma not having achieved remission; M25.561 Pain in right knee
CPT/HCPCS: 36415; 73560; 74183; 80053; 82533; 82784; 83615; 85025; 86334; A9585

== ENCOUNTER 2024-04-15 12:10 | Outpatient (REF) | payer OTHER, SELFPAY ==
--- NOTE | ~2024-04-15 | PE_ITS ---
EXAMINATION: FLUORINE-18 FDG PET/CT SCAN CLINICAL INFORMATION: Multiple myeloma. TECHNIQUE: 60 minutes following the intravenous administration of 22.5 mCi of fluorine 18 FDG, images from the top of the vertex to the toes were obtained using a combined PET/CT scanner with CT scan based attenuation correction. No oral or intravenous contrast was administered. Transverse, coronal, sagittal, and volume reconstruction projections were obtained. The patient's blood glucose as determined by a finger stick, was 127 mg/dL immediately prior to injection. The radiotracer was injected intravenously through right antecubital vein, without any complications. Total CT exam dose-length product 1199 mGy-cm. * These CT images were obtained using dose optimization techniques as appropriate, variously including the following: Automated exposure control * Adjustment of mA and/or kV according to patient size (this includes techniques or standardized protocols for targeted exams where dose is matched to indication/reason for exam; i.e. extremities or head) * Use of iterative reconstruction technique COMPARISON: None available. FINDINGS: HEAD AND NECK: No abnormal radiotracer uptake. No large intracranial hemorrhage, acute territorial infarct or significant shift of midline structures. CHEST: Ports and Devices: None Lungs: No abnormal radiotracer uptake. There is mild emphysema on CT Pleura: No significant pleural effusion. Lymph Nodes: No tracer-avid mediastinal, hilar or internal mammary or axillary lymphadenopathy. Mediastinum: There is no significant pericardial effusion/thickening. Thyroid lobes are symmetrical and mildly heterogeneous. No focal nodule seen. Breasts/Chest Wall: No abnormal radiotracer uptake. ABDOMEN/PELVIS: Liver/Biliary System: There is focal small area of FDG activity in the right central lobe of liver slightly higher than kidney pelvis. No abnormality seen on CT. No additional areas abnormal activity seen in the liver liver. There is mild hepatomegaly The gallbladder has been surgically removed. Pancreas: Normal. Spleen: No abnormal radiotracer uptake. No evidence of splenomegaly. Adrenal Glands: No abnormal radiotracer uptake. Kidneys: No hydronephrosis, hydroureter or renal calculi bilaterally. Bowel: Mild focal atelectasis seen along the anterior abdominal wall just at or above the umbilicus. This could be postsurgical and scarring There supra umbilical abdominal wall hernia with a loop of transverse colon within but no proximal bowel obstruction seen. The bowel loops are otherwise unremarkable. Appendix not seen. No free fluid or inflammatory process seen. Lymph Nodes: No tracer avid retroperitoneal, mesenteric or pelvic and/or groin lymphadenopathy. Pelvic Organs: There is focal intense activity seen in the left pelvic internal iliac region likely a small left lower or ovarian lesion. This is not clearly visualized on this noncontrast CT abdomen exam. Best visualized on axial image 237/700. The urinary bladder is underdistended. MUSCULOSKELETAL: No abnormal activity seen in the whole body bone marrow. VASCULAR: Marked Whole body bone marrow: There is no abnormal metabolic activity seen in the entire whole body skeleton. There is nonspecific blood pool activity seen in bilateral lower extremity soft tissues likely related to edema slightly greater on the right than the left the PET/PET CT fusion whole body IMPRESSION: No abnormal isotope activity seen in the bone marrow from top the vertex to suspect myelomatous infiltration. No abnormality seen on this noncontrast CT exam as well. No lytic or sclerotic process seen. Focal punctate FDG activity seen in the right hepatic lobe centrally. There is no corresponding abnormality on the CT, however limited due to lack of IV and oral contrast. Similarly there is mild focal activity seen in the left pelvis adjacent iliac vessels. This could be a small ovarian lesion or lymph node Consider abdomen and pelvis without and with contrast of liver and left pelvis. Electronically signed by: Clint Purvis MD 04/16/2024 09:32 AM EST
--- OUTSIDE RECORDS SUMMARY | 2024-04-15 14:16 | XMS_ITS | Continuity of Care Document ---
Author Organization [facility] Address [address] [place] [address] Phone Care Team Providers Care Field Counsel Name Role Phone Mack JO, RVT, RPVI, [...] Mins- [place] & [place] [facility], [address], [id number], tel:[phone] CV[place] - [place] Restless legs syndromeEssenti al (primary) hypertensionPru ritus, unspecifiedDiso rder of pigmentation, unspecifiedChro kolton venous hypertension (idiopathic) with other complications of bilateral lower extremityPhlebi tis and thrombophlebiti s of unspecified deep vessels of right lower extremity 5 Mack JO RVT, DAXA Sifuentes. [address], [address], [facility] [place], [id number] , [place]. tel:[phone] Referring Provider: Pedro Phillips MD, [address] [place] [address] SU[address] [place] [place], [place], [address]. tel:[phone] [facility], [address] [place] [address] Dr Corea 1000[address]ust 1000[place], [id number], tel:[phone] [facility] of right lower extremity with pain 5 Mack JO RVT, DAXA Sifuentes. [address], [address], [facility], [place], [id number] , [place]. [phone] Referring Provider: Pedro Phillips MD, [address] [facility] [address] [place] [address], [place], [address]. tel:[phone] Office/Outpt E&M Established 15 Mins- [place] & [facility], [address] [place] [address] [address] [address], [id number], tel:[phone] CVR - [facility] Chronic venous hypertension (idiopathic) without complications of bilateral lower extremityRestle ss legs syndromeEssenti al (primary) hypertensionPhl ebitis and thrombophlebiti s of superficial vessels of right lower extremityPrurit us, unspecifiedDiso rder of pigmentation, unspecifiedCram p and spasm 4 Mack JO RVT, DAXA Sifuentes. [address], [address], [facility] [place], [id number] , [place]. [phone] Referring Provider: Pedro Phillips MD, [address], [place], [address]. tel:[phone] [facility], [address] [place] [address] Dr Corea 1000[address] 1000[place], [id number], [place] tel:[phone] CVR - [place] Encounter for follow-up examination after completed treatment for conditions other than malignant neChronic venous hypertension (idiopathic) with other complications of bilateral lower extremity 4 Mack JO RVT, DAXA Sifuentes. [address], [address], [place], [place], [id number] , [place]. tel:[phone] Referring Provider: Pedro Phillips MD, [address] [facility] SU[address] [place], [place], [address]. tel:[phone] [facility], [address] [place] [address] Dr Corea 1000Suite [place] English [place], [id number], [place] tel:[phone] CV[place] - [place] Encounter for follow-up examination after completed treatment for conditions other than malignant nePain in left leg Oct- 4 Mack JO RVT, DAXA Sifuentes. [address], [address], [place], [place], [id number] , [place]. tel:[phone] Referring Provider: Pedro Phillips MD, [address] [facility] SU[address] [place], [place], [address]. tel:[phone] [facility], [address] [place] [address] [address], [id number], [place] tel:[phone] CVR - [facility] Varicose veins of left lower extremity with other complications 4 Gianluca Parks . [address], [address], [place], [place], [id number] , [place]. tel:[phone] Referring Provider: Pedro Phillips MD, [address] [facility], [place], [address]. tel:[phone] [facility], [address] [place] [address] [address], [place], [id number], [place] tel:[phone] CVR - [place] Encounter for follow-up examination after completed treatment for conditions other than malignant nePain in left leg 4 Mack JO RVT, DAXA Sifuentes. [address], [address], [place], [place], [id number] , [place]. tel:[phone] Referring Provider: Pedro Phillips MD, [address] [facility], [place], [address]. tel:[phone] [facility], [address] [place] [address] [address] 1000[place], [id number], [place] tel:[phone] CVR - [place] Varicose veins of left lower extremity with other complications 4 Mack JO RVT, DAXA Sifuentes. [address] [place] [address], [address], [place], [place], [id number] , [place]. tel:[phone] Referring Provider: Pedro Phillips MD, [address], [place], [address]. tel:[phone] [facility], [address] [place] [address] [address]Suite [place], [id number], [place] tel:[phone] CVR - [place] Varicose veins of left lower extremity with other complications 4 Mack JO RVT, DAXA Sifuentes. [address] [place] [address], [address], [place], [place], [id number] , [place]. tel:[phone] Referring Provider: Pedro Phillips MD, [address] [facility] SU[address] [place], [place], [address]. tel:[phone] [facility], [address] [place] [address] Dr Corea 1000Suite [place] English [place], [id number], [place] tel:[phone] CV[place] - [place] Encounter for follow-up examination after completed treatment for conditions other than malignant neVaricose veins of right lower extremity with pain 4 Mack JO RVT, DAXA Sifuentes. [address], [address], [facility], [place], [id number] , [place]. [phone] Referring Provider: Pedro Phillips MD, [address] [facility], [place], [address]. tel:[phone] [facility], [address] [place] [address] Dr [address] 1000[place], [id number], [place] tel:[phone] [place] - [place] Varicose veins of right lower extremity with other complications 4 Gianluca Parks . [address], [address], [facility], [place], [id number] , [place]. [phone] Referring Provider: Pedro Phillips MD, [address] [facility], [place], [address]. tel:[phone] [facility], [address] [place] [address] [address] 1000[place], [id number], [place] tel:[phone] CVR - [place] Encounter for follow-up examination after completed treatment for conditions other than malignant nePain in right leg 4 Mack JO RVT, DAXA Sifuentes. [address], [address], [facility], [place], [id number] , [place]. tel:[phone] Referring Provider: Pedro Phillips MD, [address], [place], [address]. tel:[phone] [facility], [address] [place] [address] [address] 1000[place], [id number], [place] tel:[phone] CV[place] - [place] Varicose veins of right lower extremity with other complications 4 Mack JO RVT, DAXA Sifuentes. [address], [address], [facility], [id number] , [place]. [phone] Referring Provider: Pedro Phillips MD, [address], [place], [address]. tel:[phone] [facility], [address] [place] [address] [address] 1000[place], [id number], [place] tel:[phone] [place] - [place] Varicose veins of right lower extremity with other complications 4 Mack JO RVT, DAXA Sifuentes. [address], [address], [place], [id number] , [place]. [phone] Referring Provider: Pedro Phillips MD, [address] [facility], [place], [address]. tel:[phone] [facility], [address] [place] [address] Dr [address]a 1000[address] 1000[place], [id number], [place] tel:[phone] CVR - [facility] Chronic venous hypertension (idiopathic) with other complications of bilateral lower extremity 4 Mack JO RVT, DAXA Sifuentes. [address], [address], [facility] [place], [id number] , [place]. [phone] Referring Provider: Pedro Phillips MD, [address] [facility], [place], [address]. tel:[phone] Office/Outpt E&M Established 25 Mins [facility], [address] [place] [address] Dr [address], [place], [id number], [place] tel:[phone] [place] - [place] Essential (primary) hypertensionVen ous insufficiency (chronic) (peripheral)Director Of Marketing Communications mp and spasmChronic venous hypertension (idiopathic) with other complications of bilateral lower extremityLymphe kristen, not elsewhere classifiedLow back pain 4 Mack JO RVT, DAXA Sifuentes. [address], [address], [facility] [place], [id number] , [place]. [phone] Referring Provider: Pedro Phillips MD, [address] [facility], [place], [address]. tel:[phone] [facility], [address] [place] [address] Dr [address] 1000[place], [id number], [place] tel:[phone] CVR - [place] Chronic venous hypertension (idiopathic) with other complications of bilateral lower extremity 4 Mack JO, RVT, DAXA Sifuentes. [address], [address], [place], [place], [id number] , [place]. [phone] Referring Provider: Pedro Phillips MD, [address], [place], [address]. tel:[phone] Office/Outpt E&M Established 15 Mins [facility], [address] [place] [address] Dr [address] 1000[place], [id number], [place] tel:[phone] CV[place] - [place] Chronic venous hypertension (idiopathic) with other complications of bilateral lower extremity 3 Isacc JO FACS T DAXA Bowen. [address], [address], [place], [address], [place]. [phone] Referring Provider: Pedro Phillips MD, [address] [facility], [place], [address]. tel:[phone] Office/Outpt E&M Established 25 Mins [facility], [address] [place] [address] Dr [address] 1000[place], [id number], [place] tel:[phone] [place] Varicose veins of bi low extrem w oth complicationsPh lebitis and thombophlb of superfic vessels of r low extrem 3 Isacc JO FACS RVT DAXA Bowen. [address], [address], [place], [address], [place]. [phone] Referring Provider: Pedro Phillips MD, [address], [place], [address]. tel:[phone] [facility], [address] [place] [address] Dr [address] 1000K[place], [id number], [place] tel:[phone] CV[place] - [place] No Information 3 Isacc JO [facility] Tamoco Andrés. [address], [address], [place], [address], [place]. tel:[phone] Referring Provider: Pedro Phillips MD, [address] [facility], [place], [address]. tel:[phone] Office/Outpt E&M Established 15 Mins [facility], [address] [place] [address] Dr [address] 1000[place], [id number], [place] tel:[phone] CVR - [facility] Venous insufficiency (chronic) (peripheral)Phl ebitis and thombophlb of superfic vessels of r low extrem 3 Isacc JO FACS Conor LOVELY Bowen. [address], Suite [facility], [place], [address], [place]. tel:[phone] Referring Provider: Pedro Phillips MD, [address] [facility], [place], [address]. tel:[phone] Office/Outpt E&M Established 15 Mins [facility], [address] [place] [address] [address] 1000K[place], [id number], [place] tel:[phone] CVR - [facility] Venous insufficiency (chronic) (peripheral)Phl ebitis and thombophlb of superfic vessels of r low extrem 3 Isacc JO FACS Conor LOVELY Bowen. [address], [address], [place], [address], [place]. tel:[phone] Referring Provider: Pedro Phillips MD, [address] [facility] SU[address] [place], [place], [address]. tel:[phone] Office/Outpt E&M Established 15 Mins [facility], [address] [place] [address] [address] 1000K[place], [id number], [place] tel:[phone] CVR - [facility] Body mass index (BMI) 34.0-34.9, adultPhlbts and thombophlb of unsp deep vessels of r low extremVenous insufficiency (chronic) (peripheral) 3 Isacc JO FACS Conor Bowen. [address], [address], [place], [address], [place]. tel:[phone] Referring Provider: Pedro Phillips MD, [address] [facility], [place], [address]. tel:[phone] [facility], [address], [place], [id number], [place] tel:[phone] CV[place] - [place] Venous insufficiency (chronic) (peripheral) 3 Isacc JO FACS Conor Bowen. [address], [address], [place], [address], [place]. tel:[phone] Referring Provider: Pedro Phillips MD, [address], [place], [address]. tel:[phone] Family History Family Member Type Diagnosis Age At Onset No Information Payers Payer name Insurance type Covered republican ID [facility] [id number] Medical Assistance [facility] [id number] Social History Type Description Quantity Date Captured [...] No Information Instructions Date Instruction Additional Infor nancyion Diet education Related to Body mass index [...]
== END 2024-04-15 12:11 | disposition home or self-care (01) ==
LOC: HO.PET 12:10
PROVIDERS: PCP Internal Medicine; Visit Provider Internal Medicine Medical Oncology
DX: Z13.89 Encounter for screening for other disorder (principal)

== ENCOUNTER 2024-06-05 13:05 | Outpatient (AMB) | payer OTHER, SELFPAY ==
[2024-06-05 13:06] VITALS: BP 120/76; TEMP 36.5; BMI 31.0
--- NOTE | 2024-06-05 13:06 | A.OFFPC_ITS ---
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 Accompanied by: Self / Same As Patient Allergies cephalexin Allergy (Unknown, Verified 06/05/24 13:11) SEIZURE/COMA,anaphylaxsis vancomycin [VANCOMYCIN] Allergy (Unknown, Verified 06/05/24 13:11) RED HEAT RASH Medication List - Last Reconciled 06/05/24 by Pedro Phillips MD acetaminophen 2 tabs PO Q4H amlodipine 5 mg (2 x 2.5 mg) PO DAILY apixaban (Eliquis) mg PO cane As directed cholecalciferol (vitamin D3) 50 mcg PO DAILY folic acid 1 mg PO DAILY hydrochlorothiazide 25 mg PO DAILY lorazepam 1 mg PO TID PRN nicotine 1 patch transdermal DAILY oxycodone 10 mg PO Q4-6H PRN Tobacco use date assessed: 06/05/24 Dental Screening Dental Screen Date: 06/05/24 Did you have a dental visit in the last 12 months?: No Did you have a dental problem in the last 6 months where you did not have access to dental care?: No Was dental information given to patient?: Patient has dentist HPI Med Management HPI Details multiple myeloma and bone pain; on rx and due; compliant [facility] Medical History Adrenal insufficiency Low serum cortisol level Obesity Cholecystostomy care Obesity Vitamin D deficiency Perimenopause Scleritis Neutropenia Graves disease Amenorrhea Back pain Surgical History History of bone marrow biopsy History of biopsy History of cholecystectomy History of umbilical hernia repair History of D&C History of section Family History Father Colon cancer Mother No problems noted. Unknown Colon cancer Social History Household Members: Family Housing: House Are you a primary animal caretaker to a significant other at home: No Do you presently have visiting nurse or other home services: No Alcohol intake: former Patient Tobacco Use Status: Current everyday Tobacco user Tobacco use type: Cigarette Cigarette Packs Per Day: 1 Cigarettes Per Day: 20.0 e-Cigarette/Vaping Use: Never Used Second Hand Smoke Exposure: Yes service: No Current occupational status: unemployed Current occupational exposures/hazards: No Cognitive needs: No Hearing needs: No Vision needs: Yes Female Reproductive History Menstrual Age of Menarche: 10 Questionnaire Thrive Questionnaire Date Thrive assessed: 04/10/24 MARIELENA-7 AMB Questionnaire MARIELENA-7 Date MARIELENA - 7 assessed: 04/10/24 Source: Developed by Drs. Bear Kendall, Eufemia Reece, Eben Rodriguez and colleagues, with an educational hermes from [employer]. Review of Systems Const Denies chills, Denies headache(s) and Denies weight loss ENT Denies headache(s) Card Denies chest pain, Denies syncope, Denies irregular heart rhythm and Denies dyspnea Resp Denies chest congestion, Denies cough and Denies dyspnea GI Denies abdominal pain, Denies change in stool character, Denies nausea and Denies vomiting Musc Denies deformity and Denies joint swelling Neuro Denies syncope and Denies headache(s) Physical exam (Primary Care) Vital Signs: Last Vital Signs Temp 97.7 F 06/05/24 13:06 BP 120/76 06/05/24 13:06 Oxygen Delivery Method Room Air 06/05/24 13:06 BMI result Body Mass Index 31.0 Tobacco/Smoking Status: Tobacco use Status Tobacco use date assessed 06/05/24 06/05/24 13:16 Patient Tobacco Use Status Current everyday Tobacco 06/05/24 13:16 Tobacco use type Cigarette 06/05/24 13:16 e-Cigarette/Vaping Use Never Used 06/05/24 13:16 Thrive Assessment: Date of Thrive Assessment Date Thrive assessed 04/10/24 06/05/24 13:16 Const General: cooperative, comfortable, no acute distress and alert Neck Neck: Yes no lymphadenopathy Thyroid: Thyroid normal Resp Effort & Inspection: normal respiratory effort Auscultation: clear to auscultation bilaterally Percussion: percussion normal Cardio Jugular venous distension: no JVD Palpation: normal PMI Rate: regular rate Rhythm: regular rhythm Heart sounds: S1 normal heart sound present and S2 normal heart sound present GI Inspection: Yes normal to inspection Palpation (GI): No hepatosplenomegaly present Skin General skin exam: no rashes or lesions noted Extrem General: Yes no clubbing, cyanosis or edema Coding Level of Care Code Est Pt Level 3 (58697) Diagnoses Multiple myeloma C90.00 Assessment & Plan Assessment & Plan (1) Multiple myeloma: Code(s): C90.00 - Multiple myeloma not having achieved remission Category: Medical Plan: stable; same rx Medications: Refilled oxycodone covering for Dr. Phillips 10 mg PO Q4-6H PRN 140 tabs 0RF pain
== END 2024-06-05 14:26 | disposition home or self-care (01) ==
PROVIDERS: PCP Internal Medicine; Visit Provider Internal Medicine
DX: C90.00 Multiple myeloma not having achieved remission (principal)

== ENCOUNTER → 2024-06-05 13:05 | Outpatient (BNVA) | payer OTHER, SELFPAY | PROVIDERS: PCP Internal Medicine; Visit Provider Internal Medicine | DX: C90.00 Multiple myeloma not having achieved remission (principal) | CPT/HCPCS: 99212 ==

== ENCOUNTER 2024-07-01 11:38 | Outpatient (REF) | payer OTHER, SELFPAY | END 2024-07-01 11:39 | disposition home or self-care (01) | LOC: HO.MAMMO 11:38 | PROVIDERS: PCP Internal Medicine; Visit Provider Internal Medicine | DX: Z12.31 Encounter for screening mammogram for malignant neoplasm of breast (principal) | CPT/HCPCS: 77063; 77067 ==

== ENCOUNTER → 2024-07-01 11:45 | Outpatient (BNV) | payer OTHER, SELFPAY | PROVIDERS: PCP Internal Medicine; Visit Provider Internal Medicine | DX: Z12.31 Encounter for screening mammogram for malignant neoplasm of breast (principal) | CPT/HCPCS: 77063; 77067 ==

== ENCOUNTER 2024-07-02 11:25 | Outpatient (AMB) | payer OTHER, SELFPAY ==
[2024-07-02 11:27] VITALS: BP 106/74; PULSE 87; O2SAT 94; BMI 31.1
--- NOTE | 2024-07-02 11:27 | A.OFFPC_ITS ---
Vital Signs 07/02/24 11:27 Height 5 ft 7 in Weight 198 lb 6 oz BMI 31.1 BP 106/74 Blood Pressure Location Lt brachial Position Sitting Pulse 87 Pulse Source Pulse Oximeter Pulse Oximetry (%) 94 Oxygen Delivery Method Room Air Intake Visit Reasons: Med management Front Office Representative Required: No Accompanied by: Self / Same As Patient Allergies cephalexin Allergy (Unknown, Verified 07/02/24 12:03) SEIZURE/COMA,anaphylaxsis vancomycin [VANCOMYCIN] Allergy (Unknown, Verified 07/02/24 12:03) RED HEAT RASH Medication List - Last Reconciled 07/06/24 by Dash Crowder MD acetaminophen 2 tabs PO Q4H amlodipine 5 mg (2 x 2.5 mg) PO DAILY cane As directed cholecalciferol (vitamin D3) 50 mcg PO DAILY folic acid 1 mg PO DAILY hydrochlorothiazide 25 mg PO DAILY lorazepam 1 mg PO TID PRN nicotine 1 patch transdermal DAILY oxycodone 10 mg PO Q4-6H PRN Tobacco use date assessed: 07/02/24 Dental Screening Dental Screen Date: 07/02/24 Did you have a dental visit in the last 12 months?: No Did you have a dental problem in the last 6 months where you did not have access to dental care?: No Was dental information given to patient?: No HPI Med management HPI Details Patient comes in today for her follow-up visit - is transferring over from Dr. 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 (has recurrent redness and pain in her eyes) that is likely due to her NXG diagnosis States that she was also diagnosed with rheumatoid arthritis and possible Graves disease but Graves was never confirmed She has been treated with oral prednisone as needed for flare ups and she continues to follow up with rheumatology for further evaluation and management She did undergo a colonoscopy a few years ago when she developed some GI bleeding as a complication of her chemotherapy - colonoscopy came back normal Patient states that she does not need her Rx refilled at this time and her Rx will be due for refill sometime later next week She denies any headaches or dizziness Denies any chest pains, no increased shortness of breath No nausea/vomiting, no abdominal pain No change in bowel habits noted [facility] Medical History (Updated 07/06/24 @ 17:11 by Dash Crowder MD) Varicose veins of both lower extremities Obesity (BMI 30-39.9) Rheumatoid arthritis Pure hypercholesterolemia Essential hypertension Adrenal insufficiency Low serum cortisol level Obesity Cholecystostomy care Vitamin D deficiency Perimenopause Scleritis Neutropenia Graves disease Amenorrhea Back pain Surgical History History of bone marrow biopsy History of biopsy History of cholecystectomy History of umbilical hernia repair History of D&C History of section Family History Father Colon cancer Mother No problems noted. Unknown Colon cancer Social History Household Members: Family Housing: House Are you a primary urgent care physician assistant to a significant other at home: No Do you presently have visiting nurse or other home services: No Alcohol intake: former Patient Tobacco Use Status: Current everyday Tobacco user Tobacco use type: Cigarette Cigarette Packs Per Day: 1 Cigarettes Per Day: 20.0 e-Cigarette/Vaping Use: Never Used Second Hand Smoke Exposure: Yes service: No Current occupational status: unemployed Current occupational exposures/hazards: No Cognitive needs: No Hearing needs: No Vision needs: Yes Female Reproductive History Menstrual Age of Menarche: 10 Questionnaire PHQ-9 Over the last 2 weeks, how often have you been bothered by any of the following problems? 1. Little interest or pleasure in doing things: not at all 2. Feeling down, depressed, or hopeless: not at all 3. Trouble falling or staying asleep, or sleeping too much: not at all 4. Feeling tired or having little energy: not at all 5. Poor appetite or overeating: not at all 6. Feeling bad about yourself - or that you are a failure or have let yourself or your family down: not at all 7. Trouble concentrating on things, such as reading the newspaper or watching television: not at all 8. Moving or speaking so slowly that other people could have noticed. Or the opposite - being so fidgety or restless that you have been moving around a lot more than usual: not at all 9. Thoughts that you would be better off or of hurting yourself in some way: not at all Total score: 0 Depression Screening Interpretation: Negative Depression Screening Done: Yes 41289 - PHQ-9 Billing: Yes Source: Developed by Drs. Bear Kendall, Eufemia Reece, Eben Rodriguez and colleagues, with an educational hermes from [employer]. Thrive Questionnaire Date Thrive assessed: 07/02/24 I am a: Patient What is your living situation today?: I have a steady place to live Within the past 12 months, did the food you bought not last and you didn't have the money to get more?: Never true Within the past 12 months, did you worry whether your food would run out before you got money to buy more?: Never true Do you have trouble paying for medicines?: No Do you have trouble getting transportation to medical appointments?: No Do you have trouble paying your heating and electricity bill?: No Do you have trouble taking care of your child, family member or friend?: No Do you have trouble with day-to-day activities such as bathing, preparing meals, shopping, managing finances, etc.?: No Are you currently unemployed and looking for a job?: No Are you interested in more education?: No Please select the resources that you would like help with: None Currently or been in a relationship where the following occur: No concerns reported THRIVE Score: 0 AUDIT C Alcohol Use Questionnaire (AUDIT-C) 1. How often do you have a drink containing alcohol?: Never 3. How often do you have six or more drinks on one occasion?: Never Total Score: 0 Score Reviewed/Action Taken: Yes MARIELENA-7 AMB Questionnaire MARIELENA-7 Date MARIELENA - 7 assessed: 07/02/24 Feeling nervous, anxious, or on edge: 0 = Not at all Not being able to stop or control worryin = Not at all Worrying too much about different things: 0 = Not at all Trouble relaxin = Not at all Being so restless that it is hard to sit still: 0 = Not at all Becoming easily annoyed or irritable: 0 = Not at all Feeling afraid as if something awful might happen: 0 = Not at all Total MARIELENA-7 score (0-4 normal; 5-9 mild; 10-14 moderate; 15-21 severe): 0 Source: Developed by Drs. Bear Kendall, Eufemia Reece, Eben Rodriguez and colleagues, with an educational hermes from [employer]. Review of Systems Const Denies chills, Reports fatigue, Denies fever(s) and Denies headache(s) ENT Denies dysphagia, Denies dizziness, Denies otalgia, Denies headache(s), Denies neck pain, Denies odynophagia and Denies sore throat Card Denies chest pain, Denies palpitations and Denies dyspnea Resp Denies chest congestion, Denies cough and Denies dyspnea GI Denies abdominal pain, Denies constipation, Denies dysphagia, Denies heartburn, Denies diarrhea, Denies nausea, Denies odynophagia and Denies vomiting Denies difficulty voiding, Denies nocturia, Denies dysuria and Denies urinary urgency Musc Details: increased pain (chronic) in both legs - see HPI Reports back pain and Denies neck pain Skin/Breast Denies rash Neuro Denies dizziness and Denies headache(s) Endo Reports fatigue and Denies palpitations Physical exam (Primary Care) Vital Signs: Last Vital Signs Pulse 87 07/02/24 11:27 BP 106/74 07/02/24 11:27 Pulse Ox 94 07/02/24 11:27 Oxygen Delivery Method Room Air 07/02/24 11:27 BMI result Body Mass Index 31.1 Tobacco/Smoking Status: Tobacco use Status Tobacco use date assessed 07/02/24 07/02/24 11:32 Patient Tobacco Use Status Current everyday Tobacco 07/02/24 11:32 Tobacco use type Cigarette 07/02/24 11:32 e-Cigarette/Vaping Use Never Used 07/02/24 11:32 PHQ-9: PHQ-9 Score PHQ-9: Total score 0 07/02/24 12:06 Depression Screening Interpretation: Negative Thrive Assessment: Date of Thrive Assessment Date Thrive assessed 07/02/24 07/02/24 11:32 Currently or been in a relationship where the following occur: No concerns reported Const General: no acute distress and alert HENMT Ears: TM's normal bilaterally and EAC's normal Throat: Yes posterior oropharynx normal and Yes tonsils normal (no TP congestion) Neck Neck: Yes supple and No lymphadenopathy Thyroid: Thyroid normal Resp Auscultation: clear to auscultation bilaterally, no rales and no wheezes Cardio Rate: regular rate Rhythm: regular rhythm Heart sounds: no murmurs GI Palpation (GI): Soft to palpation and nontender Auscultation: normal bowel sounds General: Yes no CVA tenderness Back/Spine/Pelvis Back: no CVA tenderness Thoracic/Lumbar Spine: lumbar spinal tenderness Skin Rashes: no rashes Extrem General: Yes no clubbing, cyanosis or edema Coding Level of Care Code Est Pt Level 4 (66163) Complex EM visit Add On G2211 Diagnoses Polyarthralgia M25.50 Multiple myeloma in remission C90.01 Multiple myeloma remission status: in remission Rheumatoid arthritis with positive rheumatoid factor, involving unspecified site M05.9 Rheumatoid arthritis location: unspecified site Rheumatoid factor presence: with rheumatoid factor Lumbar spondylosis M47.816 Essential hypertension I10 Pure hypercholesterolemia E78.00 Vitamin D deficiency E55.9 Anxiety F41.9 Obesity (BMI 30-39.9) E66.9 Additional Codes PHQ-9 - 41941 - PHQ-9 Billing: Yes ([id number]) Assessment & Plan Assessment & Plan (1) Polyarthralgia: Code(s): M25.50 - Pain in unspecified joint Category: Medical Plan: Patient reports experiencing diffuse joint pains that are worse in her lower extremities Relates (+) significantly increased pain in both lower legs especially towards the later part of the day She was also reportedly diagnosed with possible RA and Graves but these have not been officially confirmed and she has just been treated with oral Prednisone when needed for flare ups Continue Oxycodone 10 mg Q 4 to 6 hours PRN Have advised the patient that we will likely need to have her resign a new pain management agreement at her next appointment yet we will continue to have her do random drug screenings as part of her pain management agreement Follow up with rheumatology as scheduled (2) Multiple myeloma: Code(s): C90.00 - Multiple myeloma not having achieved remission Category: Medical Qualifiers: Multiple myeloma remission status: in remission Qualified Code(s): C90.01 - Multiple myeloma in remission Plan: She reportedly underwent chemotherapy with Daratumumab and was able to complete her Tx but developed bleeding complications subsequently Per last oncology report - patient completed 6 cycles of Daratumumab treatments. She had noted certain side effects including abdominal pain and diarrhea. She also had rather profuse rectal bleeding. Treatment was stopped after completing 6 cycles. Tx appears to have helped and the rashes on her chest and around the eyes have healed quite well but she still has increased joint pains Follow up with oncology as scheduled (3) Rheumatoid arthritis: Code(s): M06.9 - Rheumatoid arthritis, unspecified Category: Medical Qualifiers: Rheumatoid arthritis location: unspecified site Rheumatoid factor presence: with rheumatoid factor Qualified Code(s): M05.9 - Rheumatoid arthritis with rheumatoid factor, unspecified Plan: Patient appears to have failed MTx, Plaquenil and Humira in the past Has received Tx with Rituximab and Daratumumab [place] [facility] [place] (4) Lumbar spondylosis: Code(s): M47.816 - Spondylosis without myelopathy or radiculopathy, lumbar region Category: Medical Plan: Reinforced activity and weight-lifting restrictions to minimize aggravating her low back pain (5) Essential hypertension: Code(s): I10 - Essential (primary) hypertension Category: Medical Plan: Reinforced low sodium diet - goal is systolic BP of 120 mm or less Continue Amlodipine 5 mg QD and HCTZ 25 mg QD (6) Pure hypercholesterolemia: Code(s): E78.00 - Pure hypercholesterolemia, unspecified Category: Medical Plan: Reinforced low cholesterol diet Will recheck her labs and fasting lipids in 3 months for follow up (7) Vitamin D deficiency: Code(s): E55.9 - Vitamin D deficiency, unspecified Category: Medical Plan: Continue Vitamin D3 2000 units QD Will recheck her Vitamin D level in 3 months for follow up (8) Anxiety: Code(s): F41.9 - Anxiety disorder, unspecified Category: Medical Plan: Continue Lorazepam 1 mg TID PRN (9) Obesity (BMI 30-39.9): Code(s): E66.9 - Obesity, unspecified Category: Medical Plan: Reinforced diet; exercise and weight loss are unrealistic given patient's multiple medical and physical issues Plan Follow up in 1 month Orders: Orders Complete Blood Count Auto Diff 3 Months D64.9 - Anemia, unspecified Vitamin D 25-OH Total 3 Months E55.9 - Vitamin D deficiency, unspecified Comprehensive [place]. Panel Fast 3 Months E78.00 - Pure hypercholesterolemia, unspecified Lipid Panel 3 Months E78.00 - Pure hypercholesterolemia, unspecified TSH reflex Free T4 3 Months E78.00 - Pure hypercholesterolemia, unspecified UA CC w/rflx Micro + Cult 3 Months R30.0 - Dysuria
== END 2024-07-02 12:23 | disposition home or self-care (01) ==
LOC: HO.HMCH 11:26
PROVIDERS: PCP Internal Medicine; Visit Provider Internal Medicine
DX: M05.9 Rheumatoid arthritis with rheumatoid factor, unspecified (principal); C90.01 Multiple myeloma in remission; E66.9 Obesity, unspecified; Z68.31 Body mass index [BMI] 31.0-31.9, adult; M25.50 Pain in unspecified joint; M47.816 Spondylosis without myelopathy or radiculopathy, lumbar region; I10 Essential (primary) hypertension; E78.00 Pure hypercholesterolemia, unspecified; E55.9 Vitamin D deficiency, unspecified; F41.9 Anxiety disorder, unspecified

== ENCOUNTER → 2024-07-02 11:25 | Outpatient (BNVA) | payer OTHER, SELFPAY | PROVIDERS: PCP Internal Medicine; Visit Provider Internal Medicine | DX: M79.604 Pain in right leg (principal); M79.605 Pain in left leg; M25.50 Pain in unspecified joint; C90.01 Multiple myeloma in remission; M05.9 Rheumatoid arthritis with rheumatoid factor, unspecified; M47.816 Spondylosis without myelopathy or radiculopathy, lumbar region; I10 Essential (primary) hypertension; E78.00 Pure hypercholesterolemia, unspecified; E55.9 Vitamin D deficiency, unspecified; F41.9 Anxiety disorder, unspecified; E66.9 Obesity, unspecified; Z79.891 Long term (current) use of opiate analgesic; Z79.899 Other long term (current) drug therapy; Z92.21 Personal history of antineoplastic chemotherapy | CPT/HCPCS: 96127; 99212 ==

== ENCOUNTER 2024-07-07 10:50 | Outpatient (AMB) | payer OTHER, SELFPAY ==
--- NOTE | 2024-07-07 10:57 | MHC.OFFVIS ---
Vital Signs 07/07/24 11:06 Height 5 ft 7 in Weight 200 lb 9.93 oz BMI 31.4 BP 120/58 L Blood Pressure Location Rt brachial Position Sitting Pulse 90 Pulse Source Pulse Oximeter Pulse Oximetry (%) 98 Oxygen Delivery Method Room Air Intake Visit Reasons: Abdominal discomfort 6 mo f/u Intake Note: ESTABLISHED PATIENT for mgmt of constipation, hemorrhoids; Imaging done. Chief Complaint; Pt denies any GI concerns at this time. Occasional GI upset but pt attributes that to anxiety. Pt is doing well post op (umbilical repair). Healthcare Risk Control Consultant Required: No Accompanied by: Self / Same As Patient Allergies cephalexin Allergy (Unknown, Verified 07/07/24 10:57) SEIZURE/COMA,anaphylaxsis vancomycin [VANCOMYCIN] Allergy (Unknown, Verified 07/07/24 10:57) RED HEAT RASH HPI HPI Abdominal discomfort 6 mo f/u: Details: LAST VISIT Umbilical hernia Abdominal discomfort GERD (gastroesophageal reflux disease) IBS (irritable bowel syndrome) Plan Continue low-fat, low-salt and high-protein diet. Will order liver MRI to evaluate for lesion. Liver fibrosis F0-F1. Colonoscopy in 5 years due to family history of CRC. Patient currently has no GI concerning symptoms. Follow-up in 6 months for re-evaluating liver, we will order another ultrasound then. Patient is agreeable to current plan of care and verbalizes understanding of instructions. She was given the opportunity to ask questions and all questions answered. ? Thank you for allowing me to participate in her care Orders Orders MR meehan wo/w con Today K76.9 TODAY'S VISIT Patient is here today for follow-up. Patient reports that she has been doing fairly well, denies any GI concerning symptoms. Denies any abdominal pain or discomfort. Denies any dyspepsia, dysphagia or odynophagia. Denies any melena, hematochezia, unintentional weight loss or ribbon like stools. Normal liver enzymes. MRI or of abdomen showed stable liver cyst, will monitor annually. 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 Unknown Colon cancer Social History Household Members: Family Housing: House Are you a primary memory care program resident to a significant other at home: No Do you presently have visiting nurse or other home services: No Alcohol intake: former Patient Tobacco Use Status: Current everyday Tobacco user Tobacco use type: Cigarette Cigarette Packs Per Day: 1 Cigarettes Per Day: 20.0 e-Cigarette/Vaping Use: Never Used Second Hand Smoke Exposure: Yes service: No Current occupational status: unemployed Current occupational exposures/hazards: No Cognitive needs: No Hearing needs: No Vision needs: Yes Female Reproductive History Menstrual Age of Menarche: 10 Review of Systems Const Denies weight gain and Denies weight loss ENT Reports no additional complaints, Denies dysphagia and Denies odynophagia Card Reports no additional complaints Resp Reports no additional complaints GI Denies abdominal pain, Denies belching, Denies melena, Denies bloating, Denies change in bowel habits, Denies dysphagia, Denies excessive flatus, Denies dyspepsia, Denies heartburn, Denies diarrhea, Denies loose stools, Denies nausea, Denies odynophagia and Denies vomiting Musc Reports no additional complaints Neuro Reports no additional complaints Psych Reports no additional complaints Endo Reports no additional complaints Physical Exam Vital Signs: Last Vital Signs Pulse 90 07/07/24 11:06 BP 120/58 L 07/07/24 11:06 Pulse Ox 98 07/07/24 11:06 Oxygen Delivery Method Room Air 07/07/24 11:06 BMI result Body Mass Index 31.4 Const General: healthy appearing, no acute distress and well developed Nutritional Appearance: obese Orientation/consciousness: patient oriented x3 Resp Effort & Inspection: normal respiratory effort, able to speak in complete sentences, no tracheal deviation and symmetric chest movement Auscultation: clear to auscultation bilaterally Cardio Rate: regular rate GI Inspection: Yes normal to inspection, No distended and Yes obesity Palpation (GI): Soft to palpation, not firm, nontender, No hepatosplenomegaly present and Hernia present (Large umbilical hernia) Auscultation: normal bowel sounds General: Yes no CVA tenderness Back/Spine/Pelvis Back: no CVA tenderness Skin General skin exam: elasticity normal, turgor normal and dry skin Neuro General: patient oriented x3 Psych Appearance: grossly normal Mental Status: mental status grossly normal Results Reviewed Results Reviewed: ABDOMINAL MRI FINDINGS: The liver remains mildly enlarged. No definite surface nodularity is seen. There is mild loss of signal intensity within the liver on opposed phase imaging, compatible with steatosis. Again seen is a 12 mm cyst in the left lobe. The previously seen arterial hyperenhancing focus in segment VIII is faintly visualized (series 12, image 24). This is difficult to characterize due to its small size. No new hyperenhancing lesions are identified. The hepatic and portal veins are patent. There is no intra or extrahepatic biliary ductal dilatation. The spleen remains enlarged, but demonstrates homogeneous enhancement. The patient is status post cholecystectomy. The pancreas and adrenals are unremarkable. There are tiny probable cysts in both kidneys. No retroperitoneal lymphadenopathy or ascites is identified in the upper abdomen. There is an umbilical hernia containing unobstructed portion of the transverse colon. There is abnormal enhancing tissue along the omentum just inferior to the hernia sac. MR/MR abdomen wo/w con IMPRESSION: 1. Hepatosplenomegaly and mild hepatic steatosis. 2. Stable 8 mm hyperenhancing focus in segment VIII. Continued follow-up is recommended. Stable 12 mm cyst in the left lobe. No new lesion is identified. 3. Abnormal enhancing tissue along the omentum just inferior to the umbilical hernia. Findings are suspicious for omental metastatic disease. Please see results of recently performed PET/CT scan. Assessment & Plan Assessment & Plan (1) Umbilical hernia: Code(s): K42.9 - Umbilical hernia without obstruction or gangrene Qualifiers: Obstruction and gangrene presence: without obstruction or gangrene Qualified Code(s): K42.9 - Umbilical hernia without obstruction or gangrene (2) Abdominal discomfort: Code(s): R10.9 - Unspecified abdominal pain (3) GERD (gastroesophageal reflux disease): Code(s): K21.9 - Gastro-esophageal reflux disease without esophagitis Qualifiers: Esophagitis presence: esophagitis presence not specified Qualified Code(s): K21.9 - Gastro-esophageal reflux disease without esophagitis (4) IBS (irritable bowel syndrome): Code(s): K58.9 - Irritable bowel syndrome, unspecified Qualifiers: Irritable bowel syndrome type: without diarrhea Qualified Code(s): K58.9 - Irritable bowel syndrome, unspecified (5) 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 Avoid dietary triggers in late night snacking. Patient has been doing fairly well no GI concerning symptoms in the past few months. Occasional postprandial abdominal bloating and cramping just before bowel movements. Low FODMAP diet discussed with patient. List of food recommended as well as list of food to avoid given to patient. Patient will follow-up in 1 year we will repeat labs and MRI to check for liver cyst. Patient is agreeable to this plan and verbalizes understanding of instructions. She was given the opportunity to ask questions and all questions answered. Patient will call us if she will have any GI concerning symptoms. Thank you for allowing me to participate in her care Medications: New hydrocortisone 2.5% (Proctosol HC) 1 appl IN BID-QID PRN 30 grams 2RF hemorrhoids K64.9 - Unspecified hemorrhoids Coding Level of Care Code Est Pt Level 4 (58351) Complex EM visit Add On G2211 Diagnoses Umbilical hernia without obstruction and without gangrene K42.9 Obstruction and gangrene presence: without obstruction or gangrene Abdominal discomfort R10.9 Gastroesophageal reflux disease, unspecified whether esophagitis present K21.9 Esophagitis presence: esophagitis presence not specified Irritable bowel syndrome without diarrhea K58.9 Irritable bowel syndrome type: without diarrhea 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
[2024-07-07 11:06] VITALS: BP 120/58; PULSE 90; O2SAT 98; BMI 31.4
== END 2024-07-07 11:31 | disposition home or self-care (01) ==
LOC: HO.HGI 10:51
PROVIDERS: PCP Internal Medicine; Visit Provider Nurse Practitioner Family
DX: K42.9 Umbilical hernia without obstruction or gangrene (principal); R10.9 Unspecified abdominal pain; K21.9 Gastro-esophageal reflux disease without esophagitis; K58.9 Irritable bowel syndrome, unspecified; K75.81 Nonalcoholic steatohepatitis (NASH); K74.60 Unspecified cirrhosis of liver; R14.0 Abdominal distension (gaseous); K76.89 Other specified diseases of liver
CPT/HCPCS: 99214; G2211

== ENCOUNTER → 2024-07-07 10:50 | Outpatient (BNVA) | payer OTHER, SELFPAY | PROVIDERS: PCP Internal Medicine; Visit Provider Nurse Practitioner Family | DX: R10.9 Unspecified abdominal pain (principal); K21.9 Gastro-esophageal reflux disease without esophagitis; K42.9 Umbilical hernia without obstruction or gangrene; K58.9 Irritable bowel syndrome, unspecified; K75.81 Nonalcoholic steatohepatitis (NASH); K74.60 Unspecified cirrhosis of liver; R14.0 Abdominal distension (gaseous); K76.89 Other specified diseases of liver; K64.9 Unspecified hemorrhoids | CPT/HCPCS: 99212 ==

== ENCOUNTER 2024-10-28 16:38 | Outpatient (AMB) | payer OTHER, SELFPAY ==
[2024-10-28 16:46] VITALS: BP 136/72; PULSE 89; RESP 18; O2SAT 96; BMI 30.4
--- NOTE | 2024-10-28 16:46 | MHC.PC.OV ---
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 Required: No Accompanied by: Self / Same As Patient Allergies cephalexin Allergy (Unknown, Verified 10/28/24 17:23) SEIZURE/COMA,anaphylaxsis vancomycin (VANCOMYCIN) Allergy (Unknown, Verified 10/28/24 17:23) RED HEAT RASH Medication List - Last Reconciled 10/28/24 by Dash Crowder MD acetaminophen 2 tabs PO Q4H amlodipine 5 mg (2 x 2.5 mg) PO DAILY cane As directed cholecalciferol (vitamin D3) 50 mcg PO DAILY folic acid 1 mg PO DAILY hydrochlorothiazide 25 mg PO DAILY lorazepam 1 mg PO TID PRN nicotine 1 patch transdermal DAILY oxycodone 10 mg PO Q4-6H PRN Tobacco use date assessed: 10/28/24 Dental Screening Dental Screen Date: 10/28/24 Did you have a dental visit in the last 12 months?: No Did you have a dental problem in the last 6 months where you did not have access to dental care?: No Was dental information given to patient?: Patient has dentist HPI 3 month f/u HPI Details Patient comes in today for her follow-up visit She is currently still seeing surgery at [facility] for management of her abdominal wall hernia States that she had umbilical hernia repair done by Dr. Christianson many years ago and she felt that this was disrupted when she had laparoscopic cholecystectomy done at [facility] back in 2020 as this recurred again after her surgery then and she is currently experiencing frequent pain and discomfort over her umbilical hernia area States that she just had abdominal CT done at [facility] last week and she will be seeing surgery there again in a few days for follow up She also has other multiple issues going on at this time, including varicose veins over both of her lower extremities for which she is undergoing evaluation and potential ablation surgery again at [facility] She is also currently considering chemotherapy for her multiple myeloma/MGUS but she has her reservations about this and has not yet made up her mind whether she wants to start treatment or not States that she completed her treatment and is currently no longer taking Eliquis for blood clots that she developed post surgery for varicose veins She was also seen by rheumatology at [facility] for follow-up earlier this month via Zoom for her polyarthralgia and 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 - she previously exhibited positive response and had dramatic improvement of her skin condition and some improvement of her bone/joint pains when treated with daratumumab from July to December 2022 She has also been advised to speak to her PCP about starting on a low dose of Cymbalta to help manage her chronic noninflammatory pain She is advised to consider physical therapy as well States that she needs her oxycodone, lorazepam and ibuprofen Rx refilled today She would also like to request for a prescription again for nicotine patches to help her quit smoking She denies any headaches or dizziness Denies any exertional chest pains or increased shortness of breath No nausea/vomiting, no abdominal pain No change in bowel habits noted FOR[facility]LY [facility], [facility] Medical History (Updated 10/29/24 @ 05:47 by Dash Crowder MD) Smoker 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 Unknown Colon cancer Social History Household Members: Family Housing: House Are you a primary childcare center director to a significant other at home: No Do you presently have visiting nurse or other home services: No Alcohol intake: former Patient Tobacco Use Status: Current everyday Tobacco user Tobacco use type: Cigarette Cigarette Packs Per Day: 1 Cigarettes Per Day: 20.0 e-Cigarette/Vaping Use: Never Used Second Hand Smoke Exposure: Yes service: No Current occupational status: unemployed Current occupational exposures/hazards: No Cognitive needs: No Hearing needs: No Vision needs: Yes Female Reproductive History Menstrual Age of Menarche: 10 Questionnaire PHQ-9 Over the last 2 weeks, how often have you been bothered by any of the following problems? 1. Little interest or pleasure in doing things: not at all 2. Feeling down, depressed, or hopeless: not at all 3. Trouble falling or staying asleep, or sleeping too much: not at all 4. Feeling tired or having little energy: several days 5. Poor appetite or overeating: not at all 6. Feeling bad about yourself - or that you are a failure or have let yourself or your family down: not at all 7. Trouble concentrating on things, such as reading the newspaper or watching television: not at all 8. Moving or speaking so slowly that other people could have noticed. Or the opposite - being so fidgety or restless that you have been moving around a lot more than usual: not at all 9. Thoughts that you would be better off or of hurting yourself in some way: not at all Total score: 1 Depression Screening Interpretation: Negative Depression Screening Done: Yes 54995 - PHQ-9 Billing: Yes Source: Developed by Drs. Bear Kendall, Eufemia Reece, Eben Rodriguez and colleagues, with an educational hermes from [employer]. Thrive Questionnaire Date Thrive assessed: 10/28/24 I am a: Patient What is your living situation today?: I have a steady place to live Within the past 12 months, did the food you bought not last and you didn't have the money to get more?: I choose not to answer this question Within the past 12 months, did you worry whether your food would run out before you got money to buy more?: I choose not to answer this question Do you have trouble paying for medicines?: No Do you have trouble getting transportation to medical appointments?: No Do you have trouble paying your heating and electricity bill?: No Do you have trouble taking care of your child, family member or friend?: No Do you have trouble with day-to-day activities such as bathing, preparing meals, shopping, managing finances, etc.?: No Are you currently unemployed and looking for a job?: No Are you interested in more education?: No Please select the resources that you would like help with: None Currently or been in a relationship where the following occur: No concerns reported THRIVE Score: 0 AUDIT C Alcohol Use Questionnaire (AUDIT-C) 1. How often do you have a drink containing alcohol?: Never 3. How often do you have six or more drinks on one occasion?: Never Total Score: 0 Score Reviewed/Action Taken: Yes MARIELENA-7 AMB Questionnaire MARIELENA-7 Date MARIELENA - 7 assessed: 10/28/24 Feeling nervous, anxious, or on edge: 0 = Not at all Not being able to stop or control worryin = Not at all Worrying too much about different things: 1 = Several days Trouble relaxin = Not at all Being so restless that it is hard to sit still: 0 = Not at all Becoming easily annoyed or irritable: 0 = Not at all Feeling afraid as if something awful might happen: 0 = Not at all Total MARIELENA-7 score (0-4 normal; 5-9 mild; 10-14 moderate; 15-21 severe): 1 Source: Developed by Drs. Bear Kendall, Eufemia Reece, Eben Rodriguez and colleagues, with an educational hermes from [employer]. Review of Systems Const Denies chills, Reports fatigue, Denies fever(s) and Denies headache(s) ENT Denies dysphagia, Denies dizziness, Denies otalgia, Denies headache(s), Denies neck pain, Denies odynophagia and Denies sore throat Card Denies chest pain, Denies palpitations and Denies dyspnea Resp Denies chest congestion, Denies cough and Denies dyspnea GI Denies abdominal pain, Denies constipation, Denies dysphagia, Denies heartburn, Denies diarrhea, Denies nausea, Denies odynophagia and Denies vomiting Denies difficulty voiding, Denies nocturia, Denies dysuria and Denies urinary urgency Musc Details: increased pain (chronic) in both legs Reports back pain, Reports arthralgias (involving multiple joints) and Denies neck pain Skin/Breast Details: (+) multiple varicosities on both lower extremities Neuro Denies dizziness and Denies headache(s) Endo Reports fatigue and Denies palpitations Physical exam (Primary Care) Vital Signs: Last Vital Signs Pulse 89 10/28/24 16:46 Resp 18 10/28/24 16:46 BP 136/72 10/28/24 16:46 Pulse Ox 96 10/28/24 16:46 Oxygen Delivery Method Room Air 10/28/24 16:46 BMI result Body Mass Index 30.4 Tobacco/Smoking Status: Tobacco use Status Tobacco use date assessed 10/28/24 10/28/24 16:54 Patient Tobacco Use Status Current everyday Tobacco 10/28/24 16:54 Tobacco use type Cigarette 10/28/24 16:54 e-Cigarette/Vaping Use Never Used 10/28/24 16:54 PHQ-9: PHQ-9 Score PHQ-9: Total score 1 10/29/24 05:54 Depression Screening Interpretation: Negative Thrive Assessment: Date of Thrive Assessment Date Thrive assessed 10/28/24 10/28/24 16:54 Currently or been in a relationship where the following occur: No concerns reported Const General: no acute distress and alert HENMT Ears: TM's normal bilaterally and EAC's normal Throat: Yes posterior oropharynx normal and Yes tonsils normal (no TP congestion) Neck Neck: Yes supple and No lymphadenopathy Thyroid: Thyroid normal Resp Auscultation: clear to auscultation bilaterally, no rales and no wheezes Cardio Rate: regular rate Rhythm: regular rhythm Heart sounds: no murmurs GI Palpation (GI): Soft to palpation, nontender and Hernia present umbilical Auscultation: normal bowel sounds General: Yes no CVA tenderness Back/Spine/Pelvis Back: no CVA tenderness Thoracic/Lumbar Spine: lumbar spinal tenderness Skin Other: (+) multiple varicose veins and scattered ecchymoses noted over both lower extremities Extrem General: Yes no clubbing, cyanosis or edema Right lower extremity: knee Details: tenderness Left lower extremity: knee Details: tenderness Coding Level of Care Code Est Pt Level 4 (70308) Diagnoses Polyarthralgia M25.50 Multiple myeloma in remission C90.01 Multiple myeloma remission status: in remission 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; D89.2 Rheumatoid arthritis with positive rheumatoid factor, involving unspecified site M05.9 Rheumatoid arthritis location: unspecified site Rheumatoid factor presence: with rheumatoid factor Ventral hernia, recurrent K43.2 Lumbar spondylosis M47.816 Essential hypertension I10 Pure hypercholesterolemia E78.00 Varicose veins of both lower extremities with inflammation I83.11; I83.12 Vitamin D deficiency E55.9 Anxiety F41.9 Smoker F17.200 Obesity (BMI 30-39.9) E66.9 Additional Codes PHQ-9 - 24509 - PHQ-9 Billing: Yes ([id number]) Assessment & Plan Assessment & Plan (1) Polyarthralgia: Code(s): M25.50 - Pain in unspecified joint Category: Medical Plan: Patient reports experiencing diffuse joint pains that are worse in her lower extremities Relates (+) significantly increased pain in both lower legs especially towards the later part of the day She was also reportedly diagnosed with possible RA and Graves but these have not been officially confirmed and she has just been treated with oral Prednisone when needed for flare ups Continue Oxycodone 10 mg Q 4 to 6 hours PRN Follow up with rheumatology as scheduled Per rheumatology recommendation, will start her on a trial of low dose Duloxetine 30 mg QD (2) Multiple myeloma: Code(s): C90.00 - Multiple myeloma not having achieved remission Category: Medical Qualifiers: Multiple myeloma remission status: in remission Qualified Code(s): C90.01 - Multiple myeloma in remission Plan: She reportedly underwent chemotherapy with Daratumumab and was able to complete her Tx but developed bleeding complications subsequently Per last oncology report - patient completed 6 cycles of Daratumumab treatments. She had noted certain side effects including abdominal pain and diarrhea. She also had rather profuse rectal bleeding. Treatment was stopped after completing 6 cycles. Tx appears to have helped and the rashes on her chest and around the eyes have healed quite well but she still has increased joint pains Follow up with oncology as scheduled (3) Necrobiotic xanthogranuloma with paraproteinemia: Code(s): D76.3 - Other histiocytosis syndromes; D89.2 - Hypergammaglobulinemia, unspecified Category: Medical Plan: She previously exhibited positive response and had dramatic improvement of her skin condition and some improvement of her bone/joint pains when treated with daratumumab from July to December 2022 Follow up with rheumatology as scheduled (4) Rheumatoid arthritis: Code(s): M06.9 - Rheumatoid arthritis, unspecified Category: Medical Qualifiers: Rheumatoid arthritis location: unspecified site Rheumatoid factor presence: with rheumatoid factor Qualified Code(s): M05.9 - Rheumatoid arthritis with rheumatoid factor, unspecified Plan: Patient appears to have failed MTx, Plaquenil and Humira in the past Has received Tx with Rituximab and Daratumumab Follow up with rheumatology at [facility] as scheduled (5) Ventral hernia, recurrent: Code(s): K43.2 - Incisional hernia without obstruction or gangrene Category: Medical Plan: Follow up with surgery at [facility] as scheduled (6) Lumbar spondylosis: Code(s): M47.816 - Spondylosis without myelopathy or radiculopathy, lumbar region Category: Medical Plan: Reinforced activity and weight-lifting restrictions to minimize aggravating her low back pain (7) Essential hypertension: Code(s): I10 - Essential (primary) hypertension Category: Medical Plan: Reinforced low sodium diet - goal is systolic BP of 120 mm or less Continue Amlodipine 5 mg QD and HCTZ 25 mg QD (8) Pure hypercholesterolemia: Code(s): E78.00 - Pure hypercholesterolemia, unspecified Category: Medical Plan: Reinforced low cholesterol diet (9) Varicose veins of both lower extremities with inflammation: Code(s): I83.11 - Varicose veins of right lower extremity with inflammation; I83.12 - Varicose veins of left lower extremity with inflammation Category: Medical Plan: S/P venous ablation Follow up with vascular surgery as scheduled (10) Vitamin D deficiency: Code(s): E55.9 - Vitamin D deficiency, unspecified Category: Medical Plan: Continue Vitamin D3 2000 units QD Will recheck her Vitamin D level in 3 months for follow up (11) Anxiety: Code(s): F41.9 - Anxiety disorder, unspecified Category: Medical Plan: Continue Lorazepam 1 mg TID PRN (12) Smoker: Code(s): F17.200 - Nicotine dependence, unspecified, uncomplicated Category: Social Hx Plan: Patient is counseled on smoking cessation Per request, will start her on nicotine patches to help her quit smoking (13) Obesity (BMI 30-39.9): Code(s): E66.9 - Obesity, unspecified Category: Medical Plan: Reinforced diet; exercise and weight loss are unrealistic given patient's multiple medical and physical issues Plan Follow up in 1 month Medications: New duloxetine 30 mg PO DAILY 30 caps 3RF 30 days Changed From nicotine 1 patch transdermal DAILY 28 ea 2RF To nicotine 1 patch transdermal DAILY 28 ea 1RF 28 days From ibuprofen 800 mg PO Q6H 90 tabs 3RF To ibuprofen Take with food 800 mg PO Q6-8H PRN 120 tabs 3RF pain 30 days Refilled lorazepam 1 mg PO TID PRN 90 tabs 1RF anxiety oxycodone 10 mg PO Q4-6H PRN 140 tabs 0RF pain
--- OUTSIDE RECORDS SUMMARY | 2024-10-28 16:49 | XMS_ITS | Encounter Summary ---
Author Organization [facility] Address [address] [place] [address] [place] [phone] Phone Care Team Providers Care Concrete Journeyman Name Role Phone Pedro Phillips MD Primary Care Provider [phone] Asad Sheppard MD, SHANNEN Unavailable [phone] Justino Deleon MD Unavailable Dash Crowder MD Primary Care Provider [phone] Encounter Details Date Type Department Care Team (Latest Contact Info) Description 01/26/2022 Ancillary Orders [facility] Rheumatology [address], [address], [address] [place] [address] Luly Sepulveda MD [address] [place] [id number] [email or web address] Necrobiotic xanthogranuloma Social History Tobacco Use Types Packs/Day Years Used Date Smoking Tobacco: Every Day Cigarettes Smokeless Tobacco: Never Alcohol Use Standard Drinks/Week Comments Not Currently 0 (1 standard drink = 0.6 oz pur e alcohol) Comments No Sex and Gender Information Value Date Recorded Sex Assigned at Not on file Legal Sex Female 8:41 AM EDT Gender Identity Not on file Sexual Orientation Not on file documented as of this encounter Plan of Treatment Upcoming Encounters Date Type Department Care Team (Late st Contact Info) Description 03/13/2025 11:40 AM EST Office Visit [facility] Rheumatology [address], [address] [place] [address] Luly Sepulveda MD [address] [place] [phone] [email or web address] documented as of this encounter Results * XR WRIST 3 OR MORE VIEWS (LEFT) (01/26/2022 1:38 PM EDT) Anatomical Region Laterality Modality Wrist Left Computed Radiogr aphy 01/26/2022 9:35 PM EDT Impressions 01/26/2022 9:41 PM EDT No acute osseous abnormality. No suspicious osseous lesions. Narrative 01/26/2022 9:41 PM EDT XR WRIST 3 OR MORE VIEWS (RIGHT), XR LUMBOSACRAL SPINE 4 OR MORE VIEWS, XR WRIST 3 OR MORE VIEWS (LEFT), XR HAND 3 OR MORE VIEWS (BILATERAL), XR FEMUR 2 OR MORE VIEWS (RIGHT), XR FEMUR 2 OR MORE VIEWS (LEFT), XR TIBIA FIBULA 2 VIEWS (RIGHT), XR TIBIA FIBULA 2 VIEWS (LEFT) COMPARISON: Myeloma CT from 2021 FINDINGS: Bilateral wrists and hands: There is a punctate ossific fragment adjacent to the right ulnar styloid, likely the sequela of remote trauma. The joint spaces are maintained. No acute fracture or dislocation. No specific findings for inflammatory arthritis. Lumbar spine: The alignment is normal. The vertebral body heights are maintained. The disc spaces are maintained with minimal scattered endplate spurring. Cholecystectomy clips project over the right upper quadrant. There are mild bilateral sacroiliac joint degenerative changes. Bilateral femur and tibia-fibula: No acute fracture or dislocation. Be hip joint spaces are maintained. An unchanged lucency in the left supra-acetabular ilium is likely an intraosseous ganglion. The partially evaluated knee and ankle joint spaces are maintained. Procedure Note Jaya Lin MD - 01/26/2022 XR WRIST 3 OR MORE VIEWS (RIGHT), XR LUMBOSACRAL SPINE 4 OR MORE VIEWS, XRWRIST 3 OR MORE VIEWS (LEFT), XR HAND 3 OR MORE VIEWS (BILATERAL), XRFEMUR 2 OR MORE VIEWS (RIGHT), XR FEMUR 2 OR MORE VIEWS (LEFT), XR TIBIAFIBULA 2 VIEWS (RIGHT), XR TIBIA FIBULA 2 VIEWS (LEFT) COMPARISON: Myeloma CT from 2021 FINDINGS: Bilateral wrists and hands: There is a punctate ossific fragment adjacentto the right ulnar styloid, likely the sequela of remote trauma. The jointspaces are maintained. No acute fracture or dislocation. No specificfindings for inflammatory arthritis. Lumbar spine: The alignment is normal. The vertebral body heights aremaintained. The disc spaces are maintained with minimal scattered endplatespurring. Cholecystectomy clips project over the right upper quadrant.There are mild bilateral sacroiliac joint degenerative changes. Bilateral femur and tibia-fibula: No acute fracture or dislocation. Be hipjoint spaces are maintained. An unchanged lucency in the leftsupra-acetabular ilium is likely an intraosseous ganglion. The partiallyevaluated knee and ankle joint spaces are maintained. IMPRESSION: No acute osseous abnormality. No suspicious osseous lesions. Luly Sepulveda MD IMG XR UPPER EXTREMITY Deisi l Result documented in this encounter Visit Diagnoses Diagnosis Necrobiotic xanthogranuloma Necrobiotic xanthogranuloma documented in this encounter Care Teams Concrete Journeyman Relationship Specialty Start Date End Date Pedro Phillips MD [address] [place] [address] [place] [id number] PCP - General Internal Medicine 08/15/18 09/30/24 Dash Crowder MD [address] [place] [address] [place] [id number] PCP - General Internal Medicine 10/01/24 Asad Sheppard MD, SHANNEN [address] [place] [address] [place] [id number] [email or web address] Treatment Team Ophthalmology 06/22/20 Justino Deleon MD [address] [place] [id number] [email or web address] Consulting Provider Medical Oncology 10/28/21 documented as of this encounter Additional Source Comments The information contained in this document represents components of the legal health record. It is not the complete legal health record.[facility]
== END 2024-10-28 17:18 | disposition home or self-care (01) ==
LOC: HO.HMCH 16:40
PROVIDERS: PCP Internal Medicine; Visit Provider Internal Medicine
DX: M25.50 Pain in unspecified joint (principal); C90.01 Multiple myeloma in remission; D76.3 Other histiocytosis syndromes; M05.9 Rheumatoid arthritis with rheumatoid factor, unspecified; D89.2 Hypergammaglobulinemia, unspecified; K43.2 Incisional hernia without obstruction or gangrene; M47.816 Spondylosis without myelopathy or radiculopathy, lumbar region; I10 Essential (primary) hypertension; E78.00 Pure hypercholesterolemia, unspecified; I83.11 Varicose veins of right lower extremity with inflammation; I83.12 Varicose veins of left lower extremity with inflammation; E55.9 Vitamin D deficiency, unspecified

== ENCOUNTER → 2024-10-28 16:38 | Outpatient (BNVA) | payer OTHER, SELFPAY | PROVIDERS: PCP Internal Medicine; Visit Provider Internal Medicine | DX: M79.604 Pain in right leg (principal); M79.605 Pain in left leg; D76.3 Other histiocytosis syndromes; D89.2 Hypergammaglobulinemia, unspecified; M05.9 Rheumatoid arthritis with rheumatoid factor, unspecified; K43.2 Incisional hernia without obstruction or gangrene; C90.01 Multiple myeloma in remission; M47.816 Spondylosis without myelopathy or radiculopathy, lumbar region; I10 Essential (primary) hypertension; E78.00 Pure hypercholesterolemia, unspecified; I83.11 Varicose veins of right lower extremity with inflammation; I83.12 Varicose veins of left lower extremity with inflammation; E55.9 Vitamin D deficiency, unspecified; F41.9 Anxiety disorder, unspecified; F17.200 Nicotine dependence, unspecified, uncomplicated; E66.9 Obesity, unspecified; Z68.30 Body mass index [BMI] 30.0-30.9, adult; Z79.891 Long term (current) use of opiate analgesic; Z79.899 Other long term (current) drug therapy; Z13.31 Encounter for screening for depression; Z13.39 Encounter for screening examination for other mental health and behavioral disorders | CPT/HCPCS: 96127; 99212 ==

== ENCOUNTER 2024-11-24 10:52 | Outpatient (AMB) | payer OTHER, SELFPAY ==
[2024-11-24 11:04] VITALS: BP 120/70; PULSE 80; O2SAT 96; BMI 30.7
--- NOTE | 2024-11-24 11:04 | MHC.PC.OV ---
Vital Signs 11/24/24 11:04 Height 5 ft 7 in Weight 196 lb 4 oz BMI 30.7 BP 120/70 Blood Pressure Location Lt brachial Position Sitting Pulse 80 Pulse Source Pulse Oximeter Pulse Oximetry (%) 96 Oxygen Delivery Method Room Air Intake Visit Reasons: med management Sugar Laboratory Assistant Required: No Accompanied by: Self / Same As Patient Allergies cephalexin Allergy (Unknown, Verified 11/24/24 11:46) SEIZURE/COMA,anaphylaxsis vancomycin (VANCOMYCIN) Allergy (Unknown, Verified 11/24/24 11:46) RED HEAT RASH Medication List - Last Reconciled 11/24/24 by Dash Crowder MD acetaminophen 2 tabs PO Q4H amlodipine 5 mg (2 x 2.5 mg) PO DAILY cane As directed cholecalciferol (vitamin D3) 50 mcg PO DAILY duloxetine 30 mg PO DAILY 30 days folic acid 1 mg PO DAILY hydrochlorothiazide 25 mg PO DAILY ibuprofen 800 mg PO Q6-8H PRN 30 days lorazepam 1 mg PO TID PRN nicotine 1 patch transdermal DAILY 28 days oxycodone 10 mg PO Q4-6H PRN Tobacco use date assessed: 11/24/24 Dental Screening Dental Screen Date: 11/24/24 Did you have a dental visit in the last 12 months?: No Did you have a dental problem in the last 6 months where you did not have access to dental care?: No Was dental information given to patient?: No HPI med management HPI Details Patient comes in today for her follow up visit States that she was not able to get her follow up labs done yet as she has been feeling overwhelmed by everything that is going on with and around her She is still dealing with her own issues, including her abdominal wall hernia, for which she is still seeing surgery over at [facility], as well as her varicose veins with [facility] and her MGUS, for which she is still considering whether to go for chemotherapy or not She denies any headaches or dizziness Denies any chest pains, no shortness of breath No nausea/vomiting, no abdominal pain No change in bowel habits noted Needs her pain med Rx refilled Patient also recalls that Dr. 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 Unknown Colon cancer Social History Household Members: Family Housing: House Are you a primary direct care professional to a significant other at home: No Do you presently have visiting nurse or other home services: No Alcohol intake: former Patient Tobacco Use Status: Current everyday Tobacco user Tobacco use type: Cigarette Cigarette Packs Per Day: 1 Cigarettes Per Day: 20.0 e-Cigarette/Vaping Use: Never Used Second Hand Smoke Exposure: Yes service: No Current occupational status: unemployed Current occupational exposures/hazards: No Cognitive needs: No Hearing needs: No Vision needs: Yes Female Reproductive History Menstrual Age of Menarche: 10 Questionnaire PHQ-9 Over the last 2 weeks, how often have you been bothered by any of the following problems? 1. Little interest or pleasure in doing things: not at all 2. Feeling down, depressed, or hopeless: not at all 3. Trouble falling or staying asleep, or sleeping too much: not at all 4. Feeling tired or having little energy: several days 5. Poor appetite or overeating: not at all 6. Feeling bad about yourself - or that you are a failure or have let yourself or your family down: not at all 7. Trouble concentrating on things, such as reading the newspaper or watching television: not at all 8. Moving or speaking so slowly that other people could have noticed. Or the opposite - being so fidgety or restless that you have been moving around a lot more than usual: not at all 9. Thoughts that you would be better off or of hurting yourself in some way: not at all Total score: 1 Depression Screening Interpretation: Negative Depression Screening Done: Yes 13233 - PHQ-9 Billing: Yes Source: Developed by Drs. Bear Kendall, Eufemia Reece, Eben Rodriguez and colleagues, with an educational hermes from [employer]. Thrive Questionnaire Date Thrive assessed: 11/24/24 I am a: Patient What is your living situation today?: I have a steady place to live Within the past 12 months, did the food you bought not last and you didn't have the money to get more?: I choose not to answer this question Within the past 12 months, did you worry whether your food would run out before you got money to buy more?: I choose not to answer this question Do you have trouble paying for medicines?: No Do you have trouble getting transportation to medical appointments?: No Do you have trouble paying your heating and electricity bill?: No Do you have trouble taking care of your child, family member or friend?: No Do you have trouble with day-to-day activities such as bathing, preparing meals, shopping, managing finances, etc.?: No Are you currently unemployed and looking for a job?: No Are you interested in more education?: No Please select the resources that you would like help with: None Currently or been in a relationship where the following occur: No concerns reported THRIVE Score: 0 AUDIT C Alcohol Use Questionnaire (AUDIT-C) 1. How often do you have a drink containing alcohol?: Never 3. How often do you have six or more drinks on one occasion?: Never Total Score: 0 Score Reviewed/Action Taken: Yes MARIELENA-7 AMB Questionnaire MARIELENA-7 Date MARIELENA - 7 assessed: 11/24/24 Feeling nervous, anxious, or on edge: 0 = Not at all Not being able to stop or control worryin = Not at all Worrying too much about different things: 1 = Several days Trouble relaxin = Not at all Being so restless that it is hard to sit still: 0 = Not at all Becoming easily annoyed or irritable: 0 = Not at all Feeling afraid as if something awful might happen: 0 = Not at all Total MARIELENA-7 score (0-4 normal; 5-9 mild; 10-14 moderate; 15-21 severe): 1 Source: Developed by Drs. Bear Kendall, Eufemia Reece, Eben Rodriguez and colleagues, with an educational hermes from [employer]. Review of Systems Const Denies chills, Reports fatigue, Denies fever(s) and Denies headache(s) ENT Denies dysphagia, Denies dizziness, Denies otalgia, Denies headache(s), Denies neck pain, Denies odynophagia and Denies sore throat Card Denies chest pain, Denies palpitations and Denies dyspnea Resp Denies chest congestion, Denies cough and Denies dyspnea GI Denies abdominal pain, Denies constipation, Denies dysphagia, Denies heartburn, Denies diarrhea, Denies nausea, Denies odynophagia and Denies vomiting Denies difficulty voiding, Denies nocturia, Denies dysuria and Denies urinary urgency Musc Details: increased pain (chronic) in both legs Reports back pain, Reports arthralgias (involving multiple joints) and Denies neck pain Skin/Breast Details: (+) multiple varicosities on both lower extremities Neuro Denies dizziness and Denies headache(s) Endo Reports fatigue and Denies palpitations Physical exam (Primary Care) Vital Signs: Last Vital Signs Pulse 80 11/24/24 11:04 BP 120/70 11/24/24 11:04 Pulse Ox 96 11/24/24 11:04 Oxygen Delivery Method Room Air 11/24/24 11:04 BMI result Body Mass Index 30.7 Tobacco/Smoking Status: Tobacco use Status Tobacco use date assessed 11/24/24 11/24/24 11:14 Patient Tobacco Use Status Current everyday Tobacco 11/24/24 11:14 Tobacco use type Cigarette 11/24/24 11:14 e-Cigarette/Vaping Use Never Used 11/24/24 11:14 PHQ-9: PHQ-9 Score PHQ-9: Total score 1 11/24/24 19:45 Depression Screening Interpretation: Negative Thrive Assessment: Date of Thrive Assessment Date Thrive assessed 11/24/24 11/24/24 11:14 Currently or been in a relationship where the following occur: No concerns reported Const General: no acute distress and alert HENMT Ears: TM's normal bilaterally and EAC's normal Throat: Yes posterior oropharynx normal and Yes tonsils normal (no TP congestion) Neck Neck: Yes supple and No lymphadenopathy Thyroid: Thyroid normal Resp Auscultation: clear to auscultation bilaterally, no rales and no wheezes Cardio Rate: regular rate Rhythm: regular rhythm Heart sounds: no murmurs GI Palpation (GI): Soft to palpation, nontender and Hernia present umbilical Auscultation: normal bowel sounds General: Yes no CVA tenderness Back/Spine/Pelvis Back: no CVA tenderness Thoracic/Lumbar Spine: lumbar spinal tenderness Skin Other: (+) multiple varicose veins and scattered ecchymoses noted over both lower extremities Extrem General: Yes no clubbing, cyanosis or edema Right lower extremity: knee Details: tenderness Left lower extremity: knee Details: tenderness Coding Level of Care Code Est Pt Level 4 (63627) Diagnoses Polyarthralgia M25.50 Multiple myeloma in remission C90.01 Multiple myeloma remission status: in remission 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; D89.2 Rheumatoid arthritis with positive rheumatoid factor, involving unspecified site M05.9 Rheumatoid arthritis location: unspecified site Rheumatoid factor presence: with rheumatoid factor Ventral hernia, recurrent K43.2 Lumbar spondylosis M47.816 Essential hypertension I10 Pure hypercholesterolemia E78.00 Varicose veins of both lower extremities with inflammation I83.11; I83.12 Vitamin D deficiency E55.9 Anxiety F41.9 Smoker F17.200 Obesity (BMI 30-39.9) E66.9 Additional Codes PHQ-9 - 05046 - PHQ-9 Billing: Yes ([id number]) Assessment & Plan Assessment & Plan (1) Polyarthralgia: Code(s): M25.50 - Pain in unspecified joint Category: Medical Plan: Patient continues to experience diffuse joint pains, especially in her lower extremities and states that the pain in both lower legs are often significantly worse towards the later part of the day She was also reportedly diagnosed with possible RA and Graves but these have not been officially confirmed and she has just been treated with oral Prednisone when needed for flare ups Continue Oxycodone 10 mg Q 4 to 6 hours PRN - Rx refilled Follow up with rheumatology as scheduled Per rheumatology recommendation, she was started on a trial of low dose Duloxetine 30 mg QD at her last visit but she states that she has not yet started taking it as she feels hesitant about its potential side effects and she states that she has always been this way when taking new medications - she is encouraged to try taking this as soon as possible (2) Multiple myeloma: Code(s): C90.00 - Multiple myeloma not having achieved remission Category: Medical Qualifiers: Multiple myeloma remission status: in remission Qualified Code(s): C90.01 - Multiple myeloma in remission Plan: She reportedly underwent chemotherapy with Daratumumab and was able to complete her Tx but developed bleeding complications subsequently Per last oncology report - patient completed 6 cycles of Daratumumab treatments. She had noted certain side effects including abdominal pain and diarrhea. She also had rather profuse rectal bleeding. Treatment was stopped after completing 6 cycles. Tx appears to have helped and the rashes on her chest and around the eyes have healed quite well but she still has increased joint pains Follow up with oncology as scheduled (3) Necrobiotic xanthogranuloma with paraproteinemia: Code(s): D76.3 - Other histiocytosis syndromes; D89.2 - Hypergammaglobulinemia, unspecified Category: Medical Plan: She previously exhibited positive response and had dramatic improvement of her skin condition and some improvement of her bone/joint pains when treated with daratumumab from July to December 2022 Follow up with rheumatology as scheduled (4) Rheumatoid arthritis: Code(s): M06.9 - Rheumatoid arthritis, unspecified Category: Medical Qualifiers: Rheumatoid arthritis location: unspecified site Rheumatoid factor presence: with rheumatoid factor Qualified Code(s): M05.9 - Rheumatoid arthritis with rheumatoid factor, unspecified Plan: Patient appears to have failed MTx, Plaquenil and Humira in the past Has also received Tx with Rituximab and Daratumumab previously [place] [facility] [place] (5) Ventral hernia, recurrent: Code(s): K43.2 - Incisional hernia without obstruction or gangrene Category: Medical Plan: Follow up with surgery at [facility] as scheduled (6) Lumbar spondylosis: Code(s): M47.816 - Spondylosis without myelopathy or radiculopathy, lumbar region Category: Medical Plan: Reinforced activity and weight-lifting restrictions to minimize aggravating her low back pain States that her current pain medication helps with her low back pain as well (7) Essential hypertension: Code(s): I10 - Essential (primary) hypertension Category: Medical Plan: Reinforced low sodium diet - goal is systolic BP of 120 mm or less Continue Amlodipine 5 mg QD and HCTZ 25 mg QD She is reminded to continue monitoring her blood pressure regularly (8) Pure hypercholesterolemia: Code(s): E78.00 - Pure hypercholesterolemia, unspecified Category: Medical Plan: Reinforced low cholesterol diet She was not able to get previously ordered follow-up labs done yet and is reminded to try to get these done before her next appointment (9) Varicose veins of both lower extremities with inflammation: Code(s): I83.11 - Varicose veins of right lower extremity with inflammation; I83.12 - Varicose veins of left lower extremity with inflammation Category: Medical Plan: S/P venous ablation Follow up with vascular surgery as scheduled (10) Vitamin D deficiency: Code(s): E55.9 - Vitamin D deficiency, unspecified Category: Medical Plan: Continue Vitamin D3 2000 units QD (11) Anxiety: Code(s): F41.9 - Anxiety disorder, unspecified Category: Medical Plan: Continue Lorazepam 1 mg TID PRN (12) Smoker: Code(s): F17.200 - Nicotine dependence, unspecified, uncomplicated Category: Social Hx Plan: Patient is counseled on smoking cessation Per request, she was started on nicotine patches to help her quit smoking (13) Obesity (BMI 30-39.9): Code(s): E66.9 - Obesity, unspecified Category: Medical Plan: Reinforced diet; exercise and weight loss are unrealistic given patient's multiple medical and physical issues Plan Follow up in 1 month Orders: Orders Adrenocorticotropic Hormone 12/06/24 E27.40 - Unspecified adrenocortical insufficiency Medications: Refilled oxycodone 10 mg PO Q4-6H PRN 140 tabs 0RF pain
--- OUTSIDE RECORDS SUMMARY | 2024-11-24 12:12 | XMS_ITS | Encounter Summary ---
Author Organization [facility] Address [address] [place] [address] [place] [address] Phone Care Team Providers Care Wellness Director Name Role Phone Pedro Phillips MD Primary Care Provider [phone] Asad Sheppard MD, SHANNEN Unavailable Justino Deleon MD Unavailable Dash Crowder MD Primary Care Provider [phone] Encounter Details Date Type Department Care Team (Latest Contact Info) Description 01/26/2022 Ancillary Orders [facility] [place] [address], [address] Floor, [address] [place] [address] Luly Sepulveda MD [address] [place] [id number] [email or web address] Necrobiotic xanthogranuloma Social History Tobacco Use [...] Description 03/13/2025 11:40 AM EST Office Visit [facility] [place] [address], [address] [place] [address] Luly Sepulveda MD [address] [place] [phone] [email or web address] documented as of this encounter Results * [...] xanthogranuloma documented in this encounter Care Teams Wellness Director Relationship Specialty Start Date End Date Pedro Phillips MD [address] [place] [address] [place] [address] PCP - General Internal Medicine 08/15/18 09/30/24 Dash Crowder MD [address] [place] [address] [place] [address] PCP - General Internal Medicine 10/01/24 Asad Sheppard MD, SHANNEN [address] [place] [address] [place] [phone] [email or web address] Treatment Team Ophthalmology 06/22/20 Justino Deleon MD [address] [place] [id number] [email or web address] Consulting Provider Medical Oncology 10/28/21 documented as of this encounter Additional Source Comments The information contained in this document represents components of the legal health record. It is not the complete legal health record.[facility]
== END 2024-11-24 12:02 | disposition home or self-care (01) ==
LOC: HO.HMCH 10:54
PROVIDERS: PCP Internal Medicine; Visit Provider Internal Medicine
DX: M25.50 Pain in unspecified joint (principal); C90.01 Multiple myeloma in remission; D76.3 Other histiocytosis syndromes; M05.9 Rheumatoid arthritis with rheumatoid factor, unspecified; D89.2 Hypergammaglobulinemia, unspecified; K43.2 Incisional hernia without obstruction or gangrene; M47.816 Spondylosis without myelopathy or radiculopathy, lumbar region; I10 Essential (primary) hypertension; E78.00 Pure hypercholesterolemia, unspecified; I83.11 Varicose veins of right lower extremity with inflammation; I83.12 Varicose veins of left lower extremity with inflammation; E55.9 Vitamin D deficiency, unspecified

== ENCOUNTER → 2024-11-24 10:52 | Outpatient (BNVA) | payer OTHER, SELFPAY | PROVIDERS: PCP Internal Medicine; Visit Provider Internal Medicine | DX: C90.01 Multiple myeloma in remission (principal); D76.3 Other histiocytosis syndromes; M25.50 Pain in unspecified joint; D89.2 Hypergammaglobulinemia, unspecified; M05.9 Rheumatoid arthritis with rheumatoid factor, unspecified; K43.2 Incisional hernia without obstruction or gangrene; M47.816 Spondylosis without myelopathy or radiculopathy, lumbar region; I10 Essential (primary) hypertension; E78.00 Pure hypercholesterolemia, unspecified; I83.11 Varicose veins of right lower extremity with inflammation; I83.12 Varicose veins of left lower extremity with inflammation; E55.9 Vitamin D deficiency, unspecified; F41.9 Anxiety disorder, unspecified; F17.210 Nicotine dependence, cigarettes, uncomplicated; E66.9 Obesity, unspecified; E27.40 Unspecified adrenocortical insufficiency; Z68.30 Body mass index [BMI] 30.0-30.9, adult | CPT/HCPCS: 96127; 99212 ==

== ENCOUNTER 2024-12-03 07:33 | Outpatient (REF) | payer OTHER, SELFPAY ==
--- OUTSIDE RECORDS SUMMARY | 2024-11-13 07:15 | XMS_ITS | Continuity of Care Document ---
Author Organization [facility] Address [address] [place] [address] Phone Care Team Providers Care Fruit Checker Name Role Phone Mack JO, RVT, RPVI, Bear Unavailable U navailable Allergies, Adverse Reactions, Alerts Substance Reaction Status Criticality vancomycin Active No Information CEPHALEXIN MONOHYDRATE Active No In formation Medications Medication Instructions Dosage Effective Dates (start - stop) Status Comments Eliquis 5 mg tablet take 1 tablet by oral route 2 times every day 5 MG - Active ibuprofen 800 mg tablet take 1 tablet [...] tablet - Ac tive Procedures Procedure Date Duplex Scan-extrem Veins; Uni/ CT & [place] A Duplex Scan-extrem Veins; Uni/ CT & [place] A Inj Scleros Solut; Mx Veins 1- CT & MA A Ultrason Guidan Needle Bx-rad- CT & [place] A Endovenous Laser, 1st Vein- CT & MA Duplex Scan-extrem Veins; Uni/ CT & [place] J Inj Scleros Solut; Mx Veins 1- CT & MA J Ultrason Guidan Needle Bx-rad- CT & [place] J Duplex Scan-extrem Veins; Uni/ CT & [place] J Endovenous Rf, 1st Vein- CT & [place] 2024 Varithena, Single Truncal Vein - CT & [place] Office/Outpt E&M Established 25 Mins- CT & MA Duplex Scan-extrem Veins; Comp- CT & [place] Office/Outpt E&M Established 15 Mins- CT & MA Duplex Scan-extrem Veins; Uni/ CT & MA F Office/Outpt E&M Established 25 Mins- CT & MA Duplex Scan-extrem Veins; [...] Diagnoses Date Provider Providers Copied on Encounter [facility], [address] [place] [address] [address], [place], [id number], [place] tel:[phone] [place] - [place] Encounter for follow-up examination after completed treatment for conditions other than malignant neoplasmPain in left leg 5 Mack JO, RVT, RPLOVELY Sifuentes. [address] [facility], [address], [facility] [id number] , [place]. tel:[phone] Referring Provider: Pedro Phillips MD, [address] [facility] [address], [place], [address]. tel:[phone] [facility], [address], [place], [id number], [place] tel:[phone] CVR - [facility] Encounter for follow-up examination after completed treatment for conditions other than malignant neoplasmPain in left leg 5 Mack JO RVT, RPVI Robert. [address] [facility], Suite [facility], [place], [place], [id number] , [place]. tel:[phone] Referring Provider: Pedro Phillips MD, [address] [facility] [address] [place] [address], [address]. tel:[phone] Chau [facility], [address] [place] [address] [address]K[place], [id number], [place] tel:[phone] CVR - [facility] Varicose veins of left lower extremity with other complications 5 Mack JO RVT, RPVI Robert. [address] [facility], Suite [facility], [place], [place], [address] , [place]. tel:[phone] Referring Provider: Pedro Phillips MD, [address] [facility] SUITE [facility], [place], [address]. tel:[phone] [facility], [address] [place] [address] [address]Suite Kaci English [place], [id number], [place] tel:[phone] CVR - [facility] Varicose veins of left lower extremity with other complications 5 Mack JO RVT, RPVI Robert. [address] [facility], Suite [facility], [place], [place], [id number] , [place]. tel:[phone] Referring Provider: Pedro Phillips MD, [address] [facility] SUITE [facility], [place], [address]. tel:[phone] [facility], [address] [place] [address] [address] Kaci English [place], [id number], [place] [phone] [place] Encounter for follow-up examination after completed treatment for conditions other than malignant neoplasmVaricos e veins of right lower extremity with pain 5 Mack JO RVT, RPVI Robert. [address] [facility], [address], [place], [place], [address] , [place]. tel: [phone] Referring Provider: Pedro Phillips MD, [address] [facility], [place], [address]. tel:[phone] Yulan For [facility], [address] [place] [address] [address]K[place], [id number], [place] tel:[phone] CV[place] - [place] Varicose veins of right lower extremity with other complications 5 Mack JO RVT, DAXA Sifuentes. [address] [facility], [address], [place], [place], [address] , [place]. tel: [phone] Referring Provider: Pedro Phillips MD, [address] [facility] SUITE [facility], [place], [address]. tel:[phone] Yulan Ana [facility], [address] [place] [address] [address] 1000Kaci [place], [id number], [place] tel:[phone] [place] - [place] Encounter for follow-up examination after completed treatment for conditions other than malignant neoplasmVaricos e veins of right lower extremity with pain 5 Mack JO RVT, DAXA Sifuentes. [address] [facility], [address], [place], [place], [id number] , [place]. tel: [phone] Referring Provider: Pedro Phillips MD, [address] [facility] SUITE [facility], [place], [address]. tel:[phone] Chau [facility], [address] [place] [address] Dr [address] 1000Kaci MD, [id number], [place] tel:[phone] CV[place] - [place] Varicose veins of right lower extremity with other complications 5 Mack JO RVT, DAAX Sifuentes. [address] [facility], [address], [place], [place], [address] , [place]. tel:[phone] Referring Provider: Pedro Phillips MD, [address] [facility], [place], [address]. tel:[phone] [facility], [address] [place] [address] Dr [address], [place], [id number], [place] tel:[phone] [place] - [place] Varicose veins of right lower extremity with other complications 5 Mack JO RVT, DAXA Sifuentes. [address] [facility], [address], [place], [id number] , [place]. [phone] Referring Provider: Pedro Phillips MD, [address] [facility], [place], [address]. tel:[phone] Office/Outpt E&M Established 25 Mins- CT & [place] [facility], [address] [place] [address] [address]K[place], [id number], [place] tel:[phone] [place] - [place] Chronic venous hypertension (idiopathic) without complications of bilateral lower extremityRestle ss legs syndromeEssenti al (primary) hypertensionPru ritus, unspecifiedDiso rder of pigmentation, unspecifiedCram p and spasm 5 Mack JO RVT, DAXA Sifuentes. [address] [facility], [address], [place], [id number] , [place]. [phone] Referring Provider: Pedro Phillips MD, [address] [facility], [place], [address]. tel:[phone] [facility], [address] [place] [address] [address]K[place] MD, [id number], [place] tel:[phone] [place] Varicose veins of bilateral lower extremities with pain 5 Mack JO RVT, DAXA Sifuentes. [address] [place] [address], [address], [place], [id number] , [place]. [phone] Referring Provider: Pedro Phillips MD, [address] [facility], [place], [address]. tel:[phone] Office/Outpt E&M Established 15 Mins- CT & [place] [facility], [address] [place] [address] [address]K[place], [id number], [place] tel:[phone] [place] - [place] Restless legs syndromeEssenti al (primary) hypertensionPru ritus, unspecifiedDiso rder of pigmentation, unspecifiedChro kolton venous hypertension (idiopathic) with other complications of bilateral lower extremityPhlebi tis and thrombophlebiti s of superficial vessels of right lower extremity 5 Mack JO, EVETTE, DAXA Sifuentes. [address] [facility], [address], [facility] [place], [address] , [place]. tel:[phone] Referring Provider: Pedro Phillips MD, [address] [facility] SUITE [facility], [place], [address]. tel:[phone] [facility], [address] [place] [address] [address] 1000Kaci [place], [id number], tel:[phone] [place] Pain in right leg 5 Mack JO RVT, DAXA Sifuentes. [address] [facility], [address], [facility] [place] [place], [address] , [place]. tel:[phone] Referring Provider: Pedro Phillips MD, [address] [facility] SUITE [facility], [place], [address]. tel:[phone] Office/Outpt E&M Established 25 Mins- CT & [place] [facility], [address] [place] [address] Dr [address] 1000Kaci MD, [id number], tel:[phone] [place] - [place] Varicose veins of bilateral lower extremities with painPhlebitis and thrombophlebiti s of superficial vessels of right lower extremityRestle ss legs syndromeEssenti al (primary) hypertensionPru ritus, unspecifiedDiso rder of pigmentation, unspecified 5 Mack JO RVT, DAXA Sifuentes. [address] [facility], [address], [facility] [place], [id number] , [place]. tel:[phone] Referring Provider: Pedro Phillips MD, [address] [facility], [place], [address]. tel:[phone] [facility], [address] [place] [address] Dr [address] 1000Kaci [place], [id number], [place] tel:[phone] [place] Pain in right leg 5 Mack JO RVT, DAXA Sifuentes. [address] [facility], [address], [place], [place], [address] , [place]. [phone] Referring Provider: Pedro Phillips MD, [address] [facility] SUITE [facility], [place], [address]. tel:[phone] Office/Outpt E&M Established 15 Mins- CT & [place] [facility], [address] [place] [address] [address] 1000K[place], [id number], [place] tel:[phone] [place] - [place] Restless legs syndromeEssenti al (primary) hypertensionPru ritus, unspecifiedDiso rder of pigmentation, unspecifiedChro kolton venous hypertension (idiopathic) with other complications of bilateral lower extremityPhlebi tis and thrombophlebiti s of unspecified deep vessels of right lower extremity 5 Mack JO RVT, DAXA Sifuentes. [address] [facility], [address], [place], [place], [address] , [place]. [phone] Referring Provider: Pedro Phillips MD, [address] [facility] [address] [place] [address], [address]. tel:[phone] [facility], [address] [place] [address] [address] 1000Kaci [place], [id number], [place] tel:[phone] CV[place] - [place] Varicose veins of right lower extremity with pain 5 Mack JO RVT, DAXA Sifuentes. [address] [facility], [address], [place], [place], [address] , [place]. [phone] Referring Provider: Pedro Phillips MD, [address], [place], [address]. tel:[phone] Office/Outpt E&M Established 15 Mins- CT & [place] Chau [facility], [address] [place] [address] [facility] 1000Suite 1000Kaci [place], [id number], [place] tel:[phone] [facility] Chronic venous hypertension (idiopathic) without complications of bilateral lower extremityRestle ss legs syndromeEssenti al (primary) hypertensionPhl ebitis and thrombophlebiti s of superficial vessels of right lower extremityPrurit us, unspecifiedDiso rder of pigmentation, unspecifiedCram p and spasm Dec- 4 Mack JO RVT, DAXA Sifuentes. [address] [place] [address], [address], [place], [id number] , [place]. [phone] Referring Provider: Pedro Phillips MD, [address] [facility] SUITE [facility], [place], [address]. tel:[phone] Chau [facility], [address] [place] [address] [facility] 1000Suite Kaci English [place], [id number], [place] tel:[phone] [facility] Encounter for follow-up examination after completed treatment for conditions other than malignant neChronic venous hypertension (idiopathic) with other complications of bilateral lower extremity 4 Mack JO RVT, DAXA Sifuentes. [address] [place] [address], Suite [facility], [place], [id number] , [place]. [phone] Referring Provider: Pedro Phillips MD, [address] [facility] SUITE [facility], [place], [address]. tel:[phone] [facility], [address] [place] [address] Dr Corea 1000Suite Kaci English [place], [id number], [place] tel:[phone] [facility] for follow-up examination after completed treatment for conditions other than malignant nePain in left leg 4 Mack JO RVT, RPVI Robert. [address] [place] [address], [address], [place], [id number] , [place]. [phone] Referring Provider: Pedro Phillips MD, [address], [place], [address]. tel:[phone] [facility], [address] [place] [address] [address]Suite 1000Kaci [place], [id number], [place] tel:[phone] [place] - [place] Encounter for follow-up examination after completed treatment for conditions other than malignant nePain in left leg 4 Mack JO RVT, DAXA Sifuentes. [address] [facility], [address], [facility], [address] , [place]. tel: [phone] Referring Provider: Pedro Phillips MD, [address] [facility], [place], [address]. tel:[phone] [facility], [address] [place] [address] [address]Suite 1000Kaci [place], [id number], [place] tel:[phone] [place] - [place] Varicose veins of left lower extremity with other complications 4 Gianluca Parks . [address] [facility], [address], [facility], [place], [address] , [place]. tel:[phone] Referring Provider: Pedro Phillips MD, [address], [place], [address]. tel:[phone] [facility], [address] [place] [address] Dr [address] 1000Suite 1000Kaci MD, [id number], [place] tel:[phone] [place] - [place] Varicose veins of left lower extremity with other complications 4 Mack JO RVT, DAXA Sifuentes. [address] [facility], [address], [place] [place], [address] , [place]. tel:[phone] Referring Provider: Pedro Phillips MD, [address], [place], [address]. tel:[phone] [facility], [address] [place] [address] [address]SuKaci ivory [place], [id number], [place] tel:[phone] [place] - [place] Varicose veins of left lower extremity with other complications 4 Mack JO RVT, RPVI Robert. [address] [facility], [address], [place], [place], [address] , [place]. tel:[phone] Referring Provider: Pdero Phillips MD, [address] [facility], [place], [address]. tel:[phone] [facility], [address] [place] [address] Suite 1000Suite Kaci English [place], [id number], [place] tel:[phone] [place] - [place] Encounter for follow-up examination after completed treatment for conditions other than malignant neVaricose veins of right lower extremity with pain 4 Mack JO RVT, RPVI Robert. [address] [facility], [address], [place], [place], [address] , [place]. tel:[phone] Referring Provider: Pedro Phillips MD, [address], [place], [address]. tel:[phone] [facility]an [facility], [address] [place] [address] [address] 1000Suite Kaci English MD, [id number], [place] tel:[phone] [place] - [place] Varicose veins of right lower extremity with other complications 4 Gianluca Parks . [address] [facility], [address], [place], [place], [id number] , [place]. [phone] Referring Provider: Pedro Phillips MD, [address], [place], [address]. tel:[phone] [facility], [address] [place] [address] Dr Corea 1000Suite Kaci English [place], [id number], [place] tel:[phone] [facility] - [place] Encounter for follow-up examination after completed treatment for conditions other than malignant nePain in right leg 4 Mack JO RVT, RPVI Robert. [address] [facility], [address], [facility], [place], [address] , [place]. [phone] Referring Provider: Pedro Phillips MD, [address], [place], [address]. tel:[phone] [facility], [address] [place] [address] 1000Suite 1000Kaci [place], [id number], [place] [phone] [place] - [place] Varicose veins of right lower extremity with other complications 4 Mack JO RVT, RPVI Robert. [address] [facility], [address], [facility], [place], [address] , [place]. tel:[phone] Referring Provider: Pedro Phillips MD, [address] [facility], [place], [address]. tel:[phone] [facility], [address] [place] [address] 1000Suite 1000Kaci [place], [id number], [place] [phone] [place] - [place] Varicose veins of right lower extremity with other complications 4 Mack JO RVT, RPVI Robert. [address] [facility], [address], [place], [place], [address] , [place]. tel:[phone] Referring Provider: Pedro Phillips MD, [address] [facility], [place], [address]. tel:[phone] [facility], [address] [place] [address] [address]Suite 1000K[place], [id number], [place] tel:[phone] [place] Chronic venous hypertension (idiopathic) with other complications of bilateral lower extremity 4 Mack JO RVT, DAXA Sifuentes. [address] [facility], [address], [place], [place], [address] , [place]. tel:[phone] Referring Provider: Pedro Phillips MD, [address], [place], [address]. tel:[phone] Office/Outpt E&M Established 25 Mins [facility], [address] [place] [address] [address]Suite 1000Kaci [place], [id number], [place] tel:[phone] [place] - [place] Essential (primary) hypertensionVen ous insufficiency (chronic) (peripheral)[employer] Service [employer] Director mp and spasmChronic venous hypertension (idiopathic) with other complications of bilateral lower extremityLymphe kristen, not elsewhere classifiedLow back pain 4 Mack JO RVT, DAXA Sifuentes. [address] [facility], [address], [place], [place], [address] , [place]. [phone] Referring Provider: Pedro Phillips MD, [address] [facility], [place], [address]. tel:[phone] [facility], [address] [place] [address] Dr Corea 1000Suite 1000Kaci [place], [id number], [place] tel:[phone] CVR - [facility] Chronic venous hypertension (idiopathic) with other complications of bilateral lower extremity 4 Mack JO RVT, DAXA Sifuentes. [address] [facility], [address], [place], [place], [address] , [place]. [phone] Referring Provider: Pedro Phillips MD, [address] [facility], [place], [address]. tel:[phone] Office/Outpt E&M Established 15 Mins [facility], [address] [place] [address] [address]Suite 1000Kaci MD, [id number], [place] tel:[phone] CVR - [facility] Chronic venous hypertension (idiopathic) with other complications of bilateral lower extremity 3 Isacc Bowen. [address] [facility], [address], [place], [address], [place]. [phone] Referring Provider: Pedro Phillips MD, [address] [facility], [place], [address]. tel:[phone] Office/Outpt E&M Established 25 Mins [facility], [address] [place] [address] Dr [address]Suite 1000Kaci MD, [id number], [place] tel:[phone] CVR - [facility] Varicose veins of bi low extrem w oth complicationsPh lebitis and thombophlb of superfic vessels of r low extrem 3 Isacc JO FACS T DAXA Bowen. [address] [facility], [address], [place], [address], [place]. tel:[phone] Referring Provider: Pedro Phillips MD, [address] [facility], [place], [address]. tel:[phone] [facility], [address] [place] [address] Dr [address]Suite 1000Kaci [place], [id number], [place] tel:[phone] [place] - [place] No Information 3 Isacc JO FACS Conor Bowen. [address] [facility], [address], [place], [address], [place]. tel:[phone] Referring Provider: Pedro Phillips MD, [address] [facility], [place], [address]. tel:[phone] Office/Outpt E&M Established 15 Mins [facility], [address] [place] [address] [address]Suite 1000Kaci [place], [id number], [place] tel:[phone] CVR - [facility] Venous insufficiency (chronic) (peripheral)Phl ebitis and thombophlb of superfic vessels of r low extrem 3 Isacc JO FACS T DAXA Bowen. [address] [facility], [address], [place], [address], [place]. tel:[phone] Referring Provider: Pedro Phillips MD, [address] [facility], [place], [address]. tel:[phone] Office/Outpt E&M Established 15 Mins [facility], [address] [place] [address] [address]Suite 1000Kaci [place], [id number], [place] tel:[phone] [place] Venous insufficiency (chronic) (peripheral)Phl ebitis and thombophlb of superfic vessels of r low extrem 3 Isacc JO FACS Conor Bowen. [address] [facility], [address], [place], [address], [place]. tel:[phone] Referring Provider: Pedro Phillips MD, [address] [facility], [place], [address]. tel:[phone] Office/Outpt E&M Established 15 Mins [facility], [address] [place] [address] Dr [address], [place], [id number], [place] tel:[phone] [place] Body mass index (BMI) 34.0-34.9, adultPhlbts and thombophlb of unsp deep vessels of r low extremVenous insufficiency (chronic) (peripheral) 3 Isacc JO FACS Conor Bowen. [address] [facility], [address], [place], [address], [place]. [phone] Referring Provider: Pedro Phillips MD, [address] [facility], [place], [address]. tel:[phone] [facility], [address] [place] [address] Dr [address], [place], [id number], [place] tel:[phone] [place] - [place] Venous insufficiency (chronic) (peripheral) 3 Isacc JO [facility] Bowen. [address] [facility] [address], [place], [address], [place]. tel:[phone] Referring Provider: Pedro Phillips MD, [address], [place], [address]. tel:[phone] Family History Family Member Type Diagnosis Age At Onset No Information Payers Payer name Insurance type Covered alliance party ID Schuyler schneider(s) [facility] [id number] Social History Type Description Quantity Date Captured Comments Sex Female Smoking Status No Information Chief Complaint And Reason For Visit No [...] instruc tions reviewed and provided Related to Varicose veins of bilateral lower extremities with pain Lifestyle education Related to B danna mass [...]
--- OUTSIDE RECORDS SUMMARY | 2024-12-03 07:39 | XMS_ITS | Encounter Summary ---
Author Organization [facility] Address [address] [place] [address] Phone Care Team Providers Care Behavior Therapist Name Role Phone Pedro Phillips MD Primary Care Provider [phone] Asad Sheppard MD, SHANNEN Unavailable [phone] Justino Deleon MD Unavailable Dash Crowder MD Primary Care Provider [phone] Encounter Details Date Type Department Care Team (Late st Contact Info) Description 02/16/2022 Procedure [facility], [address] [address] Social History Tobacco Use Types Packs/Day Years Used Date Smoking Tobacco: Every Day Cigarettes Smokeless Tobacco: Never Alcohol Use Standard Drinks/Week Comments Not Currently 0 (1 standard drink = 0.6 oz pur e alcohol) Child or Family Care Answer Date Record ed Do you have problems with on e of the following making it difficult for you to work, study, or receive health care? No 01/31/2022 Education Answer Date Recorded Are you interested in help w ith more adult education (for example, completing high school, GED, job training, learning the [place] language, technical skills, or developing parenting skills)? No 01/31/2022 Food Answer Date Recorded Within the past 6 months we worried whether our food would run out before we got money to buy more. Never True 01/31/2022 Within the past 6 months the food we bought just didn't last and we didn't have enough money to get more. Never True Residential Stability Answer Date Recor ded What is your housing situation today? I have meseret leigh 01/31/2022 How many times have you move d in the past 12 months? Zero (I did not move) 01/31/2022 Paying for Meds Answer Date Recorded Do you have trouble paying for medicines? No 01/31/2022 Paying Utility Bills Answer Date Record ed Do you have trouble paying your heating or elect ricity bill? No 01/31/2022 Transportation Answer Date Recorded Has the lack of transportati on kept you from medical appointments or from getting medications? No 01/31/2022 Unemployment Answer Date Recorded Are you currently unemployed or working on a part-time or temporary basis, and looking for work? No 01/31/2022 Comments No Sex and Gender Information Value Date Recorded Sex Assigned at Not on file Legal Sex Female 8:41 AM EDT Gender Identity Not on file Sexual Orientation Not on file documented as of this encounter Plan of Treatment Upcoming Encounters Date Type Department Care Team (Late st Contact Info) Description 03/13/2025 11:40 AM EST Office Visit [facility] [place] [address], [address] [place] [address] Luly Sepulveda MD [address] [place] [phone] [email or web address] documented as of this encounter Visit Diagnoses Not on filedocumented in this encounter Care Teams Behavior Therapist Relationship Specialty Start Date End Date Pedro Phillips MD [address] [place] [address] [place] [address] PCP - General Internal Medicine 08/15/18 09/30/24 Dash Crowder MD [address] [place] [address] [place] [address] PCP - General Internal Medicine 10/01/24 Asad Sheppard MD, SHANNEN [address] [place] [address] Dr Rivera [address] [place] [phone] [email or web address] Treatment Team Ophthalmology 06/22/20 Justino Deleon MD [address] [place] [address] [email or web address] Consulting Provider Medical Oncology 10/28/21 documented as of this encounter Additional Source Comments The information contained in this document represents components of the legal health record. It is not the complete legal health record.[facility]
--- OUTSIDE RECORDS SUMMARY | 2024-12-03 07:39 | XMS_ITS | Encounter Summary ---
Author Organization [facility] Address [address] [place] [address] [place] [address] Phone Care Team Providers Care Director Sports Name Role Phone Pedro Phillips MD Primary Care Provider [phone] Asad Sheppard MD, SHANNEN Unavailable Justino Deleon MD Unavailable Dash Crowder MD Primary Care Provider [phone] Encounter Details Date Type Department Care Team (Late st Contact Info) Description 2021 Procedure Pass [facility] [place] [address] [facility]th [place] [address] Social History Tobacco Use Types Packs/Day Years [...] Encounters Date Type Department Care Team (Late Contact Info) Description 03/13/2025 11:40 AM EST Office [place] [facility] [place] [address], [address] [place] [address] Luly Sepulveda MD [address] [place] [address] [email or web address] documented as of this encounter Visit Diagnoses Not on filedocumented in this encounter Care Teams Director Sports Relationship Specialty Start Date End Date Pedro Phillips MD [address] [place] [address] [place] [address] PCP - General Internal Medicine 08/15/18 09/30/24 Dash Crowder MD [address] [place] [address] [place] [address] PCP - General Internal Medicine 10/01/24 Asad Sheppard MD, SHANNEN [address] [place] [address] [place] [address] [email or web address] Treatment Team Ophthalmology 06/22/20 Justino Deleon MD [address] [place] [id number] [email or web address] Consulting Provider Medical Oncology 10/28/21 documented as of this encounter Additional Source Comments The information contained in this document represents components of the legal health record. It is not the complete legal health record.[facility]
--- OUTSIDE RECORDS SUMMARY | 2024-12-03 07:39 | XMS_ITS | Encounter Summary ---
Author Organization [facility] Address [address] [place] [address] Phone Care Team Providers Care Provider Network Mgr Name Role Phone Pedro Phillips MD Primary Care Provider [phone] Asad Sheppard MD, SHANNEN Unavailable Justino Deleon MD Unavailable Dash Crowder MD Primary Care Provider [phone] Encounter Details Date Type Department Care Team (Late st Contact Info) Description 01/21/2024 Procedure Pass [facility], [address] [address] Social History Tobacco Use Types Packs/Day Years [...] high school, GED, job training, learning the Portuguese language, technical skills, or developing parenting skills)? [...] basis, and looking for work? No 01/31/2022 Digital Access Answer Date Recorded No 08/29/2022 No 08/29/2022 Reliable internet access at home? Not on file 08/29/2022 Device with a working camera? Not on file Comments No Sex and Gender Information Value Date Recorded Sex Assigned at Not on file Legal Sex Female 8:41 AM EDT Gender Identity Not on file Sexual Orientation Not on file documented as of this encounter Plan of Treatment Upcoming Encounters Date Type Department Care Team (Late st Contact Info) Description 03/13/2025 11:40 AM EST Office Visit [facility] Rheumatology [address], [facility] [address] [place] [address] Luly Sepulveda MD [address] [place] [address] [email or web address] documented as of this encounter Visit Diagnoses Not on filedocumented in this encounter Care Teams Provider Network Mgr Relationship Specialty Start Date End Date Pedro Phillips MD [address] [place] [address] [place] [address] PCP - General Internal Medicine 08/15/18 09/30/24 Dash Crowder MD [address] [place] [address] [place] [address] PCP - General Internal Medicine 10/01/24 Asad Sheppard MD, SHANNEN [address] [place] [address] [place] [address] [email or web address] Treatment Team Ophthalmology 06/22/20 Justino Deleon MD [address] [place] [address] [email or web address] Consulting Provider Medical Oncology 10/28/21 documented as of this encounter Additional Source Comments The information contained in this document represents components of the legal health record. It is not the complete legal health record.[facility]
--- OUTSIDE RECORDS SUMMARY | 2024-12-03 07:39 | XMS_ITS | Encounter Summary ---
Author Organization [facility] Address [address] [place] [address] [place] [address] Phone Care Team Providers Care Business Banking Representative Name Role Phone Pedro Phillips MD Primary Care Provider [phone] Asad Sheppard MD, SHANNEN Unavailable Justino Deleon MD Unavailable Dash Crowder MD Primary Care Provider [phone] Encounter Details Date Type Department Care Team (Late Contact Info) Description 09/08/2021 Procedure Pass [facility] [address] [place] [address] Social History Tobacco Use Types Packs/Day Years [...] Description 03/13/2025 11:40 AM EST Office Visit [facility] Rheumatology [address], [address] [place] [address] Luly Sepulveda MD [address] [place] [address] [email or web address] documented as of this encounter Visit Diagnoses Not on filedocumented in this encounter Care Teams Business Banking Representative Relationship Specialty Start Date End Date Pedro Phillips MD [address] [place] [address] Dr Rivera [address] [place] [address] PCP - General Internal Medicine 08/15/18 09/30/24 Dash Crowder MD [address] [place] [address] Dr [address] [place] [address] PCP - General Internal Medicine 10/01/24 Asad Sheppard MD, SHANNEN [address] [place] [address] Dr Rivera [address] [place] [address] [email or web address] Treatment Team Ophthalmology 06/22/20 Justino Deleon MD [address] [place] [address] [email or web address] Consulting Provider Medical Oncology 10/28/21 documented as of this encounter Additional Source Comments The information contained in this document represents components of the legal health record. It is not the complete legal health record.[facility]
--- OUTSIDE RECORDS SUMMARY | 2024-12-03 07:39 | XMS_ITS | Encounter Summary ---
Author Organization [facility] Address [address] [place] [address] Phone Care Team Providers Care Ladies' Hat Trimmer Name Role Phone Pedro Phillips MD Primary Care Provider [phone] Asad Sheppard MD, SHANNEN Unavailable Justino Deleon MD Unavailable Dash Crowder MD Primary Care Provider [phone] Encounter Details Date Type Department Care Team (Late st Contact Info) Description 04/11/2022 Procedure Pass [facility], [address] [address] Social History Tobacco Use Types Packs/Day Years [...] high school, GED, job training, learning the [place] language, technical skills, or developing parenting skills)? [...] 03/13/2025 11:40 AM EST Office Visit [facility] Rheumatology [address], [address] [place] [address] Luly Sepulveda MD [address] [place] [address] [email or web address] documented as of this encounter Visit Diagnoses Not on filedocumented in this encounter Care Teams Ladies' Hat Trimmer Relationship Specialty Start Date End Date Pedro Phillips MD [address] [place] [address] [place] [address] PCP - General Internal Medicine 08/15/18 09/30/24 Dash Crowder MD [address] [place] [address] [place] [address] PCP - General Internal Medicine 10/01/24 Asad Sheppard MD, SHANNEN [address] [place] [address] Dr Rivera [address] [place] [address] [email or web address] Treatment Team Ophthalmology 06/22/20 Justino Deleon MD [address] [place] [address] [email or web address] Consulting Provider Medical Oncology 10/28/21 documented as of this encounter Additional Source Comments The information contained in this document represents components of the legal health record. It is not the complete legal health record.[facility]
--- OUTSIDE RECORDS SUMMARY | 2024-12-03 07:39 | XMS_ITS | Encounter Summary ---
Author Organization [facility] Address [address] [place] [address] [place] [address] Phone Care Team Providers Care Computer Forensics Examiner Name Role Phone Pdero Phillips MD Primary Care Provider [phone] Asad Sheppard MD, SHANNEN Unavailable Justino Deleon MD Unavailable Dash Crowder MD Primary Care Provider [phone] Encounter Details Date Type Department Care Team (Late st Contact Info) Description 08/31/2020 Procedure Pass [facility], Ct Scan - [address] [address] Social History Tobacco Use Types Packs/Day Years Used Date Smoking Tobacco: Every Day Cigarettes Smokeless Tobacco: Never Comments Unknown Sex and Gender Information Value Date Recorded Sex Assigned at Not on file Legal Sex Female 8:41 AM EDT Gender Identity Not on file Sexual Orientation Not on file documented as of this encounter Plan of Treatment Upcoming Encounters Date Type Department Care Team (Late st Contact Info) Description 03/13/2025 11:40 AM EST Office [place] [facility] [place] [address], [address] [place] [address] Luly Sepulveda MD [address] [place] [address] [email or web address] documented as of this encounter Visit Diagnoses Not on filedocumented in this encounter Care Teams Computer Forensics Examiner Relationship Specialty Start Date End Date Pedro Phillips MD [address] [place] [address] [place] [address] PCP - General Internal Medicine 08/15/18 09/30/24 Dash Crowder MD [address] [place] [address] [place] [address] PCP - General Internal Medicine 10/01/24 Asad Sheppard MD, SHANNEN [address] [place] [address] [place] [address] [email or web address] Treatment Team Ophthalmology 06/22/20 Justino Deleon MD [address] [place] [address] [email or web address] Consulting Provider Medical Oncology 10/28/21 documented as of this encounter Additional Source Comments The information contained in this document represents components of the legal health record. It is not the complete legal health record.[facility]
--- OUTSIDE RECORDS SUMMARY | 2024-12-03 07:39 | XMS_ITS | Encounter Summary ---
Author Organization [facility] Address [address] [place] [address] [place] [address] Phone Care Team Providers Care Latent Fingerprint Examiner Name Role Phone Pedro Phillips MD Primary Care Provider [phone] Asad Sheppard MD, SHANNEN Unavailable Justino Deleon MD Unavailable Dash Crowder MD Primary Care Provider [phone] Encounter Details Date Type Department Care Team (Latest Contact Info) Description 01/26/2022 Ancillary Orders [facility] Rhe[place]ology [address], [address] Floor, [address] [place] [address] Lluy Sepulveda MD [address] [place] [address] 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 Necrobiotic xanthogranuloma Social History Tobacco Use Types [...] Description 03/13/2025 11:40 AM EST Office Visit [facility] [place]ology [address], [address] [place] [address] Luly Sepulveda MD [address] [place] [address] [email or web address] documented as of this encounter [...] xanthogranuloma documented in this encounter Care Teams Latent Fingerprint Examiner Relationship Specialty Start Date End Date Pedro Phillips MD [address] [place] [address] [place] [address] PCP - General Internal Medicine 08/15/18 09/30/24 Dash Crowder MD [address] [place] [address] [place] [address] PCP - General Internal Medicine 10/01/24 Asad Sheppard MD, SHANNEN [address] [place] [address] [place] [address] [email or web address] Treatment Team Ophthalmology 06/22/20 Justino Deleon MD [address] [place] [address] [email or web address] Consulting Provider Medical Oncology 10/28/21 documented as of this encounter Additional Source Comments The information contained in this document represents components of the legal health record. It is not the complete legal health record.[facility]
--- OUTSIDE RECORDS SUMMARY | 2024-12-03 07:39 | XMS_ITS | Encounter Summary ---
Author Organization [facility] Address [address] [place] [address] [place] [address] Phone Care Team Providers Care General Warehouse Worker Name Role Phone Pedro Phillips MD Primary Care Provider [phone] Asad Sheppard MD, SHANNEN Unavailable Justino Deleon MD Unavailable Dash Crowder MD Primary Care Provider [phone] Encounter Details Date Type Department Care Team (Late st Contact Info) Description 08/07/2020 Procedure Pass [facility], Ct Scan - [address] [address] Social History Tobacco Use Types Packs/Day Years [...] 03/13/2025 11:40 AM EST Office [place] [facility] [place] [address], [address] [place] [address] Luly Sepulveda MD [address] [place] [address] [email or web address] documented as of this encounter Visit Diagnoses Not on filedocumented in this encounter Care Teams General Warehouse Worker Relationship Specialty Start Date End Date Pedro Phillips MD [address] [place] [address] [place] [address] PCP - General Internal Medicine 08/15/18 09/30/24 Dash Crowder MD [address] [place] [address] [place] [address] PCP - General Internal Medicine 10/01/24 Asad Sheppard MD, SHANNEN [address] [place] [address] [place] [address] [email or web address] [email or web address] Treatment Team Ophthalmology 06/22/20 Justino Deleon MD [address] [place] [address] [email or web address] Consulting Provider Medical Oncology 10/28/21 documented as of this encounter Additional Source Comments The information contained in this document represents components of the legal health record. It is not the complete legal health record.[facility]
--- OUTSIDE RECORDS SUMMARY | 2024-12-03 07:39 | XMS_ITS | Encounter Summary ---
Author Organization [facility] Address [address] [place] [address] Phone Care Team Providers Care Medical Care Manager Name Role Phone ePdro Phillips MD Primary Care Provider [phone] Asad Sheppard MD, SHANNEN Unavailable Justino Deleon MD Unavailable Dash Crowder MD Primary Care Provider [phone] Encounter Details Date Type Department Care Team (Late st Contact Info) Description 04/11/2022 Procedure Pass [facility], [address] [address] Social History Tobacco Use Types Packs/Day Years [...] Description 03/13/2025 11:40 AM EST Office Visit [facility] Rheumatology [address], [address] [place] [address] Luly Sepulveda MD [address] [place] [address] [email or web address] documented as of this encounter Visit Diagnoses Not on filedocumented in this encounter Care Teams Medical Care Manager Relationship Specialty Start Date End Date Pedro Phillips MD [address] [place] [address] [place] [address] PCP - General Internal Medicine 08/15/18 09/30/24 Dash Crowder MD [address] [place] [address] [place] [address] PCP - General Internal Medicine 10/01/24 Asad Sheppard MD, SHANNEN [address] [place] [address] Dr Rivera [address] [place] [address] [email or web address] Treatment Team Ophthalmology 06/22/20 Justino Deleon MD [address] [place] [address] [email or web address] Consulting Provider Medical Oncology 10/28/21 documented as of this encounter Additional Source Comments The information contained in this document represents components of the legal health record. It is not the complete legal health record.[facility]
--- OUTSIDE RECORDS SUMMARY | 2024-12-03 07:39 | XMS_ITS | Encounter Summary ---
Author Organization [facility] Address [address] [place] [address] [place] [address] Phone Care Team Providers Care Land Resource Specialist Name Role Phone Pedro Phillips MD Primary Care Provider [phone] Asad Sheppard MD, SHANNEN Unavailable Justino Deleon MD Unavailable Dash Crowder MD Primary Care Provider [phone] Reason for Referral * Consultation (Within 1 month) - Closed Specialty Diagnoses / Procedures Referred By Elizabeth patten Referred To Contact Rheumatology System, Provider Not In, PhD [id number] [place] [phone] Phone: tel: Referral ID Status Reason Start Date Expiration Date Visits Re quested Visits Authorized [id number] Closed 08/22/2018 08/23/2019 1 1 Encounter Details Date Type Department Care Team (Late st Contact Info) Description 08/22/2018 Transcribe Orders [facility] [place] [address], [address], [address] [place] [address] Pedro Phillips MD [address] [place] [address] [place] [address] Social History Tobacco Use Types Packs/Day Years Used Date Smoking Tobacco: Never Assessed Comments Unknown Sex and Gender Information Value [...] [facility] [place] [address], [address] [place] [address] Luly Sepulveda MD [address] [place] [address] [email or web address] Scheduled Referrals Name Type Priority Associated Diagnoses Order Schedule Ambulatory referral to [facility] Outpatient Referral Routine Ordered: 08/22/2018 documented as of this encounter Visit Diagnoses Not on filedocumented in this encounter Care Teams Land Resource Specialist Relationship Specialty Start Date End Date Pedro Phillips MD [address] [place] [address] Dr Rivera [address] [place] [address] PCP - General Internal Medicine 08/15/18 09/30/24 Dash Crowder MD [address] [place] [address] Dr Rivera [address] [place] [address] PCP - General Internal Medicine 10/01/24 Asad Sheppard MD, SHANNEN [address] [place] [address] Dr Rivera [address] [place] [address] [email or web address] Treatment Team Ophthalmology 06/22/20 Justino Deleon MD [address] [place] [address] [email or web address] Consulting Provider Medical Oncology 10/28/21 documented as of this encounter Additional Source Comments The information contained in this document represents components of the legal health record. It is not the complete legal health record.[facility]
--- OUTSIDE RECORDS SUMMARY | 2024-12-03 07:39 | XMS_ITS | Encounter Summary ---
Author Organization [facility] Address [address] [place] [address] [place] [address] Phone Care Team Providers Care Director Of Vital Statistics Name Role Phone Pedro Phillips MD Primary Care Provider [phone] Asad Sheppard MD, SHANNEN Unavailable Justino Deleon MD Unavailable Dash Crowder MD Primary Care Provider [phone] Encounter Details Date Type Department Care Team (Late st Contact Info) Description 2021 Procedure Pass [facility] [place] [address] [facility], 6th [place] [address] Social History Tobacco Use Types Packs/Day Years [...] Description 03/13/2025 11:40 AM EST Office Visit [facility] [place] [address], [address] [place] [address] Luly Sepulveda MD [address] [place] [address] [email or web address] documented as of this encounter Visit Diagnoses Not on filedocumented in this encounter Care Teams Director Of Vital Statistics Relationship Specialty Start Date End Date Pedro Phillips MD [address] [place] [address] [place] [address] PCP - General Internal Medicine 08/15/18 09/30/24 Dash Crowder MD [address] [place] [address] [place] [address] PCP - General Internal Medicine 10/01/24 Asad Sheppard MD, SHANNEN [address] [place] [address] [place] [address] [email or web address] Treatment Team Ophthalmology 06/22/20 Justino Deleon MD [address] [place] [address] [email or web address] Consulting Provider Medical Oncology 10/28/21 documented as of this encounter Additional Source Comments The information contained in this document represents components of the legal health record. It is not the complete legal health record.[facility]
--- OUTSIDE RECORDS SUMMARY | 2024-12-03 07:39 | XMS_ITS | Clinical Summary ---
Author Organization [facility] Address [address] [place] [address] [place] [address] Phone Care Team Providers Care Telemarketing Manager Name Role Phone Asad Sheppard MD, SHANNEN Unavailable [phone] Justino Deleon MD Unavailable Dash Crowder MD Primary Care Provider [phone] Allergies Active Allergy Reactions Criticality Noted Date Comments Cephalexin Seizures 10/21/2018 At age 10, developed cat scratch fever, had seizures at that time, may have been related to septic shock vs. Cephalexin. Has tolerated penicillin/amoxicillin since then. Prednisone Headaches,Throat Tightness Medium 04/05/2021 Pt reports it taking prednisone right now Vancomycin Maculopapular Rash Medium 10/21/2018 Medications amLODIPine (NORVASC) 2.5 MG tablet Take 2.5 mg by mouth 2 (two) times a day. Active oxyCODONE HCl 10 mg Tab Take 10 mg by mouth 4 (four) times a day. Partial fill ok Active biotin 1 mg Cap Take by mouth daily. Active LORazepam (ATIVAN) 1 MG tablet Take 0.5 mg by mouth as needed for anxiety. Active nicotine (NICODERM CQ) 21 mg/24 hr 1 Active ondansetron (ZOFRAN) 4 MG tablet 1 Active hydroCHLOROthiaz david (HYDRODIURIL) 25 MG tablet Take 25 mg by mouth daily. 2 Active cholecalciferol (VITAMIN D3) 2,000 unit capsule Take by mouth daily. 2 Active acetaminophen (TYLENOL) 500 mg capsule Take 1,000 mg by mouth. Active diclofenac sodium (VOLTAREN) 1 % Gel Apply 4 g topically 4 (four) times a day as needed. 100 g 5 3 Active ruxolitinib 1.5 % Crea Apply 1 Application topically 2 (two) times a day. 60 g 11 3 Active Additional Information Patient not taking.Reported on 01/21/2024 tofacitinib citrate (TOFACITINIB, BULK,) 100 % Powd Apply 1 Application topically 2 (two) times a day. Use twice daily. 30 g 5 4 Active Additional Information Patient not taking.Reported on 01/21/2024 folic acid (FOLVITE) 1 MG tablet Take 1 tablet (1 mg total) by mouth daily. 30 tablet 5 5 Active lidocaine (LIDODERM) 5 %Indications:Nec robiotic xanthogranuloma, Arthralgia, unspecified joint Place 1 patch onto the skin daily. Remove & Discard patch within 12 hours or as directed by MD 30 patch 11 5 Active Active Problems Problem Noted Date Diagnosed Date Encounter for palliative care 11/22/2022 Assessment & Plan (11/22/2022 4:26 PM EDT): #Chronic pain. 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 Her last severe flare was in July (two months ago). Her chronic pain has been managed with steroids, opioids, NSAIDs, and tylenol, with an increase in her opioid regimen and steroid bursts for flares. She is hopeful that her recent change in systemic therapy is slowing the pace of her flares, yet also reports that her day to day level of pain is unacceptable and does not allow her to work. - appreciate the care of her primary care doctor, who prescribes short acting opioids for her pain. Defer to Dr. Phillips for these prescriptions and the judicious use of additional opioids with flares - appreciate rheumatology care, which may involve joint injections in the future given that some of her pain is in her joints (of note, Bhavana has had difficulty obtaining these from pain clinic) - continue prednisone and dexamethasone per rheumatology. Per Dr. Sepulveda's latest note, they are holding off on future trials of DMARDs given lack of response to date - suggest the addition of duloxetine 30 mg PO daily to address both any potential component of neuropathic pain as well as the mood effects of living with chronic pain. Discussed this suggestion at length with Bhavana including the risks and benefits. Agree with continuation of lorazepam as she initiates an antidepressant and could re-address the need for that medication as she establishes an anxiety benefit from an SNRI - we would be glad to see Bhavana in consultation again for follow up in collaboration with her other [facility] clinicians #Coping with serious illness. Discussed Bhavana's coping strategies and supports. 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 She has been finding support through social media and has good support from friends and family. She does meditation and has been seeking information to better understand her medical conditions and be an advocate for herself. 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 [facility] with negative rheumatoid factor 05/20/2021 Encounters Date Type Department Care Team Description 11/21/2024 Telephone [facility] Center for Hematology Malignancies [address] [facility], 9[address], [address] [place] [address] Justino Deleon MD 10/01/2024 11:00 AM EDT Telemedicine - audio only [facility] Rheumatology [address], 4[address], [address] [place] [address] Luly Sepulveda MD Necrobiotic xanthogranuloma (Primary Dx); Arthralgia, unspecified joint; Primary osteoarthritis involving multiple joints 10/01/2024 Telephone [facility] Rheumatology [address], 4[address], [address] [place] [address] Luly Sepulveda MD Medication Prior Authorization (Lidocaine (LIDODERM) 5 %) 09/15/2024 Telephone [facility] Rheumatology [address], [address], [address] [place] [address] Luly Sepulveda MD from Last 3 Months Immunizations Immunization Administration Dates Next Due Influenza, Unspecified Formulation 01/02/2019 Family History Medical History Relation Comments Hypertension Mother Relation Status Comments Mother Social History Tobacco Use Types Packs/Day Years Used Date Smoking Tobacco: Every Day Cigarettes Smokeless Tobacco: Never Tobacco Cessation:Ready to Q uit: Not Asked; Counseling Given: Not Answered Alcohol Use Standard Drinks/Week Comments Not Currently 0 (1 standard drink = 0.6 oz pur e alcohol) Child or Family Care Answer Date Record ed Do you have problems with on e of the following making it difficult for you to work, study, or receive health care? No 01/31/2022 Education Answer Date Recorded Are you interested in more education? Not on rafael e 02/01/2024 Are you concerned about learning? Not on file 02/01/2024 No 02/01/2024 No 02/01/2024 Food Answer Date Recorded Within the past [...] on file Sexual Orientation Not on file Last Filed Vital Signs Vital Sign Reading Time Taken Comments Blood Pressure 121/72 01/21/2024 2:38 PM EDT Pulse 81 01/21/2024 2:38 PM EDT Temperature 36.7 C (98.1 F) 01/21/2024 11:59 AM EDT Respiratory Rate 16 01/21/2024 11:59 AM EDT Oxygen Saturation 97% 01/21/2024 2:38 PM EDT Inhaled Oxygen Concentration - - Weight 86.2 kg (190 lb) 02/10/2024 1:06 PM EST Height 167.6 cm (5' 6 ) 02/10/2024 1:06 PM EST Body Mass Index 30.67 02/10/2024 1:06 PM EST Plan of Treatment Upcoming Encounters Date Type Department Care Team (Late st Contact Info) Description 03/13/2025 11:40 AM EST Office Visit [facility] Rheumatology [address], [address] [place] [address] Luly Sepulveda MD [address] [place] [address] [email or web address] Health Maintenance Due Date Last Done Comments LIPID PANEL 1978 COVID-19 VACCINE (#1) 09/13/1983 DEPRESSION SCREENING 1990 SMOKING Hx and SMOKELESS TOBACCO SCREENING 09/13/1991 PAP SMEAR 09/13/1999 MAMMOGRAM 2018 PNEUMOCOCCAL VACCINES (0-49 years) (2 of 2 - PCV) 02/21/2020 02/20/2019 COLOGUARD 09/13/2023 COLONOSCOPY 09/13/2023 COLORECTAL CANCER SCREENING 09/13/2023 FIT TEST 09/13/2023 FOBT 09/13/2023 SIGMOIDOSCOPY 09/13/2023 VIRTUAL COLONOSCOPY 09/13/2023 INFLUENZA VACCINE (#1) 2024 0, 01/01/2020, 01/02/2019, Additional history exists POTASSIUM LEVEL 01/20/2025 01/21/2024, 10/31, 05/09/2022, Additional history exists SCREENING FOR DIABETES 05/09/2025 05/09/2022 Adult Td,Tdap Booster 10/08/2028 10/08/2018 HEPATITIS C SCREENING Completed 11/19/2020, 019 HIV ONE-TIME SCREENING (18-65 YEARS) Completed 08/04/2021 HEPATITIS A VACCINES Aged Out No long er eligible based on patient's age to complete this topic HIB VACCINES Aged Out No longer eligi ble based on patient's age to complete this topic MENINGOCOCCAL VACCINES (ACWY) Aged Out No longer eligible based on patient's age to complete this topic MENINGOCOCCAL VACCINES (B) Aged Out N o longer eligible based on patient's age to complete this topic Medical Devices Not on file Procedures Procedure Name Priority Date/Time Associated Diagnosis Comments COMPREHENSIVE METABOLIC PANEL Routine 01/21/2024 11:22 AM EDT Monoclonal gammopathy of undetermined significance HEPATITIS C ANTIBODY, QUALITATIVE Routine 11/19/2020 3:53 PM EDT Bilateral scleritis Arthralgia, unspecified joint Interstitial granulomatous dermatitis from Last 3 Months or Most Recently Relevant to Health Maintenance Results * (ABNORMAL) Comprehensive metabolic panel (01/21/2024 11:22 AM EDT) SODIUM 140 135 - 145 mmol/L [facility] POTASSIUM 4.1 3.4 - 5.0 mmol/L [facility] CHLORIDE 103 98 - 108 mmol/L [facility] CO2 25 23 - 32 mmol/L [facility] BUN 11 8 - 25 mg/dL [facility] CREATININE 0.84 0.60 - 1.50 mg/dL [facility] GLUCOSE 141(H) 70 - 110 mg/dL [facility] ALBUMIN 4.3 3.3 - 5.0 g/dL [facility] TOTAL PROTEIN 6.7 6.0 - 8.3 g/dL [facility] CALCIUM 9.5 8.5 - 10.5 mg/dL [facility] ALKALINE PHOSPHATASE 92 30 - 100 U/L [facility] TOTAL BILIRUBIN 0.4 0.0 - 1.0 mg/dL [facility] AST 22 9 - 32 U/L [facility] ALT 25 7 - 33 U/L [facility] GLOBULIN 2.4 1.9 - 4.1 g/dL [facility] EGFR 87 >59 mL/min/1. 73m2 [facility] Comment:Estimated glomerular filtration rate calculated using the CKD-EPI refit equation. ANION GAP 12 3 - 17 mmol/L [facility] 01/21/2024 11:2 2 AM EDT 01/21/2024 11:31 AM EDT us Justino Deleon MD LAB BLOOD ORDERABLES Final Resul t [facility] [address] [place] [address] * Hepatitis C antibody, qualitative (11/19/2020 3:53 PM EDT) HCV NON-REACTIV E NON-REACTI VE [facility] Blood 11/19/2020 3:53 PM EDT 11/19/2020 3:59 PM EDT us Luly Sepulveda MD LAB BLOOD ORDERABLES Final Result Performing Organization Address City/[facility]/ZIP Co de Phone Number [facility] [address] [place], [place] [id number] from Last 3 Months or Most Recently Relevant to Health Maintenance Insurance MEDIC[place] PART A [place] [id number] [facility] ONE CARE MEDICARE REPLACEMENT MEDICARE PART A & B [facility] CARE MEDICARE REPLACEMENT MEDICARE PART A & [place] [address] [place] [address] CARE MEDICARE REPLACEMENT ANNA AGRG [id number] [facility] [address] MEDICARE PART A & B MEDICARE REPLACEMENT ANNA GARG [id number] MEDICARE PART A & B CARE MEDICARE REPLACEMENT MEDICARE PART A & B CARE MEDICARE REPLACEMENT Care Teams Telemarketing Manager Relationship Specialty Start Date End Date Dash Crowder MD [address] [place] [address] [place] [address] PCP - General Internal Medicine 10/01/24 Asad Sheppard MD, SHANNEN [email or web address] Treatment Team Ophthalmology 06/22/20 Justino Deleon MD [address] [place] [address] [email or web address] Consulting Provider Medical Oncology 10/28/21 Additional Source Comments The information contained in this document represents components of the legal health record. It is not the complete legal health record.[facility]
--- OUTSIDE RECORDS SUMMARY | 2024-12-03 07:39 | XMS_ITS | Encounter Summary ---
Author Organization [facility] Address [address] [place] [address] [place] [address] Phone Care Team Providers Care Ironworker Apprentice Name Role Phone Pedro Phillips MD Primary Care Provider [phone] Asad Sheppard MD, SHANNEN Unavailable Justino Deleon MD Unavailable Dash Crowder MD Primary Care Provider [phone] Encounter Details Date Type Department Care Team (Late Contact Info) Description 03/16/2021 Procedure Pass [facility], Ct Scan - [address] [address] Social History Tobacco Use Types Packs/Day Years [...] 03/13/2025 11:40 AM EST Office Visit [facility] Rheumatology [address], [address] [place] [address] Luly Sepulveda MD [address] [place] [address] [email or web address] documented as of this encounter Visit Diagnoses Not on filedocumented in this encounter Care Teams Ironworker Apprentice Relationship Specialty Start Date End Date Pedro Phillips MD [address] [place] [address] [place] [address] PCP - General Internal Medicine 08/15/18 09/30/24 Dash Crowder MD [address] [place] [address] [place] [address] PCP - General Internal Medicine 10/01/24 Asad Sheppard MD, SHANNEN [address] [place] [address] [place] [address] [email or web address] Treatment Team Ophthalmology 06/22/20 Justino Deleon MD [address] [place] [id number] [email or web address] Consulting Provider Medical Oncology 10/28/21 documented as of this encounter Additional Source Comments The information contained in this document represents components of the legal health record. It is not the complete legal health record.[facility]
--- OUTSIDE RECORDS SUMMARY | 2024-12-03 07:39 | XMS_ITS | Encounter Summary ---
Author Organization [facility] Address [address] [place] [address] [place] [address] Phone Care Team Providers Care Batter Out Name Role Phone Pedro Phillips MD Primary Care Provider Asad Sheppard MD, SHANNEN Unavailable [phone] Justino Deleon MD Unavailable Dash Crowder MD Primary Care Provider [phone] Encounter Details Date Type Department Care Team (Late st Contact Info) Description 09/14/2021 Procedure Pass [facility] Imaging - RF/IR [address] [place] [address] Social History Tobacco Use Types Packs/Day Years [...] Description 03/13/2025 11:40 AM EST Office Visit [facility] Rheumatology [address], [address] [place] [address] Luly Sepulveda MD [address] [place] [address] [email or web address] documented as of this encounter Visit Diagnoses Not on filedocumented in this encounter Care Teams Batter Out Relationship Specialty Start Date End Date Pedro Phillips MD [address] [place] [address] [place] [address] PCP - General Internal Medicine 08/15/18 09/30/24 Dash Crowder MD [address] [place] [address] Dr Rivera [address] [place] [address] PCP - General Internal Medicine 10/01/24 Asad Sheppard MD, SHANNEN [address] [place] [address] Dr Rivera [address] [place] [id number] [email or web address] Treatment Team Ophthalmology 06/22/20 Justino Deleon MD [address] [place] [address] [email or web address] Consulting Provider Medical Oncology 10/28/21 documented as of this encounter Additional Source Comments The information contained in this document represents components of the legal health record. It is not the complete legal health record.[facility]
[2024-12-03 08:11] LABS: MANUAL DIFF FLAG NO
[2024-12-03 08:49] LABS: Hematocrit 41.5 % (37.0-47.0); Hemoglobin 14.5 g/dl (12.0-16.0); Imm Gran Abs Auto 0.01 X10*3/uL (0.00-0.03); Imm Gran Pct Auto 0.2 % (0.0-0.4); Lymphocytes Absolute Auto 1.8 X10*3/uL (1.2-4.9); Mean Corpuscular HGB Conc 34.9 g/dl (31.0-35.0); Mean Corpuscular Hemoglobin 31.9 pg (27.0-33.0); Mean Corpuscular Volume 91.2 fL (80.0-98.0); NRBC Abs Auto 0.000 X10*3/uL (0.0-0.012); NRBC Pct Auto 0.0 /100WBC (0.0-0.2); Platelet Count 110 X10*3/uL (160-400); Red Blood Count 4.55 X10*6/uL (4.20-5.50); White Blood Count 4.9 X10*3/uL (4.8-10.8)
[2024-12-03 09:10] LABS: Appearance Urine Clear; Glucose Urine UA Negative (Negative); PH 6.5 (5.0-9.0); Specific Gravity - Urine 1.010 (1.005-1.025)
[2024-12-03 09:35] LABS: Alanine Aminotransferase 21 U/L (0-31); Albumin Level 4.5 g/dL (3.5-5.0); Alkaline Phosphatase 85 U/L (39-117); Anion Gap 13 (12-20); Aspartate Amino Transferase 23 U/L (5-31); Blood Urea Nitrogen 15 mg/dL (9-16); Calcium 9.4 mg/dL (8.4-10.2); Carbon Dioxide 30 mmol/L (22-29); Chloride 103 mmol/L (96-108); Cholesterol 229 mg/dL (<200); Estimated Glomerular Filt Rate 57; HDL Cholesterol 42 mg/dL (>40); Potassium 3.5 mmol/L (3.3-5.1); Sodium 142 mmol/L (135-145); Total Protein 6.8 g/dL (6.5-8.0); Triglycerides 209 mg/dL (<150)
== END 2024-12-03 07:34 | disposition home or self-care (01) ==
LOC: HO.LAB 07:33
PROVIDERS: PCP Internal Medicine; Visit Provider Internal Medicine
DX: R30.0 Dysuria (principal); E78.00 Pure hypercholesterolemia, unspecified; D64.9 Anemia, unspecified; E27.40 Unspecified adrenocortical insufficiency; E55.9 Vitamin D deficiency, unspecified
CPT/HCPCS: 36415; 80053; 80061; 81003; 82024; 82306; 84443; 85025

== ENCOUNTER 2024-12-22 10:50 | Outpatient (AMB) | payer OTHER, SELFPAY ==
[2024-12-22 10:59] VITALS: BP 116/62; PULSE 84; TEMP 36.3; O2SAT 98; BMI 30.5
--- NOTE | 2024-12-22 10:59 | MHC.PC.OV ---
Vital Signs 12/22/24 10:59 Height 5 ft 7 in Weight 194 lb 8 oz BMI 30.5 BP 116/62 Blood Pressure Location Lt brachial Position Sitting Pulse 84 Pulse Source Pulse Oximeter Temp 97.3 F Temp Source Temporal Artery Scan Pulse Oximetry (%) 98 Oxygen Delivery Method Room Air Intake Visit Reasons: med management Allergies cephalexin Allergy (Unknown, Verified 01/16/25 12:46) SEIZURE/COMA,anaphylaxsis vancomycin (VANCOMYCIN) Allergy (Unknown, Verified 01/16/25 12:46) RED HEAT RASH Medication List - Last Reconciled 12/22/24 by Dash Crowder MD acetaminophen 2 tabs PO Q4H amlodipine 5 mg (2 x 2.5 mg) PO DAILY cane As directed cholecalciferol (vitamin D3) 50 mcg PO DAILY duloxetine 30 mg PO DAILY 30 days folic acid 1 mg PO DAILY hydrochlorothiazide 25 mg PO DAILY ibuprofen 800 mg PO Q6-8H PRN 30 days lorazepam 1 mg PO TID PRN nicotine 1 patch transdermal DAILY 28 days oxycodone 10 mg PO Q4-6H PRN Tobacco use date assessed: 12/22/24 Dental Screening Dental Screen Date: 12/22/24 Did you have a dental visit in the last 12 months?: No Did you have a dental problem in the last 6 months where you did not have access to dental care?: No Was dental information given to patient?: Patient has dentist HPI med management HPI Details Patient comes in today for her follow up visit States that she feels okay She denies any headaches or dizziness Denies any chest pains, no increased shortness of breath No nausea/vomiting, no abdominal pain No change in bowel habits noted Needs her pain med and Lorazepam Rx refilled She is still dealing with her own issues, including her abdominal wall hernia - will be seeing surgeon tomorrow to discuss for which she is still seeing surgery over at [place], as well as her varicose veins with [facility] She is also still considering whether to go for chemotherapy for her MGUS or not - has follow up appt next month on 01/07/25 She had her follow up labs done a couple of weeks ago - to discuss her results [facility] Medical History Smoker 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 Unknown Colon cancer Social History Household Members: Family Housing: House Are you a primary patient care technician to a significant other at home: No Do you presently have visiting nurse or other home services: No Alcohol intake: former Patient Tobacco Use Status: Current everyday Tobacco user Tobacco use type: Cigarette Cigarette Packs Per Day: 1 Cigarettes Per Day: 20.0 e-Cigarette/Vaping Use: Never Used Second Hand Smoke Exposure: Yes service: No Current occupational status: unemployed Current occupational exposures/hazards: No Cognitive needs: No Hearing needs: No Vision needs: Yes Female Reproductive History Menstrual Age of Menarche: 10 Questionnaire PHQ-9 Over the last 2 weeks, how often have you been bothered by any of the following problems? 1. Little interest or pleasure in doing things: not at all 2. Feeling down, depressed, or hopeless: not at all 3. Trouble falling or staying asleep, or sleeping too much: not at all 4. Feeling tired or having little energy: several days 5. Poor appetite or overeating: not at all 6. Feeling bad about yourself - or that you are a failure or have let yourself or your family down: not at all 7. Trouble concentrating on things, such as reading the newspaper or watching television: not at all 8. Moving or speaking so slowly that other people could have noticed. Or the opposite - being so fidgety or restless that you have been moving around a lot more than usual: not at all 9. Thoughts that you would be better off or of hurting yourself in some way: not at all Total score: 1 Depression Screening Interpretation: Negative Depression Screening Done: Yes 85235 - PHQ-9 Billing: Yes Source: Developed by Drs. Bear Kendall, Eufemia Reece, Eben Rodriguez and colleagues, with an educational hermes from [facility]. Thrive Questionnaire Date Thrive assessed: 10/21/24 I am a: Patient What is your living situation today?: I have a steady place to live Within the past 12 months, did the food you bought not last and you didn't have the money to get more?: I choose not to answer this question Within the past 12 months, did you worry whether your food would run out before you got money to buy more?: I choose not to answer this question Do you have trouble paying for medicines?: No Do you have trouble getting transportation to medical appointments?: No Do you have trouble paying your heating and electricity bill?: No Do you have trouble taking care of your child, family member or friend?: No Do you have trouble with day-to-day activities such as bathing, preparing meals, shopping, managing finances, etc.?: No Are you currently unemployed and looking for a job?: No Are you interested in more education?: No Please select the resources that you would like help with: None Currently or been in a relationship where the following occur: No concerns reported THRIVE Score: 0 AUDIT C Alcohol Use Questionnaire (AUDIT-C) 1. How often do you have a drink containing alcohol?: Never 3. How often do you have six or more drinks on one occasion?: Never Total Score: 0 Score Reviewed/Action Taken: Yes MARIELENA-7 AMB Questionnaire MARIELENA-7 Date MARIELENA - 7 assessed: 11/24/24 Feeling nervous, anxious, or on edge: 0 = Not at all Not being able to stop or control worryin = Not at all Worrying too much about different things: 1 = Several days Trouble relaxin = Not at all Being so restless that it is hard to sit still: 0 = Not at all Becoming easily annoyed or irritable: 0 = Not at all Feeling afraid as if something awful might happen: 0 = Not at all Total MARIELENA-7 score (0-4 normal; 5-9 mild; 10-14 moderate; 15-21 severe): 1 Source: Developed by Drs. Bear Kendall, Eufemia Reece, Eben Rodriguez and colleagues, with an educational hermes from [facility]. Review of Systems Const Denies chills, Reports fatigue, Denies fever(s) and Denies headache(s) ENT Denies dysphagia, Denies dizziness, Denies otalgia, Denies headache(s), Denies neck pain, Denies odynophagia and Denies sore throat Card Denies chest pain, Denies palpitations and Denies dyspnea Resp Denies chest congestion, Denies cough and Denies dyspnea GI Denies abdominal pain, Denies constipation, Denies dysphagia, Denies heartburn, Denies diarrhea, Denies nausea, Denies odynophagia and Denies vomiting Denies difficulty voiding, Denies nocturia, Denies dysuria and Denies urinary urgency Musc Details: increased pain (chronic) in both legs Reports back pain, Reports arthralgias (involving multiple joints) and Denies neck pain Skin/Breast Details: (+) multiple varicosities on both lower extremities Neuro Denies dizziness and Denies headache(s) Endo Reports fatigue and Denies palpitations Physical exam (Primary Care) Vital Signs: Last Vital Signs Temp 97.3 F 12/22/24 10:59 Pulse 84 12/22/24 10:59 BP 116/62 12/22/24 10:59 Pulse Ox 98 12/22/24 10:59 Oxygen Delivery Method Room Air 12/22/24 10:59 BMI result Body Mass Index 30.5 Tobacco/Smoking Status: Tobacco use Status Tobacco use date assessed 12/22/24 12/22/24 11:03 Patient Tobacco Use Status Current everyday Tobacco 12/22/24 11:03 Tobacco use type Cigarette 12/22/24 11:03 e-Cigarette/Vaping Use Never Used 12/22/24 11:03 PHQ-9: PHQ-9 Score PHQ-9: Total score 1 12/22/24 11:23 Depression Screening Interpretation: Negative Thrive Assessment: Date of Thrive Assessment Date Thrive assessed 10/21/24 12/22/24 11:03 Currently or been in a relationship where the following occur: No concerns reported Const General: no acute distress and alert HENMT Ears: TM's normal bilaterally and EAC's normal Throat: Yes posterior oropharynx normal and Yes tonsils normal (no TP congestion) Neck Neck: Yes supple and No lymphadenopathy Thyroid: Thyroid normal Resp Auscultation: clear to auscultation bilaterally, no rales and no wheezes Cardio Rate: regular rate Rhythm: regular rhythm Heart sounds: no murmurs GI Palpation (GI): Soft to palpation, nontender and Hernia present umbilical Auscultation: normal bowel sounds General: Yes no CVA tenderness Back/Spine/Pelvis Back: no CVA tenderness Thoracic/Lumbar Spine: lumbar spinal tenderness Skin Other: (+) multiple varicose veins and scattered ecchymoses noted over both lower extremities Extrem General: Yes no clubbing, cyanosis or edema Right lower extremity: knee Details: tenderness Left lower extremity: knee Details: tenderness Results Reviewed Results Reviewed: Laboratory Tests 12/03/24 12/03/24 07:59 08:10 WBC 4.9 Hgb 14.5 Hct 41.5 Plt Count 110 L Sodium 142 Potassium 3.5 Creatinine 1.04 Estimated GFR 57 Fasting Glucose 109 H Calcium 9.4 AST 23 ALT 21 Triglycerides 209 H Cholesterol 229 H LDL Cholesterol, Calc 146 H HDL Cholesterol 42 25-OH Vitamin D Total 46.4 TSH 1.94 ACTH 19 Ur Specific [place] 1.010 Urine Protein Negative Urine Glucose (UA) Negative Urine Blood Negative Urine Nitrite Negative Ur Leukocyte Esterase Negative Coding Level of Care Code Est Pt Level 4 (57569) Diagnoses Polyarthralgia M25.50 Multiple myeloma in remission C90.01 Multiple myeloma remission status: in remission 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; 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 Rheumatoid arthritis with positive rheumatoid factor, involving unspecified site M05.9 Rheumatoid arthritis location: unspecified site Rheumatoid factor presence: with rheumatoid factor Ventral hernia, recurrent K43.2 Lumbar spondylosis M47.816 Pure hypercholesterolemia E78.00 Essential hypertension I10 Varicose veins of both lower extremities with inflammation I83.11; I83.12 Vitamin D deficiency E55.9 Anxiety F41.9 Smoker F17.200 Obesity (BMI 30-39.9) E66.9 Additional Codes PHQ-9 - 90747 - PHQ-9 Billing: Yes ([id number]) Assessment & Plan Assessment & Plan (1) Polyarthralgia: Code(s): M25.50 - Pain in unspecified joint Category: Medical Plan: Patient continues to experience diffuse joint pains, especially in her lower extremities and states that the pain in both lower legs are often significantly worse towards the later part of the day She was also reportedly diagnosed with possible RA and Graves but these have not been officially confirmed and she has just been treated with oral Prednisone when needed for flare ups Continue Oxycodone 10 mg Q 4 to 6 hours PRN - Rx refilled Follow up with rheumatology as scheduled Per rheumatology recommendation, she was started on a trial of low dose Duloxetine 30 mg QD a couple of months ago but she states that she has not yet started taking it as she feels hesitant about its potential side effects and she states that she has always been this way when taking new medications - she is encouraged to try starting on this as soon as possible (2) Multiple myeloma: Code(s): C90.00 - Multiple myeloma not having achieved remission Category: Medical Qualifiers: Multiple myeloma remission status: in remission Qualified Code(s): C90.01 - Multiple myeloma in remission Plan: She reportedly underwent chemotherapy with Daratumumab and was able to complete her Tx but developed bleeding complications subsequently Per last oncology report - patient completed 6 cycles of Daratumumab treatments. She had noted certain side effects including abdominal pain and diarrhea. She also had rather profuse rectal bleeding. Treatment was stopped after completing 6 cycles. Tx appears to have helped and the rashes on her chest and around the eyes have healed quite well but she still has increased joint pains Follow up with oncology as scheduled (3) Necrobiotic xanthogranuloma with paraproteinemia: Code(s): D76.3 - Other histiocytosis syndromes; D89.2 - Hypergammaglobulinemia, unspecified Category: Medical Plan: She previously exhibited positive response and had dramatic improvement of her skin condition and some improvement of her bone/joint pains when treated with daratumumab from July to December 2022 Follow up with rheumatology as scheduled (4) Rheumatoid arthritis: Code(s): M06.9 - Rheumatoid arthritis, unspecified Category: Medical Qualifiers: Rheumatoid arthritis location: unspecified site Rheumatoid factor presence: with rheumatoid factor Qualified Code(s): M05.9 - Rheumatoid arthritis with rheumatoid factor, unspecified Plan: Patient appears to have failed MTx, Plaquenil and Humira in the past Has also received Tx with Rituximab and Daratumumab previously Follow up with rheumatology at [facility] [place] as scheduled (5) Ventral hernia, recurrent: Code(s): K43.2 - Incisional hernia without obstruction or gangrene Category: Medical Plan: Follow up with surgery at [facility] as scheduled - states that she has a follow up appointment scheduled with surgery early next month on 01/07/2025 (6) Lumbar spondylosis: Code(s): M47.816 - Spondylosis without myelopathy or radiculopathy, lumbar region Category: Medical Plan: Reinforced activity and weight-lifting restrictions to minimize aggravating her low back pain States that her current pain medication helps with her low back pain as well (7) Pure hypercholesterolemia: Code(s): E78.00 - Pure hypercholesterolemia, unspecified Category: Medical Plan: Results of her labs done a couple of weeks ago reviewed and discussed with patient - she is cautioned that her cholesterol levels have increased slightly from a couple of years ago and her LDL cholesterol is now at 146 mg/dl Reinforced low cholesterol diet She is advised to try to get her cholesterol levels back under control over the next few months or we may need to consider starting her on cholesterol-lowering medications (8) Essential hypertension: Code(s): I10 - Essential (primary) hypertension Category: Medical Plan: Reinforced low sodium diet - goal is systolic BP of 120 mm or less Continue Amlodipine 5 mg QD and HCTZ 25 mg QD She is reminded to continue monitoring her blood pressure regularly (9) Varicose veins of both lower extremities with inflammation: Code(s): I83.11 - Varicose veins of right lower extremity with inflammation; I83.12 - Varicose veins of left lower extremity with inflammation Category: Medical Plan: S/P venous ablation Follow up with vascular surgery as scheduled (10) Vitamin D deficiency: Code(s): E55.9 - Vitamin D deficiency, unspecified Category: Medical Plan: Continue Vitamin D3 2000 units QD (11) Anxiety: Code(s): F41.9 - Anxiety disorder, unspecified Category: Medical Plan: Continue Lorazepam 1 mg TID PRN - Rx refilled (12) Smoker: Code(s): F17.200 - Nicotine dependence, unspecified, uncomplicated Category: Social Hx Plan: Patient is counseled again on complete smoking cessation Per request, she was started on nicotine patches previously to help her quit smoking (13) Obesity (BMI 30-39.9): Code(s): E66.9 - Obesity, unspecified Category: Medical Plan: Reinforced diet; exercise and weight loss are unrealistic given patient's multiple medical and physical issues Plan Follow up in 1 month Medications: Refilled oxycodone 10 mg PO Q4-6H PRN 140 tabs 0RF pain lorazepam 1 mg PO TID PRN 90 tabs 1RF anxiety
--- OUTSIDE RECORDS SUMMARY | 2024-12-22 13:24 | XMS_ITS | Encounter Summary ---
Author Organization [facility] Address [address] [place] [address] [address] [place] [address] Phone Care Team Providers Care Packaging Specialist Name Role Phone Pedro Phillips MD Primary Care Provider [phone] Asad Sheppard MD, SHANNEN Unavailable Justino Deleon MD Unavailable Dash Crowder MD Primary Care Provider [phone] Encounter Details Date Type Department Care Team (Late st Contact Info) Description [address] [facility] [place] [address] [facility], 6th [place] [address] Social History Tobacco Use Types Packs/Day Years [...] Care Team (Late st Contact Info) Description 01/07/2025 2:00 PM EDT Telemedicine [facility] Center for Hematology Malignancies [address] [facility], 9th Floor, [address] [place] [address] Justino Deleon MD [address] [place] [address] [email or web address] 03/13/2025 11:40 AM EST Office Visit [facility] Rheumatology [address], [address] [place] [address] Luly Sepulveda MD [address] [place] [address] [email or web address] documented as of this encounter Visit Diagnoses Not on filedocumented in this encounter Care Teams Packaging Specialist Relationship Specialty Start Date End Date Pedro Phillips MD [address] [place] [address] Dr Rivera [address] [place] [phone] PCP - General Internal Medicine 08/15/18 09/30/24 Dash Crowder MD [address] [place] [address] Dr Rivera [address] [place] [phone] PCP - General Internal Medicine 10/01/24 Asad Sheppard MD, SHANNEN [address] [place] [address] Dr Rivera [address] [place] [phone] [email or web address] Treatment Team Ophthalmology 06/22/20 Justino Deleon MD [address] [place] [address] [email or web address] Consulting Provider Medical Oncology 10/28/21 documented as of this encounter Additional Source Comments The information contained in this document represents components of the legal health record. It is not the complete legal health record.[facility]
--- OUTSIDE RECORDS SUMMARY | 2024-12-22 13:24 | XMS_ITS | Encounter Summary ---
Author Organization [facility] Address [address] [place] [address] [address] [place] [address] Phone Care Team Providers Care Rn Medical Inpatient Services Name Role Phone Pedro Phillips MD Primary Care Provider Asad Sheppard MD, SHANNEN Unavailable [phone] Justino Deleon MD Unavailable Dash Crowder MD Primary Care Provider [phone] Encounter Details Date Type Department Care Team (Late st Contact Info) Description 09/08/2021 Procedure Pass [facility] PERIOP DEPT [address] [place] [address] Social History Tobacco Use Types Packs/Day Years [...] Info) Description 01/07/2025 2:00 PM EDT Telemedicine [facility] Malignancies [address] [facility], 9th Floor, [address] [place] [address] Justino Deleon MD [address] [place] [address] [email or web address] 03/13/2025 11:40 AM EST Office Visit [facility] [place]umatology [address], [address] [place] [address] Luly Sepulveda MD [address] [place] [address] [email or web address] documented as of this encounter Visit Diagnoses Not on filedocumented in this encounter Care Teams Rn Medical Inpatient Services Relationship Specialty Start Date End Date Pedro Phillips MD [address] [place] [address] Dr Rivera [address] [place] [address] PCP - General Internal Medicine 08/15/18 09/30/24 Dash Crowder MD [address] [place] [address] Dr Rivera [address] [place] [id number] PCP - General Internal Medicine 10/01/24 Asad Sheppard MD, SHANNEN [address] [place] [address] Dr Rivera [address] [place] [phone] [email or web address] Treatment Team Ophthalmology 06/22/20 Justino Deleon MD [address] [place] [address] [email or web address] [email or web address] Provider Medical Oncology 10/28/21 documented as of this encounter Additional Source Comments The information contained in this document represents components of the legal health record. It is not the complete legal health record.[facility]
--- OUTSIDE RECORDS SUMMARY | 2024-12-22 13:24 | XMS_ITS | Encounter Summary ---
Author Organization [facility] Address [address] [place] [address] Phone Care Team Providers Care Pipeline Welder Name Role Phone Pedro Phillips MD Primary Care Provider [phone] Asad Sheppard MD, SHANNEN Unavailable Justino Deleon MD Unavailable Dash Crowder MD Primary Care Provider [phone] Encounter Details Date Type Department Care Team (Late st Contact Info) Description 04/11/2022 Procedure Pass [facility], [address] [address] Social History Tobacco Use Types Packs/Day Years [...] high school, GED, job training, learning the Armenian language, technical skills, or developing parenting skills)? [...] Info) Description 01/07/2025 2:00 PM EDT Telemedicine [facility] Center for Hematology Malignancies [address] [facility], 9th Floor, [address] [place] [address] Justino Deleon MD [address] [place] [address] [email or web address] 03/13/2025 11:40 AM EST Office Visit [facility] Rheumatology [address], [address] [place] [address] Luly Sepulveda MD [address] [place] [address] [email or web address] documented as of this encounter Visit Diagnoses Not on filedocumented in this encounter Care Teams Pipeline Welder Relationship Specialty Start Date End Date Pedro Phillips MD [address] [place] [address] [place] [address] PCP - General Internal Medicine 08/15/18 09/30/24 Dash Crowder MD [address] [place] [address] Dr Rivera [address] [place] [address] PCP - General Internal Medicine 10/01/24 Asad Sheppard MD, SHANNEN [address] [place] [address] Dr Rivera [address] [place] [phone] [email or web address] Treatment Team Ophthalmology 06/22/20 Justino Deleon MD [address] [place] [id number] [email or web address] Consulting Provider Medical Oncology 10/28/21 documented as of this encounter Additional Source Comments The information contained in this document represents components of the legal health record. It is not the complete legal health record.[facility]
--- OUTSIDE RECORDS SUMMARY | 2024-12-22 13:24 | XMS_ITS | Encounter Summary ---
Author Organization [facility] Address [address] [place] [address] Phone Care Team Providers Care Skate Boarder Name Role Phone Pedro Phillips MD Primary Care Provider [phone] Asad Sheppard MD, SHANNEN Unavailable Justino Deleon MD Unavailable Dash Crowder MD Primary Care Provider [phone] Encounter Details Date Type Department Care Team (Late st Contact Info) Description 04/11/2022 Procedure Pass [facility], [address] [address] Social History Tobacco Use Types Packs/Day Years [...] high school, GED, job training, learning the Lithuanian language, technical skills, or developing parenting skills)? [...] Info) Description 01/07/2025 2:00 PM EDT Telemedicine [facility] Center for Hematology Malignancies [address] [facility], 9th Floor, [address] [place] [address] Justino Deleon MD [address] [place] [address] [email or web address] 03/13/2025 11:40 AM EST Office Visit [facility] Rheumatology [address], [address] [place] [address] Luly Sepulveda MD [address] [place] [address] [email or web address] documented as of this encounter Visit Diagnoses Not on filedocumented in this encounter Care Teams Skate Boarder Relationship Specialty Start Date End Date Pedro Phillips MD [address] [place] [address] [place] [address] PCP - General Internal Medicine 08/15/18 09/30/24 Dash Crowder MD [address] [place] [address] Dr [address] [place] [address] PCP - General Internal Medicine 10/01/24 Asad Sheppard MD, SHANNEN [address] [place] [address] Dr Rivera [address] [place] [address] [email or web address] Treatment Team Ophthalmology 06/22/20 Justino Deleon MD [address] [place] [address] [email or web address] Consulting Provider Medical Oncology 10/28/21 documented as of this encounter Additional Source Comments The information contained in this document represents components of the legal health record. It is not the complete legal health record.[facility]
--- OUTSIDE RECORDS SUMMARY | 2024-12-22 13:24 | XMS_ITS | Encounter Summary ---
Author Organization [facility] Address [address] [place] [address] [place] [address] Phone Care Team Providers Care Sand Mill Operator Name Role Phone Pedro Phillips MD Primary Care Provider [phone] Asad Sheppard MD, SHANNEN Unavailable Justino Deleon MD Unavailable Dash Crowder MD Primary Care Provider [phone] Encounter Details Date Type Department Care Team (Latest Contact Info) Description 01/26/2022 Ancillary Orders [facility] [place] [address], 4th Floor, [address] [place] [address] Luly Sepulveda MD [address] [place] [address] [email or web address] Necrobiotic xanthogranuloma Social History Tobacco Use Types [...] Upcoming Encounters Date Type Department Care Team ( st Contact Info) Description 01/07/2025 2:00 PM EDT Telemedicine [facility] for Hematology Malignancies [address] [facility], 9th Floor, [address] [place] [address] Justino Deleon MD [address] [place] [address] [email or web address] 03/13/2025 11:40 AM EST Office Visit [facility] [place] [address] [address] [facility], [address] [place] [address] Luly Sepulveda MD [address] [place] [address] [email or web address] documented as of this encounter Results [...] acute osseous abnormality. No suspicious osseous lesions. us Luly Sepulveda MD IMG XR UPPER EXTREMITY Deisi l Result documented in this encounter Visit Diagnoses Diagnosis Necrobiotic xanthogranuloma Necrobiotic xanthogranuloma documented in this encounter Care Teams Sand Mill Operator Relationship Specialty Start Date End Date Pedro Phillips MD [address] [place] [address] [place] [address] PCP - General Internal Medicine 08/15/18 09/30/24 Dash Crowder MD [address] [place] [address] [place] [address] PCP - General Internal Medicine 10/01/24 Asad Sheppard MD, SHANNEN [address] [place] [address] [place] [address] [email or web address] Treatment Team Ophthalmology 06/22/20 Justino Deleon MD [address] [place] [address] [email or web address].[place].[facility] Consulting Provider Medical Oncology 10/28/21 documented as of this encounter Additional Source Comments The information contained in this document represents components of the legal health record. It is not the complete legal health record.[facility]
--- OUTSIDE RECORDS SUMMARY | 2024-12-22 13:24 | XMS_ITS | Encounter Summary ---
Author Organization [facility] Address [address] [place] [address] Phone Care Team Providers Care Clinical Pharmacologist Name Role Phone Pedro Phillips MD Primary Care Provider [phone] Asad Sheppard MD, SHANNEN Unavailable [phone] Justino Deleon MD Unavailable Dash Crowder MD Primary Care Provider [phone] Encounter Details Date Type Department Care Team (Late st Contact Info) Description 01/21/2024 Procedure Pass [facility], [address] [address] Social History Tobacco Use Types Packs/Day Years [...] high school, GED, job training, learning the [place] Citizen language, technical skills, or developing parenting skills)? [...] Info) Description 01/07/2025 2:00 PM EDT Telemedicine [facility] Center for Hematology Malignancies [address] [facility], 9th Floor, [address] [place] [address] Justino Deleon MD [address] [place] [address] [email or web address] lam 03/13/2025 11:40 AM EST Office Visit [facility] Rheumatology [place] [address] [facility], [address] [place] [address] Luly Sepulveda MD [address] [place] [address] [email or web address] documented as of this encounter Visit Diagnoses Not on filedocumented in this encounter Care Teams Clinical Pharmacologist Relationship Specialty Start Date End Date Pedro Phillips MD [address] [place] [address] [place] [address] PCP - General Internal Medicine 08/15/18 09/30/24 Dash Crowder MD [address] [place] [address] [place] [address] PCP - General Internal Medicine 10/01/24 Asad Sheppard MD, SHANNEN [address] [place] [address] [place] [address] [email or web address] Treatment Team Ophthalmology 06/22/20 Justino Deleon MD [address] [place] [address] [email or web address].[email or web address] Consulting Provider Medical Oncology 10/28/21 documented as of this encounter Additional Source Comments The information contained in this document represents components of the legal health record. It is not the complete legal health record.[facility]
--- OUTSIDE RECORDS SUMMARY | 2024-12-22 13:24 | XMS_ITS | Clinical Summary ---
Author Organization [facility] Address [address] [place] [address] [place] [address] Phone Care Team Providers Care Excelsior Machine Feeder Name Role Phone Asad Sheppard MD, SHANNEN Unavailable Justino Deleon MD Unavailable Dash Crowder MD Primary Care Provider [phone] Allergies Active Allergy Reactions Criticality Noted Date [...] follow up in collaboration with her other [facility] clinicians #Coping with serious illness. Discussed Bhavana's [...] undetermined significan ce 2021 [facility] with negative rheumatoid factor 05/20/2021 Encounters Date Type Department Care Team Description 11/21/2024 Telephone [facility] Center for Hematology Malignancies [address] [facility], 9th Floor, [address] [place] [address] Justino Deleon MD 10/01/2024 11:00 AM EDT Telemedicine - audio only [facility] Rheumatology [address], 4th Floor, [address] [place] [address] Luly Sepulveda MD Necrobiotic xanthogranuloma (Primary Dx); Arthralgia, unspecified joint; Primary osteoarthritis involving multiple joints 10/01/2024 Telephone [facility] Rheumatology [address], 4th Floor, [address] [place] [address] Luly Sepulveda MD Medication Prior Authorization (Lidocaine (LIDODERM) 5 %) from Last 3 Months Immunizations Immunization Administration [...] your housing situation today? I have meseret sing 01/31/2022 How many times have you move [...] 01/07/2025 2:00 PM EDT Telemedicine [facility] Center for Hematology Malignancies [address] [facility], 9th Floor, [address] [place] [address] Justino Deleon MD [address] [place] [address] [email or web address] lam 03/13/2025 11:40 AM EST Office Visit [facility] Rheumatology [address], [address] [place] [address] Luly Sepulveda MD [address] [place] [address] [email or web address] Health Maintenance Due Date Last Done Comments LIPID PANEL 1978 COVID-19 VACCINE (#1) 09/13/1983 DEPRESSION SCREENING 1990 SMOKING Hx and SMOKELESS TOBACCO SCREENING 09/13/1991 PAP SMEAR 09/13/1999 MAMMOGRAM 2018 PNEUMOCOCCAL VACCINES (0-49 years) (2 of 2 - PCV) 02/21/2020 02/20/2019 COLOGUARD 09/13/2023 COLONOSCOPY 09/13/2023 COLORECTAL CANCER SCREENING 09/13/2023 FIT TEST 09/13/2023 FOBT 09/13/2023 SIGMOIDOSCOPY 09/13/2023 VIRTUAL COLONOSCOPY 09/13/2023 INFLUENZA VACCINE (#1) 2024 , 01/01/2020, 01/02/2019, Additional history exists POTASSIUM LEVEL [...] EDT) SODIUM 140 135 - 145 mmol/L [facility] POTASSIUM 4.1 3.4 - 5.0 mmol/L [facility] CHLORIDE 103 98 - 108 mmol/L [facility] CO2 25 23 - 32 mmol/L [facility] BUN 11 8 - 25 mg/dL [facility] CREATININE 0.84 0.60 - 1.50 mg/dL [facility] GLUCOSE 141(H) 70 - 110 mg/dL [facility] ALBUMIN 4.3 3.3 - 5.0 g/dL [facility] TOTAL PROTEIN 6.7 6.0 - 8.3 g/dL [facility] CALCIUM 9.5 8.5 - 10.5 mg/dL [facility] ALKALINE PHOSPHATASE 92 30 - 100 U/L [facility] TOTAL BILIRUBIN 0.4 0.0 - 1.0 mg/dL [facility] AST 22 9 - 32 U/L [facility] ALT 25 7 - 33 U/L [facility] GLOBULIN 2.4 1.9 - 4.1 g/dL [facility] EGFR 87 >59 mL/min/1. 73m2 [facility] Comment:Estimated glomerular filtration rate calculated using the CKD-EPI refit equation. ANION GAP 12 3 - 17 mmol/L [facility] 01/21/2024 11:2 2 AM EDT 01/21/2024 11:31 AM EDT us Justino Deleon MD LAB BLOOD ORDERABLES Final Resul t [address] [address] * Hepatitis C antibody, qualitative (11/19/2020 3:53 PM EDT) HCV NON-REACTIV E NON-REACTI VE [facility] Blood 11/19/2020 3:53 PM EDT 11/19/2020 3:59 PM EDT us Luly Sepulveda MD LAB BLOOD ORDERABLES Final Result Performing Organization Address City/[facility]/ZIP Co de Phone Number [facility] [address] [place], [place] [id number] from Last 3 Months or Most Recently Relevant to Health Maintenance Insurance MEDICARE PART A & B Member Subscriber Plan / Payer (Ef fective 2022-Present) Name:Bhavana Hou Member ID:[id number] Relation to Subscriber:Self Name:Bhavana Hou Subscriber ID:[id number] Payer ID:[id number] Group ID:Not on file Type:Medicare Address: [employer] [address] CARE MEDICARE REPLACEMENT MEDICARE PART A & B Member Subscriber Plan / Payer ( fective 2022-) Name:RegiskimberlyBhavana goodrich Member ID:[id number] Relation to Subscriber:Self Name:Bhavana Hou Subscriber ID:[id number] Payer ID:[id number] Group ID:Not on file Type:Medicare Address: [employer] [address] [place], [place] [id number] [facility] CARE MEDICARE REPLACEMENT MEDICARE PART A & B Member Subscriber Plan / Payer (Ef fective 2022-) Name:Bhavana Hou Member ID:[id number] Relation to Subscriber:Self Name:Bhavana Hou Subscriber ID:[id number] Payer ID:[id number] Group ID:Not on file Type:Medicare Address: [employer] [address] [place] [address] CARE MEDICARE REPLACEMENT ANNA GARG [facility] MEDICARE PART A & B Member Subscriber Plan / Payer (Ef fective 2022-) Name:RegiskimberlyBhavana goodrich Member ID:[id number] Relation to Subscriber:Self Name:Bhavana Hou Subscriber ID:[id number] Payer ID:[id number] Group ID:Not on file Type:Medicare Address: [employer] [address] [place] [address] [facility] CARE MEDICARE REPLACEMENT MEDICARE PART A & B ONE CARE MEDICARE REPLACEMENT MEDICARE PART A & B Member Subscriber Plan / Payer (Ef fective 2022-) Name:Bhavana Hou Member ID:[id number] Relation to Subscriber:Self Name:Bhavana Hou Subscriber ID:[id number] Payer ID:[id number] Group ID:Not on file Type:Medicare Address: [employer] [address] ONE CARE MEDICARE REPLACEMENT ANNA GARG [id number] Care Teams Excelsior Machine Feeder Relationship Specialty Start Date End Date Dash Crowder MD [address] [place] [address] [place] [address] PCP - General Internal Medicine 10/01/24 Asad Sheppard MD, SHANNEN [email or web address] Treatment Team Ophthalmology 06/22/20 Justino Deleon MD [address] [place] [address] [email or web address] Consulting Provider Medical Oncology 10/28/21 Additional Source Comments The information contained in this document represents components of the legal health record. It is not the complete legal health record.[facility]
--- OUTSIDE RECORDS SUMMARY | 2024-12-22 13:24 | XMS_ITS | Encounter Summary ---
Author Organization [facility] Address [address] [place] [address] Phone Care Team Providers Care Car Construction Superintendent Name Role Phone Pedro Phillips MD Primary Care Provider [phone] Asad Sheppard MD, SHANNEN Unavailable Justino Deleon MD Unavailable Dash Crowder MD Primary Care Provider [phone] Encounter Details Date Type Department Care Team (Late st Contact Info) Description 02/16/2022 Procedure Pass [facility], [address] [address] Social History Tobacco Use Types Packs/Day Years [...] high school, GED, job training, learning the [place] language, technical skills, or developing parenting skills)? [...] Info) Description 01/07/2025 2:00 PM EDT Telemedicine [facility] Center for Hematology Malignancies [address] [facility], 9th Floor, [address] [place] [address] Justino Deleon MD [address] [place] [address] [email or web address] 03/13/2025 11:40 AM EST Office Visit [facility] Rheumatology [address], [address] [place] [address] Luly Sepulveda MD [address] [place] [address] [email or web address] documented as of this encounter Visit Diagnoses Not on filedocumented in this encounter Care Teams Car Construction Superintendent Relationship Specialty Start Date End Date Pedro Phillips MD [address] [place] [address] [place] [address] PCP - General Internal Medicine 08/15/18 09/30/24 Dash Crowder MD [address] [place] [address] Dr Rivera [address] [place] [address] PCP - General Internal Medicine 10/01/24 Asad Sheppard MD, SHANNEN [address] [place] [address] Dr Rivera [address] [place] [address] [email or web address] Treatment Team Ophthalmology 06/22/20 Justino Deleon MD [address] [place] [address] [email or web address] Consulting Provider Medical Oncology 10/28/21 documented as of this encounter Additional Source Comments The information contained in this document represents components of the legal health record. It is not the complete legal health record.[facility]
--- OUTSIDE RECORDS SUMMARY | 2024-12-22 13:24 | XMS_ITS | Encounter Summary ---
Author Organization [facility] Address [address] [place] [address] [place] [address] Phone Care Team Providers Care Backfiller Name Role Phone Pedro Phillips MD Primary Care Provider [phone] Asad Sheppard MD, SHANNEN Unavailable Justino Deleon MD Unavailable Dash Crowder MD Primary Care Provider [phone] Reason for Referral * Consultation (Within 1 month) - Closed Specialty Diagnoses / Procedures Referred By Elizabeth patten Referred To Contact Rheumatology System, Provider Not In, PhD [id number] [place] [phone] Phone: tel: Referral ID Status Reason Start Date Expiration Date Visits Re quested Visits Authorized [id number] Closed 08/22/2018 08/23/2019 1 1 Encounter Details Date Type Department Care Team (Late st Contact Info) Description 08/22/2018 Transcribe Orders [facility] [place] [address], 4th Floor, [address] [place] [address] Pedro Phillips MD [address] [place] [address] [place] [address] Social History Tobacco Use Types Packs/Day Years [...] Info) Description 01/07/2025 2:00 PM EDT Telemedicine [facility] Center for Hematology Malignancies [address] [facility], 9th Floor, [address] [place] [address] Justino Deleon MD [address] [place] [address] [email or web address] 03/13/2025 11:40 AM EST Office Visit [facility] [place] [address], [address] [place] [address] Luly Sepulveda MD [address] [place] [address] [email or web address] Scheduled Referrals Name Type Priority Associated Diagnoses Order Schedule Ambulatory referral to [facility] Outpatient Referral Routine Ordered: 08/22/2018 documented as of this encounter Visit Diagnoses Not on filedocumented in this encounter Care Teams Backfiller Relationship Specialty Start Date End Date Pedro Phillips MD [address] [place] [address] [place] [address] PCP - General Internal Medicine 08/15/18 09/30/24 Dash Crowder MD [address] [place] [address] [place] [address] PCP - General Internal Medicine 10/01/24 Asad Sheppard MD, SHANNEN [address] [place] [address] [place] [address] [email or web address] Treatment Team Ophthalmology 06/22/20 Justino Deleon MD [address] [place] [address] [email or web address] Consulting Provider Medical Oncology 10/28/21 documented as of this encounter Additional Source Comments The information contained in this document represents components of the legal health record. It is not the complete legal health record.[facility]
--- OUTSIDE RECORDS SUMMARY | 2024-12-22 13:24 | XMS_ITS | Encounter Summary ---
Author Organization [facility] Address [address] [place] [address] [address] [place] [address] Phone Care Team Providers Care Director Of Front Office Name Role Phone Pedro Phillips MD Primary Care Provider [phone] Asad Sheppard MD, SHANNEN Unavailable Justino Deleon MD Unavailable Dash Crowder MD Primary Care Provider [phone] Encounter Details Date Type Department Care Team (Late st Contact Info) Description 03/16/2021 Procedure Pass [facility], Ct Scan - [address] [address] Social History Tobacco Use Types Packs/Day Years [...] Department Care Team (Late Contact Info) Description 01/07/2025 2:00 PM EDT Telemedicine [facility] Center for Hematology Malignancies [address] [facility], 9th Floor, [address] [place] [address] Justino Deleon MD [address] [place] [address] [email or web address] lam 03/13/2025 11:40 AM EST Office Visit [facility] Rheumatology [address], [address] [place] [address] Luly Sepulveda MD [address] [place] [address] [email or web address] documented as of this encounter Visit Diagnoses Not on filedocumented in this encounter Care Teams Director Of Front Office Relationship Specialty Start Date End Date Pedro Phillips MD [address] [place] [address] Dr Rivera [address] [place] [address] PCP - General Internal Medicine 08/15/18 09/30/24 Dash Crowder MD [address] [place] [address] Dr Rivera [address] [place] [address] PCP - General Internal Medicine 10/01/24 Asad Sheppard MD, SHANNEN [address] [place] [address] Dr Rivera [address] [place] [address] [email or web address] Treatment Team Ophthalmology 06/22/20 Justino Deleon MD [address] [place] [address] [email or web address] Consulting Provider Medical Oncology 10/28/21 documented as of this encounter Additional Source Comments The information contained in this document represents components of the legal health record. It is not the complete legal health record.[facility]
--- OUTSIDE RECORDS SUMMARY | 2024-12-22 13:25 | XMS_ITS | Encounter Summary ---
Author Organization [facility] Address [address] [place] [address] [address] [place] [address] Phone Care Team Providers Care Cmm Programmer Name Role Phone Pedro Phillpis MD Primary Care Provider [phone] Asad Sheppard MD, SHANNEN Unavailable Justino Deleon MD Unavailable Dash Crowder MD Primary Care Provider [phone] Encounter Details Date Type Department Care Team (Late st Contact Info) Description 2021 Procedure Pass [facility] [place] [address] [facility], 6th [place] [address] Social History Tobacco Use Types Packs/Day Years [...] Info) Description 01/07/2025 2:00 PM EDT Telemedicine [facility] Center for Hematology Malignancies [address] [facility], 9th Floor, [address] [place] [address] Justino Deleon MD [address] [place] [address] [email or web address] 03/13/2025 11:40 AM EST Office Visit [facility] Rheumatology [address], [address] [place] [address] Luly Sepulveda MD [address] [place] [address] [email or web address] documented as of this encounter Visit Diagnoses Not on filedocumented in this encounter Care Teams Cmm Programmer Relationship Specialty Start Date End Date Pedro Phillips MD [address] [place] [address] Dr Rivera [address] [place] [phone] PCP - General Internal Medicine 08/15/18 09/30/24 Dash Crowder MD [address] [place] [address] Dr Rivera [address] [place] [phone] PCP - General Internal Medicine 10/01/24 Asad Sheppard MD, SHANNEN [address] [place] [address] Dr Rivera [address] [place] [phone] [email or web address] Treatment Team Ophthalmology 06/22/20 Justino Deleon MD [address] [place] [address] [email or web address] Consulting Provider Medical Oncology 10/28/21 documented as of this encounter Additional Source Comments The information contained in this document represents components of the legal health record. It is not the complete legal health record.[facility]
--- OUTSIDE RECORDS SUMMARY | 2024-12-22 13:25 | XMS_ITS | Encounter Summary ---
Author Organization [facility] Address [address] [place] [address] [address] [place] [address] Phone Care Team Providers Care Filter Plant Supervisor Name Role Phone Pedro Phillips MD Primary Care Provider [phone] Asad Sheppard MD, SHANNEN Unavailable [phone] Justino Deleon MD Unavailable Dash Crowder MD Primary Care Provider [phone] Encounter Details Date Type Department Care Team (Late st Contact Info) Description 09/14/2021 Procedure Pass [facility] Imaging - RF/IR [address] [place] [address] Social History Tobacco Use Types Packs/Day Years [...] Info) Description 01/07/2025 2:00 PM EDT Telemedicine [facility] Center for Hematology Malignancies [address] [facility], 9th Floor, [address] [place] [address] Justino Deleon MD [address] [place] [address] [email or web address] 03/13/2025 11:40 AM EST Office Visit [facility] Rheumatology [address], [address] [place] [address] Luly Sepulveda MD [address] [place] [address] [email or web address] documented as of this encounter Visit Diagnoses Not on filedocumented in this encounter Care Teams Filter Plant Supervisor Relationship Specialty Start Date End Date Pedro Phillips MD [address] [place] [address] Dr Rivera [address] [place] [phone] PCP - General Internal Medicine 08/15/18 09/30/24 Dash Crowder MD [address] [place] [address] Dr Rivera [address] [place] [phone] PCP - General Internal Medicine 10/01/24 Asad Sheppard MD, SHANNEN [address] [place] [address] Dr Rivera [address] [place] [address] [email or web address] Treatment Team Ophthalmology 06/22/20 Justino Deleon MD [address] [place] [address] [email or web address] Consulting Provider Medical Oncology 10/28/21 documented as of this encounter Additional Source Comments The information contained in this document represents components of the legal health record. It is not the complete legal health record.[facility]
--- OUTSIDE RECORDS SUMMARY | 2024-12-22 13:26 | XMS_ITS | Encounter Summary ---
Author Organization [facility] Address [address] [place] [address] [place] [address] Phone Care Team Providers Care Migrant Leader Name Role Phone Pedro Phillips MD Primary Care Provider [phone] Asad Sheppard MD, SHANNEN Unavailable Justino Deleon MD Unavailable Dash Crowder MD Primary Care Provider [phone] Encounter Details Date Type Department Care Team (Late st Contact Info) Description 08/31/2020 Procedure Pass [facility], Ct Scan - [address] [address] Social History Tobacco Use Types Packs/Day Years [...] Info) Description 01/07/2025 2:00 PM EDT Telemedicine [facility] Center for Hematology Malignancies [address] [facility], 9th [address], [address] [place] [address] Justino Deleon MD [address] [place] [address] [email or web address] 03/13/2025 11:40 AM EST Office Visit [facility] Rheumatology [address], [address] [place] [address] Luly Sepulveda MD [address] [place] [address] [email or web address] documented as of this encounter Visit Diagnoses Not on filedocumented in this encounter Care Teams Migrant Leader Relationship Specialty Start Date End Date Pedro Phillips MD [address] [place] [address] Dr Rivera [address] [place] [address] PCP - General Internal Medicine 08/15/18 09/30/24 Dash Crowder MD [address] [place] [address] Dr Rivera [address] [place] [address] PCP - General Internal Medicine 10/01/24 Asad Sheppard MD, SHANNEN [address] [place] [address] Dr Rivera [address] [place] [address] [email or web address] Treatment Team Ophthalmology 06/22/20 Justino Deleon MD [address] [place] [phone] [email or web address] Consulting Provider Medical Oncology 10/28/21 documented as of this encounter Additional Source Comments The information contained in this document represents components of the legal health record. It is not the complete legal health record.[facility]
--- OUTSIDE RECORDS SUMMARY | 2024-12-22 13:26 | XMS_ITS | Encounter Summary ---
Author Organization [facility] Address [address] [place] [address] [place] [address] Phone Care Team Providers Care Senior Quality Analyst Name Role Phone Pedro Phillips MD Primary Care Provider [phone] Asad Sheppard MD, SHANNEN Unavailable Justino Deleon MD Unavailable Dash Crowder MD Primary Care Provider [phone] Encounter Details Date Type Department Care Team (Late st Contact Info) Description 08/07/2020 Procedure Pass [facility], Ct Scan - [address] [address] Social History Tobacco Use Types Packs/Day Years [...] Info) Description 01/07/2025 2:00 PM EDT Telemedicine [facility] Center for Hematology Malignancies [address] [facility], 9th Floor, [address] [place] [address] Justino Deleon MD [address] [place] [address] [email or web address] 03/13/2025 11:40 AM EST Office Visit [facility] Rheumatology [address], [address] [place] [address] Luly Sepulveda MD [address] [place] [address] [email or web address] documented as of this encounter Visit Diagnoses Not on filedocumented in this encounter Care Teams Senior Quality Analyst Relationship Specialty Start Date End Date Pedro Phillips MD [address] [place] [address] Dr Rivera [address] [place] [address] PCP - General Internal Medicine 08/15/18 09/30/24 Dash Crowder MD [address] [place] [address] Dr Rivera [address] [place] [phone] PCP - General Internal Medicine 10/01/24 Asad Sheppard MD, SHANNEN [address] [place] [address] Dr Rivera [address] [place] [phone] [email or web address] Treatment Team Ophthalmology 06/22/20 Justino Deleon MD [address] [place] [address] [email or web address] Consulting Provider Medical Oncology 10/28/21 documented as of this encounter Additional Source Comments The information contained in this document represents components of the legal health record. It is not the complete legal health record.[facility]
== END 2024-12-22 11:36 | disposition home or self-care (01) ==
LOC: HO.HMCH 10:51
PROVIDERS: PCP Internal Medicine; Visit Provider Internal Medicine
DX: M25.50 Pain in unspecified joint (principal); C90.01 Multiple myeloma in remission; D76.3 Other histiocytosis syndromes; D89.2 Hypergammaglobulinemia, unspecified; M05.9 Rheumatoid arthritis with rheumatoid factor, unspecified; K43.2 Incisional hernia without obstruction or gangrene; M47.816 Spondylosis without myelopathy or radiculopathy, lumbar region; E78.00 Pure hypercholesterolemia, unspecified; I10 Essential (primary) hypertension; I83.11 Varicose veins of right lower extremity with inflammation; I83.12 Varicose veins of left lower extremity with inflammation; E55.9 Vitamin D deficiency, unspecified; F41.9 Anxiety disorder, unspecified; F17.200 Nicotine dependence, unspecified, uncomplicated; E66.9 Obesity, unspecified

== ENCOUNTER → 2024-12-22 10:50 | Outpatient (BNVA) | payer OTHER, SELFPAY | PROVIDERS: PCP Internal Medicine; Visit Provider Internal Medicine | DX: M25.50 Pain in unspecified joint (principal); C90.01 Multiple myeloma in remission; D76.3 Other histiocytosis syndromes; D89.2 Hypergammaglobulinemia, unspecified; M05.9 Rheumatoid arthritis with rheumatoid factor, unspecified; K43.2 Incisional hernia without obstruction or gangrene; M47.816 Spondylosis without myelopathy or radiculopathy, lumbar region; E78.00 Pure hypercholesterolemia, unspecified; I10 Essential (primary) hypertension; I83.11 Varicose veins of right lower extremity with inflammation; I83.12 Varicose veins of left lower extremity with inflammation; E55.9 Vitamin D deficiency, unspecified; F41.9 Anxiety disorder, unspecified; E66.9 Obesity, unspecified; Z68.30 Body mass index [BMI] 30.0-30.9, adult; F17.200 Nicotine dependence, unspecified, uncomplicated; Z79.891 Long term (current) use of opiate analgesic; Z79.899 Other long term (current) drug therapy; Z13.31 Encounter for screening for depression | CPT/HCPCS: 96127; 99212 ==

== ENCOUNTER 2025-01-16 10:39 | Outpatient (AMB) | payer OTHER, SELFPAY ==
[2025-01-16 10:42] VITALS: BP 118/70; PULSE 88; O2SAT 95; BMI 31.0
--- NOTE | 2025-01-16 10:42 | MHC.PC.OV ---
Vital Signs 01/16/25 10:42 Height 5 ft 7 in Weight 198 lb BMI 31.0 BP 118/70 Blood Pressure Location Lt brachial Position Sitting Pulse 88 Pulse Source Pulse Oximeter Pulse Oximetry (%) 95 Oxygen Delivery Method Room Air Intake Visit Reasons: med management Allergies cephalexin Allergy (Unknown, Verified 01/16/25 12:46) SEIZURE/COMA,anaphylaxsis vancomycin (VANCOMYCIN) Allergy (Unknown, Verified 01/16/25 12:46) RED HEAT RASH Medication List - Last Reconciled 01/16/25 by Dash Crowder MD acetaminophen 2 tabs PO Q4H amlodipine 5 mg (2 x 2.5 mg) PO DAILY cane As directed cholecalciferol (vitamin D3) 50 mcg PO DAILY clotrimazole-betamethasone 1-0.05 % 1 appl topical BID 2 weeks duloxetine 30 mg PO DAILY 30 days folic acid 1 mg PO DAILY hydrochlorothiazide 25 mg PO DAILY ibuprofen 800 mg PO Q6-8H PRN 30 days lorazepam 1 mg PO TID PRN nicotine 1 patch transdermal DAILY 28 days oxycodone 10 mg PO Q4-6H PRN Tobacco use date assessed: 12/22/24 Dental Screening Dental Screen Date: 12/22/24 Did you have a dental visit in the last 12 months?: No Did you have a dental problem in the last 6 months where you did not have access to dental care?: No Was dental information given to patient?: No HPI med management HPI Details Patient comes in today for her follow up visit States that she finally started taking her Cymbalta (Duloxetine) about 5 days ago and has not yet had any problems so far with the medication Reports that she recently saw her oncologist, Dr. Deleon in [place] for her monoclonal gammopathy and necrobiotic xanthogranuloma and that he has ordered some follow up labs for her to do and will be seeing her again to go over these soon She is scheduled to see her autobody technician, Dr. Sepulveda sometime in March 2025 for follow up of her polyarthralgia Adds that she's [facility] and that her lower extremity symptoms have improved a lot since She is still reportedly experiencing a lot of stress in the family and home setting and is currently looking for a place to move into on her own and out of her current address - she is currently living with her mother and another family member and states that it is getting too stressful for her to continue to live with them at this time She denies any headaches or dizziness Denies any chest pains, no SOB No nausea/vomiting, no abdominal pain No change in bowel habits noted States that she just needs her pain med Rx refilled today PFSH Medical History Smoker 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 Unknown Colon cancer Social History Household Members: Family Housing: House Are you a primary medicare sales representative to a significant other at home: No Do you presently have visiting nurse or other home services: No Alcohol intake: former Patient Tobacco Use Status: Current everyday Tobacco user Tobacco use type: Cigarette Cigarette Packs Per Day: 1 Cigarettes Per Day: 20.0 e-Cigarette/Vaping Use: Never Used Second Hand Smoke Exposure: Yes service: No Current occupational status: unemployed Current occupational exposures/hazards: No Cognitive needs: No Hearing needs: No Vision needs: Yes Female Reproductive History Menstrual Age of Menarche: 10 Questionnaire PHQ-9 Over the last 2 weeks, how often have you been bothered by any of the following problems? Depression Screening Interpretation: Negative Depression Screening Done: Yes Source: Developed by Drs. Bear Kendall, Eufemia Reece, Eben Rodriguez and colleagues, with an educational hermes from [employer]. Thrive Questionnaire Date Thrive assessed: 10/21/24 I am a: Patient What is your living situation today?: I have a steady place to live Within the past 12 months, did the food you bought not last and you didn't have the money to get more?: I choose not to answer this question Within the past 12 months, did you worry whether your food would run out before you got money to buy more?: I choose not to answer this question Do you have trouble paying for medicines?: No Do you have trouble getting transportation to medical appointments?: No Do you have trouble paying your heating and electricity bill?: No Do you have trouble taking care of your child, family member or friend?: No Do you have trouble with day-to-day activities such as bathing, preparing meals, shopping, managing finances, etc.?: No Are you currently unemployed and looking for a job?: No Are you interested in more education?: No Please select the resources that you would like help with: None Currently or been in a relationship where the following occur: No concerns reported THRIVE Score: 0 AUDIT C Alcohol Use Questionnaire (AUDIT-C) 1. How often do you have a drink containing alcohol?: Never 3. How often do you have six or more drinks on one occasion?: Never Total Score: 0 Score Reviewed/Action Taken: Yes MARIELENA-7 AMB Questionnaire MARIELENA-7 Date MARIELENA - 7 assessed: 11/24/24 Source: Developed by Drs. Bear Kendall, Eufemia Reece, Eben Rodriguez and colleagues, with an educational hermes from [employer]. Review of Systems Const Denies chills, Reports fatigue, Denies fever(s) and Denies headache(s) ENT Denies dysphagia, Denies dizziness, Denies otalgia, Denies headache(s), Denies neck pain, Denies odynophagia and Denies sore throat Card Denies chest pain, Denies palpitations and Denies dyspnea Resp Denies chest congestion, Denies cough and Denies dyspnea GI Denies abdominal pain, Denies constipation, Denies dysphagia, Denies heartburn, Denies diarrhea, Denies nausea, Denies odynophagia and Denies vomiting Denies difficulty voiding, Denies nocturia, Denies dysuria and Denies urinary urgency Musc Details: increased pain (chronic) in both legs Reports back pain, Reports arthralgias (involving multiple joints) and Denies neck pain Skin/Breast Details: (+) multiple varicosities on both lower extremities Denies rash Neuro Denies dizziness and Denies headache(s) Psych Reports anxiety (increased) Endo Reports fatigue and Denies palpitations Physical exam (Primary Care) Vital Signs: Last Vital Signs Pulse 88 01/16/25 10:42 BP 118/70 01/16/25 10:42 Pulse Ox 95 01/16/25 10:42 Oxygen Delivery Method Room Air 01/16/25 10:42 BMI result Body Mass Index 31.0 Tobacco/Smoking Status: Tobacco use Status Tobacco use date assessed 12/22/24 01/16/25 10:48 Patient Tobacco Use Status Current everyday Tobacco 01/16/25 10:48 Tobacco use type Cigarette 01/16/25 10:48 e-Cigarette/Vaping Use Never Used 01/16/25 10:48 Depression Screening Interpretation: Negative Thrive Assessment: Date of Thrive Assessment Date Thrive assessed 10/21/24 01/16/25 10:48 Currently or been in a relationship where the following occur: No concerns reported Const General: no acute distress and alert HENMT Ears: TM's normal bilaterally and EAC's normal Throat: Yes posterior oropharynx normal and Yes tonsils normal (no TP congestion) Neck Neck: Yes supple and No lymphadenopathy Thyroid: Thyroid normal Resp Auscultation: clear to auscultation bilaterally, no rales and no wheezes Cardio Rate: regular rate Rhythm: regular rhythm Heart sounds: no murmurs GI Palpation (GI): Soft to palpation, nontender and Hernia present (small) umbilical Auscultation: normal bowel sounds General: Yes no CVA tenderness Back/Spine/Pelvis Back: no CVA tenderness Thoracic/Lumbar Spine: lumbar spinal tenderness Skin Other: (+) multiple varicose veins over both lower extremities Rashes: no rashes Extrem General: Yes no clubbing, cyanosis or edema Right lower extremity: knee Details: tenderness Left lower extremity: knee Details: tenderness Coding Level of Care Code Est Pt Level 4 (71696) Diagnoses Polyarthralgia M25.50 Multiple myeloma in remission C90.01 Multiple myeloma remission status: in remission 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; D89.2 Rheumatoid arthritis with positive rheumatoid factor, involving unspecified site M05.9 Rheumatoid arthritis location: unspecified site Rheumatoid factor presence: with rheumatoid factor Ventral hernia, recurrent K43.2 Lumbar spondylosis M47.816 Essential hypertension I10 Pure hypercholesterolemia E78.00 Varicose veins of both lower extremities with inflammation I83.11; I83.12 Vitamin D deficiency E55.9 Anxiety F41.9 Smoker F17.200 Obesity (BMI 30-39.9) E66.9 Assessment & Plan Assessment & Plan (1) Polyarthralgia: Code(s): M25.50 - Pain in unspecified joint Category: Medical Plan: Patient continues to experience diffuse joint pains, especially in her lower extremities and states that the pain in both lower legs often get significantly worse towards the latter part of the day She was also reportedly diagnosed with possible RA and Graves but these have not been officially confirmed and she has just been treated with oral Prednisone when needed for flare ups Continue Oxycodone 10 mg Q 4 to 6 hours PRN - Rx refilled Follow up with rheumatology as scheduled Per rheumatology recommendation, she was started on a trial of low dose Duloxetine 30 mg QD at her last visit but she just started taking this a few days ago and has not had any problems with the Rx so far (2) Multiple myeloma: Code(s): C90.00 - Multiple myeloma not having achieved remission Category: Medical Qualifiers: Multiple myeloma remission status: in remission Qualified Code(s): C90.01 - Multiple myeloma in remission Plan: She reportedly underwent chemotherapy with Daratumumab and was able to complete her Tx but developed bleeding complications subsequently Per last oncology report - patient completed 6 cycles of Daratumumab treatments. She had noted certain side effects including abdominal pain and diarrhea. She also had rather profuse rectal bleeding. Treatment was stopped after completing 6 cycles. Tx appears to have helped and the rashes on her chest and around the eyes have healed quite well but she still has increased joint pains Follow up with oncology as scheduled - states that her oncologist (Dr. Deleon) is sending her for some additional work ups at this time (3) Necrobiotic xanthogranuloma with paraproteinemia: Code(s): D76.3 - Other histiocytosis syndromes; D89.2 - Hypergammaglobulinemia, unspecified Category: Medical Plan: She previously exhibited a positive response and had dramatic improvement of her skin condition and some improvement of her bone/joint pains when treated with daratumumab from July to December 2022 Follow up with rheumatology as scheduled (4) Rheumatoid arthritis: Code(s): M06.9 - Rheumatoid arthritis, unspecified Category: Medical Qualifiers: Rheumatoid arthritis location: unspecified site Rheumatoid factor presence: with rheumatoid factor Qualified Code(s): M05.9 - Rheumatoid arthritis with rheumatoid factor, unspecified Plan: Patient appears to have failed MTx, Plaquenil and Humira in the past Has also received Tx with Rituximab and Daratumumab previously Follow up with rheumatology at [facility] as scheduled (5) Ventral hernia, recurrent: Code(s): K43.2 - Incisional hernia without obstruction or gangrene Category: Medical Plan: Follow up with surgery at [facility] as scheduled (6) Lumbar spondylosis: Code(s): M47.816 - Spondylosis without myelopathy or radiculopathy, lumbar region Category: Medical Plan: Reinforced activity and weight-lifting restrictions to minimize aggravating her low back pain States that her current pain medication helps with her low back pain as well (7) Essential hypertension: Code(s): I10 - Essential (primary) hypertension Category: Medical Plan: Reinforced low sodium diet - goal is systolic BP of 120 mm or less Continue Amlodipine 5 mg QD and HCTZ 25 mg QD She is reminded to continue monitoring her blood pressure regularly (8) Pure hypercholesterolemia: Code(s): E78.00 - Pure hypercholesterolemia, unspecified Category: Medical Plan: Reinforced low cholesterol diet (9) Varicose veins of both lower extremities with inflammation: Code(s): I83.11 - Varicose veins of right lower extremity with inflammation; I83.12 - Varicose veins of left lower extremity with inflammation Category: Medical Plan: S/P venous ablation Follow up with vascular surgery as scheduled (10) Vitamin D deficiency: Code(s): E55.9 - Vitamin D deficiency, unspecified Category: Medical Plan: Continue Vitamin D3 2000 units QD (11) Anxiety: Code(s): F41.9 - Anxiety disorder, unspecified Category: Medical Plan: Continue Lorazepam 1 mg TID PRN (12) Smoker: Code(s): F17.200 - Nicotine dependence, unspecified, uncomplicated Category: Social Hx Plan: Patient is counseled on smoking cessation Per request, she was started on nicotine patches to help her quit smoking (13) Obesity (BMI 30-39.9): Code(s): E66.9 - Obesity, unspecified Category: Medical Plan: Reinforced diet; exercise and weight loss are unrealistic given patient's multiple medical and physical issues Plan Follow up in 1 month Medications: Refilled oxycodone 10 mg PO Q4-6H PRN 140 tabs 0RF pain
== END 2025-01-16 11:35 | disposition home or self-care (01) ==
LOC: HO.HMCH 10:40
PROVIDERS: PCP Internal Medicine; Visit Provider Internal Medicine
DX: M25.50 Pain in unspecified joint (principal); C90.01 Multiple myeloma in remission; D76.3 Other histiocytosis syndromes; D89.2 Hypergammaglobulinemia, unspecified; M05.9 Rheumatoid arthritis with rheumatoid factor, unspecified; K43.2 Incisional hernia without obstruction or gangrene; M47.816 Spondylosis without myelopathy or radiculopathy, lumbar region; I10 Essential (primary) hypertension; E78.00 Pure hypercholesterolemia, unspecified; I83.11 Varicose veins of right lower extremity with inflammation; I83.12 Varicose veins of left lower extremity with inflammation; E55.9 Vitamin D deficiency, unspecified; F41.9 Anxiety disorder, unspecified; F17.200 Nicotine dependence, unspecified, uncomplicated; E66.9 Obesity, unspecified

== ENCOUNTER → 2025-01-16 10:39 | Outpatient (BNVA) | payer OTHER, SELFPAY | PROVIDERS: PCP Internal Medicine; Visit Provider Internal Medicine | DX: C90.01 Multiple myeloma in remission (principal); M25.50 Pain in unspecified joint; D76.3 Other histiocytosis syndromes; D89.2 Hypergammaglobulinemia, unspecified; M05.9 Rheumatoid arthritis with rheumatoid factor, unspecified; K43.2 Incisional hernia without obstruction or gangrene; M47.816 Spondylosis without myelopathy or radiculopathy, lumbar region; I10 Essential (primary) hypertension; E78.00 Pure hypercholesterolemia, unspecified; I83.11 Varicose veins of right lower extremity with inflammation; I83.12 Varicose veins of left lower extremity with inflammation; E55.9 Vitamin D deficiency, unspecified; F41.9 Anxiety disorder, unspecified; E66.9 Obesity, unspecified; F17.210 Nicotine dependence, cigarettes, uncomplicated; Z63.8 Other specified problems related to primary support group; Z68.31 Body mass index [BMI] 31.0-31.9, adult; Z79.899 Other long term (current) drug therapy | CPT/HCPCS: 99212 ==

== ENCOUNTER 2025-02-12 11:50 | Outpatient (AMB) | payer OTHER, SELFPAY ==
[2025-02-12 12:00] VITALS: BP 116/80; PULSE 93; O2SAT 97; BMI 31.5
--- NOTE | 2025-02-12 12:00 | MHC.PC.OV ---
Vital Signs 02/12/25 12:00 Height 5 ft 7 in Weight 201 lb 2 oz BMI 31.5 BP 116/80 Blood Pressure Location Lt brachial Position Sitting Pulse 93 Pulse Source Pulse Oximeter Pulse Oximetry (%) 97 Oxygen Delivery Method Room Air Intake Visit Reasons: med management Self Pay Representative Required: No Accompanied by: Self / Same As Patient Allergies cephalexin Allergy (Unknown, Verified 02/12/25 12:28) SEIZURE/COMA,anaphylaxsis vancomycin (VANCOMYCIN) Allergy (Unknown, Verified 02/12/25 12:28) RED HEAT RASH Medication List - Last Reconciled 02/12/25 by Dash Crowder MD acetaminophen 2 tabs PO Q4H amlodipine 5 mg (2 x 2.5 mg) PO DAILY cane As directed cholecalciferol (vitamin D3) 50 mcg PO DAILY clotrimazole-betamethasone 1-0.05 % 1 appl topical BID 2 weeks duloxetine 30 mg PO DAILY 30 days folic acid 1 mg PO DAILY hydrochlorothiazide 25 mg PO DAILY ibuprofen 800 mg PO Q6-8H PRN 30 days lorazepam 1 mg PO TID PRN nicotine 1 patch transdermal DAILY 28 days oxycodone 10 mg PO Q4-6H PRN Tobacco use date assessed: 02/12/25 Dental Screening Dental Screen Date: 02/12/25 Did you have a dental visit in the last 12 months?: No Did you have a dental problem in the last 6 months where you did not have access to dental care?: No Was dental information given to patient?: No HPI med management HPI Details Patient comes in today for her follow-up visit States that she is currently experiencing increased pain over her right lower leg, which still has scattered bruising due to some recent vascular procedures (venous ablation and injections) done on her right lower extremity by [facility] She is unable to tolerate using compression stockings - states that she had to take them off in the past as she found them too tight and they were further aggravating her leg pains significantly at the time when she had them on She feels that her lower back pain, arm pain no leg pains have gotten worse since her vascular procedure recently She also started taking her Cymbalta recently so she is not sure if Cymbalta has anything to do with her recent increased pain States that she was supposed to have some imaging studies done as ordered by her specialist in [place] but she has not gotten these done yet She denies any headaches or dizziness Denies any chest pains, no increased shortness of breath No nausea/vomiting, no abdominal pain No change in bowel habits noted States that she will need her pain medication Rx refilled today [facility] Medical History Smoker 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 Unknown Colon cancer Social History Household Members: Family Housing: House Are you a primary occasional caregiver to a significant other at home: No Do you presently have visiting nurse or other home services: No Alcohol intake: former Patient Tobacco Use Status: Current everyday Tobacco user Tobacco use type: Cigarette Cigarette Packs Per Day: 1 Cigarettes Per Day: 20.0 e-Cigarette/Vaping Use: Never Used Second Hand Smoke Exposure: Yes service: No Current occupational status: unemployed Current occupational exposures/hazards: No Cognitive needs: No Hearing needs: No Vision needs: Yes Female Reproductive History Menstrual Age of Menarche: 10 Questionnaire PHQ-9 Over the last 2 weeks, how often have you been bothered by any of the following problems? 1. Little interest or pleasure in doing things: not at all 2. Feeling down, depressed, or hopeless: not at all 3. Trouble falling or staying asleep, or sleeping too much: not at all 4. Feeling tired or having little energy: not at all 5. Poor appetite or overeating: not at all 6. Feeling bad about yourself - or that you are a failure or have let yourself or your family down: not at all 7. Trouble concentrating on things, such as reading the newspaper or watching television: not at all 8. Moving or speaking so slowly that other people could have noticed. Or the opposite - being so fidgety or restless that you have been moving around a lot more than usual: not at all 9. Thoughts that you would be better off or of hurting yourself in some way: not at all Total score: 0 Depression Screening Interpretation: Negative Depression Screening Done: Yes 53318 - PHQ-9 Billing: Yes Source: Developed by Drs. Bear Kendall, Eufemia Reece, Eben Rodriguez and colleagues, with an educational hermes from [employer]). Thrive Questionnaire Date Thrive assessed: 02/12/25 I am a: Patient What is your living situation today?: I have a steady place to live Within the past 12 months, did the food you bought not last and you didn't have the money to get more?: I choose not to answer this question Within the past 12 months, did you worry whether your food would run out before you got money to buy more?: I choose not to answer this question Do you have trouble paying for medicines?: No Do you have trouble getting transportation to medical appointments?: No Do you have trouble paying your heating and electricity bill?: No Do you have trouble taking care of your child, family member or friend?: No Do you have trouble with day-to-day activities such as bathing, preparing meals, shopping, managing finances, etc.?: No Are you currently unemployed and looking for a job?: No Are you interested in more education?: No Please select the resources that you would like help with: None Currently or been in a relationship where the following occur: No concerns reported THRIVE Score: 0 AUDIT C Alcohol Use Questionnaire (AUDIT-C) 1. How often do you have a drink containing alcohol?: Never 3. How often do you have six or more drinks on one occasion?: Never Total Score: 0 Score Reviewed/Action Taken: Yes MARIELENA-7 AMB Questionnaire MARIELENA-7 Date MARIELENA - 7 assessed: 02/12/25 Feeling nervous, anxious, or on edge: 0 = Not at all Not being able to stop or control worryin = Not at all Worrying too much about different things: 0 = Not at all Trouble relaxin = Not at all Being so restless that it is hard to sit still: 0 = Not at all Becoming easily annoyed or irritable: 0 = Not at all Feeling afraid as if something awful might happen: 0 = Not at all Total MARIELENA-7 score (0-4 normal; 5-9 mild; 10-14 moderate; 15-21 severe): 0 Source: Developed by Drs. Bear Kendall, Eufemia Reece, Eben Rodriguez and colleagues, with an educational hermes from [employer]). Review of Systems Const Denies chills, Reports fatigue, Denies fever(s) and Denies headache(s) ENT Denies dysphagia, Denies dizziness, Denies otalgia, Denies headache(s), Denies neck pain, Denies odynophagia and Denies sore throat Card Denies chest pain, Denies palpitations and Denies dyspnea Resp Denies chest congestion, Denies cough and Denies dyspnea GI Denies abdominal pain, Denies constipation, Denies dysphagia, Denies heartburn, Denies diarrhea, Denies nausea, Denies odynophagia and Denies vomiting Denies difficulty voiding, Denies nocturia, Denies dysuria and Denies urinary urgency Musc Details: increased pain (chronic) in both legs - worse in her right leg recently due to her recent vascular procedure(s) Reports back pain, Reports arthralgias (involving multiple joints) and Denies neck pain Skin/Breast Details: (+) multiple varicosities on both lower extremities Denies rash Neuro Denies dizziness and Denies headache(s) Psych Reports anxiety (increased) Endo Reports fatigue and Denies palpitations Physical exam (Primary Care) Vital Signs: Last Vital Signs Pulse 93 02/12/25 12:00 BP 116/80 02/12/25 12:00 Pulse Ox 97 02/12/25 12:00 Oxygen Delivery Method Room Air 02/12/25 12:00 BMI result Body Mass Index 31.5 Tobacco/Smoking Status: Tobacco use Status Tobacco use date assessed 02/12/25 02/12/25 12:06 Patient Tobacco Use Status Current everyday Tobacco 02/12/25 12:06 Tobacco use type Cigarette 02/12/25 12:06 e-Cigarette/Vaping Use Never Used 02/12/25 12:06 PHQ-9: PHQ-9 Score PHQ-9: Total score 0 02/15/25 05:49 Depression Screening Interpretation: Negative Thrive Assessment: Date of Thrive Assessment Date Thrive assessed 02/12/25 02/12/25 12:06 Currently or been in a relationship where the following occur: No concerns reported Const General: no acute distress and alert HENMT Ears: TM's normal bilaterally and EAC's normal Throat: Yes posterior oropharynx normal and Yes tonsils normal (no TP congestion) Neck Neck: Yes supple and No lymphadenopathy Thyroid: Thyroid normal Resp Auscultation: clear to auscultation bilaterally, no rales and no wheezes Cardio Rate: regular rate Rhythm: regular rhythm Heart sounds: no murmurs GI Palpation (GI): Soft to palpation, nontender and Hernia present (small) umbilical Auscultation: normal bowel sounds General: Yes no CVA tenderness Back/Spine/Pelvis Back: no CVA tenderness Thoracic/Lumbar Spine: lumbar spinal tenderness Skin Other: (+) multiple varicose veins over both lower extremities Rashes: no rashes Extrem Other: (+) scattered ecchymoses over the right lower leg (due to recent venous ablation and injections) Right lower extremity: knee Details: tenderness Left lower extremity: knee Details: tenderness Coding Level of Care Code Est Pt Level 4 (91777) Diagnoses Polyarthralgia M25.50 Multiple myeloma in remission C90.01 Multiple myeloma remission status: in remission 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; D89.2 Rheumatoid arthritis with positive rheumatoid factor, involving unspecified site M05.9 Rheumatoid arthritis location: unspecified site Rheumatoid factor presence: with rheumatoid factor Ventral hernia, recurrent K43.2 Lumbar spondylosis M47.816 Essential hypertension I10 Pure hypercholesterolemia E78.00 Varicose veins of both lower extremities with inflammation I83.11; I83.12 Vitamin D deficiency E55.9 Anxiety F41.9 Smoker F17.200 Obesity (BMI 30-39.9) E66.9 Additional Codes PHQ-9 - 38694 - PHQ-9 Billing: Yes ([id number]) Assessment & Plan Assessment & Plan (1) Polyarthralgia: Code(s): M25.50 - Pain in unspecified joint Category: Medical Plan: Patient continues to experience diffuse joint pains, especially in her lower extremities and states that the pain in both lower legs often get significantly worse towards the latter part of the day She was also reportedly diagnosed with possible RA and Graves but these have not been officially confirmed and she has just been treated with oral Prednisone when needed for flare ups Continue Oxycodone 10 mg Q 4 to 6 hours PRN - Rx refilled Per rheumatology recommendation, continue low dose Duloxetine 30 mg QD although patient feels that her chronic pains seem to have gotten worse lately and she is not sure if these are due to Duloxetine or not Follow up with rheumatology as scheduled (2) Multiple myeloma: Code(s): C90.00 - Multiple myeloma not having achieved remission Category: Medical Qualifiers: Multiple myeloma remission status: in remission Qualified Code(s): C90.01 - Multiple myeloma in remission Plan: She reportedly underwent chemotherapy with Daratumumab and was able to complete her Tx but developed bleeding complications subsequently Per last oncology report - patient completed 6 cycles of Daratumumab treatments. She had noted certain side effects including abdominal pain and diarrhea. She also had rather profuse rectal bleeding. Treatment was stopped after completing 6 cycles. Tx appears to have helped and the rashes on her chest and around the eyes have healed quite well but she still has increased joint pains Follow up with oncology as scheduled - states that her oncologist (Dr. Deleon) is sending her for some additional work ups at this time (3) Necrobiotic xanthogranuloma with paraproteinemia: Code(s): D76.3 - Other histiocytosis syndromes; D89.2 - Hypergammaglobulinemia, unspecified Category: Medical Plan: She previously exhibited a positive response and had dramatic improvement of her skin condition and some improvement of her bone/joint pains when treated with daratumumab from July to December 2022 Follow up with rheumatology as scheduled (4) Rheumatoid arthritis: Code(s): M06.9 - Rheumatoid arthritis, unspecified Category: Medical Qualifiers: Rheumatoid arthritis location: unspecified site Rheumatoid factor presence: with rheumatoid factor Qualified Code(s): M05.9 - Rheumatoid arthritis with rheumatoid factor, unspecified Plan: Patient appears to have failed MTx, Plaquenil and Humira in the past Has also received Tx with Rituximab and Daratumumab previously Follow up with rheumatology at [facility] as scheduled (5) Ventral hernia, recurrent: Code(s): K43.2 - Incisional hernia without obstruction or gangrene Category: Medical Plan: Follow up with surgery at [facility] as scheduled (6) Lumbar spondylosis: Code(s): M47.816 - Spondylosis without myelopathy or radiculopathy, lumbar region Category: Medical Plan: Reinforced activity and weight-lifting restrictions to minimize aggravating her low back pain States that her current pain medication helps with her low back pain as well (7) Essential hypertension: Code(s): I10 - Essential (primary) hypertension Category: Medical Plan: Reinforced low sodium diet - goal is systolic BP of 120 mm or less Continue Amlodipine 5 mg QD and HCTZ 25 mg QD She is reminded to continue monitoring her blood pressure regularly (8) Pure hypercholesterolemia: Code(s): E78.00 - Pure hypercholesterolemia, unspecified Category: Medical Plan: Reinforced low cholesterol diet Will have patient recheck her labs and fasting lipids again next month for follow-up (9) Varicose veins of both lower extremities with inflammation: Code(s): I83.11 - Varicose veins of right lower extremity with inflammation; I83.12 - Varicose veins of left lower extremity with inflammation Category: Medical Plan: S/P venous ablation and injections again on her right leg recently - she is currently experiencing a lot of pain in her right leg, which also has some bruising scattered over her leg at present Follow up with vascular surgery as scheduled (10) Vitamin D deficiency: Code(s): E55.9 - Vitamin D deficiency, unspecified Category: Medical Plan: Continue Vitamin D3 2000 units QD (11) Anxiety: Code(s): F41.9 - Anxiety disorder, unspecified Category: Medical Plan: Continue Lorazepam 1 mg TID PRN (12) Smoker: Code(s): F17.200 - Nicotine dependence, unspecified, uncomplicated Category: Social Hx Plan: Patient is counseled again on complete smoking cessation Per request, she was started on nicotine patches previously to help her quit smoking but states that she is still working on this (13) Obesity (BMI 30-39.9): Code(s): E66.9 - Obesity, unspecified Category: Medical Plan: Reinforced diet; exercise and weight loss are unrealistic given patient's multiple medical and physical issues Plan Follow up in 1 month Orders: Orders Complete Blood Count Auto Diff 02/28/25 D64.9 - Anemia, unspecified Comprehensive [place]. Panel Fast 02/28/25 E78.00 - Pure hypercholesterolemia, unspecified Lipid Panel 02/28/25 E78.00 - Pure hypercholesterolemia, unspecified Hemoglobin A1c 02/28/25 R73.9 - Hyperglycemia, unspecified TSH reflex Free T4 02/28/25 E78.00 - Pure hypercholesterolemia, unspecified UA CC w/rflx Micro + Cult 02/28/25 R30.0 - Dysuria Vitamin D 25-OH Total 02/28/25 E55.9 - Vitamin D deficiency, unspecified Medications: Refilled oxycodone 10 mg PO Q4-6H PRN 140 tabs 0RF pain
== END 2025-02-12 12:37 | disposition home or self-care (01) ==
LOC: HO.HMCH 11:51
PROVIDERS: PCP Internal Medicine; Visit Provider Internal Medicine
DX: M25.50 Pain in unspecified joint (principal); C90.01 Multiple myeloma in remission; D76.3 Other histiocytosis syndromes; M05.9 Rheumatoid arthritis with rheumatoid factor, unspecified; D89.2 Hypergammaglobulinemia, unspecified; K43.2 Incisional hernia without obstruction or gangrene; M47.816 Spondylosis without myelopathy or radiculopathy, lumbar region; I10 Essential (primary) hypertension; E78.00 Pure hypercholesterolemia, unspecified; I83.11 Varicose veins of right lower extremity with inflammation; I83.12 Varicose veins of left lower extremity with inflammation; E66.9 Obesity, unspecified; Z68.31 Body mass index [BMI] 31.0-31.9, adult; E55.9 Vitamin D deficiency, unspecified; F41.9 Anxiety disorder, unspecified; F17.200 Nicotine dependence, unspecified, uncomplicated

== ENCOUNTER → 2025-02-12 11:50 | Outpatient (BNVA) | payer OTHER, SELFPAY | PROVIDERS: PCP Internal Medicine; Visit Provider Internal Medicine | DX: I83.11 Varicose veins of right lower extremity with inflammation (principal); I83.811 Varicose veins of right lower extremity with pain; I83.12 Varicose veins of left lower extremity with inflammation; C90.01 Multiple myeloma in remission; D76.3 Other histiocytosis syndromes; D89.2 Hypergammaglobulinemia, unspecified; M05.9 Rheumatoid arthritis with rheumatoid factor, unspecified; K43.2 Incisional hernia without obstruction or gangrene; M47.816 Spondylosis without myelopathy or radiculopathy, lumbar region; I10 Essential (primary) hypertension; E78.00 Pure hypercholesterolemia, unspecified; E55.9 Vitamin D deficiency, unspecified; F41.9 Anxiety disorder, unspecified; F17.210 Nicotine dependence, cigarettes, uncomplicated; E66.9 Obesity, unspecified; Z68.31 Body mass index [BMI] 31.0-31.9, adult | CPT/HCPCS: 96127; 99212 ==

== ENCOUNTER 2025-03-11 10:58 | Outpatient (AMB) | payer OTHER, SELFPAY ==
--- NOTE | 2025-03-11 11:02 | MHC.PC.OV ---
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 Accompanied by: Self / Same As Patient Allergies cephalexin Allergy (Unknown, Verified 03/11/25 11:19) SEIZURE/COMA,anaphylaxsis vancomycin (VANCOMYCIN) Allergy (Unknown, Verified 03/11/25 11:19) RED HEAT RASH Medication List - Last Reconciled 03/11/25 by Dash Crowder MD acetaminophen 2 tabs PO Q4H amlodipine 5 mg (2 x 2.5 mg) PO DAILY cane As directed cholecalciferol (vitamin D3) 50 mcg PO DAILY clotrimazole-betamethasone 1-0.05 % 1 appl topical BID 2 weeks duloxetine 30 mg PO DAILY 30 days folic acid 1 mg PO DAILY hydrochlorothiazide 25 mg PO DAILY ibuprofen 800 mg PO Q6-8H PRN 30 days lorazepam 1 mg PO TID PRN nicotine 1 patch transdermal DAILY 28 days oxycodone 10 mg PO Q4-6H PRN Tobacco use date assessed: 03/11/25 Dental Screening Dental Screen Date: 03/11/25 Did you have a dental visit in the last 12 months?: No Did you have a dental problem in the last 6 months where you did not have access to dental care?: No Was dental information given to patient?: No HPI med management HPI Details Patient comes in today for her follow-up visit States that she is currently experiencing increased pain over her right lower leg although the scattered bruising there due to some recent vascular procedures (venous ablation and injections) done on her right lower extremity by [facility] have mostly cleared up at this time She is still unable to tolerate using compression stockings - states that she had to take them off in the past as she found them too tight and they were further aggravating her leg pains significantly at the time when she had them on She feels that her lower back pain, arm pain no leg pains have gotten worse since her vascular procedure recently She has been taking her Cymbalta and seems to be tolerating it so far States that she is scheduled to have some imaging studies done as ordered by her specialist in [place] this Sunday but she is not sure if she will be able to get these done as her procedures are scheduled to be done in [place] about a half hour after her rheumatology appointment in [place] She denies any headaches or dizziness Denies any chest pains, no increased shortness of breath No nausea/vomiting, no abdominal pain No change in bowel habits noted She will need her pain medication Rx refilled today [facility] Medical History Smoker 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 Unknown Colon cancer Social History Household Members: Family Housing: House Are you a primary care professional to a significant other at home: No Do you presently have visiting nurse or other home services: No Alcohol intake: former Patient Tobacco Use Status: Current everyday Tobacco user Tobacco use type: Cigarette Cigarette Packs Per Day: 1 Cigarettes Per Day: 20.0 e-Cigarette/Vaping Use: Never Used Second Hand Smoke Exposure: Yes service: No Current occupational status: unemployed Current occupational exposures/hazards: No Cognitive needs: No Hearing needs: No Vision needs: Yes Female Reproductive History Menstrual Age of Menarche: 10 Questionnaire PHQ-9 Over the last 2 weeks, how often have you been bothered by any of the following problems? 1. Little interest or pleasure in doing things: not at all 2. Feeling down, depressed, or hopeless: not at all 3. Trouble falling or staying asleep, or sleeping too much: not at all 4. Feeling tired or having little energy: not at all 5. Poor appetite or overeating: not at all 6. Feeling bad about yourself - or that you are a failure or have let yourself or your family down: not at all 7. Trouble concentrating on things, such as reading the newspaper or watching television: not at all 8. Moving or speaking so slowly that other people could have noticed. Or the opposite - being so fidgety or restless that you have been moving around a lot more than usual: not at all 9. Thoughts that you would be better off or of hurting yourself in some way: not at all Total score: 0 Depression Screening Interpretation: Negative Depression Screening Done: Yes 92332 - PHQ-9 Billing: Yes Source: Developed by Drs. Bear Kendall, Eufemia Reece, Eben Rodriguez and colleagues, with an educational hermes from [employer]. Thrive Questionnaire Date Thrive assessed: 03/11/25 I am a: Patient What is your living situation today?: I have a steady place to live Within the past 12 months, did the food you bought not last and you didn't have the money to get more?: I choose not to answer this question Within the past 12 months, did you worry whether your food would run out before you got money to buy more?: I choose not to answer this question Do you have trouble paying for medicines?: No Do you have trouble getting transportation to medical appointments?: No Do you have trouble paying your heating and electricity bill?: No Do you have trouble taking care of your child, family member or friend?: No Do you have trouble with day-to-day activities such as bathing, preparing meals, shopping, managing finances, etc.?: No Are you currently unemployed and looking for a job?: No Are you interested in more education?: No Please select the resources that you would like help with: None Currently or been in a relationship where the following occur: No concerns reported THRIVE Score: 0 AUDIT C Alcohol Use Questionnaire (AUDIT-C) 1. How often do you have a drink containing alcohol?: Never 3. How often do you have six or more drinks on one occasion?: Never Total Score: 0 Score Reviewed/Action Taken: Yes MARIELENA-7 AMB Questionnaire MARIELENA-7 Date MARIELENA - 7 assessed: 03/11/25 Feeling nervous, anxious, or on edge: 0 = Not at all Not being able to stop or control worryin = Not at all Worrying too much about different things: 0 = Not at all Trouble relaxin = Not at all Being so restless that it is hard to sit still: 0 = Not at all Becoming easily annoyed or irritable: 0 = Not at all Feeling afraid as if something awful might happen: 0 = Not at all Total MARIELENA-7 score (0-4 normal; 5-9 mild; 10-14 moderate; 15-21 severe): 0 Source: Developed by Drs. Bear Kendall, Eufemia Reece, Eben Rodriguez and colleagues, with an educational hermes from [employer]. Review of Systems Const Denies chills, Reports fatigue, Denies fever(s) and Denies headache(s) ENT Denies dysphagia, Denies dizziness, Denies otalgia, Denies headache(s), Denies neck pain, Denies odynophagia and Denies sore throat Card Denies chest pain, Denies palpitations and Denies dyspnea Resp Denies chest congestion, Denies cough and Denies dyspnea GI Denies abdominal pain, Denies constipation, Denies dysphagia, Denies heartburn, Denies diarrhea, Denies nausea, Denies odynophagia and Denies vomiting Denies difficulty voiding, Denies nocturia, Denies dysuria and Denies urinary urgency Musc Details: increased pain (chronic) in both legs - worse in her right leg recently due to her recent vascular procedure(s) Reports back pain, Reports arthralgias (involving multiple joints) and Denies neck pain Skin/Breast Details: (+) multiple varicosities on both lower extremities Denies rash Neuro Denies dizziness and Denies headache(s) Psych Reports anxiety (increased) Endo Reports fatigue and Denies palpitations Physical exam (Primary Care) Vital Signs: Last Vital Signs Pulse 90 03/11/25 11:03 BP 116/76 03/11/25 11:03 Pulse Ox 95 03/11/25 11:03 Oxygen Delivery Method Room Air 03/11/25 11:03 BMI result Body Mass Index 31.7 Tobacco/Smoking Status: Tobacco use Status Tobacco use date assessed 03/11/25 03/11/25 11:12 Patient Tobacco Use Status Current everyday Tobacco 03/11/25 11:05 Tobacco use type Cigarette 12/10/25 11:05 e-Cigarette/Vaping Use Never Used 03/11/25 11:05 PHQ-9: PHQ-9 Score PHQ-9: Total score 0 03/11/25 11:24 Depression Screening Interpretation: Negative Thrive Assessment: Date of Thrive Assessment Date Thrive assessed 03/11/25 03/11/25 11:12 Currently or been in a relationship where the following occur: No concerns reported Const General: no acute distress and alert HENMT Ears: TM's normal bilaterally and EAC's normal Throat: Yes posterior oropharynx normal and Yes tonsils normal (no TP congestion) Neck Neck: Yes supple and No lymphadenopathy Thyroid: Thyroid normal Resp Auscultation: clear to auscultation bilaterally, no rales and no wheezes Cardio Rate: regular rate Rhythm: regular rhythm Heart sounds: no murmurs GI Palpation (GI): Soft to palpation, nontender and Hernia present (small) umbilical Auscultation: normal bowel sounds General: Yes no CVA tenderness Back/Spine/Pelvis Back: no CVA tenderness Thoracic/Lumbar Spine: lumbar spinal tenderness Skin Other: (+) multiple varicose veins over both lower extremities Rashes: no rashes Extrem General: Yes edema (1+ bipedal edema) Right lower extremity: knee Details: tenderness Left lower extremity: knee Details: tenderness Coding Level of Care Code Est Pt Level 4 (33912) Diagnoses Polyarthralgia M25.50 Multiple myeloma in remission C90.01 Multiple myeloma remission status: in remission 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; D89.2 Rheumatoid arthritis with positive rheumatoid factor, involving unspecified site M05.9 Rheumatoid arthritis location: unspecified site Rheumatoid factor presence: with rheumatoid factor Ventral hernia, recurrent K43.2 Lumbar spondylosis M47.816 Essential hypertension I10 Pure hypercholesterolemia E78.00 Varicose veins of both lower extremities with inflammation I83.11; I83.12 Vitamin D deficiency E55.9 Anxiety F41.9 Smoker F17.200 Obesity (BMI 30-39.9) E66.9 Additional Codes PHQ-9 - 97426 - PHQ-9 Billing: Yes ([id number]) Assessment & Plan Assessment & Plan (1) Polyarthralgia: Code(s): M25.50 - Pain in unspecified joint Category: Medical Plan: Patient continues to experience diffuse joint pains, especially in her lower extremities and states that the pain in both lower legs often get significantly worse towards the latter part of the day She was also reportedly diagnosed with possible RA and Graves but these have not been officially confirmed and she has just been treated with oral Prednisone when needed for flare ups Continue Oxycodone 10 mg Q 4 to 6 hours PRN - Rx refilled Per rheumatology recommendation, continue low dose Duloxetine 30 mg QD although patient feels that her chronic pains seem to have gotten worse lately and she is not sure if these are due to Duloxetine or not Follow up with rheumatology as scheduled (2) Multiple myeloma: Code(s): C90.00 - Multiple myeloma not having achieved remission Category: Medical Qualifiers: Multiple myeloma remission status: in remission Qualified Code(s): C90.01 - Multiple myeloma in remission Plan: She reportedly underwent chemotherapy with Daratumumab and was able to complete her Tx but developed bleeding complications subsequently Per last oncology report - patient completed 6 cycles of Daratumumab treatments. She had noted certain side effects including abdominal pain and diarrhea. She also had rather profuse rectal bleeding. Treatment was stopped after completing 6 cycles. Tx appears to have helped and the rashes on her chest and around the eyes have healed quite well but she still has increased joint pains Follow up with oncology as scheduled - states that her oncologist (Dr. Deleon) is sending her for some additional work ups at this time (3) Necrobiotic xanthogranuloma with paraproteinemia: Code(s): D76.3 - Other histiocytosis syndromes; D89.2 - Hypergammaglobulinemia, unspecified Category: Medical Plan: She previously exhibited a positive response and had dramatic improvement of her skin condition and some improvement of her bone/joint pains when treated with daratumumab from July to December 2022 Follow up with rheumatology as scheduled (4) Rheumatoid arthritis: Code(s): M06.9 - Rheumatoid arthritis, unspecified Category: Medical Qualifiers: Rheumatoid arthritis location: unspecified site Rheumatoid factor presence: with rheumatoid factor Qualified Code(s): M05.9 - Rheumatoid arthritis with rheumatoid factor, unspecified Plan: Patient appears to have failed MTx, Plaquenil and Humira in the past Has also received Tx with Rituximab and Daratumumab previously Follow up with rheumatology at [facility] as scheduled As mentioned above, she is running into some issues with scheduling as she is scheduled to have some imaging studies done as ordered by her specialist in [place] this Sunday but she is not sure if she will be able to get these done as her procedures are scheduled to be done in [place] about a half hour after her rheumatology appointment in [place] (5) Ventral hernia, recurrent: Code(s): K43.2 - Incisional hernia without obstruction or gangrene Category: Medical Plan: Follow up with surgery at [facility] as scheduled (6) Lumbar spondylosis: Code(s): M47.816 - Spondylosis without myelopathy or radiculopathy, lumbar region Category: Medical Plan: Reinforced activity and weight-lifting restrictions to minimize aggravating her low back pain States that her current pain medication helps with her low back pain as well (7) Essential hypertension: Code(s): I10 - Essential (primary) hypertension Category: Medical Plan: Reinforced low sodium diet - goal is systolic BP of 120 mm or less Continue Amlodipine 5 mg QD and HCTZ 25 mg QD She is reminded to continue monitoring her blood pressure regularly (8) Pure hypercholesterolemia: Code(s): E78.00 - Pure hypercholesterolemia, unspecified Category: Medical Plan: Reinforced low cholesterol diet Will have patient recheck her labs and fasting lipids again next month for follow-up (9) Varicose veins of both lower extremities with inflammation: Code(s): I83.11 - Varicose veins of right lower extremity with inflammation; I83.12 - Varicose veins of left lower extremity with inflammation Category: Medical Plan: S/P venous ablation and injections again on her right leg recently - she is currently experiencing a lot of pain in her right leg, which also has some bruising scattered over her leg at present Follow up with vascular surgery as scheduled (10) Vitamin D deficiency: Code(s): E55.9 - Vitamin D deficiency, unspecified Category: Medical Plan: Continue Vitamin D3 2000 units QD (11) Anxiety: Code(s): F41.9 - Anxiety disorder, unspecified Category: Medical Plan: Continue Lorazepam 1 mg TID PRN (12) Smoker: Code(s): F17.200 - Nicotine dependence, unspecified, uncomplicated Category: Social Hx Plan: Patient is counseled again on complete smoking cessation Per request, she was started on nicotine patches previously to help her quit smoking but states that she is still working on this (13) Obesity (BMI 30-39.9): Code(s): E66.9 - Obesity, unspecified Category: Medical Plan: Reinforced diet; exercise and weight loss are unrealistic given patient's multiple medical and physical issues Plan Follow up in 1 month Medications: Refilled oxycodone 10 mg PO Q4-6H PRN 140 tabs 0RF pain
[2025-03-11 11:03] VITALS: BP 116/76; PULSE 90; O2SAT 95; BMI 31.7
== END 2025-03-11 11:29 | disposition home or self-care (01) ==
LOC: HO.HMCH 10:59
PROVIDERS: PCP Internal Medicine; Visit Provider Internal Medicine
DX: M05.9 Rheumatoid arthritis with rheumatoid factor, unspecified (principal); C90.01 Multiple myeloma in remission; D76.3 Other histiocytosis syndromes; E66.9 Obesity, unspecified; Z68.31 Body mass index [BMI] 31.0-31.9, adult; M25.50 Pain in unspecified joint; D89.2 Hypergammaglobulinemia, unspecified; K43.2 Incisional hernia without obstruction or gangrene; M47.816 Spondylosis without myelopathy or radiculopathy, lumbar region; I10 Essential (primary) hypertension; E78.00 Pure hypercholesterolemia, unspecified; I83.11 Varicose veins of right lower extremity with inflammation; I83.12 Varicose veins of left lower extremity with inflammation; E55.9 Vitamin D deficiency, unspecified; F41.9 Anxiety disorder, unspecified; F17.200 Nicotine dependence, unspecified, uncomplicated

== ENCOUNTER → 2025-03-11 10:58 | Outpatient (BNVA) | payer OTHER, SELFPAY | PROVIDERS: PCP Internal Medicine; Visit Provider Internal Medicine | DX: Z76.89 Persons encountering health services in other specified circumstances (principal); M25.50 Pain in unspecified joint; C90.01 Multiple myeloma in remission; D76.3 Other histiocytosis syndromes; D89.2 Hypergammaglobulinemia, unspecified; K43.2 Incisional hernia without obstruction or gangrene; M47.816 Spondylosis without myelopathy or radiculopathy, lumbar region; I10 Essential (primary) hypertension; E78.00 Pure hypercholesterolemia, unspecified; I83.11 Varicose veins of right lower extremity with inflammation; I83.12 Varicose veins of left lower extremity with inflammation; E55.9 Vitamin D deficiency, unspecified; F41.9 Anxiety disorder, unspecified; F17.200 Nicotine dependence, unspecified, uncomplicated; E66.9 Obesity, unspecified; Z13.31 Encounter for screening for depression; Z13.39 Encounter for screening examination for other mental health and behavioral disorders; Z79.899 Other long term (current) drug therapy | CPT/HCPCS: 96127; 99212 ==